=== PATIENT | female | born 1935 | race Caucasian/White ===

== ENCOUNTER 2020-06-11 15:41 | Outpatient (CLI) | payer MEDICARE, OTHER, SELFPAY ==
[2020-06-11 16:26] LABS: Albumin Level 4.2 g/dL (3.5-5.1); Anion Gap 11.8 mmol/L (7-16); Blood Urea Nitrogen 29 mg/dL (7-17); Calcium 8.8 mg/dL (8.4-10.2); Carbon Dioxide 28 mmol/L (22-30); Chloride 102 mmol/L (98-107); Estimated Glomerular Filt Rate 43; Glucose 106 mg/dL (65-105); Phosphorus 3.7 mg/dL (2.5-4.5); Potassium 4.8 mmol/L (3.4-5.0); Sodium 137 mmol/L (137-145)
[2020-06-11 16:32] LABS: Creatinine Urine 30.6 mg/dL; Total Protein Urine Random 13 mg/dL
== END 2020-06-11 15:42 | disposition home or self-care (01) ==
LOC: ANHLAB 15:46
PROVIDERS: PCP Family Medicine; Visit Provider Internal Medicine Nephrology
DX: I12.9 Hypertensive chronic kidney disease with stage 1 through stage 4 chronic kidney disease, or unspecified chronic kidney disease (principal); N18.3 Chronic kidney disease, stage 3 (moderate); E78.2 Mixed hyperlipidemia; R80.8 Other proteinuria
CPT/HCPCS: 36415; 80069; 82570; 84156

== ENCOUNTER → 2020-09-18 12:05 | Outpatient (CLI) | payer MEDICARE, OTHER, SELFPAY ==
--- NOTE | ~2020-09-18 | XR_ITS ---
XR hip LT 2V w AP pelvis DATE: 09/18/2020 12:50 INDICATION: Left hip pain TECHNIQUE: AP pelvis. AP and lateral left hip. COMPARISON: None FINDINGS: Diffuse osteopenia. Dextroscoliosis and multilevel degenerative disc disease of the lumbar spine, particularly prominent at L4-5 and L5-S1. The pubic symphysis and sacroiliac joints are intact. No pelvic fracture or bone destruction is detec julien. There is chondrocalcinosis at the hip joints. There is osteoarthritis at the hip joints, greater/moderately prominent on the left. No fracture or dislocation, avascular necrosis or bone destruction of the left hip. IMPRESSION: Osteopenia Dextroscoliosis and multilevel degenerative disc disease of the lumbar spine Bilateral hip osteoarthritis, greater on the left Reviewed, dictated and finalized at location A. 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
== END ==
PROVIDERS: PCP Family Medicine; Visit Provider Nurse Practitioner Family
DX: M85.852 Other specified disorders of bone density and structure, left thigh (principal); M16.0 Bilateral primary osteoarthritis of hip
CPT/HCPCS: 73502

== ENCOUNTER 2020-10-17 10:19 | Outpatient (CLI) | payer MEDICARE, OTHER, SELFPAY ==
[2020-10-17 10:39] LABS: Hematocrit 37.2 % (37.0-47.0); Hemoglobin 11.8 g/dL (12.0-15.0); Mean Corpuscular HGB Conc 31.7 g/dl (32-36); Mean Corpuscular Hemoglobin 32.2 pg (26-34); Mean Corpuscular Volume 101.6 fl (80-100); Mean Platelet Volume 9.3 fl (7.4-10.4); Platelet Count Result 227 k/mm3 (150-375); Red Blood Count 3.66 M/mm3 (4.2-5.4); Red Cell Distribution Width 12.6 % (11.5-14.5)
[2020-10-17 10:56] LABS: Alanine Aminotransferase 24 U/L (4-35); Albumin Level 4.3 g/dL (3.5-5.1); Alkaline Phosphatase 50 U/L (38-126); Anion Gap 9 mmol/L (8-16); Aspartate Amino Transferase 46 U/L (14-36); Bilirubin,Total 0.5 mg/dL (0.2-1.3); Blood Urea Nitrogen 34 mg/dL (7-17); Calcium 9.6 mg/dL (8.4-10.2); Carbon Dioxide 27 mmol/L (22-30); Chloride 105 mmol/L (98-107); Cholesterol 164 mg/dL (0-200); Estimated Glomerular Filt Rate 43; Glucose 97 mg/dL (65-105); HDL Direct 61 mg/dL; Potassium 4.9 mmol/L (3.4-5.0); Sodium 141 mmol/L (137-145); Triglycerides 124 mg/dL (<150)
[2020-10-17 10:59] LABS: Iron 72 ug/dL (37-170)
[2020-10-17 11:06] LABS: LDL Cholesterol Direct 65 mg/dL
[2020-10-17 11:09] LABS: Percent Iron Saturation 22 % (20-50)
== END 2020-10-17 10:20 | disposition home or self-care (01) ==
PROVIDERS: PCP Family Medicine; Visit Provider Internal Medicine Cardiovascular Disease
DX: R06.00 Dyspnea, unspecified (principal); Z86.2 Personal history of diseases of the blood and blood-forming organs and certain disorders involving the immune mechanism; I42.0 Dilated cardiomyopathy; E78.2 Mixed hyperlipidemia; I65.29 Occlusion and stenosis of unspecified carotid artery
CPT/HCPCS: 36415; 80053; 80061; 83540; 83550; 85027

== ENCOUNTER → 2020-12-31 12:49 | Outpatient (CLI) | payer MEDICARE, OTHER, SELFPAY ==
--- NOTE | ~2020-12-31 | MM_ITS ---
EXAMINATION: MM screening [facility] BI w [facility] HISTORY: Screening mammogram TECHNIQUE: Craniocaudal and mediolateral oblique 3-D tomosynthesis images were obtained and synthetic 2-D images were generated. CAD analysis was submitted and interpreted. COMPARISON: 01/26/2019, 11/19/2017, 11/05/2016 BREAST PARENCHYMAL COMPOSITION: The breasts are heterogeneously dense, which may obscure small masses . FINDINGS: RIGHT BREAST: There is no evidence of suspicious mass, calcification, or architectural distortion to suggest malignancy. There has been no significant interval change. LEFT BREAST: An asymmetry is present in the middle third of the slightly inner breast best appreciate d 5 cm from the nipple on the craniocaudal view. IMPRESSION: 1. Left breast asymmetry on the craniocaudal view. 2. Additional mammographic views and possible breast ultrasound are recommended. BI-RADS Category 0: Incomplete: Needs additional imaging evaluation. Reviewed, dictated and finalized at location A. 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 Left breast asymmetry on the craniocaudal view. 2. Additional mammographic views and possible breast ultrasound are recommended . BI-RADS Category 0: Incomplete: Needs additional imaging evaluation.
== END ==
PROVIDERS: PCP Family Medicine; Visit Provider Obstetrics & Gynecology
DX: Z12.31 Encounter for screening mammogram for malignant neoplasm of breast (principal); R92.8 Other abnormal and inconclusive findings on diagnostic imaging of breast
CPT/HCPCS: 77063; 77067

== ENCOUNTER 2021-01-10 16:19 | Outpatient (CLI) | payer MEDICARE, OTHER, SELFPAY | END 2021-01-10 16:20 | disposition home or self-care (01) | LOC: ANHCOVIDVC 16:19 | PROVIDERS: PCP Family Medicine | DX: Z23 Encounter for immunization (principal) | CPT/HCPCS: 0001A; 91300 ==

== ENCOUNTER → 2021-01-28 09:02 | Outpatient (CLI) | payer MEDICARE, OTHER, SELFPAY ==
--- NOTE | ~2021-01-28 | MM_ITS ---
EXAMINATION: MM diagnostic mammo unilat LT HISTORY: Left breast asymmetry on screening mammogram TECHNIQUE: Additional 3-D tomosynthesis images of the left breast were performed and synthetic 2-D im ages were generated. CAD analysis was submitted and interpreted. COMPARISON: 12/31/2020,01/26/2019, 11/19/2017 FINDINGS: No persistent asymmetry is identified with spot compression of the left breast. There is no evidence of suspicious mass, calcification, or architectural distortion to suggest malignancy. IMPRESSION: 1. No mammographic evidence of malignancy. 2. Recommend annual screening mammography while the patient remains in good health. BI-RADS Category 1: Negative Reviewed, dictated and finalized at location A. IMPRESSION: 1. No mammographic evidence of malignancy. 2. Recommend annual screening mammography while the patient remains in good hea lth. BI-RADS Category 1: Negative
== END ==
PROVIDERS: PCP Family Medicine; Visit Provider Obstetrics & Gynecology
DX: R92.8 Other abnormal and inconclusive findings on diagnostic imaging of breast (principal)
CPT/HCPCS: 77065

== ENCOUNTER 2021-01-31 16:17 | Outpatient (CLI) | payer MEDICARE, OTHER, SELFPAY | END 2021-01-31 16:18 | disposition home or self-care (01) | LOC: ANHCOVIDVC 16:17 | PROVIDERS: PCP Family Medicine | DX: Z23 Encounter for immunization (principal) | CPT/HCPCS: 0002A; 91300 ==

== ENCOUNTER 2021-06-08 13:37 | Emergency (ER) | payer MEDICARE, OTHER, SELFPAY ==
[2021-06-08 13:42] VITALS: BP 144/73; PULSE 80; RESP 12; TEMP 36.9; O2SAT 97
--- NOTE | 2021-06-08 14:06 | ED.WOUNDLAC ---
HPI - Wound/Laceration General Chief Complaint: Wound/Laceration Stated Complaint: SORE ON L ANKLE Source: patient and RN notes reviewed Limitations: no limitations History of Present Illness HPI narrative: The elderly patient, on several routine meds, presents with wound check. Patient states she is currently taking clindamycin for the last day/3 doses for a left Achilles/ankle injury. She sustained a quarter?half dollar size skin avulsion earlier in the week and was seen by her doctor and started the medications, including topical Bactroban and first doxycycline [has been discontinued]. She complains of mild increasing pain; no fever, streaking, significant discharge-but the bandages are soiled. She reports she had an adult son that was wheelchair-bound that had a necessary amputation, and she is concerned she has poor circulation though she is a non-smoker, not nor had any leg procedures except vein stripping. Related Data Home Medications Medication Instructions Recorded Confirmed aspirin 81 mg tablet,delayed 81 mg PO DAILY 09/09/19 06/05/21 release lisinopril 10 mg tablet 10 mg PO DAILY 09/09/19 06/05/21 rosuvastatin 40 mg tablet 40 mg PO DAILY 09/09/19 06/05/21 Allergies Allergy/AdvReac Type Severity Reaction Status Date / Time pneumococcal vaccine Allergy Mild Unknown Verified 06/05/21 08:50 latex Allergy Unknown Rash Verified 06/05/21 08:50 neomycin Allergy Unknown Swelling Verified 06/05/21 08:50 of the Eye sulfamethoxazole Allergy Unknown RASH Verified 06/05/21 08:50 trimethoprim Allergy Unknown RASH Verified 06/05/21 08:50 quartiam 15 Allergy Mild Redness of Uncoded 01/04/21 07:58 Skin Review of Systems Review of Systems: General/Constitutional: No weight loss,fever Eyes: N0: Redness,discharge Ears/Nose/Throat: No: Epistaxis,ear discharge Respiratory: Denies: Hemoptysis Gastrointestinal: No Vomiting, Bleeding-rectal Skin: No Lumps, REPORT eruption Neurologic: No Focal Weakness,Sz Hematologic: Denies: Petechiae/Purpura Psychiatric: No: Suicida ideationl All Other Systems: Reviewed and Negative [facility] Past Medical History Medical History BMI between 19-24,adult Family History Family History Sibling Family history of malignant neoplasm of uterus Cerebrovascular accident Father Family history of coronary artery disease Mother Family history of coronary artery disease Other Family history of congenital heart disease Social History Social History Smoking status: Former smoker Tobacco type: cigarettes Smoking end date: 11/09/85 Alcohol intake: current Alcohol use details: social Substance use: never Additional occupation/education comments: [employer] Gender identity (if verbalized by the patient): Female Comments At time of signature, agree with nursing past medical, surgical, social and family history. There is no relevant family history pertinent to the presenting complaint Exam Narrative: General Appearance: Well appearing, Conjunctiva clear Mouth/Throat: Normal appearing, Normal lips, Supple Respiratory: Airway patent, No respiratory distress Skin: Posterior LLE Quarter sized skin avulsion with surrounding redness warm; otherwise dry, Normal color; no fluctuance, abscess, induration, streaking MS-LLE ankle: Nl strength (mostly intact, limited flexion/extension by pain), Tenderness (proximal Achilles, with mild decreased ROM), only scant swelling (ly), Other (no anterior drawer, no collateral laxity, no Achilles tenderness, no fifth MT tenderness) Neurological: A&O x3, Speech clear, CN II-XII intact Psychiatric: Normal mood, Normal affect Course Vital Signs Vital signs: Vital Signs Temperature 98.5 F 06/08/21 13:42 Pulse Rate 80 06/08/21 13:42 Respiratory Rate 12
== END 2021-06-08 14:17 | disposition home or self-care (01) ==
PROVIDERS: Emergency Provider Emergency Medicine; PCP Family Medicine
DX: M79.662 Pain in left lower leg (principal); Z87.2 Personal history of diseases of the skin and subcutaneous tissue; Z87.891 Personal history of nicotine dependence; Z79.82 Long term (current) use of aspirin
CPT/HCPCS: 87070; 87075; 87205; 99213; G0463

== ENCOUNTER 2021-06-19 11:19 | Outpatient (CLI) | payer MEDICARE, OTHER, SELFPAY ==
--- NOTE | ~2021-06-19 | US_ITS ---
EXAMINATION: US venous doppler [facility] DATE: 06/19/2021 12:11 INDICATION: Lower limb pain. Varicose veins. TECHNIQUE: Grayscale ultrasound images without and with compression and Doppler ultrasound images of the bilateral lower extremity veins were obtained. COMPARISON: Ultrasound 10/16/2017 FINDINGS: The visualized portions of right common femoral vein, profunda (deep) femoral vein, femoral vein, pop liteal vein, peroneal veins, posterior tibial veins, and greater saphenous vein outflow are patent. The visualized portions of left common femoral vein, profunda femoral vein, femoral vein, popliteal v ein, peroneal veins, and posterior tibial veins. There is thrombus in left greater saphenous vein. IMPRESSION: 1. No deep venous thrombosis. 2. Thrombosed left greater saphenous vein from prior ablation. Reviewed, dictated and finalized at location A.
--- NOTE | ~2021-06-19 | US_ITS ---
EXAMINATION: US arterial ankle brachial ind DATE: 06/19/2021 12:11 INDICATION: Peripheral arterial disease. Other specified soft tissue disorders. Left lower limb pain. TECHNIQUE: Segmental pressures and plethysmographic and Doppler waveforms of the brachial and lower e xtremity arteries were obtained. COMPARISON: Arterial Doppler with segmental pressures 01/11/2018 FINDINGS: Right and left brachial artery pressures of 154 mm Hg and 157 mm Hg, respectively, are concordant (no rmal difference <= 30 mmHg). The right ankle-brachial index (BEN) is 0.98 (normal >= 0.9-1.0). The right great toe-brachial index (TBI) is 0.33 (normal >= 0.65). Arterial Doppler waveforms are biphasic at the ankle. The left BEN is 0.99. The left TBI is 0.61. Arterial Doppler waveforms are biphasic at the ankle. IMPRESSION: 1. Decreased TBIs and borderline decreased ABIs with interval improvement, consistent with arterial o cclusive disease. Reviewed, dictated and finalized at location A. IMPRESSION: 1. Decreased TBIs and borderline decreased ABIs with interval improvement, cons istent with arterial occlusive disease.
== END 2021-06-19 11:20 | disposition home or self-care (01) ==
LOC: ANHIMG 11:20
PROVIDERS: PCP Family Medicine; Visit Provider Nurse Practitioner Family
DX: M79.89 Other specified soft tissue disorders (principal); Z98.890 Other specified postprocedural states
CPT/HCPCS: 93922; 93970

== ENCOUNTER 2021-07-08 10:16 | Inpatient (IN) | payer MEDICARE, OTHER, SELFPAY ==
[2021-07-08] VITALS (42 sets, daily range): BP systolic 99–125; BP diastolic 50–86; PULSE 72–103; RESP 14–24; TEMP 36.2–36.5; O2SAT 92–100; BMI 19.1
--- NOTE | ~2021-07-08 | CT_ITS ---
EXAMINATION: CT abdomen pelvis wo con DATE: 07/08/2021 12:09 INDICATION: Lower abdominal pain TECHNIQUE: Computed tomography (CT) of the abdomen and pelvis was performed without intravenous contr ast. The dose-length product (DLP) was 178.93 mGy-cm. Automated exposure control and iterative recons truction technique were employed. COMPARISON: None FINDINGS: There is emphysema of the visualized lung bases. Mild atelectasis is noted. The heart size is enlarged. The liver, spleen, pancreas, gallbladder, and adrenal glands are normal. The kidneys are unremarkable. There is calcified atherosclerosis of the aorta and many of the other arteries. No pat hologically enlarged abdominal or pelvic lymph nodes are identified. There is no free intraperitoneal gas or evidence of bowel obstruction. There is wall thickening of the descending and proximal sigmoi d colon with surrounding fat stranding. There is severe lumbar spondylosis. There is moderate osteoar thritis of the left hip. IMPRESSION: 1. Wall thickening of the descending and proximal sigmoid colon, consistent with colitis. Reviewed, dictated and finalized at location A. IMPRESSION: 1. Wall thickening of the descending and proximal sigmoid colon, consistent wit h colitis.
[2021-07-08 11:12] LABS: Basophils Percent Auto 0.3 % (0.2-1.2); Eosinophils Absolute Auto 0.1 K/mm3 (0-0.3); Eosinophils Percent Auto 0.5 % (0-4.4); Hematocrit 35.1 % (37.0-47.0); Hemoglobin 11.2 g/dL (12.0-15.0); Immature Granulocyte Absolute 0.03 K/mm3 (0.00-0.031); Immature Granulocyte Percent A 0.3 % (0-0.5); Lymphocytes Absolute Auto 1.03 K/mm3 (0.9-3.2); Lymphocytes Percent Auto 9.4 % (18.3-44.2); Mean Corpuscular HGB Conc 31.9 g/dl (32-36); Mean Corpuscular Hemoglobin 31.7 pg (26-34); Mean Corpuscular Volume 99.4 fl (80-100); Mean Platelet Volume 9.1 fl (7.4-10.4); Monocytes Absolute Auto 0.6 K/mm3 (0.1-0.6); Monocytes Percent Auto 5.7 % (2.6-8.5); Neutrophils Absolute Auto 9.1 K/mm3 (1.3-6.7); Neutrophils Percent Auto 83.8 % (45.5-73.1); Platelet Count Result 199 k/mm3 (150-375); Red Blood Count 3.53 M/mm3 (4.2-5.4); Red Cell Distribution Width 12.9 % (11.5-14.5); White Blood Count 10.9 K/mm3 (4.5-10.0)
[2021-07-08 11:28] LABS: Alanine Aminotransferase 23 U/L (4-35); Albumin Level 4.2 g/dL (3.5-5.1); Alkaline Phosphatase 49 U/L (38-126); Anion Gap 14 mmol/L (8-16); Aspartate Amino Transferase 42 U/L (14-36); Bilirubin,Total 0.6 mg/dL (0.2-1.3); Blood Urea Nitrogen 47 mg/dL (7-17); Calcium 9.1 mg/dL (8.4-10.2); Carbon Dioxide 19 mmol/L (22-30); Chloride 97 mmol/L (98-107); Estimated CRCL calculation 16 ml/min; Estimated Glomerular Filt Rate 25; Glucose 185 mg/dL (65-110); Potassium 4.5 mmol/L (3.4-5.0); Sodium 130 mmol/L (137-145)
[2021-07-08 11:30] LABS: Prothrombin Time 13.1 Seconds (11.1-14.7)
[2021-07-08 11:31] LABS: Partial Thromboplastin Time 29.5 SECONDS (22.3-36.8)
--- NOTE | 2021-07-08 11:53 | ED.GIBLEED ---
HPI - GI Bleed General Chief complaint: GI Bleed Stated complaint: GI BLEED Time Seen by Provider: 07/08/21 11:53 Source: patient Limitations: no limitations History of Present Illness HPI Narrative: Patient is 85 years old white female presented to the ED with abdominal pain and rectal bleeding started yesterday. Patient spent few hours yesterday in very hot environment, outdoors, subsequently started having nausea and frequent vomiting. Today patient had rectal bleed. Patient on baby aspirin once a day, patient denied any history of GI bleed in the past. Patient does not smoke or drink or uses drugs. Patient is fully vaccinated for COVID-19 Related Data Home Medications Medication Instructions Recorded Confirmed aspirin 81 mg tablet,delayed 81 mg PO DAILY 09/09/19 06/20/21 release lisinopril 10 mg tablet 10 mg PO DAILY 09/09/19 06/20/21 rosuvastatin 40 mg tablet 40 mg PO DAILY 09/09/19 06/20/21 Allergies Allergy/AdvReac Type Severity Reaction Status Date / Time pneumococcal vaccine Allergy Mild Unknown Verified 07/08/21 11:30 latex Allergy Unknown Rash Verified 07/08/21 11:30 neomycin Allergy Unknown Swelling Verified 07/08/21 11:30 of the Eye sulfamethoxazole Allergy Unknown RASH Verified 07/08/21 11:30 trimethoprim Allergy Unknown RASH Verified 07/08/21 11:30 quartiam 15 Allergy Mild Redness of Uncoded 07/08/21 11:30 Skin Review of Systems Review of Systems: CONSTITUTIONAL: Denies fever, chills, or sweats. EYES: Denies visual changes, redness, or discharge. ENT: Denies rhinorrhea, congestion, sore throat, or otalgia. CARDIOVASCULAR: Denies chest pain, palpitations, or edema. RESPIRATORY: Denies cough or dyspnea. GASTROINTESTINAL: Denies abdominal pain, nausea, vomiting, or diarrhea. GENITOURINARY: Denies dysuria or hematuria. SKIN: Denies rash or itching. MUSCULOSKELETAL: Denies back pain, joint pain, or myalgia. NEUROLOGIC: Denies headache, numbness, or weakness. PSYCHIATRIC: Denies anxiety or depression. [facility] Past Medical History Medical History BMI between 19-24,adult Leg ulcer, left Peripheral arterial disease Family History Family History Sibling Family history of malignant neoplasm of uterus Cerebrovascular accident Father Family history of coronary artery disease Mother Family history of coronary artery disease Other Family history of congenital heart disease Social History Social History Tobacco type: cigarettes Smoking end date: 11/09/85 Alcohol intake: current Alcohol use details: social Substance use: never Additional occupation/education comments: [employer] Gender identity (if verbalized by the patient): Female Exam Narrative: General appearance: Well-developed, well-nourished Skin: Normal color Head: Normocephalic, nontraumatic Eyes: Clear conjunctiva ENT: Oropharynx normal, ears normal, nose normal Neck: Supple, nontender Chest and respiratory: Airway patent, no respiratory distress, no accessory muscle use Heart: Regular rate/rhythm Abdomen: Soft, mild diffuse tenderness, no organomegaly, quiet bowel sounds, rectal exam showed trace of fresh red bright blood in the rectal pouch, no stool in the rectal pouch, guaiac positive Vascular: Normal peripheral pulses, normal capillary refill. 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
[2021-07-08] MEDS: SODIUM CHLORIDE 0.9% IV 1,000 ML 999 ML IV CONT (12:16)
[2021-07-08 12:48] LABS: Lactic Acid Reflex 2.6 mmol/L (0.7-2.1)
[2021-07-08] MEDS: levoFLOXacin 500 MG/D5W 100 ML 500 MG/100 ML BAG 100 MG IVPB (13:37)
[2021-07-08] MEDS: metroNIDAZOLE 500 MG/ISO 100ML 500 MG/100 ML BAG 100 MG IVPB ×2 (14:44→20:08)
[2021-07-08 15:21] LABS: Reflex Lactic Acid Yes or No Add Lactic
--- NOTE | 2021-07-08 15:53 | PM.IMHP ---
H&P: HPI History of Present Illness Date/Time: 07/08/21 15:53 this is a 85-year-old female patient who resides home alone. The patient had been out in the heat a couple hours yesterday and felt like she got overheated. She started vomiting and having diarrhea yesterday. The patient sat in the car and air conditioning and felt somewhat better. However during the night she experienced bloody stools all throughout the night. The patient stated that her stools look like read current jelly. She said she stopped having stool last night around 11:00 a.m. however when the patient would urinate she would have a bloody discharge from her rectum. Patient stated that it has been many years since she has had a colonoscopy and has not had anything abnormal in the past. The patient stated that she has never had a GI bleed in the past either. Patient has been fully vaccinated for COVID-19. Patient's H&H 11.2 and 35.1. GI has been consulted. Patient has no further complaints. No shortness of breath or dizziness. Her sodium was noted to be 130. Her creatinine was listed as 1.9 with a baseline of 1.2. Lactic was noted to be 2.6. She had CT of abdomen which is read as wall thickening of the descending and proximal sigmoid colon, consistent with colitis. Patient was started on Flagyl and Levaquin. The patient is being admitted to inpatient services on the date of service of 07/08/2021. Chief Complaint: GI bleed Review of Systems Review of Systems: All systems reviewed & are unremarkable except as noted in HPI and below Constitutional: Constitutional: Reports as per HPI and Reports no additional constitutional complaints Eyes: Eyes: Reports as per HPI and Reports no additional eye complaints ENT: Reports system reviewed and no additional complaints, except as documented and Reports Normal hearing present Cardiovascular: Cardiovascular: Reports no additional cardiovascular complaints Respiratory: Respiratory: Reports no additional respiratory complaints and Reports no additional respiratory complaints Gastrointestinal: Gastrointestinal: Reports as per HPI and Reports no additional gastrointestinal complaints Musculoskeletal: Musculoskeletal: Reports no additional musculoskeletal complaints Integumentary/Breasts: Skin/Breast: Reports system reviewed and no additional complaints, except as docu and Reports as per HPI Neurologic: Reports system reviewed and no additional complaints, except as documented, Reports as per HPI and Reports Normal hearing present Psychiatric: Psychiatric: Reports no additional psychiatric complaints and Reports as per HPI Endocrine: Endocrine: Reports no additional endocrine complaints Hematologic/Lymphatic: Hematologic/Lymphatic: Reports no additional hematologic/lymphatic complaints Allergic/Immunologic: Allergic/Immunologic: Reports no additional allergic/immunologic complaints [facility] Past Medical History Medical History (Updated 07/08/21 @ 16:08 by Leslee Schafer NP) BMI between 19-24,adult CHF (congestive heart failure), NYHA class I EF of 45% with grade 1 diastolic dysfunction. Echo noted to be on 12/28/2020 Hyperlipidemia Hypertension Leg ulcer, left Peripheral arterial disease Surgical History Surgical History (Updated 07/08/21 @ 16:01 by Leslee Schafer NP) H/O oophorectomy H/O vein stripping History of appendectomy S/P coil embolization of cerebral aneurysm X2 Family History Family History Sibling Family history of malignant neoplasm of uterus Cerebrovascular accident Father Family history of coronary artery disease Mother Family history of coronary artery disease Other Family history of congenital heart disease Social History Social History (Updated 07/08/21 @ 16:03 by Leslee Schafer NP) Social History: The patient is and lives home alone. The patient initially had 3 biological children. Two of her children pas
--- NOTE | 2021-07-08 16:23 | WPDGICN ---
Assessment and Plan Assessment and plan (1) GI bleed: Code(s): K92.2 - Gastrointestinal hemorrhage, unspecified Status: Acute Assessment and Plan: Patient with blood in her stools appear to be lower GI in source. CT scan suggest colitis as the possible etiology. Plan is for supportive care. Current hemoglobin 11.2 is essentially stable and will be monitored. Transfuse only if this continues to decline significantly. At some point a colonoscopy will be performed but initially will pursue stool cultures broad-spectrum antibiotics and IV fluid rehydration. (2) Colitis: Code(s): K52.9 - Noninfective gastroenteritis and colitis, unspecified Status: Acute Assessment and Plan: CT scan in the 8 ER suggest descending and sigmoid colitis. This most consistent with ischemic colitis given her age in the circumstances with the he yesterday. Alternatively this could be infectious etiology. Plan is to obtain stool cultures. Start patient on broad-spectrum antibiotic coverage supportive care for now. IV fluids to maintain her blood pressure. A colonoscopy will be performed before discharge. (3) Heat exhaustion: Qualifiers: Encounter type: initial encounter Qualified Code(s): T67.5XXA - Heat exhaustion, unspecified, initial encounter Code(s): T67.5XXA - Heat exhaustion, unspecified, initial encounter Status: Acute (4) JANINE (acute kidney injury): Code(s): N17.9 - Acute kidney failure, unspecified Status: Acute GI Consult Note Consult date/time: 07/08/21 16:23 HPI: Mae Murrieta is a 85 year old female I am asked to see because of bloody stools and abdominal pain. Patient previously treated for hypertension reports that yesterday went to an outdoor musical event. During the heat of the day she began to have nausea vomiting. She experience rather significant lower abdominal tenderness. Later in the day began to have bloody stools. The blood persisted in stool . Patient presented to the ER today because of continuing blood per rectum. She continues to have rather low abdominal discomfort. In the ER she was noted to have a creatinine 1.9 elevated lactic acid level. Hemoglobin at 11.2 is essentially stable at CT scan suggested colitis in the left descending colon. Patient has never had bleeding like this before. Her family history is noncontributory. Review of Systems Review of Systems: All systems reviewed & are unremarkable except as noted in HPI and below PMFSH Past Medical History Medical History (Updated 07/08/21 @ 16:08 by Leslee Schafer NP) BMI between 19-24,adult CHF (congestive heart failure), NYHA class I EF of 45% with grade 1 diastolic dysfunction. Echo noted to be on 12/28/2020 Hyperlipidemia Hypertension Leg ulcer, left Peripheral arterial disease Surgical History Surgical History (Updated 07/08/21 @ 16:01 by Leslee Schafer NP) H/O oophorectomy H/O vein stripping History of appendectomy S/P coil embolization of cerebral aneurysm X2 Family History Family History Sibling Family history of malignant neoplasm of uterus Cerebrovascular accident Father Family history of coronary artery disease Mother Family history of coronary artery disease Other Family history of congenital heart disease Social History Social History (Updated 07/08/21 @ 16:03 by Leslee Schafer NP) Social History: The patient is and lives home alone. The patient initially had 3 biological children. Two of her children in a motor vehicle accident. The patient previously smoked many years ago. The patient desires to be a full code. Her surviving daughter is the durable power city attorney for healthcare. the patient is retired from [employer]. Patient does not use any marijuana or alcohol. Tobacco type: cigarettes Smoking end date: 11/09/85 Alcohol intake: current
--- NOTE | 2021-07-08 16:47 | PC.NURSE ---
This patient, Mae Murrieta, was admitted to Medical Room 252-01. Patient/family oriented to hospital policies and general routines including ID bracelet, bed and alarms, visiting hours, pain management, procedures, bathroom and other care routines, personal items, smoking policy, room service/diet, and visiting hours. Information on how to activate the Rapid Response Team has been discussed. Patient/Family are encouraged to report perceived risks to care and to ask questions if they do not understand what they are told or what they should do.
[2021-07-08 17:04] LABS: Hematocrit 33.7 % (37.0-47.0); Hemoglobin 10.6 g/dL (12.0-15.0)
[2021-07-08 17:16] LABS: Lactic Acid 0.8 mmol/L (0.7-2.1)
[2021-07-08] MEDS: SODIUM CHLORIDE 0.9% IV 1,000 ML 125 ML IV CONT (17:37)
[2021-07-08] MEDS: ROSUVASTATIN 10 MG TABLET 40 MG PO (22:12)
[2021-07-08] MEDS: amLODIPine BESYLATE 2.5 MG TABLET PO (22:12)
[2021-07-08 22:13] LABS: Hematocrit 29.5 % (37.0-47.0); Hemoglobin 9.3 g/dL (12.0-15.0)
[2021-07-09] MEDS: metroNIDAZOLE 500 MG/ISO 100ML 500 MG/100 ML BAG 100 MG IVPB ×4 (01:36→20:34)
[2021-07-09] MEDS: SODIUM CHLORIDE 0.9% IV 1,000 ML 125 ML IV CONT (03:24)
[2021-07-09 04:36] VITALS: BP 126/56; PULSE 69; RESP 17; TEMP 36.5; O2SAT 96
[2021-07-09 05:49] LABS: Hematocrit 31.3 % (37.0-47.0)
[2021-07-09 06:21] LABS: Alanine Aminotransferase 15 U/L (4-35); Albumin Level 3.4 g/dL (3.5-5.1); Alkaline Phosphatase 42 U/L (38-126); Anion Gap 6 mmol/L (8-16); Aspartate Amino Transferase 31 U/L (14-36); Bilirubin,Total 0.6 mg/dL (0.2-1.3); Blood Urea Nitrogen 26 mg/dL (7-17); Calcium 8.1 mg/dL (8.4-10.2); Carbon Dioxide 21 mmol/L (22-30); Chloride 112 mmol/L (98-107); Estimated CRCL calculation 24 ml/min; Estimated Glomerular Filt Rate 43; Glucose 95 mg/dL (65-110); Lipase 88 U/L (23-300); Magnesium 1.8 mg/dL (1.6-2.3); Potassium 4.2 mmol/L (3.4-5.0); Sodium 139 mmol/L (137-145)
[2021-07-09] MEDS: METOPROLOL SUCCINATE EXT REL 50 MG TABCR PO (08:01)
[2021-07-09] MEDS: IPRATROPIUM NASAL SPRAY 0.06% 15 ML BOTTLE 2 SPRAY NASAL (08:01)
[2021-07-09 10:29] LABS: Hematocrit 32.6 % (37.0-47.0); Hemoglobin 10.3 g/dL (12.0-15.0)
--- NOTE | 2021-07-09 10:30 | PM.IMPN ---
Progress Note: A&P Assessment and Plan (1) GI bleed: Code(s): K92.2 - Gastrointestinal hemorrhage, unspecified Status: Acute Assessment and Plan: Patient is an 85-year-old woman with a history of hypertension, dyslipidemia, who presented to emergency room with abdominal pain, diarrhea, and rectal bleeding for last 24 hours. Patient states this weekend she was at the [facility] where she was dancing and eating some food she has not use to. She became sick and vomited in the restroom. Some body walked her to work are and on the way home she bought some Gatorade and ended up having abdominal cramping multiple bouts of diarrhea. Then she started noticing bright red blood in the stool for 24 hours inside to come to the emergency room for further evaluation. H&H on arrival was 11.2,35%, repeat this morning was 10, 31%. She denies any more bleeding currently at this time. GI specialist Dr. Lopez evaluated the patient and recommends continue with conservative management, monitoring blood counts and treating colitis. he is ordering stool cultures to be performed. he does recommend Colonoscopy at some point. Appreciate GIs input. Continue monitoring blood counts, transfuse as needed for hemoglobin less than 7. (2) Colitis: Code(s): K52.9 - Noninfective gastroenteritis and colitis, unspecified Status: Acute Assessment and Plan: CT emergency room suggested descending and sigmoid colitis which could be the cause of her GI bleeding, abdominal symptoms. She was started on IV antibiotics with Levaquin and metronidazole with improvement of her symptoms today. GI to collect stool cultures continue monitoring improvement of symptoms with IV antibiotics continue monitoring. (3) JANINE (acute kidney injury): Code(s): N17.9 - Acute kidney failure, unspecified Status: Acute Assessment and Plan: Patient had heat exhaustion yesterday. Creatinine on arrival was 1.9, with IV fluid overnight her creatinine improved to 1.2 which appears to be her baseline. Will stop IV fluids if she tolerates her lunch today. She appears well hydrated at this time. Continue monitoring renal function. Will restart SHANITA-inhibitor if blood pressure will tolerate. (4) Hypertension: Code(s): I10 - Essential (primary) hypertension Status: Chronic Assessment and Plan: Blood pressure this morning was 126/56. Lisinopril was on hold due to JANINE from dehydration. Creatinine now back to baseline. Will restart if blood pressure can tolerate now that she is back to her baseline renal function. (5) Hyperlipidemia: Code(s): E78.5 - Hyperlipidemia, unspecified Status: Chronic Assessment and Plan: Continue with home medications. (6) Heat exhaustion: Qualifiers: Encounter type: initial encounter Qualified Code(s): T67.5XXA - Heat exhaustion, unspecified, initial encounter Code(s): T67.5XXA - Heat exhaustion, unspecified, initial encounter Status: Acute Assessment and Plan: Patient will be given IV fluids With improvement. Time Spent With Patient Time with patient: 25 - 35 minutes Subjective Date/time seen: 07/09/21 10:30 Interval history: date of service 07/09/2021: the patient reports feeling better today. He denies any more episodes of diarrhea or bloody stools today. She is having some intermittent lower abdominal cramping and discomfort, but is much improved from arrival. She denies any Chest pain, shortness of breath, cough,fevers, chills, nausea, vomiting, leg swelling, calf pain, lightheadedness, dizziness or any other symptoms at this time. Review of Systems Review of System
[2021-07-09] MEDS: MENTHOL 10% / METHYL SALICYLATE 15% 57 GM TUBE 1 APPLIC TOPICAL (12:13)
[2021-07-09 14:00] VITALS: BP 126/52; PULSE 63; RESP 18; TEMP 36.3; O2SAT 100
--- NOTE | 2021-07-09 14:07 | WPDGIPROGNO ---
Progress Note: A&P Assessment and Plan (1) GI bleed: Code(s): K92.2 - Gastrointestinal hemorrhage, unspecified Status: Acute Assessment and Plan: Patient admitted with GI bleeding. Suspect she has ischemic colitis given CT scan findings. Plan is to continue empiric antibiotics. Should she have diarrhea then stool cultures may be beneficial. Colonoscopy will be planned tomorrow after preparation today. (2) Colitis: Code(s): K52.9 - Noninfective gastroenteritis and colitis, unspecified Status: Acute Assessment and Plan: Colitis evident in the sigmoid colon suggestive of ischemic colitis. Infectious colitis cannot definitively be excluded. Agree with empiric antibiotics for now. (3) Heat exhaustion: Qualifiers: Encounter type: initial encounter Qualified Code(s): T67.5XXA - Heat exhaustion, unspecified, initial encounter Code(s): T67.5XXA - Heat exhaustion, unspecified, initial encounter Status: Acute Subjective Date/time seen: 07/09/21 14:07 Patient still has mild left lower quadrant pain. Bleeding has subsided to some degree. Exam Narrative: Physical exam patient is alert comfortable at rest. HEENT exam reveals no icterus. Blood pressure under better control. Lungs are clear. Heart without murmur. Abdomen soft minimal tenderness. Objective Data Vital Signs Vital Signs: Vital Signs - 24 hr 07/08/21 14:15 07/08/21 14:16 07/08/21 14:30 Temperature Pulse Rate 83 85 83 Respiratory Rate 16 21 H 18 Blood Pressure 120/55 L Pulse Oximetry 97 93 93 07/08/21 14:31 07/08/21 14:45 07/08/21 14:46 Temperature Pulse Rate 84 87 87 Respiratory Rate 18 15 20 Blood Pressure 118/53 L 115/57 L 115/57 L Pulse Oximetry 93 96 96 07/08/21 15:00 07/08/21 15:01 07/08/21 15:15 Temperature Pulse Rate 91 92 91 Respiratory Rate 22 H 20 20 Blood Pressure 109/63 Pulse Oximetry 95 95 94 07/08/21 15:16 07/08/21 15:30 07/08/21 15:31 Temperature Pulse Rate 87 78 79 Respiratory Rate 18 18 16 Blood Pressure 105/68 114/56 L Pulse Oximetry 94 95 95 07/08/21 16:35 07/08/21 17:01 07/08/21 20:00 Temperature 97.6 F 97.6 F Pulse Rate 72 72 72 Respiratory Rate 16 16 Blood Pressure 118/50 L 118/50 L Pulse Oximetry 100 100 100 07/08/21 22:00 07/09/21 04:36 Temperature 97.7 F 97.7 F Pulse Rate 76 69 Respiratory Rate 14 17 Blood Pressure 111/52 L 126/56 L Pulse Oximetry 96 96 Intake/Output Intake/Output: Intake & Output 07/06/21 07/07/21 07/08/21 07/09/21 23:59 23:59 23:59 23:59 Intake Total 1300 2560 Output Total 250 Balance 1050 2560 Meds/Results Medications: Active Medications Generic Name Dose Route Start Last Admin Trade Name Freq PRN Reason Stop Dose Admin Amlodipine Besylate 2.5 mg 07/08/21 20:40 07/09/21 03:24 Amlodipine Besylate 2.5 Mg Tablet PO Not Given HS JORGE L Sodium Chloride 1,000 mls @ 60 mls/hr 07/08/21 13:35 07/09/21 07:49 Normal Saline Iv IV CONT 60 mls/hr .[id number] JORGE L Infusion Levofloxacin/Dextrose 500 mg in 100 mls @ 100 mls/hr 07/10/21 13:00 Levaquin 500 Mg/D5w 100 Ml IVPB Q48H JORGE L Metronidazole 500 mg in 100 mls @ 100 mls/hr 07/08/21 20:00 07/09/21 09:00 Flagyl 500 Mg/Iso Soln 100 Ml IVPB Infused Q6H JORGE L Infusion Ipratropium Earth 2 spray 07/09/21 09:00 07/09/21 12:17 Ipratropium Nasal [place] 0.06% 15 Ml Bottle NASAL Not Given TID JORGE L Menthol/Methyl Salicylate 1 applic 07/09/21 10:07 07/09/21 12:13 Menthol 10% / Methyl Salicylate 15% 57 Gm Tube TOPICAL 1 applic BID PRN Administration Muscle/Joint Pain Metoprolol Succinate 50 mg 07/09/21 09:00 07/09/21 08:01 Metoprolol Succinate Ext Rel 50 Mg Tabcr PO 50 mg DAILY JORGE L Administration Ondansetron HCl 4 mg 07/08/21 13:28 Ondansetron Inj 4 Mg/2 Ml Vial IV PUSH Q4H PRN Nausea Polyethylene Glycol/Electrolytes 4,000 ml 07/09/21 14:05 Peg
[2021-07-09] MEDS: PEG (High)/E-LYTE SOLN 4,000 ML BTL 4000 ML PO (16:18)
[2021-07-09] MEDS: SODIUM CHLORIDE 0.9% IV 1,000 ML 60 ML IV CONT (16:22)
[2021-07-09] MEDS: ONDANSETRON INJ 4 MG/2 ML VIAL IV PUSH (16:22)
[2021-07-09 17:22] LABS: Hematocrit 32.3 % (37.0-47.0); Hemoglobin 10.1 g/dL (12.0-15.0)
[2021-07-09 19:39] VITALS: BP 150/81; PULSE 78; RESP 16; TEMP 36.2; O2SAT 100
[2021-07-09 20:19] LABS: Immunochemical Fecal Occult Bl Positive (N)
[2021-07-09 20:20] LABS: IFOB Positive Control Positive
[2021-07-09] MEDS: amLODIPine BESYLATE 2.5 MG TABLET PO (20:35)
[2021-07-09] MEDS: ROSUVASTATIN 10 MG TABLET 40 MG PO (20:35)
[2021-07-10] VITALS (8 sets, daily range): BP systolic 118–175; BP diastolic 48–62; PULSE 56–78; RESP 17–20; TEMP 36.2–36.3; O2SAT 93–99
[2021-07-10 00:46] LABS: Hematocrit 30.8 % (37.0-47.0); Hemoglobin 9.6 g/dL (12.0-15.0)
[2021-07-10] MEDS: metroNIDAZOLE 500 MG/ISO 100ML 500 MG/100 ML BAG 100 MG IVPB ×3 (02:10→15:07)
[2021-07-10] MEDS: MORPHINE SULFATE (*CRX) 2 MG/ML INJ IV PUSH (05:41)
[2021-07-10 07:36] LABS: Anion Gap 9 mmol/L (8-16); Blood Urea Nitrogen 15 mg/dL (7-17); Calcium 8.4 mg/dL (8.4-10.2); Carbon Dioxide 21 mmol/L (22-30); Chloride 110 mmol/L (98-107); Estimated CRCL calculation 28 ml/min; Estimated Glomerular Filt Rate 53; Glucose 91 mg/dL (65-110); Magnesium 1.7 mg/dL (1.6-2.3); Sodium 140 mmol/L (137-145)
[2021-07-10] MEDS: MENTHOL 10% / METHYL SALICYLATE 15% 57 GM TUBE 1 APPLIC TOPICAL (08:54)
[2021-07-10] MEDS: METOPROLOL SUCCINATE EXT REL 50 MG TABCR PO (08:54)
[2021-07-10 09:06] LABS: Hematocrit 31.2 % (37.0-47.0); Hemoglobin 9.7 g/dL (12.0-15.0)
[2021-07-10] MEDS: LACTATED RINGERS 1,000 ML 150 ML IV CONT (11:17)
--- NOTE | 2021-07-10 11:37 | WPDANESEPPF ---
Anes - Initial Pre Proc Eval Procedure: Operation Date: 07/10/21 12:15 Proposed Procedures p Colonoscopy - Amilcar Lopez MD Date/Time: 07/10/21 11:37 Surgeon: Elyse Marino PA-C Pre Op Diagnosis: Colitis/ GI bleed/heat exhaustion/dehydration Patient Data Age: 85 Gender: F Height: 1.6 m Weight: 49 kg Last Vital Signs Temp 97.2 F L 07/10/21 11:19 Pulse 72 07/10/21 11:19 Resp 20 07/10/21 11:19 BP 175/62 H 07/10/21 11:19 Pulse Ox 98 07/10/21 11:19 Allergies Allergy/AdvReac Type Severity Reaction Status Date / Time pneumococcal vaccine Allergy Mild Unknown Verified 07/10/21 11:17 latex Allergy Unknown Rash Verified 07/10/21 11:17 neomycin Allergy Unknown Swelling Verified 07/10/21 11:17 of the Eye sulfamethoxazole Allergy Unknown RASH Verified 07/10/21 11:17 trimethoprim Allergy Unknown RASH Verified 07/10/21 11:17 quartiam 15 Allergy Mild Redness of Uncoded 07/10/21 11:17 Skin Home Medications Medication Instructions Recorded Confirmed Type aspirin 81 mg tablet,delayed 81 mg PO DAILY 09/09/19 07/08/21 History release lisinopril 10 mg tablet 10 mg PO DAILY 09/09/19 07/08/21 History rosuvastatin 40 mg tablet 40 mg PO HS 09/09/19 07/08/21 History metoprolol succinate 50 mg 50 mg PO DAILY #90 tablet 09/20/20 07/08/21 Rx tablet,extended release 24 hr ipratropium bromide 42 mcg (0.06 See Rx Instructions .ROUTE 01/25/21 07/08/21 Rx %) nasal spray .COMPLEX #15 spray amlodipine 2.5 mg PO HS 07/08/21 07/08/21 History Laboratory Tests 07/09/21 07/09/21 07/10/21 17:14 18:31 00:36 Hgb 10.1 g/dL L g/dL 9.6 g/dL L g/dL (12.0-15.0) (12.0-15.0) Hct 32.3 % L % 30.8 % L % (37.0-47.0) (37.0-47.0) Sodium Potassium Chloride Carbon Dioxide Anion Gap BUN Creatinine Estim Creat Clear Calc Estimated GFR Glucose Calcium Magnesium Stl Occult Blood (IFOB) Positive H (N) 07/10/21 07/10/21 07:02 07:02 Hgb 9.7 g/dL L g/dL (12.0-15.0) Hct 31.2 % L % (37.0-47.0) Sodium 140 mmol/L mmol/L (137-145) Potassium 4.0 mmol/L mmol/L (3.4-5.0) Chloride 110 mmol/L H mmol/L (98-107) Carbon Dioxide 21 mmol/L L mmol/L (22-30) Anion Gap 9 mmol/L mmol/L (8-16) BUN 15 mg/dL D mg/dL (7-17) Creatinine 1.00 mg/dL mg/dL (0.7-1.0) Estim Creat Clear Calc 28 ml/min ml/min Estimated GFR 53 L (59 - ) Glucose 91 mg/dL mg/dL (65-110) Calcium 8.4 mg/dL mg/dL (8.4-10.2) Magnesium 1.7 mg/dL mg/dL (1.6-2.3) Stl Occult Blood (IFOB) Patient hx anesthesia problems: none Family hx anesthesia problems: none [facility] Past Medical History Medical History (Updated 07/08/21 @ 16:08 by Leslee Schafer NP) BMI between 19-24,adult CHF (congestive heart failure), NYHA class I EF of 45% with grade 1 diastolic dysfunction. Echo noted to be on 12/28/2020 Hyperlipidemia Hypertension Leg ulcer, left Peripheral arterial disease Surgical History Surgical History (Updated 07/08/21 @ 16:01 by Leslee Schafer NP) H/O oophorectomy H/O vein stripping History of appendectomy S/P coil embolization of cerebral aneurysm X2 Family History Family History (Updated 07/08/21 @ 16:50 by Faby Bhakta RN) Sibling Family history of malignant neoplasm of uterus Cerebrovascular accident Father Family history of coronary artery disease Acute myocardial infarction Congestive heart failure Mother Family history of coronary artery disease Acute myocardial infarction Congestive heart failure Sibling Acute myocardial infarction Asthma Grandparent Colon cancer Other Family history of congenital heart disease Social History Social History (Updated 07/08/21 @ 16:03 by Leslee Schafer
[2021-07-10] MEDS: levoFLOXacin 500 MG/D5W 100 ML 500 MG/100 ML BAG 100 MG IVPB (13:30)
--- NOTE | 2021-07-10 16:25 | PM.DS ---
DS: Admitting Diagnosis Admitting Diagnosis Bright red blood per rectum DS: Discharge Diagnosis Discharge Diagnosis (1) GI bleed: Code(s): K92.2 - Gastrointestinal hemorrhage, unspecified Status: Acute Assessment and Plan: Patient is an 85-year-old woman with a history of hypertension, dyslipidemia, who presented to emergency room with abdominal pain, diarrhea, and rectal bleeding for last 24 hours. Patient states this weekend she was at the [facility] where she was dancing and eating some food she has not use to. She became sick and vomited in the restroom. Some body walked her to work are and on the way home she bought some Gatorade and ended up having abdominal cramping multiple bouts of diarrhea. Then she started noticing bright red blood in the stool for 24 hours inside to come to the emergency room for further evaluation. Initial vitals showed slightly low blood pressure 101/52, increased heart rate 103, afebrile, normal oxygenation on room air. Initial white blood cell count showed slight leukocytosis at 10,000, neutrophil elevation at 83,000,normocytic anemia 11/35%, normal coag panel, slight hyponatremia 130, Cr 1.90/47, elevated lactic at 2.6 could be from dehydration. CT abd/pelvis showed Wall thickening of the descending and proximal sigmoid colon, consistent with colitis. H&H on arrival was 11.2,35%, repeat this morning was 10, 31%. She denies any more bleeding currently at this time. she is feeling well without any complaints. GI specialist Dr. Lopez evaluated the patient and preformed a colonoscopy on 07/10/21 showing diverticulosis without perforation or abscess without bleeding. Internal hemorrhoids. Sigmoiditis. Sigmoid colitis most likely from ischemia. Infectious etiology cannot be excluded. Plan to review histology and advance diet. Complete 7 day course of antibiotics. Will continue on PO Levoquin and Flagyl for 7 more days. Probiotic as well. Will have her continue with Aspirin 81 mg for possible ischemic colitis. Told her to stay well hydrated and to prevent dehydration. Follow-up with primary care provider in 1 week. Follow-up with GI as needed. Return to ER warnings given. She understands and agrees with the plan all questions answered. (2) Colitis: Code(s): K52.9 - Noninfective gastroenteritis and colitis, unspecified Status: Acute Assessment and Plan: (3) JANINE (acute kidney injury): Code(s): N17.9 - Acute kidney failure, unspecified Status: Acute Assessment and Plan: Patient had heat exhaustion yesterday. Creatinine on arrival was 1.9, with IV fluid overnight her creatinine improved to 1.2 which appears to be her baseline. (4) Hypertension: Code(s): I10 - Essential (primary) hypertension Status: Chronic Assessment and Plan: Blood pressure this morning was 166/58. Continue home medications. (5) Hyperlipidemia: Code(s): E78.5 - Hyperlipidemia, unspecified Status: Chronic Assessment and Plan: Continue with home medications. (6) Heat exhaustion: Qualifiers: Encounter type: initial encounter Qualified Code(s): T67.5XXA - Heat exhaustion, unspecified, initial encounter Code(s): T67.5XXA - Heat exhaustion, unspecified, initial encounter Status: Acute Assessment and Plan: Patient will be given IV fluids With improvement. DS: Summary Hospital Course Hospital Course: See above Status at Discharge Cognitive/behavioral status at discharge: Stable, improved. Time Spent with Patient Time attestation: Total time spent providing and/or coordinating discharge se
[2021-07-10 17:28] LABS: Hematocrit 31.9 % (37.0-47.0); Hemoglobin 10.1 g/dL (12.0-15.0)
== END 2021-07-10 17:55 | disposition home or self-care (01) | DRG 394 ==
LOC: ANHED 13:45 → ANH2MED 07-09 07:27
PROVIDERS: Internal Medicine Gastroenterology; Nurse Practitioner; Admitting Provider Internal Medicine Nephrology; Emergency Provider Emergency Medicine; PCP Family Medicine; Visit Provider Physician Assistant
PROC: 0DJD8ZZ Inspection of Lower Intestinal Tract, Via Natural or Artificial Opening Endoscopic (ICD-10-PCS; CPT 45378; principal; 2021-07-10 12:15)
DX: K55.9 Vascular disorder of intestine, unspecified (principal); N17.9 Acute kidney failure, unspecified; L97.922 Non-pressure chronic ulcer of unspecified part of left lower leg with fat layer exposed; K57.30 Diverticulosis of large intestine without perforation or abscess without bleeding; K64.8 Other hemorrhoids; T67.5XXA Heat exhaustion, unspecified, initial encounter; I10 Essential (primary) hypertension; E78.5 Hyperlipidemia, unspecified; I73.9 Peripheral vascular disease, unspecified; Z87.891 Personal history of nicotine dependence; Z79.82 Long term (current) use of aspirin; Z79.899 Other long term (current) drug therapy
CPT/HCPCS: 36415; 74176; 80048; 80053; 82274; 83605; 83690; 83735; 84443; 85014; 85018; 85025; 85610; 85730; 86850; 86900; 86901; 88305; 96360; 99285; A9270; J1956; J2270; J2405; J2704; J7030; J7120

== ENCOUNTER 2021-07-16 16:39 | Outpatient (CLI) | payer MEDICARE, OTHER, SELFPAY ==
[2021-07-16 16:54] LABS: Hematocrit 32.5 % (37.0-47.0); Hemoglobin 10.3 g/dL (12.0-15.0); Mean Corpuscular HGB Conc 31.7 g/dl (32-36); Mean Corpuscular Hemoglobin 31.8 pg (26-34); Mean Corpuscular Volume 100.3 fl (80-100); Mean Platelet Volume 8.5 fl (7.4-10.4); Platelet Count Result 242 k/mm3 (150-375); Red Blood Count 3.24 M/mm3 (4.2-5.4); Red Cell Distribution Width 13.2 % (11.5-14.5); White Blood Count 5.9 K/mm3 (4.5-10.0)
== END 2021-07-16 16:40 | disposition home or self-care (01) ==
LOC: ANHLAB 16:41
PROVIDERS: PCP Family Medicine; Visit Provider Physician Assistant
DX: K92.2 Gastrointestinal hemorrhage, unspecified (principal)
CPT/HCPCS: 36415; 85027

== ENCOUNTER 2021-07-29 17:25 | Outpatient (CLI) | payer MEDICARE, OTHER, SELFPAY ==
[2021-07-29 18:01] LABS: Basophils Percent Auto 0.8 % (0.2-1.2); Eosinophils Absolute Auto 0.4 K/mm3 (0-0.3); Hematocrit 34.3 % (37.0-47.0); Hemoglobin 10.7 g/dL (12.0-15.0); Immature Granulocyte Absolute 0.01 K/mm3 (0.00-0.031); Immature Granulocyte Percent A 0.2 % (0-0.5); Lymphocytes Absolute Auto 1.82 K/mm3 (0.9-3.2); Lymphocytes Percent Auto 36.5 % (18.3-44.2); Mean Corpuscular HGB Conc 31.2 g/dl (32-36); Mean Corpuscular Hemoglobin 32.5 pg (26-34); Mean Corpuscular Volume 104.3 fl (80-100); Mean Platelet Volume 9.3 fl (7.4-10.4); Monocytes Absolute Auto 0.5 K/mm3 (0.1-0.6); Monocytes Percent Auto 10.8 % (2.6-8.5); Neutrophils Absolute Auto 2.2 K/mm3 (1.3-6.7); Neutrophils Percent Auto 44.7 % (45.5-73.1); Platelet Count Result 272 k/mm3 (150-375); Red Blood Count 3.29 M/mm3 (4.2-5.4); Red Cell Distribution Width 13.3 % (11.5-14.5)
[2021-07-29 18:11] LABS: Anion Gap 9 mmol/L (8-16); Blood Urea Nitrogen 39 mg/dL (7-17); Calcium 9.3 mg/dL (8.4-10.2); Carbon Dioxide 27 mmol/L (22-30); Chloride 105 mmol/L (98-107); Estimated Glomerular Filt Rate 27; Glucose 117 mg/dL (65-110); Potassium 5.4 mmol/L (3.4-5.0); Sodium 141 mmol/L (137-145)
== END 2021-07-29 17:26 | disposition home or self-care (01) ==
LOC: ANHLAB 17:27
PROVIDERS: PCP Family Medicine; Visit Provider Nurse Practitioner Family
DX: K92.2 Gastrointestinal hemorrhage, unspecified (principal); D64.9 Anemia, unspecified; R19.7 Diarrhea, unspecified; N17.9 Acute kidney failure, unspecified
CPT/HCPCS: 36415; 80048; 85025; 87045; 87177; 87209; 87324; 87427

== ENCOUNTER → 2022-04-22 13:16 | Outpatient (CLI) | payer MEDICARE, OTHER, SELFPAY ==
--- NOTE | ~2022-04-22 | MM_ITS ---
EXAMINATION: MM screening brielle BI w mckenzie HISTORY: Screening TECHNIQUE: Craniocaudal and mediolateral oblique 3-D tomosynthesis images were obtained and synthetic 2-D images were generated. CAD analysis was submitted and interpreted. COMPARISON: Comparison to multiple prior studies sequentially, with oldest reviewed study dated 10/09. BREAST PARENCHYMAL COMPOSITION: Breast composed of scattered areas of fibroglandular density FINDINGS: There is no evidence of suspicious mass, calcification, or architectural distortion to sugg est malignancy in either breast. There has been no suspicious interval change. IMPRESSION: 1. No mammographic evidence of malignancy. 2. Recommend routine screening mammography in one year. BI-RADS Category 1: Negative Reviewed, dictated and finalized at location [facility].
== END ==
PROVIDERS: PCP Family Medicine; Visit Provider Obstetrics & Gynecology
DX: Z12.31 Encounter for screening mammogram for malignant neoplasm of breast (principal)
CPT/HCPCS: 77063; 77067

== ENCOUNTER 2022-04-26 11:44 | Emergency (ER) | payer MEDICARE, OTHER, SELFPAY ==
--- NOTE | ~2022-04-26 | US_ITS ---
US venous doppler LE RT DATE: 04/26/2022 13:05 INDICATION: Right leg pain and bruising following a fall 2 weeks ago. TECHNIQUE: Real-time and color flow imaging and Doppler analysis of the veins of the right lower extr emity COMPARISON: None FINDINGS: Right greater saphenous vein is patent. There is spontaneous and phasic flow and normal aug mentation and color flow signal and normal compression of the deep veins of the right extremity. IMPRESSION: No evidence of deep venous thrombosis of right leg Reviewed, dictated and finalized at [facility]. Reviewed, dictated and finalized at location [facility].
[2022-04-26 11:47] VITALS: BP 149/68; PULSE 96; RESP 16; TEMP 36.3; O2SAT 99
--- NOTE | 2022-04-26 12:51 | PC.NURSE ---
Patient to ultrasound at this time.
[2022-04-26 12:53] LABS: Basophils Absolute Auto 0.1 K/mm3 (0.0-0.1); Basophils Percent Auto 0.9 % (0.2-1.2); Eosinophils Absolute Auto 0.3 K/mm3 (0-0.3); Eosinophils Percent Auto 3.8 % (0-4.4); Hematocrit 31.2 % (37.0-47.0); Immature Granulocyte Absolute 0.02 K/mm3 (0.00-0.031); Immature Granulocyte Percent A 0.3 % (0-0.5); Lymphocytes Absolute Auto 1.29 K/mm3 (0.9-3.2); Lymphocytes Percent Auto 19.5 % (18.3-44.2); Mean Corpuscular HGB Conc 32.1 g/dl (32-36); Mean Corpuscular Hemoglobin 32.2 pg (26-34); Mean Corpuscular Volume 100.3 fl (80-100); Mean Platelet Volume 9.1 fl (7.4-10.4); Monocytes Absolute Auto 0.8 K/mm3 (0.1-0.6); Monocytes Percent Auto 12.1 % (2.6-8.5); Neutrophils Absolute Auto 4.2 K/mm3 (1.3-6.7); Neutrophils Percent Auto 63.4 % (45.5-73.1); Platelet Count Result 227 k/mm3 (150-375); Red Blood Count 3.11 M/mm3 (4.2-5.4); Red Cell Distribution Width 13.5 % (11.5-14.5); White Blood Count 6.6 K/mm3 (4.5-10.0)
[2022-04-26 13:02] LABS: Anion Gap 8 mmol/L (8-16); Blood Urea Nitrogen 50 mg/dL (7-17); Calcium 8.7 mg/dL (8.4-10.2); Carbon Dioxide 23 mmol/L (22-30); Chloride 102 mmol/L (98-107); Estimated CRCL calculation 16 ml/min; Estimated Glomerular Filt Rate 27; Glucose 113 mg/dL (65-110); Potassium 5.2 mmol/L (3.4-5.0); Sodium 133 mmol/L (137-145)
[2022-04-26] MEDS: SODIUM CHLORIDE 0.9% IV 500 ML 999 ML IV CONT ×2 (13:49→14:31)
[2022-04-26] MEDS: KETOROLAC 15 MG/ML VIAL (*BKC) IV PUSH (13:49)
--- NOTE | 2022-04-26 15:22 | ED.GENADULT ---
HPI - General Adult General Chief complaint: Unspecified Stated complaint: DVT/INFECTION Time Seen by Provider: 04/26/22 12:07 History of Present Illness HPI narrative: Patient is an 86-year-old female who presents ER with multiple concerns. First concern is bruising posterior aspect of her right lower extremity. Present over the last week. Concerned she may be developing a blood clot. No swelling or edema. Patient is recently traveled to [place] return. No chest pain or chest pressure or difficulty breathing. Patient is also reporting bilateral shoulder pain that began today's in the trapezius region. Worse with palpation. Causes some tingling in the hands. Does not take any pain medication. Related Data Home Medications Medication Instructions Recorded Confirmed aspirin 81 mg tablet,delayed 81 mg PO DAILY 09/09/19 08/12/21 release (Adult Low Dose Aspirin) lisinopril 10 mg tablet 10 mg PO DAILY 09/09/19 08/12/21 rosuvastatin 40 mg tablet (Crestor) 40 mg PO HS 09/09/19 08/12/21 amlodipine 2.5 mg tablet 2.5 mg PO HS 07/08/21 08/12/21 Allergies Allergy/AdvReac Type Severity Reaction Status Date / Time pneumococcal vaccine Allergy Mild Unknown Verified 08/12/21 10:18 latex Allergy Unknown Rash Verified 08/12/21 10:18 neomycin Allergy Unknown Swelling Verified 08/12/21 10:18 of the Eye sulfamethoxazole Allergy Unknown RASH Verified 08/12/21 10:18 trimethoprim Allergy Unknown RASH Verified 08/12/21 10:18 quartiam 15 Allergy Mild Redness of Uncoded 08/12/21 10:18 Skin Review of Systems Review of Systems: All systems reviewed & are unremarkable except as noted in HPI and below Constitutional: Constitutional: Denies chills, Denies fatigue and Denies fever(s) ENT: Denies nasal congestion and Denies sore throat Cardiovascular: Cardiovascular: Denies chest pain, Denies rapid heart rate and Denies radiating jaw, neck or arm pain Respiratory: Respiratory: Denies cough, Denies hemoptysis, Denies pain on inspiration and Denies dyspnea Gastrointestinal: Gastrointestinal: Denies abdominal pain, Denies diarrhea, Denies nausea and Denies vomiting Genitourinary: Genitourinary: Denies nocturia and Denies dysuria Musculoskeletal: Musculoskeletal: Reports back pain, Denies arthralgias, Denies joint swelling, Denies muscle cramps and Reports tingling PMFSH Past Medical History Medical History BMI between 19-24,adult CHF (congestive heart failure), NYHA class I EF of 45% with grade 1 diastolic dysfunction. Echo noted to be on 12/28/2020 Hyperlipidemia Hypertension Leg ulcer, left Peripheral arterial disease Surgical History Surgical History H/O oophorectomy H/O vein stripping History of appendectomy S/P coil embolization of cerebral aneurysm X2 Family History Family History Sibling Family history of malignant neoplasm of uterus Cerebrovascular accident Father Family history of coronary artery disease Acute myocardial infarction Congestive heart failure Mother Family history of coronary artery disease Acute myocardial infarction Congestive heart failure Sibling Acute myocardial infarction Asthma Grandparent Colon cancer Other Family history of congenital heart disease Social History Social History Social History: The patient is and lives home alone. The patient initially had 3 biological children. Two of her children in a motor vehicle accident. The patient previously smoked many years ago. The patient desires to be a full code. Her surviving daughter is the durable power defense attorney for healthcare. the patient is retired from [employer]. Patient does not use any marijuana or alcohol. Smoking packs per day: 0.5 Smoking cigarettes per day: 10.
[2022-04-26 15:54] VITALS: BP 162/73; RESP 14; O2SAT 100
== END 2022-04-26 15:56 | disposition home or self-care (01) ==
PROVIDERS: Emergency Provider Emergency Medicine; PCP Family Medicine
DX: E86.0 Dehydration (principal); R25.2 Cramp and spasm; S80.11XA Contusion of right lower leg, initial encounter; M25.512 Pain in left shoulder; M25.511 Pain in right shoulder; R20.2 Paresthesia of skin; M79.604 Pain in right leg; I11.0 Hypertensive heart disease with heart failure; I50.9 Heart failure, unspecified; E78.5 Hyperlipidemia, unspecified; I73.9 Peripheral vascular disease, unspecified; Z87.891 Personal history of nicotine dependence; Z79.82 Long term (current) use of aspirin; W22.8XXA Striking against or struck by other objects, initial encounter
CPT/HCPCS: 36415; 80048; 85025; 93971; 96361; 96374; 99284; J1885; J7040

== ENCOUNTER 2022-05-05 09:40 | Emergency (ER) | payer MEDICARE, OTHER, SELFPAY ==
[2022-05-05] VITALS (25 sets, daily range): BP systolic 146–177; BP diastolic 57–86; PULSE 74; RESP 16; TEMP 37; O2SAT 96–100
--- NOTE | 2022-05-05 10:01 | PC.NURSE ---
Dr. Stephens at bedside to assess pt.
--- NOTE | 2022-05-05 12:34 | ED.GENADULT ---
HPI - General Adult General Chief complaint: Neck Pain/Injury Stated complaint: rt neck swollen Time Seen by Provider: 05/05/22 09:48 History of Present Illness HPI narrative: Patient is an 86-year-old female who presents ER with pain in her right neck. It is located over her sternocleidomastoid moving up to her mastoid. Reports she woke up this morning and felt like she slept on it wrong. Has pain with turning her head. No fevers or chills or sweats. No discharge in the ears. No jaw pain. She thought maybe there was some swelling and came to the ER for evaluation. Patient also reports she was diagnosed with cellulitis in [place] 1 month ago. She was treated with cephalexin and she also received some diclofenac for gout. Patient is unsure if this was related in 1 to be evaluated. Patient has no difficulty breathing or swallowing. Related Data Home Medications Medication Instructions Recorded Confirmed aspirin 81 mg tablet,delayed 81 mg PO DAILY 09/09/19 08/12/21 release (Adult Low Dose Aspirin) lisinopril 10 mg tablet 10 mg PO DAILY 09/09/19 08/12/21 rosuvastatin 40 mg tablet (Crestor) 40 mg PO HS 09/09/19 08/12/21 amlodipine 2.5 mg tablet 2.5 mg PO HS 07/08/21 08/12/21 Allergies Allergy/AdvReac Type Severity Reaction Status Date / Time pneumococcal vaccine Allergy Mild Unknown Verified 05/05/22 09:56 latex Allergy Unknown Rash Verified 05/05/22 09:56 neomycin Allergy Unknown Swelling Verified 05/05/22 09:56 of the Eye sulfamethoxazole Allergy Unknown RASH Verified 05/05/22 09:56 trimethoprim Allergy Unknown RASH Verified 05/05/22 09:56 quartiam 15 Allergy Mild Redness of Uncoded 05/05/22 09:56 Skin PMFSH Past Medical History Medical History BMI between 19-24,adult CHF (congestive heart failure), NYHA class I EF of 45% with grade 1 diastolic dysfunction. Echo noted to be on 12/28/2020 Hyperlipidemia Hypertension Leg ulcer, left Peripheral arterial disease Surgical History Surgical History H/O oophorectomy H/O vein stripping History of appendectomy S/P coil embolization of cerebral aneurysm X2 Family History Family History Sibling Family history of malignant neoplasm of uterus Cerebrovascular accident Father Family history of coronary artery disease Acute myocardial infarction Congestive heart failure Mother Family history of coronary artery disease Acute myocardial infarction Congestive heart failure Sibling Acute myocardial infarction Asthma Grandparent Colon cancer Other Family history of congenital heart disease Social History Social History Social History: The patient is and lives home alone. The patient initially had 3 biological children. Two of her children in a motor vehicle accident. The patient previously smoked many years ago. The patient desires to be a full code. Her surviving daughter is the durable power attorney at law for healthcare. the patient is retired from [employer]. Patient does not use any marijuana or alcohol. Smoking packs per day: 0.5 Smoking cigarettes per day: 10.0 Years smoked: 25 Smoking pack-years: 12.50 Tobacco type: cigarettes Smoking end date: 11/09/85 Alcohol intake: current Drinks per week: 1 Alcohol use details: social Substance use: never Substance use type: does not use Additional occupation/education comments: [employer] Gender identity (if verbalized by the patient): Female Spiritual care concerns: No Exam Narrative: GENERAL: Well-appearing, well-nourished, and in no acute distress. HEAD: Normocephalic, atraumatic. ENT: Mucous membranes moist. Neck: Supple, no reproducible tenderness over the sternocleidomastoid musculature. No swelling. No bruit on the
== END 2022-05-05 13:08 | disposition home or self-care (01) ==
PROVIDERS: Emergency Provider Emergency Medicine; PCP Family Medicine
DX: S16.1XXA Strain of muscle, fascia and tendon at neck level, initial encounter (principal); I50.9 Heart failure, unspecified; I11.0 Hypertensive heart disease with heart failure; E78.5 Hyperlipidemia, unspecified; I73.9 Peripheral vascular disease, unspecified; Z79.82 Long term (current) use of aspirin; Z87.891 Personal history of nicotine dependence; X58.XXXA Exposure to other specified factors, initial encounter
CPT/HCPCS: 99281

== ENCOUNTER 2023-02-23 17:26 | Emergency (ER) | payer MEDICARE, OTHER, SELFPAY ==
[2023-02-23 17:41] VITALS: BP 168/69; PULSE 84; RESP 16; TEMP 36.8; O2SAT 100
--- NOTE | 2023-02-23 17:47 | ED.WOUNDLAC ---
HPI - Wound/Laceration General Chief Complaint: Wound/Laceration Stated Complaint: chills, skin tear on lt leg Time Seen by Provider: 02/23/23 17:40 Source: patient and RN notes reviewed Mode of arrival: ambulatory Limitations: no limitations History of Present Illness HPI narrative: 87-year-old female presents with concern for wound on the back of her leg that she got 3 weeks ago, reports she has had chills today. She reports a history of thin skin and she often gets skin tears, she got a skin tear on the back of her left leg 3 weeks ago. She has been washing it with soap and water applying a nonstick bandage. She reports it is starting to heal but today she felt chilled. She denies cold symptoms, fever. She reports the back of the leg is aching. Denies drainage from the wound Related Data Home Medications Medication Instructions Recorded Confirmed aspirin 81 mg tablet,delayed 81 mg PO DAILY 09/09/19 02/23/23 release (Adult Low Dose Aspirin) lisinopril 10 mg tablet 10 mg PO DAILY 09/09/19 02/23/23 rosuvastatin 40 mg tablet (Crestor) 40 mg PO HS 09/09/19 02/23/23 amlodipine 2.5 mg tablet 5 mg PO HS 12/29/22 02/23/23 Allergies Allergy/AdvReac Type Severity Reaction Status Date / Time pneumococcal vaccine Allergy Mild Unknown Verified 02/23/23 17:34 latex Allergy Unknown Rash Verified 02/23/23 17:34 neomycin Allergy Unknown Swelling Verified 02/23/23 17:34 of the Eye sulfamethoxazole Allergy Unknown RASH Verified 02/23/23 17:34 trimethoprim Allergy Unknown RASH Verified 02/23/23 17:34 quartiam 15 Allergy Mild Redness of Uncoded 02/23/23 17:34 Skin Review of Systems Review of Systems: CONSTITUTIONAL: Denies malaise, sweats, or fever. Reports chills EYES: Denies redness, or discharge. ENT: Denies rhinorrhea, congestion, swollen lips, swollen tongue CARDIOVASCULAR: Denies chest pain, palpitations, or edema. RESPIRATORY: Denies cough or dyspnea. GASTROINTESTINAL: Denies abdominal pain, nausea, vomiting SKIN: Reports skin tear on the back of her left leg that is aching MUSCULOSKELETAL: Denies joint pain or myalgia. NEUROLOGIC: Denies headache. All systems reviewed & are unremarkable except as noted in HPI and below PMFSH Past Medical History Medical History (Updated 02/23/23 @ 17:50 by Liza Paez NP) Acute bronchitis JANINE (acute kidney injury) Antibiotic causing adverse effect BMI between 19-24,adult Cellulitis Cellulitis of left leg CHF (congestive heart failure), NYHA class I EF of 45% with grade 1 diastolic dysfunction. Echo noted to be on 12/28/2020 Colitis Diarrhea Fall GI bleed Heat exhaustion Hyperlipidemia Hypertension Left hip pain Leg ulcer, left Muscle spasm Peripheral arterial disease Swelling of lower extremity Surgical History Surgical History H/O oophorectomy H/O vein stripping History of appendectomy S/P coil embolization of cerebral aneurysm X2 Family History Family History Sibling Family history of malignant neoplasm of uterus Cerebrovascular accident Father Family history of coronary artery disease Acute myocardial infarction Congestive heart failure Mother Family history of coronary artery disease Acute myocardial infarction Congestive heart failure Sibling Acute myocardial infarction Asthma Grandparent Colon cancer Other Family history of congenital heart disease Social History Social History Social History: The patient is and lives home alone. The patient initially had 3 biological children. Two of her children in a motor vehicle accident. The patient previously smoked many years ago. The patient desires to be a full code. Her surviving daughter is the durable power personal injury attorney for healthcare. the patient is retired from [employer]. Patient does not use any alexander
== END 2023-02-23 17:56 | disposition home or self-care (01) ==
PROVIDERS: Emergency Provider Nurse Practitioner; PCP Internal Medicine
DX: L03.116 Cellulitis of left lower limb (principal); Z87.891 Personal history of nicotine dependence; E78.5 Hyperlipidemia, unspecified; I11.0 Hypertensive heart disease with heart failure; I50.9 Heart failure, unspecified; I73.9 Peripheral vascular disease, unspecified; Z79.82 Long term (current) use of aspirin
CPT/HCPCS: 99213; G0463

== ENCOUNTER 2023-03-30 08:53 | Outpatient (RCR) | payer MEDICARE, OTHER, SELFPAY ==
[2023-03-30 10:55] VITALS: BMI 21.0
== END 2023-05-27 08:35 | disposition home or self-care (01) ==
LOC: ANHWOC 08:53
PROVIDERS: PCP Internal Medicine; Visit Provider Internal Medicine
DX: S81.802D Unspecified open wound, left lower leg, subsequent encounter (principal)
CPT/HCPCS: 99213; G0463

== ENCOUNTER → 2023-06-24 12:01 | Outpatient (CLI) | payer MEDICARE, OTHER, SELFPAY ==
--- NOTE | ~2023-06-24 | XR_ITS ---
EXAMINATION: XR shoulder RT min 2V DATE: 06/24/2023 12:19 INDICATION: Right shoulder pain. TECHNIQUE: 3 views of right shoulder were obtained. COMPARISON: None. FINDINGS: Bone alignment is normal. No fracture. There is severe osteoarthritis of glenohumeral joint and acromioclavicular joint. There is mild calcific tendinitis of the rotator cuff. IMPRESSION: 1. Polyarticular osteoarthritis. 2. Mild calcific tendinitis of the rotator cuff. Reviewed, dictated and finalized at location A.
== END ==
PROVIDERS: PCP Nurse Practitioner; Visit Provider Nurse Practitioner
DX: M25.511 Pain in right shoulder (principal); M15.9 Polyosteoarthritis, unspecified; M75.101 Unspecified rotator cuff tear or rupture of right shoulder, not specified as traumatic
CPT/HCPCS: 73030

== ENCOUNTER → 2023-07-14 08:04 | Outpatient (CLI) | payer MEDICARE, OTHER, SELFPAY ==
--- NOTE | ~2023-07-14 | US_ITS ---
EXAMINATION: US soft tissue UE RT DATE: 07/14/2023 09:02 INDICATION: Radial sided right posterior forearm lump. TECHNIQUE: Multiple grayscale and Doppler ultrasound images of the region of concern at the right for earm were obtained. COMPARISON: None FINDINGS/IMPRESSION: Nonspecific 12 x 8 mm region of increased echogenicity within one of the muscles at the region of con cern. Differential would include neoplasm either benign or malignant or sequela of prior trauma eithe r with bone contusion or muscle strain. Correlate with clinical history and could consider further ev aluation with pre and postcontrast MRI as clinically indicated. Findings were discussed with Trinity Zapata in the office of Dr. Pan at 10:25 AM. Reviewed, dictated and finalized at location A.
== END ==
PROVIDERS: PCP Nurse Practitioner; Visit Provider Nurse Practitioner
DX: R22.31 Localized swelling, mass and lump, right upper limb (principal)
CPT/HCPCS: 76882

== ENCOUNTER 2023-08-07 18:12 | Inpatient (IN) | payer MEDICARE, OTHER, SELFPAY ==
[2023-08-07] VITALS (19 sets, daily range): BP systolic 129–181; BP diastolic 55–75; PULSE 70–88; RESP 14–34; O2SAT 93–100
--- NOTE | ~2023-08-07 | CT_ITS ---
EXAMINATION: CT abdomen pelvis wo con DATE: 08/07/2023 18:56 INDICATION: Right upper quadrant TECHNIQUE: Computed tomography (CT) of the abdomen and pelvis was performed without intravenous contr ast. The dose-length product (DLP) was 227.27 mGy-cm. Automated exposure control and iterative recons truction technique were employed. COMPARISON: 07/08/2021 FINDINGS: Minimal dependent atelectasis and emphysema are present in the lung bases. The heart size i s normal. There is questionable wall thickening of the gastric antrum and proximal duodenum. A duoden al diverticulum is noted. There is calcified coronary artery atherosclerosis. The liver, spleen, panc reas, gallbladder, and adrenal glands are normal. The kidneys are unremarkable. No pathologically enl arged abdominal or pelvic lymph nodes are identified. No free intraperitoneal gas or evidence of srinivasa l obstruction. A moderate volume of colonic stool is present. There is severe lumbar spondylosis. T here is a moderate volume of liquid stool in the colon. IMPRESSION: 1. Possible mild thickening of the gastric antrum and proximal duodenum which could reflect inflammat ion. 2. Moderate volume of liquid stool in the colon which could reflect diarrhea. Reviewed, dictated and finalized at location F. IMPRESSION: 1. Possible mild thickening of the gastric antrum and proximal duodenum which c ould reflect inflammation. 2. Moderate volume of liquid stool in the colon which could reflect diarrhea.
--- NOTE | ~2023-08-07 | XR_ITS ---
EXAMINATION: XR chest 1V INDICATION: Chest pain TECHNIQUE: AP view of the chest is obtained. COMPARISON: None available FINDINGS: The lungs are free of acute opacities. No pleural effusion or pneumothorax. The cardiomedia stinal silhouette is normal. There is osteoarthritis of the shoulders. IMPRESSION: 1. No acute osseous abnormality. Reviewed, dictated and finalized at location F.
--- NOTE | ~2023-08-07 | XR_ITS ---
Supine and upright views of the abdomen Clinical history: Abdominal distention COMPARISON: 12/01/2017 Findings: Bowel gas pattern is nonspecific. No evidence for obstruction or free air. With probable va scular calcifications of the left upper quadrant. There is degenerative change of the lumbar spine an d left hip. Impression: Nonspecific bowel gas pattern. Reviewed, dictated and finalized at [facility]. Impression: Nonspecific bowel gas pattern.
--- NOTE | 2023-08-07 18:26 | ECG_ITS ---
Measurements Intervals [place] Rate: 88 P: 44 IL: 144 QRS: -30 QRSD: 150 T: 113 QT: 407 QTc: 495 Interpretive Statements SINUS RHYTHM LEFT BUNDLE BRANCH BLOCK ABNORMAL ECG NO PREVIOUS ECG AVAILABLE FOR COMPARISON Electronically Signed On 08-07-2023 20:12:06 CDT by Shaun Payton D.O.
--- NOTE | 2023-08-07 18:27 | ED.CHESTPAIN ---
HPI - Chest Pain General Chief Complaint: Chest Pain Stated Complaint: STEMI History of Present Illness HPI narrative: Patient is an 87-year-old female presenting with abdominal pain and nausea and vomiting. Patient was initially a STEMI alert due to elevations in V1 and V2. Patient was working in her yard this afternoon when she became very nauseated and started having epigastric pain. EMS was called and were concerned for STEMI with the EKG findings and epigastric/chest pain. On arrival, patient is actively vomiting. States that she hurts all over. Further history limited secondary to acuity of condition. Related Data Home Medications Medication Instructions Recorded Confirmed aspirin 81 mg tablet,delayed 81 mg PO DAILY 09/09/19 08/08/23 release (Adult Low Dose Aspirin) rosuvastatin 40 mg tablet (Crestor) 40 mg PO HS 09/09/19 08/08/23 amlodipine 2.5 mg tablet 5 mg PO HS 03/11/23 08/08/23 bone restore elite 2 tablet PO BID 03/11/23 08/08/23 coenzyme Q10 100 mg capsule (Co 100 mg PO DAILY 03/11/23 08/08/23 Q-10) estradiol 0.01% (0.1 mg/gram) 4 g vaginal DAILY PRN IRRITATION 03/11/23 08/08/23 vaginal cream (Estrace) krill oil-hyaluronic 1 cap PO DAILY 03/11/23 08/08/23 acid-astaxanthin 353 mg capsule lisinopril 40 mg tablet 40 mg PO DAILY 03/11/23 08/08/23 metoprolol succinate 25 mg 25 mg PO DAILY 03/11/23 08/08/23 tablet,extended release 24 hr omega-3 fatty acids 1,000 mg 1,000 mg PO BID 03/11/23 08/08/23 capsule (Super Mikana-3) Allergies Allergy/AdvReac Type Severity Reaction Status Date / Time pneumococcal vaccine Allergy Mild Unknown Verified 08/10/23 12:00 latex Allergy Unknown Rash Verified 08/10/23 12:00 neomycin Allergy Unknown Swelling Verified 08/10/23 12:00 of the Eye sulfamethoxazole Allergy Unknown RASH Verified 08/10/23 12:00 trimethoprim Allergy Unknown RASH Verified 08/10/23 12:00 quartiam 15 Allergy Mild Redness of Uncoded 08/10/23 12:00 Skin Review of Systems Review of Systems: ROS unobtainable: Yes unobtainable due to medical condition [facility] Past Medical History Medical History (Updated 08/15/23 @ 12:35 by Chante De La O MD) Acute bronchitis JANINE (acute kidney injury) Antibiotic causing adverse effect BMI between 19-24,adult Cardiomyopathy Cellulitis Cellulitis of left leg CHF (congestive heart failure), NYHA class I EF of 45% with grade 1 diastolic dysfunction. Echo noted to be on 12/28/2020 Colitis Diarrhea Fall GI bleed Heat exhaustion Hyperlipidemia Hypertension LBBB (left bundle branch block) Left hip pain Leg ulcer, left Muscle spasm Orthopnea Peripheral arterial disease Swelling of lower extremity Surgical History Surgical History H/O oophorectomy H/O vein stripping History of appendectomy S/P coil embolization of cerebral aneurysm X2 Family History Family History Sibling Family history of malignant neoplasm of uterus Cerebrovascular accident Father Family history of coronary artery disease Acute myocardial infarction Congestive heart failure Mother Family history of coronary artery disease Acute myocardial infarction Congestive heart failure Sibling Acute myocardial infarction Asthma Grandparent Colon cancer Other Family history of congenital heart disease Social History Social History Social History: The patient is and lives home alone. The patient initially had 3 biological children. Two of her children in a motor vehicle accident. The patient previously smoked many years ago. The patient desires to be a full code. Her surviving daughter is the durable power contract attorney for healthcare. the patient is retired from [employer]. Patient does not use any marijuana or alcohol. Smoking packs per day: 0.5 Smoking cigarettes per day: 10.
[2023-08-07] MEDS: FAMOTIDINE 20 MG/2 ML VIAL IV PUSH (18:35)
[2023-08-07] MEDS: HYDROmorphone HCL INJ (*CRX) 1 MG/ML SYR 0.5 MG IV PUSH (18:35)
[2023-08-07] MEDS: ONDANSETRON INJ 4 MG/2 ML VIAL IV PUSH (18:36)
[2023-08-07] MEDS: SODIUM CHLORIDE 0.9% IV 1,000 ML 999 ML IV CONT ×2 (18:37→22:06)
[2023-08-07 18:39] LABS: Basophils Absolute Auto 0.1 K/mm3 (0.0-0.1); Basophils Percent Auto 0.6 % (0.2-1.2); Eosinophils Absolute Auto 0.3 K/mm3 (0-0.3); Eosinophils Percent Auto 2.3 % (0-4.4); Hematocrit 38.4 % (37.0-47.0); Hemoglobin 12.1 g/dL (12.0-15.0); Immature Granulocyte Absolute 0.06 K/mm3 (0.00-0.031); Immature Granulocyte Percent A 0.5 % (0-0.5); Lymphocytes Absolute Auto 3.08 K/mm3 (0.9-3.2); Lymphocytes Percent Auto 25.4 % (18.3-44.2); Mean Corpuscular HGB Conc 31.5 g/dl (32-36); Mean Corpuscular Hemoglobin 31.5 pg (26-34); Monocytes Absolute Auto 0.5 K/mm3 (0.1-0.6); Neutrophils Absolute Auto 8.1 K/mm3 (1.3-6.7); Neutrophils Percent Auto 67.2 % (45.5-73.1); Platelet Count Result 204 k/mm3 (150-375); Red Blood Count 3.84 M/mm3 (4.2-5.4); Red Cell Distribution Width 12.8 % (11.5-14.5); White Blood Count 12.1 K/mm3 (4.5-10.0)
[2023-08-07 18:50] LABS: Alanine Aminotransferase 27 U/L (6-35); Albumin Level 4.6 g/dL (3.5-5.1); Alkaline Phosphatase 157 U/L (38-126); Anion Gap 13 mmol/L (8-16); Aspartate Amino Transferase 52 U/L (14-36); Bilirubin,Total 0.7 mg/dL (0.2-1.3); Blood Urea Nitrogen 55 mg/dL (7-17); Calcium 9.4 mg/dL (8.4-10.2); Carbon Dioxide 16 mmol/L (22-30); Chloride 104 mmol/L (98-107); Estimated Glomerular Filt Rate 27; Glucose 195 mg/dL (65-110); Lipase 228 U/L (23-300); Potassium 4.2 mmol/L (3.4-5.0); Sodium 133 mmol/L (137-145)
[2023-08-07 18:51] LABS: INR 1.1; Partial Thromboplastin Time 24.9 SECONDS (22.3-36.8); Prothrombin Time 14.2 Seconds (11.1-14.7)
[2023-08-07 19:02] LABS: Troponin I 0.016 ng/mL (0.000-0.034)
[2023-08-07] MEDS: METOCLOPRAMIDE HCL INJ 10 MG/2 ML VIAL IV PUSH (20:51)
[2023-08-07] MEDS: LOPERAMIDE HCL 2 MG CAPSULE 4 MG PO (20:51)
[2023-08-07] MEDS: PANTOPRAZOLE SODIUM IV 40 MG VIAL IV PUSH (22:05)
[2023-08-07] MEDS: PIPERACILLN/TAZ 3.375GM/NS50ML 3.375 GM/50 ML BAG IVPB (22:50)
--- NOTE | 2023-08-07 22:57 | PM.IMHP ---
H&P: HPI History of Present Illness Date/Time: 08/07/23 22:57 Chief Complaint: Patient brought to the ER for evaluation with complaints of abdominal pain, nausea and vomiting and bloody stools Narrative: She is a very pleasant 87 years old white female who appears much younger than her stated age. She was working in her yard this afternoon when she became very nauseated and started having epigastric pain. EMS was called, and they got concerned for STEMI because of the EKG finding and epigastric pain. On review, patient has left bundle-branch block with the nonspecific ST T wave changes. ER/intervention roustabout crew leader ruled out the STEMI. Her symptoms are mostly GI in nature and initial troponin was negative. Her EKG was comparable to her baseline as well. Workup was done in the ED which showed findings on CT scan consistent with gastritis / colitis. In the ER patient, she had a bowel movement which was bloody as well. She also appeared to be dry and dehydrated hence the IV fluids were given. She is feeling a little better. She is being admitted for medical management, close monitoring, GI evaluation and workup. Review of Systems Review of Systems: she denies any palpitations, fever rigor chills, blurred vision, lightheadedness or fall All systems reviewed & are unremarkable except as noted in HPI and below PMFSH Past Medical History Medical History (Updated 08/07/23 @ 23:13 by Juan Francisco Urena MD) Acute bronchitis JANINE (acute kidney injury) Antibiotic causing adverse effect BMI between 19-24,adult Cellulitis Cellulitis of left leg CHF (congestive heart failure), NYHA class I EF of 45% with grade 1 diastolic dysfunction. Echo noted to be on 12/28/2020 Colitis Diarrhea Fall GI bleed Heat exhaustion Hyperlipidemia Hypertension Left hip pain Leg ulcer, left Muscle spasm Peripheral arterial disease Swelling of lower extremity Surgical History Surgical History H/O oophorectomy H/O vein stripping History of appendectomy S/P coil embolization of cerebral aneurysm X2 Family History Family History Sibling Family history of malignant neoplasm of uterus Cerebrovascular accident Father Family history of coronary artery disease Acute myocardial infarction Congestive heart failure Mother Family history of coronary artery disease Acute myocardial infarction Congestive heart failure Sibling Acute myocardial infarction Asthma Grandparent Colon cancer Other Family history of congenital heart disease Social History Social History Social History: The patient is and lives home alone. The patient initially had 3 biological children. Two of her children in a motor vehicle accident. The patient previously smoked many years ago. The patient desires to be a full code. Her surviving daughter is the durable power securities attorney for healthcare. the patient is retired from [employer]. Patient does not use any marijuana or alcohol. Smoking packs per day: 0.5 Smoking cigarettes per day: 10.0 Years smoked: 25 Smoking pack-years: 12.50 Smoking status: Former smoker Tobacco type: cigarettes Smoking end date: 11/09/85 Alcohol intake: current Drinks per week: 1 Alcohol use details: social Substance use: never Substance use type: does not use Lack of Transportation: No Lack of Food: Never True Current Housing: I Have Housing Concerned About Future Housing: No Difficulty Paying Gas/Electric Bills: No Difficulty Paying for Meds: No Currently Unemployed: No Education: High School Diploma/GED Difficulty w/ Childcare or Family Care: No Living arrangements: alone Occupation/Education: retired Additional occupation/education comments: [employer] Gender identity (if verbalized by the patient): Female Spiritual ca
[2023-08-08] VITALS (10 sets, daily range): BP systolic 140–168; BP diastolic 50–66; PULSE 75–99; RESP 16–20; TEMP 36.6–37.2; O2SAT 94–99; BMI 21.9
--- NOTE | 2023-08-08 00:23 | ADMGEN ---
This patient, Mae Murrieta, was admitted to Medical Room 349-01. Patient/family oriented to hospital policies and general routines including ID bracelet, bed and alarms, visiting hours, pain management, procedures, bathroom and other care routines, personal items, smoking policy, room service/diet, and visiting hours. Information on how to activate the Rapid Response Team has been discussed. Patient/Family are encouraged to report perceived risks to care and to ask questions if they do not understand what they are told or what they should do.
[2023-08-08] MEDS: SODIUM CHLORIDE 0.9% IV 1,000 ML 75 ML IV CONT (00:45)
[2023-08-08 01:05] LABS: Hematocrit 39.1 % (37.0-47.0); Hemoglobin 12.2 g/dL (12.0-15.0)
[2023-08-08 01:13] LABS: Troponin I 0.021 ng/mL (0.000-0.034)
[2023-08-08 06:01] LABS: Basophils Percent Auto 0.2 % (0.2-1.2); Hematocrit 39.3 % (37.0-47.0); Hemoglobin 12.3 g/dL (12.0-15.0); Immature Granulocyte Absolute 0.02 K/mm3 (0.00-0.031); Immature Granulocyte Percent A 0.2 % (0-0.5); Lymphocytes Absolute Auto 0.42 K/mm3 (0.9-3.2); Lymphocytes Percent Auto 4.2 % (18.3-44.2); Mean Corpuscular HGB Conc 31.3 g/dl (32-36); Mean Corpuscular Hemoglobin 31.4 pg (26-34); Mean Corpuscular Volume 100.3 fl (80-100); Mean Platelet Volume 9.7 fl (7.4-10.4); Monocytes Absolute Auto 0.4 K/mm3 (0.1-0.6); Monocytes Percent Auto 3.7 % (2.6-8.5); Neutrophils Absolute Auto 9.2 K/mm3 (1.3-6.7); Neutrophils Percent Auto 91.7 % (45.5-73.1); Platelet Count Result 170 k/mm3 (150-375); Red Blood Count 3.92 M/mm3 (4.2-5.4); Red Cell Distribution Width 12.6 % (11.5-14.5)
[2023-08-08 06:10] LABS: Anion Gap 10 mmol/L (8-16); Blood Urea Nitrogen 54 mg/dL (7-17); Calcium 8.4 mg/dL (8.4-10.2); Carbon Dioxide 18 mmol/L (22-30); Chloride 108 mmol/L (98-107); Estimated CRCL calculation 15 ml/min; Estimated Glomerular Filt Rate 25; Glucose 174 mg/dL (65-110); Magnesium 1.7 mg/dL (1.6-2.3); Phosphorus 4.3 mg/dL (2.5-4.5); Potassium 5.6 mmol/L (3.4-5.0); Sodium 136 mmol/L (137-145)
[2023-08-08 06:21] LABS: Troponin I 0.025 ng/mL (0.000-0.034)
[2023-08-08] MEDS: PIPERACILLIN/TAZ 2.25G/NS 50ML 2.25 GM/50 ML BAG IVPB ×3 (06:30→22:21)
[2023-08-08] MEDS: OMEGA 3 POLYUNSAT FATTY ACIDS 1 GM CAP PO ×2 (08:56→16:52)
[2023-08-08] MEDS: METOPROLOL SUCCINATE EXT REL 25 MG TABCR PO (08:56)
[2023-08-08] MEDS: lisinopriL 20 MG TABLET 40 MG PO (08:56)
[2023-08-08] MEDS: IPRATROPIUM NASAL SPRAY 0.06% 15 ML BOTTLE 2 SPRAY NASAL ×3 (08:57→16:52)
--- NOTE | 2023-08-08 09:01 | WPDGICN ---
Assessment and Plan Assessment and plan (1) GI bleed: Code(s): K92.2 - Gastrointestinal hemorrhage, unspecified Status: Acute Assessment and Plan: she says that she was passing bright red blood per rectum. Although initially she had epigastric pain, today she states that it is more in lower abdomen. She has had a previous admission at which time she had lower GI bleeding and was found have a segment of colitis in the sigmoid colon biopsies which were suggestive of ischemic colitis. She did not have abdominal pain or cramping before she saw blood this time. (2) Nausea & vomiting: Code(s): R11.2 - Nausea with vomiting, unspecified Status: Acute Assessment and Plan: Today she is thirsty and a bit hungry. Her emesis yesterday she is fairly sure did not contain blood or coffee-ground material. (3) Abnormal CT scan, gastrointestinal tract: Code(s): R93.3 - Abnormal findings on diagnostic imaging of other parts of digestive tract Status: Acute Assessment and Plan: CT scan suggests possible inflammation in the antrum or duodenum. She does take aspirin tablet once daily. She has a history of having had TIAs. (4) Stage 3a chronic kidney disease: Code(s): N18.31 - Chronic kidney disease, stage 3a Status: Acute Assessment and Plan: Creatinine is 1.9 which is about what it has been for the last 2 years. (5) Abnormal liver enzymes: Code(s): R74.8 - Abnormal levels of other serum enzymes Status: Acute Assessment and Plan: alkaline phosphatase is 157, up from 56 earlier in the year. Other LFTs are normal or unchanged. This could be of skeletal origin. No abnormalities of the liver on CT scan. Plan I will give her liquid diet today. I told her that we will probably perform EGD on Thursday. We know that she has diverticular disease. I do not think that she will need another colonoscopy. We will follow her blood counts serially. GI Consult Note Consult date/time: 08/08/23 09:01 HPI: Mae Murrieta is a 87 year old female Who was admitted last evening when she had presented to the emergency room because of becoming ill in week when she was out in the [employer] [place] [employer]. She got nauseated. She vomited once or twice and she had pain in the epigastric area. She was brought to the emergency room where she was ruled out for STEMI. She states that she also suffers from constipation and yesterday began passing some blood in her stool. She states that this morning she has pain mostly in the mid and lower abdomen little more on the left. I noted that she has had in the past evaluation for lower GI bleeding was found have a small segment of ischemic colitis. Her hemoglobin is stable, 12.1. Review of Systems Review of Systems: All systems reviewed & are unremarkable except as noted in HPI and below PMFSH Past Medical History Medical History Acute bronchitis JANINE (acute kidney injury) Antibiotic causing adverse effect BMI between 19-24,adult Cellulitis Cellulitis of left leg CHF (congestive heart failure), NYHA class I EF of 45% with grade 1 diastolic dysfunction. Echo noted to be on 12/28/2020 Colitis Diarrhea Fall GI bleed Heat exhaustion Hyperlipidemia Hypertension Left hip pain Leg ulcer, left Muscle spasm Peripheral arterial disease Swelling of lower extremity Surgical History Surgical History H/O oophorectomy H/O vein stripping History of appendectomy S/P coil embolization of cerebral aneurysm X2 Family History Family History Sibling Family history of malignant neoplasm of uterus Cerebrovascular accident Father Family history of coronary artery disease Acute myocardial infarction Congestive heart failure Mother Family history of
--- NOTE | 2023-08-08 09:39 | PM.IMPN ---
Progress Note: A&P Assessment and Plan (1) Stage 3a chronic kidney disease: Code(s): N18.31 - Chronic kidney disease, stage 3a Status: Acute (2) Benign hypertension with chronic kidney disease: Code(s): I12.9 - Hypertensive chronic kidney disease with stage 1 through stage 4 chronic kidney disease, or unspecified chronic kidney disease Status: Acute (3) Vitamin D deficiency: Code(s): E55.9 - Vitamin D deficiency, unspecified Status: Acute (4) Secondary renal hyperparathyroidism: Code(s): N25.81 - Secondary hyperparathyroidism of renal origin Status: Acute (5) Anemia: Qualifiers: Anemia type: unspecified type Qualified Code(s): D64.9 - Anemia, unspecified Code(s): D64.9 - Anemia, unspecified Status: Acute (6) Hyperlipidemia: Qualifiers: Hyperlipidemia type: unspecified Qualified Code(s): E78.5 - Hyperlipidemia, unspecified Code(s): E78.5 - Hyperlipidemia, unspecified Status: Chronic (7) Hypertension: Qualifiers: Hypertension type: primary hypertension Qualified Code(s): I10 - Essential (primary) hypertension Code(s): I10 - Essential (primary) hypertension Status: Chronic (8) Peripheral arterial disease: Code(s): I73.9 - Peripheral vascular disease, unspecified Status: Acute (9) Acute kidney injury superimposed on CKD: Code(s): N17.9 - Acute kidney failure, unspecified; N18.9 - Chronic kidney disease, unspecified Status: Acute (10) Nausea & vomiting: Code(s): R11.2 - Nausea with vomiting, unspecified Status: Acute (11) Dehydration: Code(s): E86.0 - Dehydration Status: Acute Plan Acute infective gastroenteritis Admit patient to medical unit under full inpatient status Keep patient nothing by mouth except meds IV Protonix ordered Monitor H&H in a.m. and more frequently as needed Patient likely has colitis / gastroenteritis based On CT Scan findings and leukocytosis Started patient on IV Zosyn in the ER which we will continue on the floor Hold off on Aspirin/NSAIDs/anticoagulation Night provider consulted GI for evaluation and further treatment recommendations and possible endoscopy/colonoscopy in am Patient has chronic left bundle branch block with nonspecific ST T-wave changes which are comparable to her baseline Her 1st set of cardiac enzymes was negative as well hence likely source of for epigastric pain is GI in nature Serial troponin negative. Patient denies chest pain JANINE on CKD Elevated BUN creatinine above baseline Patient has JANINE secondary to dehydration hence given 2 L of IV fluids in the ER Started patient on gentle IV hydration with normal saline at 75 cc/hour on the floor no improvement of dehydration and increase normal saline to 100 mL/hour Strict I&Os Continue with home meds. Monitor patient closely while admitted. Patient needs close follow up with PCP/specialists as an outpatient to address chronic medical issues. Subjective Date/time seen: 08/08/23 09:39 Interval history: I saw and examined patient today. Patient still has abdominal pain, nausea, diarrhea. The patient has no vomiting today. Patient is afebrile, white blood cell normal. Exam Narrative: PHYSICAL EXAMINATION: General physical exam: Pleasant lady, no obvious distress, Head/eyes: Atraumatic, EOMI, PERRLA, ENT: +dry mucous membranes, nasal passages clear Neck: Supple, full range of motion, trachea midline CVS: S1 + S2, regular rate and rhythm, no murmurs Respiratory: Bilaterally fair air entry in both lung castro, mild B/L crackles, symmetric chest expansion, no distress Abdomen: Soft, patient has a diffused abdominal tenderness on palpation, bowel sounds +ve, no organomegaly Extremities: No clubbing, no cyanosis, no edema, no calf tenderness Musculoskeletal: Moves all, adequate range of motion, no muscle spasms Skin: Warm,
[2023-08-08] MEDS: SODIUM CHLORIDE 0.9% IV 1,000 ML 100 ML IV CONT (16:52)
[2023-08-08] MEDS: SODIUM POLYSTYRENE SULFONONATE 15 GM/60 ML BTL PO (20:42)
[2023-08-08] MEDS: amLODIPine BESYLATE 5 MG TABLET PO (20:47)
[2023-08-08] MEDS: ROSUVASTATIN 10 MG TABLET 40 MG PO (20:47)
[2023-08-09] VITALS (7 sets, daily range): BP systolic 145–157; BP diastolic 61–74; PULSE 93–106; RESP 16–20; TEMP 36.3–36.7; O2SAT 92–95
[2023-08-09 05:54] LABS: Hematocrit 32.3 % (37.0-47.0); Hemoglobin 10.5 g/dL (12.0-15.0); Mean Corpuscular HGB Conc 32.5 g/dl (32-36); Mean Corpuscular Hemoglobin 31.7 pg (26-34); Mean Corpuscular Volume 97.6 fl (80-100); Mean Platelet Volume 9.4 fl (7.4-10.4); Platelet Count Result 140 k/mm3 (150-375); Red Blood Count 3.31 M/mm3 (4.2-5.4); White Blood Count 8.9 K/mm3 (4.5-10.0)
[2023-08-09] MEDS: PIPERACILLIN/TAZ 2.25G/NS 50ML 2.25 GM/50 ML BAG IVPB ×3 (06:00→20:55)
[2023-08-09] MEDS: SODIUM CHLORIDE 0.9% IV 1,000 ML 100 ML IV CONT ×2 (06:02→13:26)
[2023-08-09 06:15] LABS: Anion Gap 7 mmol/L (8-16); Blood Urea Nitrogen 36 mg/dL (7-17); Calcium 7.8 mg/dL (8.4-10.2); Carbon Dioxide 18 mmol/L (22-30); Chloride 110 mmol/L (98-107); Estimated CRCL calculation 18 ml/min; Estimated Glomerular Filt Rate 30; Glucose 118 mg/dL (65-110); Potassium 4.4 mmol/L (3.4-5.0); Sodium 135 mmol/L (137-145); Troponin I 0.033 ng/mL (0.000-0.034)
[2023-08-09 06:22] LABS: Band Neutrophils Percent 16 % (0-6); Lymphocytes Absolute Manual 1.15 K/mm3 (1.1-4.5); Lymphocytes Percent Manual 13 % (18-44); Monocytes Absolute Manual 0.35 K/mm3 (0.1-0.90); Monocytes Percent Manual 4 % (3-9); Neutrophils Absolute Manual 7.38 K/mm3 (1.7-7.2); Neutrophils Percent Manual 67 % (46-73); Total Cells Counted 100
[2023-08-09 06:23] LABS: Platelet Estimate Adequate (Adequate); Schistocytes None Seen (NORMAL)
[2023-08-09] MEDS: IPRATROPIUM NASAL SPRAY 0.06% 15 ML BOTTLE 2 SPRAY NASAL ×3 (07:55→16:50)
[2023-08-09] MEDS: METOPROLOL SUCCINATE EXT REL 25 MG TABCR PO (07:55)
[2023-08-09] MEDS: OMEGA 3 POLYUNSAT FATTY ACIDS 1 GM CAP PO ×2 (07:55→16:50)
[2023-08-09] MEDS: lisinopriL 20 MG TABLET 40 MG PO (07:56)
--- NOTE | 2023-08-09 09:41 | PM.IMPN ---
Progress Note: A&P Assessment and Plan (1) Stage 3a chronic kidney disease: Code(s): N18.31 - Chronic kidney disease, stage 3a Status: Acute (2) Benign hypertension with chronic kidney disease: Code(s): I12.9 - Hypertensive chronic kidney disease with stage 1 through stage 4 chronic kidney disease, or unspecified chronic kidney disease Status: Acute (3) Vitamin D deficiency: Code(s): E55.9 - Vitamin D deficiency, unspecified Status: Acute (4) Secondary renal hyperparathyroidism: Code(s): N25.81 - Secondary hyperparathyroidism of renal origin Status: Acute (5) Anemia: Qualifiers: Anemia type: unspecified type Qualified Code(s): D64.9 - Anemia, unspecified Code(s): D64.9 - Anemia, unspecified Status: Acute (6) Hyperlipidemia: Qualifiers: Hyperlipidemia type: unspecified Qualified Code(s): E78.5 - Hyperlipidemia, unspecified Code(s): E78.5 - Hyperlipidemia, unspecified Status: Chronic (7) Hypertension: Qualifiers: Hypertension type: primary hypertension Qualified Code(s): I10 - Essential (primary) hypertension Code(s): I10 - Essential (primary) hypertension Status: Chronic (8) Peripheral arterial disease: Code(s): I73.9 - Peripheral vascular disease, unspecified Status: Acute (9) Acute kidney injury superimposed on CKD: Code(s): N17.9 - Acute kidney failure, unspecified; N18.9 - Chronic kidney disease, unspecified Status: Acute (10) Nausea & vomiting: Code(s): R11.2 - Nausea with vomiting, unspecified Status: Acute (11) Dehydration: Code(s): E86.0 - Dehydration Status: Acute Plan Acute infective gastroenteritis Admit patient to medical unit under full inpatient status Keep patient nothing by mouth except meds IV Protonix ordered Monitor H&H in a.m. and more frequently as needed Patient likely has colitis / gastroenteritis based On CT Scan findings and leukocytosis Started patient on IV Zosyn in the ER which we will continue on the floor Hold off on Aspirin/NSAIDs/anticoagulation Night provider consulted GI for evaluation, plans endoscopy am tomorrow Patient has chronic left bundle branch block with nonspecific ST T-wave changes which are comparable to her baseline Her 1st set of cardiac enzymes was negative as well hence likely source of for epigastric pain is GI in nature Serial troponin negative. Patient denies chest pain JANINE on CKD Elevated BUN creatinine above baseline Patient has JANINE secondary to dehydration hence given 2 L of IV fluids in the ER Started patient on gentle IV hydration with normal saline at 75 cc/hour on the floor no improvement of dehydration and increase normal saline to 100 mL/hour 08/07 Strict I&Os now BUN creatinine are trending down Continue with home meds. Monitor patient closely while admitted. Patient needs close follow up with PCP/specialists as an outpatient to address chronic medical issues. Subjective Date/time seen: 08/09/23 09:41 Interval history: I saw and examined patient today. Patient still has abdominal pain, but tolerable, has diarrhea, but has less bowel movements Patient is afebrile, white blood cell normal. Exam Narrative: PHYSICAL EXAMINATION: General physical exam: Pleasant lady, no obvious distress, Head/eyes: Atraumatic, EOMI, PERRLA, ENT: +dry mucous membranes, nasal passages clear Neck: Supple, full range of motion, trachea midline CVS: S1 + S2, regular rate and rhythm, no murmurs Respiratory: Bilaterally fair air entry in both lung castro, mild B/L crackles, symmetric chest expansion, no distress Abdomen: Soft, patient has a diffused abdominal tenderness on palpation, bowel sounds +ve, no organomegaly Extremities: No clubbing, no cyanosis, no edema, no calf tenderness Musculoskeletal: Moves all, adequate range of motion, no muscle spasms Skin: Warm, dry
--- NOTE | 2023-08-09 10:44 | WPDGIPROGNO ---
Progress Note: A&P Assessment and Plan (1) GI bleed: Code(s): K92.2 - Gastrointestinal hemorrhage, unspecified Status: Acute Assessment and Plan: she says that she was passing bright red blood per rectum. Although initially she had epigastric pain, today she states that it is more in lower abdomen. She has had a previous admission at which time she had lower GI bleeding and was found have a segment of colitis in the sigmoid colon biopsies which were suggestive of ischemic colitis. She did not have abdominal pain or cramping before she saw blood this time. Hemoglobin has dropped to 10.5. (2) Nausea & vomiting: Code(s): R11.2 - Nausea with vomiting, unspecified Status: Acute Assessment and Plan: Today she is thirsty and a bit hungry. Her emesis yesterday she is fairly sure did not contain blood or coffee-ground material. 08/09/2023 no further emesis. Will let her have regular food for lunch. EGD tomorrow. (3) Abnormal CT scan, gastrointestinal tract: Code(s): R93.3 - Abnormal findings on diagnostic imaging of other parts of digestive tract Status: Acute Assessment and Plan: CT scan suggests possible inflammation in the antrum or duodenum. She does take aspirin tablet once daily. She has a history of having had TIAs. (4) Stage 3a chronic kidney disease: Code(s): N18.31 - Chronic kidney disease, stage 3a Status: Acute Assessment and Plan: Creatinine is 1.9 which is about what it has been for the last 2 years. Somewhat lower today, 1.6, Which is good for her (5) Abnormal liver enzymes: Code(s): R74.8 - Abnormal levels of other serum enzymes Status: Acute Assessment and Plan: alkaline phosphatase is 157, up from 56 earlier in the year. Other LFTs are normal or unchanged. This could be of skeletal origin. No abnormalities of the liver on CT scan. Plan I will give her liquid diet today. I told her that we will probably perform EGD on Thursday. We know that she has diverticular disease. I do not think that she will need another colonoscopy. We will follow her blood counts serially. EGD Thursday morning Subjective Date/time seen: 08/09/23 10:44 she has had a bowel movement which was loose, liquid and brown. No blood. No further emesis. She is still uncomfortable. She feels tight throughout her abdomen. She tolerated her liquid diet. She is willing to try some things more solid for lunch. Exam Const: General: cooperative and healthy appearing Orientation/consciousness: patient oriented x3 HENMT: Head: normal to inspection Ears: hearing grossly normal bilaterally Mouth: Yes Normal oral and palatal mucosa present Eyes: General: appearance normal, both eyes and all related structures Neck: Neck: normal visual inspection Chest: Chest palpation & inspection: normal inspection of the chest Resp: Effort & Inspection: normal respiratory effort Auscultation: clear to auscultation bilaterally Cardio: Rate: regular rate Rhythm: regular rhythm GI: Inspection: normal to inspection Auscultation: normal bowel sounds Skin: General skin exam: normal color and no jaundice Neuro: General: patient oriented x3 Speech: normal speech Objective Data Vital Signs Vital Signs: Vital Signs - 24 hr 08/08/23 12:00 08/08/23 14:00 08/08/23 16:00 Temperature 36.6 C Pulse Rate 87 82 83 Respiratory Rate 20 Blood Pressure 140/50 L Pulse Oximetry 99 Oxygen Delivery 08/08/23 20:40 08/08/23 20:00 08/08/23 20:00 Temperature 37.2 C Pulse Rate 90 99 Respiratory Rate 18 Blood Pressure 147/53 H Pulse Oximetry 94 Oxygen Delivery Room Air 08/09/23 04:02 08/09/23 00:00 08/09/23 04:00 Temperature 36.4 C Pulse Rate 106 H 93 93 Respiratory Rate 16 Blood Pressure 157/64 H Pulse Oximetry 95 Oxygen Delivery 08/09/23 07:55 08/09/23 08:00 08/09/23 08:00 [facility]
--- NOTE | 2023-08-09 20:40 | ECG_ITS ---
Measurements Intervals [place] Rate: 101 P: 62 MA: 178 QRS: -6 QRSD: 150 T: 33 QT: 379 QTc: 493 Interpretive Statements SINUS TACHYCARDIA WITH FREQUENT SUPRAVENTRICULAR PREMATURE COMPLEXES LEFT BUNDLE BRANCH BLOCK [120+ ms QRS DURATION, 80+ ms Q/S IN V1/V2, 85+ ms R IN I/aVL/V5/V6] COMPARED TO ECG 08/07/2023 18:13:30 SINUS TACHYCARDIA NOW PRESENT Electronically Signed On 08-10-2023 13:32:07 CDT by Russell De La Vega M.D.
[2023-08-09] MEDS: amLODIPine BESYLATE 5 MG TABLET PO (20:55)
[2023-08-09] MEDS: ROSUVASTATIN 10 MG TABLET 40 MG PO (20:55)
[2023-08-09] MEDS: BELLADONNA ALK/PHENOB ELIX 10 ML, MAG HYDROX/ALUMINUM HYD/SIMETH 30 ML, LIDOCAINE HCL 2... PO (22:23)
[2023-08-09 22:31] LABS: Hematocrit 28.8 % (37.0-47.0); Hemoglobin 9.3 g/dL (12.0-15.0); Mean Corpuscular HGB Conc 32.3 g/dl (32-36); Mean Corpuscular Hemoglobin 31.7 pg (26-34); Mean Corpuscular Volume 98.3 fl (80-100); Mean Platelet Volume 9.8 fl (7.4-10.4); Platelet Count Result 132 k/mm3 (150-375); Red Blood Count 2.93 M/mm3 (4.2-5.4); Red Cell Distribution Width 13.1 % (11.5-14.5); White Blood Count 9.3 K/mm3 (4.5-10.0)
[2023-08-09] MEDS: ACETAMINOPHEN 325 MG TABLET 650 MG PO (22:44)
[2023-08-09 23:12] LABS: Magnesium 1.5 mg/dL (1.6-2.3); Phosphorus 2.3 mg/dL (2.5-4.5)
[2023-08-09 23:36] LABS: Troponin I 0.041 ng/mL (0.000-0.034)
--- NOTE | 2023-08-09 23:39 | PM.EVENT ---
Event Note Event Note Event Note: Cross Coverage Patient began complaining of severe midsternal to left-sided chest pain at 2034. Chest pain is associated with shortness of breath, palpitations, nausea and epigastric pain. No abdominal tenderness with palpation. Patient endorses multiple bowel movements: Non-bloody, non-tarry. EKG done during initial evaluation showed left bundle-branch block, sinus rhythm. Repeat EKG done now with sinus tachycardia with frequent supraventricular premature complexes. Left bundle branch block still present. Physical Exam: A/Ox4, no distress. S1 and S2 present without murmur or rub. Frequent ectopy. Lung sounds clear, mild tachypnea. Chart reviewed: Hemoglobin decreasing over stay, EGD planned for tomorrow. Calcium and magnesium on lower end of normal. Repeat CBC to reassess hemoglobin. Chemistry and Mag/Phos ordered for reassessment. Magnesium now 1.5, replete with 1 g. Calcium 7.5, replete with 1 g. Troponin 0.041. However, chest pain resolving and shortness of breath resolving. Given GI cocktail as well, prior to midnight.
[2023-08-10] VITALS (12 sets, daily range): BP systolic 96–143; BP diastolic 45–71; PULSE 67–99; RESP 14–29; TEMP 36–36.6; O2SAT 90–96; BMI 21.9
[2023-08-10] MEDS: MAGNESIUM SULF 1 GM/D5W 100 ML 1 GM/100 ML BAG IVPB (00:18)
[2023-08-10 01:17] LABS: Anion Gap 8 mmol/L (8-16); Blood Urea Nitrogen 23 mg/dL (7-17); Calcium 7.5 mg/dL (8.4-10.2); Carbon Dioxide 17 mmol/L (22-30); Chloride 108 mmol/L (98-107); Estimated CRCL calculation 22 ml/min; Estimated Glomerular Filt Rate 39; Glucose 122 mg/dL (65-110); Potassium 3.6 mmol/L (3.4-5.0); Sodium 133 mmol/L (137-145)
[2023-08-10] MEDS: CALCIUM GLUC 1,000 MG/NS 50 ML 1,000 MG/50 ML BAG 100 MG IVPB (03:21)
[2023-08-10] MEDS: SODIUM CHLORIDE 0.9% IV 1,000 ML 100 ML IV CONT ×3 (03:21→21:23)
[2023-08-10] MEDS: PIPERACILLIN/TAZ 2.25G/NS 50ML 2.25 GM/50 ML BAG IVPB ×3 (05:32→21:23)
[2023-08-10 06:04] LABS: Hematocrit 29.9 % (37.0-47.0); Hemoglobin 9.5 g/dL (12.0-15.0); Mean Corpuscular HGB Conc 31.8 g/dl (32-36); Mean Corpuscular Hemoglobin 31.5 pg (26-34); Platelet Count Result 121 k/mm3 (150-375); Red Blood Count 3.02 M/mm3 (4.2-5.4)
[2023-08-10 06:12] LABS: Anion Gap 8 mmol/L (8-16); Blood Urea Nitrogen 20 mg/dL (7-17); Calcium 8.1 mg/dL (8.4-10.2); Carbon Dioxide 20 mmol/L (22-30); Chloride 108 mmol/L (98-107); Estimated CRCL calculation 22 ml/min; Estimated Glomerular Filt Rate 39; Glucose 103 mg/dL (65-110); Potassium 3.4 mmol/L (3.4-5.0); Sodium 136 mmol/L (137-145)
[2023-08-10 06:34] LABS: Band Neutrophils Percent 11 % (0-6); Eosinophils Absolute Manual 0.08 K/mm3 (0.02-0.5); Eosinophils Percent Manual 1 % (0-4); Lymphocytes Absolute Manual 1.04 K/mm3 (1.1-4.5); Monocytes Absolute Manual 0.32 K/mm3 (0.1-0.90); Monocytes Percent Manual 4 % (3-9); Neutrophils Absolute Manual 6.56 K/mm3 (1.7-7.2); Neutrophils Percent Manual 71 % (46-73); Platelet Estimate Decreased (Adequate); Total Cells Counted 100
[2023-08-10 06:35] LABS: Schistocytes None Seen (NORMAL)
[2023-08-10] MEDS: IPRATROPIUM NASAL SPRAY 0.06% 15 ML BOTTLE 2 SPRAY NASAL ×3 (08:58→16:40)
[2023-08-10] MEDS: METOPROLOL SUCCINATE EXT REL 25 MG TABCR PO (08:58)
[2023-08-10] MEDS: lisinopriL 20 MG TABLET 40 MG PO (08:58)
[2023-08-10] MEDS: OMEGA 3 POLYUNSAT FATTY ACIDS 1 GM CAP PO ×2 (08:58→16:40)
--- NOTE | 2023-08-10 09:12 | PM.IMPN ---
Progress Note: A&P Assessment and Plan (1) Chest pain: Code(s): R07.9 - Chest pain, unspecified Status: Acute (2) Stage 3a chronic kidney disease: Code(s): N18.31 - Chronic kidney disease, stage 3a Status: Acute (3) Benign hypertension with chronic kidney disease: Code(s): I12.9 - Hypertensive chronic kidney disease with stage 1 through stage 4 chronic kidney disease, or unspecified chronic kidney disease Status: Acute (4) Vitamin D deficiency: Code(s): E55.9 - Vitamin D deficiency, unspecified Status: Acute (5) Secondary renal hyperparathyroidism: Code(s): N25.81 - Secondary hyperparathyroidism of renal origin Status: Acute (6) Anemia: Qualifiers: Anemia type: unspecified type Qualified Code(s): D64.9 - Anemia, unspecified Code(s): D64.9 - Anemia, unspecified Status: Acute (7) Hyperlipidemia: Qualifiers: Hyperlipidemia type: unspecified Qualified Code(s): E78.5 - Hyperlipidemia, unspecified Code(s): E78.5 - Hyperlipidemia, unspecified Status: Chronic (8) Hypertension: Qualifiers: Hypertension type: primary hypertension Qualified Code(s): I10 - Essential (primary) hypertension Code(s): I10 - Essential (primary) hypertension Status: Chronic (9) Peripheral arterial disease: Code(s): I73.9 - Peripheral vascular disease, unspecified Status: Acute (10) Acute kidney injury superimposed on CKD: Code(s): N17.9 - Acute kidney failure, unspecified; N18.9 - Chronic kidney disease, unspecified Status: Acute (11) Nausea & vomiting: Code(s): R11.2 - Nausea with vomiting, unspecified Status: Acute (12) Dehydration: Code(s): E86.0 - Dehydration Status: Acute Plan Acute infective gastroenteritis Admit patient to medical unit under full inpatient status Keep patient nothing by mouth except meds IV Protonix ordered Monitor H&H in a.m. and more frequently as needed Patient likely has colitis / gastroenteritis based On CT Scan findings and leukocytosis Started patient on IV Zosyn in the ER which we will continue on the floor Hold off on Aspirin/NSAIDs/anticoagulation Night provider consulted GI for evaluation, plans endoscopy am tomorrow Patient has chronic left bundle branch block with nonspecific ST T-wave changes which are comparable to her baseline Her 1st set of cardiac enzymes was negative as well hence likely source of for epigastric pain is GI in nature Serial troponin negative. Patient denies chest pain JANINE on CKD Elevated BUN creatinine above baseline Patient has JANINE secondary to dehydration hence given 2 L of IV fluids in the ER Started patient on gentle IV hydration with normal saline at 75 cc/hour on the floor no improvement of dehydration and increase normal saline to 100 mL/hour 08/07 Strict I&Os now BUN creatinine are trending down Chest pain Patient had chest pain yesterday, EKG showed left bundle block, no prior ECG for comparison Troponin x2 negative and the 3rd is positive Echocardiogram echocardiogram November 2022 showed mild enlargement of left ventricle, EF 80%, severe enlargement of left atrium Start aspirin p.o. order echocardiogram Consult television audio engineer for evaluation treat Continue with home meds. Monitor patient closely while admitted. Patient needs close follow up with PCP/specialists as an outpatient to address chronic medical issues. Subjective Date/time seen: 08/10/23 09:12 Interval history: I saw the patient. pt is feeling better. no new issueso/n. labs reviewed Exam Narrative: General physical exam: Pleasant lady, no obvious distress, Head/eyes: Atraumatic, EOMI, PERRLA, ENT: +dry mucous membranes, nasal passages clear Neck: Supple, full range of motion, trachea midline CVS: S1 + S2, regular rate and rhythm, no murmurs Respiratory: Bilaterally fair air entry in both lung fi
--- NOTE | 2023-08-10 09:16 | ECHO_ITS ---
Patient Info Name: Mae Murrieta Age: 87 years : 1935 Gender: Female Ht: 62 in Wt: 119 lbs BSA: 1.54 m2 HR: 78 bpm BP: 136 / 71 mmHg Heart Rhythm: Sinus Rhythm Technical Quality: Fair Exam Date: 08/10/2023 11:19 AM Exam Location: [facility] Pulmonary Exam Room: 349 Patient Status: Inpatient Admit Date: 08/07/2023 Staff Ordering Physician: Michelle Lr MD Biological Technical Officer: Dulce Tyler RDCS Attending Provider: Juan Francisco Urena MD Exam Type: CA echo doppler color flow Study Info Indications - dizziness Complete two-dimensional, color flow and Doppler transthoracic echocardiogram is performed. Summary 1. Complete two-dimensional, color flow and Doppler transthoracic echocardiogram is performed. 2. Left ventricular chamber dimension is mildly enlarged. 3. Left ventricular systolic function is mildly reduced, estimated at 45-50%. 4. Left ventricular septal wall motion is abnormal with septal motion related to bundle branch block. 5. Left atrial chamber dimension is moderately enlarged. 6. There is mild aortic valve sclerosis. 7. There is trace mitral valve regurgitation. Left Ventricle Left ventricular chamber dimension is mildly enlarged. Left ventricular systolic function is mildly reduced, estimated at 45-50%. There is mild concentric increased left ventricular wall thickness. Left ventricular septal wall motion is abnormal with septal motion related to bundle branch block. The left ventricular diastolic function is grade I diastolic dysfunction. Right Ventricle Right ventricular chamber dimension is normal. Left Atria Left atrial chamber dimension is moderately enlarged. Right Atria Right atrial chamber dimension is normal. Aortic Valve The aortic valve is trileaflet. There is mild aortic valve sclerosis. Pulmonic Valve The pulmonic valve is not well visualized. There is mild pulmonic regurgitation. Mitral Valve The mitral valve has normal leaflets. There is trace mitral valve regurgitation. Tricuspid Valve The tricuspid valve leaflets are normal. There is mild tricuspid valve regurgitation. Pericardium/Pleural The pericardium appears normal. Aorta The aortic root size at the sinus of Valsalva is normal. Left Ventricular Outflow Tract Name Value Normal LVOT 2D LVOT Diameter 2.0 cm LVOT Doppler LVOT Peak Gradient 5 mmHg LVOT Mean Gradient 3 mmHg LVOT VTI 23 cm LVOT VTI/AV VTI Ratio 0.8 LVOT Stroke Volume 70 ml LVOT CO 14.8 l/min LVOT CI 9.6 l/min/m2 Pulmonic Valve Name Value Normal RVOT Doppler RVOT Peak Gradient 2 mmHg PV Doppler PV Peak Gradient 4 mmHg PV Regur
[2023-08-10] MEDS: ASPIRIN 81 MG CHEWABLE TABLET 324 MG PO (10:34)
[2023-08-10] MEDS: LACTATED RINGERS 1,000 ML 150 ML IV CONT (12:03)
--- NOTE | 2023-08-10 12:07 | WPDANESEPPF ---
Anes - Initial Pre Proc Eval Procedure: Operation Date: 08/10/23 13:30 Proposed Procedures p Esophagogastroduodenoscopy - Amilcar Lopez MD Date/Time: 08/10/23 12:07 Surgeon: Juan Francisco Urena MD Pre Op Diagnosis: colitis Patient Data Age: 87 Gender: F Height: 1.57 m Weight: 54.3 kg Last Vital Signs Temp 97.3 F L 08/10/23 12:00 Pulse 89 08/10/23 12:00 Resp 18 08/10/23 12:00 BP 143/63 H 08/10/23 12:00 Pulse Ox 93 08/10/23 12:00 O2 Del Method Room Air 08/10/23 12:00 O2 Flow Rate 2 08/07/23 18:53 Allergies Allergy/AdvReac Type Severity Reaction Status Date / Time pneumococcal vaccine Allergy Mild Unknown Verified 08/10/23 12:00 latex Allergy Unknown Rash Verified 08/10/23 12:00 neomycin Allergy Unknown Swelling Verified 08/10/23 12:00 of the Eye sulfamethoxazole Allergy Unknown RASH Verified 08/10/23 12:00 trimethoprim Allergy Unknown RASH Verified 08/10/23 12:00 quartiam 15 Allergy Mild Redness of Uncoded 08/10/23 12:00 Skin Home Medications Medication Instructions Recorded Confirmed Type aspirin 81 mg tablet,delayed 81 mg PO DAILY 09/09/19 08/08/23 History release (Adult Low Dose Aspirin) rosuvastatin 40 mg tablet (Crestor) 40 mg PO HS 09/09/19 08/08/23 History amlodipine 2.5 mg tablet 5 mg PO HS 03/11/23 08/08/23 History bone restore elite 2 tablet PO BID 03/11/23 08/08/23 History coenzyme Q10 100 mg capsule (Co 100 mg PO DAILY 03/11/23 08/08/23 History Q-10) estradiol 0.01% (0.1 mg/gram) 4 g vaginal DAILY PRN IRRITATION 03/11/23 08/08/23 History vaginal cream (Estrace) krill oil-hyaluronic 1 cap PO DAILY 03/11/23 08/08/23 History acid-astaxanthin 353 mg capsule lisinopril 40 mg tablet 40 mg PO DAILY 03/11/23 08/08/23 History metoprolol succinate 25 mg 25 mg PO DAILY 03/11/23 08/08/23 History tablet,extended release 24 hr omega-3 fatty acids 1,000 mg 1,000 mg PO BID 03/11/23 08/08/23 History capsule (Super [place]-3) ipratropium bromide 42 mcg (0.06 See Rx Instructions .Route 06/01/23 08/08/23 Rx %) nasal spray .COMPLEX #15 sprays Laboratory Tests 08/09/23 08/09/23 08/09/23 22:08 22:12 22:12 WBC 9.3 K/mm3 (4.5-10.0) RBC 2.93 L M/mm3 (4.2-5.4) Hgb 9.3 L g/dL (12.0-15.0) Hct 28.8 L % (37.0-47.0) MCV 98.3 fl (80-100) MCH 31.7 pg (26-34) MCHC 32.3 g/dl (32-36) RDW 13.1 % (11.5-14.5) Plt Count 132 L k/mm3 (150-375) MPV 9.8 fl (7.4-10.4) Immature Gran % (Auto) Neut % (Auto) Lymph % (Auto) [place] % (Auto) Eos % (Auto) Baso % (Auto) Lymph # (Auto) [place] # (Auto) Eos # (Auto) Baso # (Auto) Abs Immat Gran (auto) Absolute Neuts (auto) Absolute Nucleated RBC Total Counted Neutrophils % (Manual) Band Neutrophils % Lymphocytes % (Manual) Monocytes % (Manual) Eosinophils % (Manual) Nucleated RBC % Abs Neuts (Manual) Abs Lymphs (Manual) Abs Monocytes (Manual) Absolute Eos (Manual) Platelet Estimate Schistocytes Sodium 133 L mmol/L (137-145) Potassium 3.6 mmol/L (3.4-5.0) Chloride 108 H mmol/L (98-107) Carbon Dioxide 17 L mmol/L (22-30) Anion Gap 8 mmol/L (8-16) BUN 23 H D mg/dL (7-17) Creatinine 1.30 H mg/dL (0.7-1.0) Estim Creat Clear Calc 22 ml/min Estimated GFR 39 L (59 - ) Glucose 122 H mg/dL (65-110) Calcium 7.5 L mg/dL (8.4-10.2) Phosphorus Cancelled 2.3 L mg/dL (2.5-4.5) Magnesium Cancelled Troponin I 08/09/23 08/10/23 22:12 05:56 WBC 8.0 K/
--- NOTE | 2023-08-10 15:00 | PM.CNCAR ---
Assessment and Plan Assessment and plan (1) Chest pain: Code(s): R07.9 - Chest pain, unspecified Status: Acute Plan This is an 87-year-old lady who has a history of mild LV dysfunction and chronic left bundle branch block. She was hospitalized last week Thursday for some abdominal discomfort and some bloody bowel movements that were noted. She does not have any obvious cardiac symptoms at this time had an episode of chest pain last night that I do not believe was related to ischemia. An echocardiogram today looks essentially like her baseline she has modest LV dilatation with mildly reduced ejection fraction significant valvular dysfunction. Her left bundle branch block is chronic as I mentioned above. I do not believe at this time I would recommend initiating an ischemia workup while she is here. We will follow her with you until she is discharged. Russell De La Vega MD [facility] History of Present Illness History of Present Illness Consult date/time: 08/10/23 15:00 Reason For Visit: colitis Narrative: This is an 87-year-old woman I am seeing at the request of the hospitalist because of an episode of chest pain which occurred last night. Following this apparently she had a troponin sample and it was somewhat elevated as well. Patient is unknown to me prior to this encounter however she follows with my partner Dr. Saldana. Patient feels well now offers no significant complaints she is resting comfortably in bed. She came to the hospital here last week Thursday because of some abdominal discomfort and concern regarding GI bleeding see says she had a couple of bloody bowel movements. She has been seen by GI consultants as well as by the hospitalist. She underwent an endoscopy this morning that demonstrated some gastric erosions but no active bleeding. Apparently she had a recent colonoscopy that was relatively unremarkable. She sees my partner because of mild left ventricular systolic dysfunction and a chronic left bundle branch block. She is not known to have coronary artery disease in generally has not been reporting any symptoms indicative compatible with ischemia. 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 The patient last night while in the hospital with reporting some retrosternal chest pain the signal repairer came to see the patient is according to the chart she was given a GI cocktail which provided relief of her symptom. Her electrocardiograms showed a left bundle branch block which of course is chronic. Following this her troponin level was seen to be 0.04 which is just barely out of normal range. She states she still enjoys a fairly active lifestyle despite her advanced age she enjoys caring for her home especially gardening outside she states she has some of her problem she thinks was that she over did it last week she was working in the garden planting some fall kuo and got overheated. I pointed out to her that overheating will not cause hematochezia Review of Systems Constitutional: Constitutional: Reports no additional constitutional complaints Eyes: Eyes: Reports no additional eye complaints ENT: Reports system reviewed and no additional complaints, except as documented Cardiovascular: Cardiovascular: Reports as per HPI and Reports chest pain Respiratory: Respiratory: Reports no additional respiratory complaints Gastrointestinal: Gastrointestinal: Reports as per HPI Musculoskeletal: Musculoskeletal: Reports back pain and Reports arthralgias Integumentary/Breasts: Skin/Breast: Reports system reviewed and no additional complaints, except as docu Neurologic: Reports system reviewed and no additional complaints, except as documented Endocrine: Endocrine: Reports no additional endocrine complaints Hematologic/Lymphatic: Hematologic/Lymphatic: Reports no additional hematologic/lymphatic complaints Allergic/Immunolo
[2023-08-10] MEDS: amLODIPine BESYLATE 5 MG TABLET PO (20:14)
[2023-08-10] MEDS: ROSUVASTATIN 10 MG TABLET 40 MG PO (20:14)
[2023-08-11] VITALS (10 sets, daily range): BP systolic 147–171; BP diastolic 61–69; PULSE 70–99; RESP 16–18; TEMP 35.7–36.6; O2SAT 92–98
[2023-08-11] MEDS: PIPERACILLIN/TAZ 2.25G/NS 50ML 2.25 GM/50 ML BAG IVPB ×2 (05:13→13:41)
--- NOTE | 2023-08-11 07:32 | WPDGIPROGNO ---
Progress Note: A&P Assessment and Plan (1) GI bleed: Code(s): K92.2 - Gastrointestinal hemorrhage, unspecified Status: Acute Assessment and Plan: she says that she was passing bright red blood per rectum. Although initially she had epigastric pain, today she states that it is more in lower abdomen. She has had a previous admission at which time she had lower GI bleeding and was found have a segment of colitis in the sigmoid colon biopsies which were suggestive of ischemic colitis. She did not have abdominal pain or cramping before she saw blood this time. Hemoglobin has dropped to 10.5. Hemoglobin was down to 9.3, now 9.5 today (2) Nausea & vomiting: Code(s): R11.2 - Nausea with vomiting, unspecified Status: Acute Assessment and Plan: Today she is thirsty and a bit hungry. Her emesis yesterday she is fairly sure did not contain blood or coffee-ground material. 08/09/2023 no further emesis. Will let her have regular food for lunch. EGD tomorrow. 08/11/2023 EGD was done by Dr. Lopez, who found multiple small ulcers/erosions in the antrum. H pylori is negative. I explained her that she will be on PPI for a couple of months. (3) Abnormal CT scan, gastrointestinal tract: Code(s): R93.3 - Abnormal findings on diagnostic imaging of other parts of digestive tract Status: Acute Assessment and Plan: CT scan suggests possible inflammation in the antrum or duodenum. She does take aspirin tablet once daily. She has a history of having had TIAs. (4) Stage 3a chronic kidney disease: Code(s): N18.31 - Chronic kidney disease, stage 3a Status: Acute Assessment and Plan: Creatinine is 1.9 which is about what it has been for the last 2 years. Somewhat lower today, 1.6, Which is good for her (5) Abnormal liver enzymes: Code(s): R74.8 - Abnormal levels of other serum enzymes Status: Acute Assessment and Plan: alkaline phosphatase is 157, up from 56 earlier in the year. Other LFTs are normal or unchanged. This could be of skeletal origin. No abnormalities of the liver on CT scan. (6) Abdominal distension: Code(s): R14.0 - Abdominal distension (gaseous) Status: Acute Assessment and Plan: Is unclear why she is distended. She states she is normally flatter. She has been having bowel movements, loose and brown. No blood seen Will obtain KUB today Plan I will give her liquid diet today. I told her that we will probably perform EGD on Thursday. We know that she has diverticular disease. I do not think that she will need another colonoscopy. We will follow her blood counts serially. EGD Thursday morning KUB today. Advanced diet. From my perspective she could be discharged today Subjective Date/time seen: 08/11/23 07:32 She is tolerating full liquids. She mentioned that she had developed fluid overload yesterday and at the time of her endoscopy was complained that she was having some difficulty breathing. Cardiology has seen her. She feels better today . I discussed results of her EGD with her. Dr. Lopez found multiple small ulcers in the antrum which probably explains her nausea and vomiting. Her stools are brown but loose. Despite that she feels tight in her belly as of constipated. Exam Const: General: cooperative and healthy appearing Orientation/consciousness: patient oriented x3 HENMT: Head: normal to inspection Ears: hearing grossly normal bilaterally Mouth: Yes Normal oral and palatal mucosa present Eyes: General: appearance normal, both eyes and all related structures Neck: Neck: normal visual inspection Chest: Chest palpation & inspection: normal inspection of the chest Resp: Effort & Inspection: normal respiratory effort Auscultation: clear to auscultation bilaterally Cardio: Rate: regular rate Rhythm: regular rhythm GI: Inspection: normal to inspection and distended GI Palp
--- NOTE | 2023-08-11 07:52 | WPDANESPN ---
Anes - Prog Note Post-Op Date/Time: 08/11/23 07:52 Cardiovascular status: normal Respiratory status: normal Airway patency: baseline Mental status: baseline Post-Op hydration status: normal Vital Signs: Last Vital Signs Temp 35.8 C L 08/11/23 04:00 Pulse 91 08/11/23 04:00 Resp 16 08/11/23 04:00 BP 147/61 H 08/11/23 04:00 Pulse Ox 92 08/11/23 04:00 O2 Del Method Room Air 08/10/23 13:05 O2 Flow Rate 2 08/07/23 18:53 Pain Score (VAS): 0 I/O: Intake & Output 08/10/23 08/10/23 08/11/23 15:59 23:59 07:59 Intake Total 1150 2410 600 Output Total 400 Balance 1150 2410 200 Laboratory Tests 08/10/23 05:56 08/10/23 05:56 Post-procedural complaints: none Patient Feedback: Patient satisfied with anesthetic care.
[2023-08-11] MEDS: METOPROLOL SUCCINATE EXT REL 25 MG TABCR PO (09:49)
[2023-08-11] MEDS: lisinopriL 20 MG TABLET 40 MG PO (09:50)
[2023-08-11] MEDS: OMEGA 3 POLYUNSAT FATTY ACIDS 1 GM CAP PO ×2 (09:50→16:51)
[2023-08-11] MEDS: PANTOPRAZOLE SODIUM IV 40 MG VIAL IV PUSH (09:50)
[2023-08-11] MEDS: IPRATROPIUM NASAL SPRAY 0.06% 15 ML BOTTLE 2 SPRAY NASAL ×3 (09:50→16:52)
--- NOTE | 2023-08-11 10:27 | ECG_ITS ---
Measurements Intervals [place] Rate: 89 P: 46 WI: 145 QRS: -19 QRSD: 149 T: 65 QT: 394 QTc: 479 Interpretive Statements SINUS RHYTHM LEFT BUNDLE BRANCH BLOCK [120+ ms QRS DURATION, 80+ ms Q/S IN V1/V2, 85+ ms R IN I/aVL/V5/V6] COMPARED TO ECG 08/09/2023 21:20:47 SINUS RHYTHM NOW PRESENT Electronically Signed On 08-11-2023 12:42:24 CDT by Mor Aguilera M.D.
--- NOTE | 2023-08-11 11:06 | PC.NURSE ---
Actuary Manager called Jessica Lassiter per Dr Arechiga as patient had run of V Tach on monitor. Jessica confirmed that Dr Saldana will round on patient today.
[2023-08-11] MEDS: POTASSIUM CHLORIDE 20 MEQ ER TABLET 40 MEQ PO (12:22)
[2023-08-11] MEDS: MAGNESIUM OXIDE 200 MG TABLET 100 MG PO (12:23)
--- NOTE | 2023-08-11 14:18 | PM.IMPN ---
Progress Note: A&P Assessment and Plan (1) Chest pain: Code(s): R07.9 - Chest pain, unspecified Status: Acute (2) Stage 3a chronic kidney disease: Code(s): N18.31 - Chronic kidney disease, stage 3a Status: Acute (3) Benign hypertension with chronic kidney disease: Code(s): I12.9 - Hypertensive chronic kidney disease with stage 1 through stage 4 chronic kidney disease, or unspecified chronic kidney disease Status: Acute (4) Vitamin D deficiency: Code(s): E55.9 - Vitamin D deficiency, unspecified Status: Acute (5) Secondary renal hyperparathyroidism: Code(s): N25.81 - Secondary hyperparathyroidism of renal origin Status: Acute (6) Anemia: Qualifiers: Anemia type: unspecified type Qualified Code(s): D64.9 - Anemia, unspecified Code(s): D64.9 - Anemia, unspecified Status: Acute (7) Hyperlipidemia: Qualifiers: Hyperlipidemia type: unspecified Qualified Code(s): E78.5 - Hyperlipidemia, unspecified Code(s): E78.5 - Hyperlipidemia, unspecified Status: Chronic (8) Hypertension: Qualifiers: Hypertension type: primary hypertension Qualified Code(s): I10 - Essential (primary) hypertension Code(s): I10 - Essential (primary) hypertension Status: Chronic (9) Peripheral arterial disease: Code(s): I73.9 - Peripheral vascular disease, unspecified Status: Acute (10) Acute kidney injury superimposed on CKD: Code(s): N17.9 - Acute kidney failure, unspecified; N18.9 - Chronic kidney disease, unspecified Status: Acute (11) Nausea & vomiting: Code(s): R11.2 - Nausea with vomiting, unspecified Status: Acute (12) Dehydration: Code(s): E86.0 - Dehydration Status: Acute Plan Acute infective gastroenteritis Admit patient to medical unit under full inpatient status Keep patient nothing by mouth except meds IV Protonix ordered Monitor H&H in a.m. and more frequently as needed Patient likely has colitis / gastroenteritis based On CT Scan findings and leukocytosis Started patient on IV Zosyn in the ER which we will continue on the floor Hold off on Aspirin/NSAIDs/anticoagulation npo from [place] pt to have EGD gavin AM hypomagnesia and hypokalemia continue to replace electrolytes Patient has chronic left bundle branch block with nonspecific ST T-wave changes which are comparable to her baseline Her 1st set of cardiac enzymes was negative as well hence likely source of for epigastric pain is GI in nature Serial troponin negative. pt having run of VT continue to watch on tele cardiology aware EKG showed left bundle block Troponin x2 negative and the 3rd is positive Echocardiogram echocardiogram November 2022 showed mild enlargement of left ventricle, EF 80%, severe enlargement of left atrium Start aspirin p.o. order echocardiogram Consult spanish literature professor for evaluation JANINE on CKD pt received plenty of fluids iv try oral at the moment Subjective Date/time seen: 08/11/23 14:18 Interval history: Pt having ongoing diarrhea slowing down a bit. Pt having run of VT this AM cardiology aware likely due to low mg+ potassium levels pt had felt sob yesterday due to too much fluids pt is currently on oral fluids today Review of Systems Review of Systems: diarrhea no chest pain or sob mentioned Exam Narrative: General physical exam: Pleasant lady, no obvious distress, Head/eyes: Atraumatic, EOMI, PERRLA, ENT: +dry mucous membranes, nasal passages clear Neck: Supple, full range of motion, trachea midline CVS: S1 + S2, regular rate and rhythm, no murmurs Respiratory: Bilaterally fair air entry in both lung castro, mild B/L crackles, symmetric chest expansion, no distress Abdomen: Soft, patient has a diffused abdominal tenderness on palpation, bowel sounds +ve, no organomegaly Extremities: No clubbing, no cyanosis, no edema
--- NOTE | 2023-08-11 16:31 | PM.PNCARD ---
Progress Note: A&P Assessment and Plan (1) Chest pain: Code(s): R07.9 - Chest pain, unspecified Status: Acute Assessment and Plan: Atypical chest pain, appears noncardiac. (2) Cardiomyopathy: Code(s): I42.9 - Cardiomyopathy, unspecified Status: Acute Assessment and Plan: History of cardiomyopathy, EF friends 45-50%, stable. (3) LBBB (left bundle branch block): Code(s): I44.7 - Left bundle-branch block, unspecified Status: Acute Assessment and Plan: Chronic LBBB (4) Orthopnea: Code(s): R06.01 - Orthopnea Status: Acute Assessment and Plan: Patient may have had some orthopnea last night. A few scattered rales but no edema. Her IV fluids have been discontinued. in view of her acute kidney injury and lack of edema I will not pursue with any furosemide. (5) Gastroenteritis: Code(s): K52.9 - Noninfective gastroenteritis and colitis, unspecified Status: Acute Assessment and Plan: Admitted with gastroenteritis, diarrhea, hematochezia. EGD tomorrow. Subjective Date/time seen: 08/11/23 16:31 Interval history: 87-year-old female admitted with abdominal pain and diarrhea. She is followed by Dr. Saldana for her LBBB and mild cardiomyopathy diagnosed in 2014, with an EF of 50% in November 2022. History of chronic LBBB, hypertensive heart disease, hyperlipidemia, PVD, CKD stage 4 and iron deficiency anemia. We were asked to see her for atypical chest pain which we felt was noncardiac and her LBBB which is chronic. 08/11/2023: Some orthopnea last night with some atypical CP. IV fluids were discontinued. Patient being treated for gastroenteritis, BRBPR, getting an EGD tomorrow. Electrolytes are being repleted 08/11/2023 Echo: EF 45-50%, mild LV enlargement Review of Systems Review of Systems: Some orthopnea last night with some atypical CP. Eating some soup. Less diarrhea and less abdominal pain. Exam Const: General: cooperative, healthy appearing and comfortable; No confusion Orientation/consciousness: oriented to person, patient oriented x3 and No confusion Other: Very pleasant older lady who is happy to see me, no distress HENMT: Mouth: Yes moist mucous membranes Eyes: General: appearance normal, both eyes and all related structures Neck: Neck: supple and no JVD Resp: Effort & Inspection: normal respiratory effort Auscultation: rales (Few scattered rales in both bases) Cardio: Rate: regular rate Rhythm: regular rhythm Heart sounds: Murmur heart sound present (1/6 VALERY) GI: Inspection: normal to inspection GI Palp: No abdominal tenderness Skin: General skin exam: normal color and no rashes or lesions noted Neuro: General: oriented to person, patient oriented x3 and No confusion Extrem: Right lower extremity: no edema Left lower extremity: no edema Psych: Appearance: grossly normal Mental Status: mental status grossly normal Objective Data Vital Signs Vital Signs: Vital Signs - 24 hr 08/10/23 20:00 08/10/23 20:00 08/11/23 00:00 Temperature 96.9 F L Pulse Rate 86 94 85 Respiratory Rate 16 Blood Pressure 131/54 L Pulse Oximetry 92 08/11/23 01:30 08/11/23 04:00 08/11/23 04:00 Temperature 96.3 F L 96.5 F L Pulse Rate 93 98 91 Respiratory Rate 18 16 Blood Pressure 171/69 H 147/61 H Pulse Oximetry 93 92 08/11/23 09:49 08/11/23 08:00 08/11/23 08:00 Temperature 98 F Pulse Rate 97 92 78 Respiratory Rate 16 Blood Pressure Pulse Oximetry 98 08/11/23 12:00 08/11/23 14:00 08/11/23 16:00 Temperature 97.6 F Pulse Rate 99 81 70 Respiratory Rate 18 Blood Pressure 148/66 H Pulse Oximetry 94 Intake/Output Intake/Output: Intake & Output 08/08/23 08/09/23 08/10/23 08/11/23 23:59 23:59 23:59 23:59 Intake Total 2230 2760 4760 1130 Output Total 200 400 Balance 2030 2760 4760 730 Meds/Results Medications: Active Medications
[2023-08-11] MEDS: POTASSIUM CHLORIDE 20 MEQ PACKET (FOR LIQUID) PO (16:51)
[2023-08-11] MEDS: ROSUVASTATIN 10 MG TABLET 40 MG PO (20:09)
[2023-08-11] MEDS: amLODIPine BESYLATE 5 MG TABLET PO (20:10)
[2023-08-11] MEDS: MAGNESIUM OXIDE 200 MG TABLET PO (20:10)
[2023-08-12] VITALS: PULSE 78
[2023-08-12 04:00] VITALS: PULSE 90
[2023-08-12 04:19] VITALS: BP 143/63; PULSE 98; RESP 18; TEMP 36.1; O2SAT 94
[2023-08-12 08:05] VITALS: PULSE 88
[2023-08-12 08:54] VITALS: PULSE 90
[2023-08-12] MEDS: PANTOPRAZOLE SODIUM IV 40 MG VIAL IV PUSH (08:54)
[2023-08-12] MEDS: METOPROLOL SUCCINATE EXT REL 25 MG TABCR PO (08:54)
[2023-08-12] MEDS: MAGNESIUM OXIDE 200 MG TABLET PO (08:55)
[2023-08-12] MEDS: AZITHROMYCIN 250 MG TABLET 500 MG PO (08:55)
[2023-08-12] MEDS: POTASSIUM CHLORIDE 20 MEQ PACKET (FOR LIQUID) PO (08:56)
[2023-08-12] MEDS: OMEGA 3 POLYUNSAT FATTY ACIDS 1 GM CAP PO (08:56)
[2023-08-12] MEDS: lisinopriL 20 MG TABLET 40 MG PO (08:56)
[2023-08-12] MEDS: IPRATROPIUM NASAL SPRAY 0.06% 15 ML BOTTLE 2 SPRAY NASAL (08:56)
--- NOTE | 2023-08-12 10:55 | PM.PNCARD ---
Progress Note: A&P Assessment and Plan (1) Orthopnea: Code(s): R06.01 - Orthopnea Status: Acute Assessment and Plan: Sounds like she may be having some orthopnea and pulmonary exam suggests mild acute systolic CHF. Does not appear to be severely volume overloaded. --Will give furosemide 40 mg p.o. x1 with KCl 10 mEq, and check a proBNP. --IV fluids were discontinued yesterday. (2) Chest pain: Code(s): R07.9 - Chest pain, unspecified Status: Acute Assessment and Plan: Atypical chest pain, appears noncardiac. Resolved. (3) Cardiomyopathy: Code(s): I42.9 - Cardiomyopathy, unspecified Status: Acute Assessment and Plan: History of cardiomyopathy, EF friends 45-50%, stable. (4) LBBB (left bundle branch block): Code(s): I44.7 - Left bundle-branch block, unspecified Status: Acute Assessment and Plan: Chronic LBBB (5) Gastroenteritis: Code(s): K52.9 - Noninfective gastroenteritis and colitis, unspecified Status: Acute Assessment and Plan: Admitted with gastroenteritis, diarrhea, hematochezia. EGD showed multiple superficial gastric erosions. Taking pantoprazole. Subjective Date/time seen: 08/12/23 10:55 Interval history: 87-year-old female admitted with abdominal pain and diarrhea. She is followed by Dr. Saldana for her LBBB and mild cardiomyopathy diagnosed in 2014, with an EF of 50% in November 2022. History of chronic LBBB, hypertensive heart disease, hyperlipidemia, PVD, CKD stage 4 and iron deficiency anemia. We were asked to see her for atypical chest pain which we felt was noncardiac and her LBBB which is chronic. 08/11/2023: Some orthopnea last night with some atypical CP. IV fluids were discontinued. Patient being treated for gastroenteritis, BRBPR, getting an EGD tomorrow. Electrolytes are being repleted 08/11/2023 Echo: EF 45-50%, mild LV enlargement Date of service 08/12/2023: Eating some real food. No more diarrhea or hematochezia. Patient still reports that she gets wheezy when she is supine with some shortness of breath. Review of Systems Review of Systems: Some orthopnea last night.. Still has some abdominal pain but no diarrhea or hematochezia, no chest pain. Exam Const: General: cooperative, healthy appearing and comfortable; No confusion Orientation/consciousness: oriented to person, patient oriented x3 and No confusion Other: Very pleasant older lady who is happy to see me, no distress HENMT: Mouth: Yes moist mucous membranes Eyes: General: appearance normal, both eyes and all related structures Neck: Neck: supple and no JVD Resp: Effort & Inspection: normal respiratory effort Auscultation: rales (Rales in right lower lobe 1/4 up) Cardio: Rate: regular rate Rhythm: regular rhythm Heart sounds: Murmur heart sound present (1/6 VALERY) GI: Inspection: normal to inspection Skin: General skin exam: normal color and no rashes or lesions noted Neuro: General: oriented to person, patient oriented x3 and No confusion Extrem: Right lower extremity: edema Left lower extremity: no edema Other: Mild right ankle edema Psych: Appearance: grossly normal Mental Status: mental status grossly normal Objective Data Vital Signs Vital Signs: Vital Signs - 24 hr 08/11/23 12:00 08/11/23 14:00 08/11/23 16:00 Temperature 97.6 F Pulse Rate 99 81 70 Respiratory Rate 18 Blood Pressure 148/66 H Pulse Oximetry 94 08/11/23 20:09 08/11/23 20:00 08/12/23 00:00 Temperature 97.9 F Pulse Rate 81 87 78 Respiratory Rate 18 Blood Pressure 152/64 H Pulse Oximetry 95 08/12/23 04:19 08/12/23 04:00 08/12/23 08:54 Temperature 97.0 F L Pulse Rate 98 90 90 Respiratory Rate 18 Blood Pressure 143/63 H Pulse Oximetry 94 Intake/Output Intake/Output: Intake & Output 08/09/23 08/10/23 08/11/23 08/12/23 23:59 23:59 23:59 23:59 Intake Total
--- NOTE | 2023-08-12 11:09 | PM.DS ---
DS: Admitting Diagnosis Discharge Date 08/12/2023 Admitting Diagnosis Abdominal pain, nausea and vomiting and bloody stools DS: Discharge Diagnosis Discharge Diagnosis (1) Chest pain: Code(s): R07.9 - Chest pain, unspecified Status: Acute (2) Stage 3a chronic kidney disease: Code(s): N18.31 - Chronic kidney disease, stage 3a Status: Acute (3) Benign hypertension with chronic kidney disease: Code(s): I12.9 - Hypertensive chronic kidney disease with stage 1 through stage 4 chronic kidney disease, or unspecified chronic kidney disease Status: Acute (4) Vitamin D deficiency: Code(s): E55.9 - Vitamin D deficiency, unspecified Status: Acute (5) Secondary renal hyperparathyroidism: Code(s): N25.81 - Secondary hyperparathyroidism of renal origin Status: Acute (6) Anemia: Qualifiers: Anemia type: unspecified type Qualified Code(s): D64.9 - Anemia, unspecified Code(s): D64.9 - Anemia, unspecified Status: Acute (7) Hyperlipidemia: Qualifiers: Hyperlipidemia type: unspecified Qualified Code(s): E78.5 - Hyperlipidemia, unspecified Code(s): E78.5 - Hyperlipidemia, unspecified Status: Chronic (8) Hypertension: Qualifiers: Hypertension type: primary hypertension Qualified Code(s): I10 - Essential (primary) hypertension Code(s): I10 - Essential (primary) hypertension Status: Chronic (9) Peripheral arterial disease: Code(s): I73.9 - Peripheral vascular disease, unspecified Status: Acute (10) Acute kidney injury superimposed on CKD: Code(s): N17.9 - Acute kidney failure, unspecified; N18.9 - Chronic kidney disease, unspecified Status: Acute (11) Nausea & vomiting: Code(s): R11.2 - Nausea with vomiting, unspecified Status: Acute (12) Dehydration: Code(s): E86.0 - Dehydration Status: Acute Plan Acute infective gastroenteritis Started on protonix and zithromax Diarrhea improved pt seen by GI pt had recent EGD does not need to be repeated previous egd showed gastritis pt is on protonix orally hypomagnesia and hypokalemia continue to replace electrolytes dc on 5 days of mg and potassium pt had some beats of vt yesterday likely secondary to electrolyte depletion from diarrhea Patient has chronic left bundle branch block with nonspecific ST T-wave changes which are comparable to her baseline Her 1st set of cardiac enzymes was negative as well hence likely source of for epigastric pain is GI in nature Serial troponin negative. pt having run of VT continue to watch on tele cardiology aware EKG showed left bundle block Troponin x2 negative and the 3rd is positive Echocardiogram echocardiogram November 2022 showed mild enlargement of left ventricle, EF 80%, severe enlargement of left atrium Start aspirin p.o. pt seen by cardiology History of cardiomyopathy, EF friends 45-50%, stable. chronic lbbb, pt had mild sob secondary to fluid overload post fluids pt had lasix in the hospital JANINE on CKD Resolved Pt received plenty of fluids DS: Summary Hospital Course Hospital Course: Pt is a pleasant 87 years old white female who appears much younger than her stated age.? She was working in her yard this afternoon when she became very nauseated and started having epigastric pain.? EMS was called, and they got concerned for STEMI because of the EKG finding and epigastric pain.? On review, patient has left bundle-branch block with the nonspecific ST T wave changes. ? ER/intervention cook cold meat ruled out the STEMI.? Her symptoms are mostly GI in nature and initial troponin was negative.? Her EKG was comparable to her baseline as well.? Workup was done in the ED? which showed findings on CT scan consistent with gastritis / colitis.? In the ER patient, she had a bowel movement which was bloody as well.? She also appeared to be dry and dehydra
[2023-08-12] MEDS: POTASSIUM CHLORIDE 10 MEQ ER TABLET PO (11:17)
[2023-08-12] MEDS: FUROSEMIDE 40 MG TABLET PO (11:17)
[2023-08-12 11:24] LABS: Anion Gap 7 mmol/L (8-16); Blood Urea Nitrogen 16 mg/dL (7-17); Calcium 8.8 mg/dL (8.4-10.2); Carbon Dioxide 23 mmol/L (22-30); Chloride 105 mmol/L (98-107); Estimated CRCL calculation 22 ml/min; Estimated Glomerular Filt Rate 39; Glucose 149 mg/dL (65-110); Potassium 4.9 mmol/L (3.4-5.0); Sodium 135 mmol/L (137-145)
[2023-08-12 11:31] LABS: NT Pro B Type Natriuretic Pept 12900 pg/mL (19.9-100)
== END 2023-08-12 15:10 | disposition home or self-care (01) | DRG 391 ==
LOC: ANHED 18:18 → ANH3MED 22:57
PROVIDERS: Internal Medicine Cardiovascular Disease; Internal Medicine Gastroenterology; Student in an Organized Health Care Education/Training Program; Admitting Provider Family Medicine; Emergency Provider Emergency Medicine; PCP Nurse Practitioner; Visit Provider Family Medicine
PROC: 0DJ08ZZ Inspection of Upper Intestinal Tract, Via Natural or Artificial Opening Endoscopic (ICD-10-PCS; CPT 43235; principal; 2023-08-10 13:30)
DX: A09 Infectious gastroenteritis and colitis, unspecified (principal); K29.01 Acute gastritis with bleeding; N25.81 Secondary hyperparathyroidism of renal origin; N17.9 Acute kidney failure, unspecified; I47.20 Ventricular tachycardia, unspecified; E83.42 Hypomagnesemia; I12.9 Hypertensive chronic kidney disease with stage 1 through stage 4 chronic kidney disease, or unspecified chronic kidney disease; N18.31 Chronic kidney disease, stage 3a; D64.9 Anemia, unspecified; E78.5 Hyperlipidemia, unspecified; I73.9 Peripheral vascular disease, unspecified; R06.01 Orthopnea; E86.0 Dehydration; I44.7 Left bundle-branch block, unspecified; Z87.891 Personal history of nicotine dependence; Z90.49 Acquired absence of other specified parts of digestive tract; Z90.721 Acquired absence of ovaries, unilateral; Z86.73 Personal history of transient ischemic attack (TIA), and cerebral infarction without residual deficits; Z79.82 Long term (current) use of aspirin
CPT/HCPCS: 36415; 71045; 74018; 74176; 80048; 80053; 83690; 83735; 83880; 84100; 84484; 85014; 85018; 85025; 85027; 85610; 85730; 87081; 88305; 93005; 93306; 96361; 96374; 96375; 97110; 97140; 97530; 99285; A9270; C9113; J0612; J1170; J2405; J2543; J2704; J2765; J3475; J7030; J7120

== ENCOUNTER 2023-08-27 11:34 | Outpatient (CLI) | payer MEDICARE, OTHER, SELFPAY ==
[2023-08-27 18:49] LABS: Alanine Aminotransferase 23 U/L (6-35); Albumin Level 4.3 g/dL (3.5-5.1); Alkaline Phosphatase 59 U/L (38-126); Anion Gap 12 mmol/L (8-16); Aspartate Amino Transferase 44 U/L (14-36); Bilirubin,Total 0.5 mg/dL (0.2-1.3); Blood Urea Nitrogen 76 mg/dL (7-17); Carbon Dioxide 24 mmol/L (22-30); Chloride 99 mmol/L (98-107); Estimated Glomerular Filt Rate 18; Glucose 97 mg/dL (65-110); Potassium 4.6 mmol/L (3.4-5.0); Sodium 135 mmol/L (137-145)
[2023-08-27 19:08] LABS: Basophils Absolute Auto 0.1 K/mm3 (0.0-0.1); Basophils Percent Auto 1.3 % (0.2-1.2); Eosinophils Absolute Auto 0.4 K/mm3 (0-0.3); Eosinophils Percent Auto 6.4 % (0-4.4); Hematocrit 32.2 % (37.0-47.0); Immature Granulocyte Absolute 0.03 K/mm3 (0.00-0.031); Immature Granulocyte Percent A 0.5 % (0-0.5); Lymphocytes Absolute Auto 1.22 K/mm3 (0.9-3.2); Lymphocytes Percent Auto 19.6 % (18.3-44.2); Mean Corpuscular HGB Conc 31.1 g/dl (32-36); Mean Corpuscular Hemoglobin 30.7 pg (26-34); Mean Corpuscular Volume 98.8 fl (80-100); Mean Platelet Volume 10.4 fl (7.4-10.4); Monocytes Absolute Auto 0.7 K/mm3 (0.1-0.6); Monocytes Percent Auto 10.4 % (2.6-8.5); Neutrophils Absolute Auto 3.9 K/mm3 (1.3-6.7); Neutrophils Percent Auto 61.8 % (45.5-73.1); Platelet Count Result 330 k/mm3 (150-375); Red Blood Count 3.26 M/mm3 (4.2-5.4); Red Cell Distribution Width 12.7 % (11.5-14.5); White Blood Count 6.2 K/mm3 (4.5-10.0)
== END 2023-08-27 11:35 | disposition home or self-care (01) ==
LOC: ANHGOSHLAB 11:36
PROVIDERS: PCP Internal Medicine; Visit Provider Nurse Practitioner
DX: N17.9 Acute kidney failure, unspecified (principal); N18.9 Chronic kidney disease, unspecified; R11.2 Nausea with vomiting, unspecified; E87.5 Hyperkalemia
CPT/HCPCS: 36415; 80053; 85025

== ENCOUNTER 2023-09-08 15:47 | Outpatient (CLI) | payer MEDICARE, OTHER, SELFPAY ==
[2023-09-08 19:08] LABS: Blood Urea Nitrogen 41 mg/dL (7-17); Calcium 9.3 mg/dL (8.4-10.2); Carbon Dioxide 26 mmol/L (22-30); Estimated Glomerular Filt Rate 28; Glucose 108 mg/dL (65-110); Phosphorus 4.3 mg/dL (2.5-4.5)
[2023-09-08 19:11] LABS: Anion Gap 7 mmol/L (8-16); Chloride 104 mmol/L (98-107); Potassium 5.1 mmol/L (3.4-5.0); Sodium 137 mmol/L (137-145)
== END 2023-09-08 15:48 | disposition home or self-care (01) ==
PROVIDERS: PCP Internal Medicine; Visit Provider Internal Medicine Nephrology
DX: N17.9 Acute kidney failure, unspecified (principal)
CPT/HCPCS: 36415; 80069

== ENCOUNTER 2023-09-22 15:04 | Outpatient (CLI) | payer MEDICARE, OTHER, SELFPAY ==
[2023-09-22 18:30] LABS: Anion Gap 8 mmol/L (8-16); Blood Urea Nitrogen 39 mg/dL (7-17); Calcium 9.2 mg/dL (8.4-10.2); Carbon Dioxide 26 mmol/L (22-30); Chloride 107 mmol/L (98-107); Estimated Glomerular Filt Rate 36; Glucose 113 mg/dL (65-110); Phosphorus 3.7 mg/dL (2.5-4.5); Sodium 141 mmol/L (137-145)
== END 2023-09-22 15:05 | disposition home or self-care (01) ==
LOC: ANHGOSHLAB 15:06
PROVIDERS: PCP Internal Medicine; Visit Provider Internal Medicine Nephrology
DX: N17.9 Acute kidney failure, unspecified (principal)
CPT/HCPCS: 36415; 80069

== ENCOUNTER 2023-09-30 12:30 | Outpatient (RCR) | payer MEDICARE, OTHER, SELFPAY ==
[2023-07-08 09:02] VITALS: BP_SYST 90
--- NOTE | 2023-07-08 16:36 | OPREHPOC ---
Outpatient Therapy Plan of Care This is a Multidisciplinary Plan of Care that may contain components documented by all disciplines (PT, OT, and ST.) PT Problem 1 PT Problem #1 Knowledge Deficit PT Goal 1 Goal Pt to be IND with issued HEP Target Visit 8 PT Problem 2 PT Problem #2 Pain PT Goal 1 Goal Pt to report shoulder pain no greater than 3/10 in the last weeks. Target Visit 8 PT Goal 2 Goal Pt to reports 75% improvement in overall symptoms. Target Visit 8 PT Problem 3 PT Problem #3 Impaired Range of Motion PT Goal 1 Goal Pt to improve active shoulder flexion ROM to 130deg Target Visit 8 PT Goal 2 Goal Pt to improve active shoulder abduction ROM to 120deg PT Problem 4 PT Problem #4 Impaired Strength PT Goal 1 Goal Pt to be able to life 3lb overhead without substitutions Target Visit 8
--- NOTE | 2023-07-08 16:36 | PTOPEVAL1 ---
Assessment and note entered by Tim Ziegler, PT, DPT Evaluation Information Assessment Status Evaluation Diagnosis R shoulder pain Onset multiple pain Subjective Information Pt reports a feeling down her arm and into her hand. She confirms this feels like numbness and tingling that goes all the way down the arm to her fingers. She states it is also difficulty and painful for her to reach behind her back. She states ice and inactivity are helpful. Reported Pain Level Pain Score 4: Self Report Assessment PT Clinical Summary Mae presents to therapy today for her initial evaluation with a diagnosis of R shoulder pain. Today she demonstrates decreased active and passive R shoulder motion when compared to the L, good strength but reports increased pain with resistance, and tenderness to palpation throughout her R shoulder. She demonstrates shoulder elevation with active motions, has mild R scapular winging, and a slight laterally flexed position to the L. Skilled therapy services are indicated to address the deficits noted above, to manage pain, to improve mobility, and to return to PLOF. Plan of Care Interventions Electrical Stimulation,Hot Pack/Cold Pack,Manual Therapy,Neuro Re-education,Patient/Caregiver Educati,Therapeutic Activities,Therapeutic Exercise PT Services Indicated Yes Treatment Frequency and 2x/wk for 8 visits Duration These treatments will address the objective and functional deficits as defined above. The patient will be advanced safely and appropriately in order for the patient to progress towards his/her prior level of function. Additional exercises will be introduced and as well as a comprehensive home exercise program upon discharge, if needed, ?to ensure carryover of functional gains achieved in the clinic. This treatment plan has been reviewed and agreement upon by the patient.
--- NOTE | 2023-08-05 11:57 | PCPTNOTE ---
Patient called & cancelled scheduled appointment this date due to being ill. She has been rescheduled.
[2023-08-06 13:05] VITALS: BP_SYST 112
--- NOTE | 2023-08-06 13:58 | PTOPPROG ---
Assessment and note entered by Tim Ziegler, PT, DPT Evaluation Information Assessment Status Progress Diagnosis R shoulder pain Onset multiple pain Subjective Information Pt states overall she is doing much, much better since starting therapy. She states the motion and strength in her shoulder are better and her pain has decreased. Assessment PT Clinical Summary Mae presents to therapy today for her progress report following 8 visits of skilled therapy to treat her R shoulder pain. Today she demonstrates improved active shoulder flexion and abduction. Abduction and rotation in ea direction continue to be limited compared to her uninvolved side. Her R shoulder strength is progressing as well. Continuation of skilled therapy services are indicated to continue working on postural asymmetries, improve shoulder ROM and strength, manage pain, and to return to PLOF. Plan of Care Interventions Electrical Stimulation,Hot Pack/Cold Pack,Manual Therapy,Neuro Re-education,Patient/Caregiver Educati,Therapeutic Activities,Therapeutic Exercise PT Services Indicated Yes Treatment Frequency and 2x/wk for 8 visits Duration These treatments will address the objective and functional deficits as defined above. The patient will be advanced safely and appropriately in order for the patient to progress towards his/her prior level of function. Additional exercises will be introduced and as well as a comprehensive home exercise program upon discharge, if needed, ?to ensure carryover of functional gains achieved in the clinic. This treatment plan has been reviewed and agreement upon by the patient.
--- NOTE | 2023-08-19 12:31 | PCPTNOTE ---
Patient called to cancel but did not leave a reason on voicemail.
--- NOTE | 2023-08-28 12:36 | PCPTNOTE ---
Patient called to cancel due to feeling dizzy and unable to drive.
[2023-09-04 13:36] VITALS: BP_SYST 112
--- NOTE | 2023-09-04 14:21 | PTOPPROG ---
Assessment and note entered by Tim Ziegler, PT, DPT Evaluation Information Assessment Status Progress Diagnosis R shoulder pain Onset multiple pain Subjective Information Pt states when she is up and moving around her shoulder does a lot better. She states it is most sore first thing in the morning. She reports lots of improvements since starting therapy, pt reports 80% improvement in overall symptoms. Assessment PT Clinical Summary Mae presents to therapy today for her progress report following 14 visits of skilled therapy to treat her R shoulder pain. Today she reports improvements in her pain and function compared to her initial visit. She demonstrates mild regression in her active ROM this date as she has been sick and not as complaint with her HEP. Continuation of skilled therapy services are indicated to continue working on postural asymmetries, improve shoulder ROM and strength, manage pain, and to return to PLOF. Plan of Care Interventions Electrical Stimulation,Hot Pack/Cold Pack,Manual Therapy,Neuro Re-education,Patient/Caregiver Educati,Therapeutic Activities,Therapeutic Exercise PT Services Indicated Yes Treatment Frequency and 1x/wk for 4 visits Duration These treatments will address the objective and functional deficits as defined above. The patient will be advanced safely and appropriately in order for the patient to progress towards his/her prior level of function. Additional exercises will be introduced and as well as a comprehensive home exercise program upon discharge, if needed, ?to ensure carryover of functional gains achieved in the clinic. This treatment plan has been reviewed and agreement upon by the patient.
[2023-09-30 12:34] VITALS: BP_SYST 112
--- NOTE | 2023-09-30 13:14 | PTOPDC ---
Assessment and note entered by Tim Ziegler, PT, DPT Evaluation Information Assessment Status Discharge Diagnosis R shoulder pain Onset multiple pain Subjective Information Pt states her shoulder is a little achy in the morning but the rest of the day it feels really good. She declines any functional limitations at this time. Pt reports 90% improvement in overall symptoms. Reported Pain Level Pain Score 1: Self Report Assessment PT Clinical Summary Mae presents to therapy today for her progress report following 18 visits of skilled therapy to treat her R shoulder pain. Today she demonstrates improved ROM and shoulder strength compared to her initial visits. She reports improved pain reports as well. She has met or progressed well towards her therapy goals and no longer requires skilled services. She will be discharged at this time.
== END 2023-09-30 13:53 | disposition home or self-care (01) ==
LOC: ANHGOSHPT 12:30
PROVIDERS: PCP Internal Medicine; Visit Provider Nurse Practitioner
DX: M25.511 Pain in right shoulder (principal); G89.29 Other chronic pain
CPT/HCPCS: 97110; 97140; 97161; 97530; 99199

== ENCOUNTER 2023-10-20 15:31 | Emergency (ER) | payer MEDICARE, OTHER, SELFPAY ==
--- NOTE | 2023-10-20 15:34 | ED.URI ---
HPI - URI/Sore Throat General Chief Complaint: Upper Respiratory Infection Stated Complaint: SINUS CONGETION/EARS CLOGGED/DIZZY Time Seen by Provider: 10/20/23 15:35 Source: patient Mode of arrival: ambulatory Limitations: no limitations History of Present Illness HPI Narrative: Mae is an 87-year-old female patient presenting to the clinic today with complaints of sinus congestion, ears feeling clogged, and dizziness x1 0.5 weeks. She reports that her hearing is muffled and she is having dizziness with sinus pressure and cough. Denies any known fever or chills. Denies any chest pain or shortness of breath. MD elicited complaint: rhinorrhea, nasal congestion and sinus pain Related Data Home Medications Medication Instructions Recorded Confirmed aspirin 81 mg tablet,delayed 81 mg PO DAILY 09/09/19 10/20/23 release (Adult Low Dose Aspirin) rosuvastatin 40 mg tablet (Crestor) 40 mg PO HS 09/09/19 10/20/23 amlodipine 2.5 mg tablet 5 mg PO HS 03/11/23 10/20/23 bone restore elite 2 tablet PO BID 03/11/23 10/20/23 coenzyme Q10 100 mg capsule (Co 100 mg PO DAILY 03/11/23 10/20/23 Q-10) estradiol 0.01% (0.1 mg/gram) 4 g vaginal DAILY PRN IRRITATION 03/11/23 10/20/23 vaginal cream (Estrace) krill oil-hyaluronic 1 cap PO DAILY 03/11/23 10/20/23 acid-astaxanthin 353 mg capsule lisinopril 40 mg tablet 40 mg PO DAILY 03/11/23 10/20/23 metoprolol succinate 25 mg 25 mg PO DAILY 03/11/23 10/20/23 tablet,extended release 24 hr omega-3 fatty acids 1,000 mg 1,000 mg PO BID 03/11/23 10/20/23 capsule (Super [place]-3) Allergies Allergy/AdvReac Type Severity Reaction Status Date / Time pneumococcal vaccine Allergy Mild Unknown Verified 10/08/23 11:02 latex Allergy Unknown Rash Verified 10/08/23 11:02 neomycin Allergy Unknown Swelling Verified 10/08/23 11:02 of the Eye sulfamethoxazole Allergy Unknown RASH Verified 10/08/23 11:02 trimethoprim Allergy Unknown RASH Verified 10/08/23 11:02 quartiam 15 Allergy Mild Redness of Uncoded 10/08/23 11:02 Skin Review of Systems Review of Systems: Pertinent positives per HPI. Patient denies any fever, chills, rash, visual changes, cough, shortness of breath, chest pain, palpitations, nausea, vomiting, diarrhea, constipation, abdominal pain, or any urinary issues. [facility], [facility] Past Medical History Medical History (Updated 10/20/23 @ 15:44 by Bunny Worley APRN) Acute bronchitis JANINE (acute kidney injury) Antibiotic causing adverse effect BMI between 19-24,adult Cardiomyopathy Cellulitis Cellulitis of left leg CHF (congestive heart failure), NYHA class I EF of 45% with grade 1 diastolic dysfunction. Echo noted to be on 12/28/2020 Colitis Diarrhea Fall GI bleed Heat exhaustion Hyperlipidemia Hypertension LBBB (left bundle branch block) Left hip pain Leg ulcer, left Muscle spasm Orthopnea Peripheral arterial disease Swelling of lower extremity Surgical History Surgical History H/O oophorectomy H/O vein stripping History of appendectomy S/P coil embolization of cerebral aneurysm X2 Family History Family History Sibling Family history of malignant neoplasm of uterus Cerebrovascular accident Father Family history of coronary artery disease Acute myocardial infarction Congestive heart failure Mother Family history of coronary artery disease Acute myocardial infarction Congestive heart failure Sibling Acute myocardial infarction Asthma Grandparent Colon cancer Other Family history of congenital heart disease Social History Social History Social History: The patient is and lives home alone. The patient initially had 3 biological children. Two of her children in a motor vehicle accident. The patient previously smoked many years ago. The patient d
[2023-10-20 15:37] VITALS: BP 155/57; PULSE 73; RESP 16; TEMP 36.9; O2SAT 99
== END 2023-10-20 15:51 | disposition home or self-care (01) ==
PROVIDERS: Emergency Provider Nurse Practitioner Family; PCP Internal Medicine
DX: J01.90 Acute sinusitis, unspecified (principal); Z87.891 Personal history of nicotine dependence; I11.0 Hypertensive heart disease with heart failure; I50.9 Heart failure, unspecified; I73.9 Peripheral vascular disease, unspecified; E78.5 Hyperlipidemia, unspecified; Z79.82 Long term (current) use of aspirin
CPT/HCPCS: 99213; G0463

== ENCOUNTER 2023-11-18 13:43 | Emergency (ER) | payer MEDICARE, OTHER, SELFPAY ==
[2023-11-18 13:54] VITALS: BP 162/82; PULSE 72; RESP 16; TEMP 37; O2SAT 97
--- NOTE | 2023-11-18 14:03 | ED.EXTPRO ---
HPI - Extremity Problem General Chief complaint: Extremity Problem,Nontraumatic Stated complaint: RED SPOT ON L LEG Time Seen by Provider: 11/18/23 14:03 Source: patient Mode of arrival: ambulatory Limitations: no limitations History of Present Illness HPI Narrative: 88-year-old female presents with complaint pain and red area to medial aspect of left lower extremity. Notice yesterday. Afebrile. Reports history of cellulitis in the last few months. Patient reports history of venous insufficiency, varicose veins. Reports she gets yearly Dopplers of legs and carotids. No history of DVT. Has appointment with her primary care physician in 1 week. All systems reviewed and negative except as noted above. Related Data Home Medications Medication Instructions Recorded Confirmed aspirin 81 mg tablet,delayed 81 mg PO DAILY 09/09/19 11/18/23 release (Adult Low Dose Aspirin) amlodipine 2.5 mg tablet 5 mg PO HS 03/11/23 11/18/23 bone restore elite 2 tablet PO BID 03/11/23 11/18/23 coenzyme Q10 100 mg capsule (Co 100 mg PO DAILY 03/11/23 11/18/23 Q-10) estradiol 0.01% (0.1 mg/gram) 4 g vaginal DAILY PRN IRRITATION 03/11/23 11/18/23 vaginal cream (Estrace) krill oil-hyaluronic 1 cap PO DAILY 03/11/23 11/18/23 acid-astaxanthin 353 mg capsule lisinopril 40 mg tablet 40 mg PO DAILY 03/11/23 11/18/23 metoprolol succinate 25 mg 25 mg PO DAILY 03/11/23 11/18/23 tablet,extended release 24 hr omega-3 fatty acids 1,000 mg 1,000 mg PO BID 03/11/23 11/18/23 capsule (Super [place]-3) rosuvastatin 40 mg tablet 40 mg PO DAILY 11/18/23 11/18/23 Allergies Allergy/AdvReac Type Severity Reaction Status Date / Time pneumococcal vaccine Allergy Mild Unknown Verified 11/18/23 14:00 latex Allergy Unknown Rash Verified 11/18/23 14:00 neomycin Allergy Unknown Swelling Verified 11/18/23 14:00 of the Eye sulfamethoxazole Allergy Unknown RASH Verified 11/18/23 14:00 trimethoprim Allergy Unknown RASH Verified 11/18/23 14:00 quartiam 15 Allergy Mild Redness of Uncoded 11/18/23 14:00 Skin Review of Systems Review of Systems: CONSTITUTIONAL: Denies fever, chills, or sweats. EYES: Denies visual changes, redness, or discharge. ENT: Denies rhinorrhea, congestion, sore throat, or otalgia. CARDIOVASCULAR: Denies chest pain, palpitations, or edema. RESPIRATORY: Denies cough or dyspnea. GASTROINTESTINAL: Denies abdominal pain, nausea, vomiting, or diarrhea. GENITOURINARY: Denies dysuria or hematuria. SKIN: Denies rash or itching. Reports redness and pain to medial aspect left lower extremity. MUSCULOSKELETAL: Denies back pain, joint pain, or myalgia. NEUROLOGIC: Denies headache, numbness, or weakness. PSYCHIATRIC: Denies anxiety or depression. All other systems reviewed are negative, except as documented in HPI. [facility] Past Medical History Medical History (Updated 11/18/23 @ 14:14 by Phoebe Loyola NP) Acute bronchitis JANINE (acute kidney injury) Antibiotic causing adverse effect BMI between 19-24,adult Cardiomyopathy Cellulitis Cellulitis of left leg CHF (congestive heart failure), NYHA class I EF of 45% with grade 1 diastolic dysfunction. Echo noted to be on 12/28/2020 Colitis Diarrhea Fall GI bleed Heat exhaustion Hyperlipidemia Hypertension LBBB (left bundle branch block) Left hip pain Leg ulcer, left Muscle spasm Orthopnea Peripheral arterial disease Swelling of lower extremity Surgical History Surgical History H/O oophorectomy H/O vein stripping History of appendectomy S/P coil embolization of cerebral aneurysm X2 Family History Family History Sibling Family history of malignant neoplasm of uterus Cerebrovascular accident Father Family history of coronary artery disease Acute myocardial infarction Congestive heart failure Mother Family history of coronary artery disease Acute
== END 2023-11-18 14:20 | disposition home or self-care (01) ==
PROVIDERS: Emergency Provider Nurse Practitioner Family; PCP Nurse Practitioner
DX: L03.116 Cellulitis of left lower limb (principal); E78.5 Hyperlipidemia, unspecified; I11.0 Hypertensive heart disease with heart failure; I50.9 Heart failure, unspecified; Z79.82 Long term (current) use of aspirin; Z79.899 Other long term (current) drug therapy; Z87.891 Personal history of nicotine dependence
CPT/HCPCS: 99213; G0463

== ENCOUNTER 2023-12-25 11:50 | Outpatient (CLI) | payer MEDICARE, OTHER, SELFPAY ==
[2023-12-25 17:49] LABS: Alanine Aminotransferase 19 U/L (6-35); Albumin Level 4.2 g/dL (3.5-5.1); Alkaline Phosphatase 65 U/L (38-126); Anion Gap 4 mmol/L (8-16); Aspartate Amino Transferase 41 U/L (14-36); Bilirubin,Total 0.4 mg/dL (0.2-1.3); Blood Urea Nitrogen 36 mg/dL (7-17); Calcium 9.7 mg/dL (8.4-10.2); Carbon Dioxide 29 mmol/L (22-30); Chloride 108 mmol/L (98-107); Cholesterol 176 mg/dL (0-200); Estimated Glomerular Filt Rate 42; Glucose 95 mg/dL (65-110); HDL Direct 58 mg/dL; Potassium 5.4 mmol/L (3.4-5.0); Sodium 141 mmol/L (137-145); Triglycerides 76 mg/dL (<150)
[2023-12-25 17:51] LABS: Basophils Absolute Auto 0.1 K/mm3 (0.0-0.1); Eosinophils Absolute Auto 0.3 K/mm3 (0-0.3); Eosinophils Percent Auto 3.4 % (0-4.4); Hematocrit 37.8 % (37.0-47.0); Hemoglobin 11.4 g/dL (12.0-15.0); Immature Granulocyte Absolute 0.01 K/mm3 (0.00-0.031); Immature Granulocyte Percent A 0.1 % (0-0.5); Lymphocytes Absolute Auto 1.69 K/mm3 (0.9-3.2); Lymphocytes Percent Auto 21.3 % (18.3-44.2); Mean Corpuscular HGB Conc 30.2 g/dl (32-36); Mean Corpuscular Hemoglobin 30.5 pg (26-34); Mean Corpuscular Volume 101.1 fl (80-100); Mean Platelet Volume 10.9 fl (7.4-10.4); Monocytes Absolute Auto 0.7 K/mm3 (0.1-0.6); Neutrophils Absolute Auto 5.2 K/mm3 (1.3-6.7); Neutrophils Percent Auto 65.2 % (45.5-73.1); Platelet Count Result 246 k/mm3 (150-375); Red Blood Count 3.74 M/mm3 (4.2-5.4); Red Cell Distribution Width 12.6 % (11.5-14.5); White Blood Count 7.9 K/mm3 (4.5-10.0)
[2023-12-25 17:56] LABS: Creatinine Urine 56.4 mg/dL; Total Protein Urine Random 14 mg/dL; Ur Ttl Prot Creatinine Ratio 0.25 mg/mg (0-0.20)
[2023-12-25 18:00] LABS: LDL Cholesterol Direct 91 mg/dL
[2023-12-25 18:02] LABS: Vitamin D 25 Hydroxy 32.1 ng/mL
[2023-12-25 18:05] LABS: Parathyroid Intact 86.6 pg/mL (7.5-53.5)
[2023-12-25 18:12] LABS: Albumin Level 4.2 g/dL (3.5-5.1); Anion Gap 3 mmol/L (8-16); Blood Urea Nitrogen 36 mg/dL (7-17); Calcium 9.6 mg/dL (8.4-10.2); Carbon Dioxide 29 mmol/L (22-30); Chloride 108 mmol/L (98-107); Estimated Glomerular Filt Rate 42; Glucose 93 mg/dL (65-110); Phosphorus 4.1 mg/dL (2.5-4.5); Potassium 5.4 mmol/L (3.4-5.0); Sodium 140 mmol/L (137-145)
== END 2023-12-25 11:51 | disposition home or self-care (01) ==
LOC: ANHGOSHLAB 11:54
PROVIDERS: Internal Medicine Nephrology; PCP Internal Medicine; Visit Provider Nurse Practitioner
DX: K59.09 Other constipation (principal); E55.9 Vitamin D deficiency, unspecified; R41.3 Other amnesia; I12.9 Hypertensive chronic kidney disease with stage 1 through stage 4 chronic kidney disease, or unspecified chronic kidney disease; N18.31 Chronic kidney disease, stage 3a; N25.81 Secondary hyperparathyroidism of renal origin
CPT/HCPCS: 36415; 80053; 80061; 80069; 82306; 82570; 82607; 83970; 84156; 85025

== ENCOUNTER 2024-03-30 15:09 | Outpatient (CLI) | payer MEDICARE, OTHER, SELFPAY ==
--- NOTE | ~2024-03-30 | US_ITS ---
EXAMINATION: US venous doppler [facility] DATE: 03/30/2024 16:11 INDICATION: Left lower limb pain and swelling TECHNIQUE: Grayscale ultrasound images without and with compression and Doppler ultrasound images of the left lower extremity veins were obtained. COMPARISON: None. FINDINGS: The visualized portions of left common femoral vein, profunda (deep) femoral vein, femoral vein, popl iteal vein, peroneal veins, posterior tibial veins and greater saphenous vein outflow are patent. IMPRESSION: 1. No deep venous thrombosis in the left lower limb. Reviewed, dictated and finalized at location A.
== END 2024-03-30 15:10 | disposition home or self-care (01) ==
LOC: ANHIMG 15:09
PROVIDERS: PCP Internal Medicine; Visit Provider Nurse Practitioner
DX: M79.89 Other specified soft tissue disorders (principal)
CPT/HCPCS: 93971

== ENCOUNTER 2024-05-02 15:14 | Outpatient (CLI) | payer MEDICARE, OTHER, SELFPAY ==
[2024-05-02 19:36] LABS: Anion Gap 8 mmol/L (4-12); Blood Urea Nitrogen 55 mg/dL (7-17); Calcium 9.2 mg/dL (8.4-10.2); Carbon Dioxide 25 mmol/L (22-30); Chloride 103 mmol/L (98-107); Estimated Glomerular Filt Rate 25; Glucose 96 mg/dL (65-110); Phosphorus 3.6 mg/dL (2.5-4.5); Potassium 4.9 mmol/L (3.4-5.0); Sodium 136 mmol/L (137-145)
[2024-05-02 19:49] LABS: Creatinine Urine 68.7 mg/dL; Total Protein Urine Random 10 mg/dL; Ur Ttl Prot Creatinine Ratio 0.15 mg/mg (0-0.20)
== END 2024-05-02 15:15 | disposition home or self-care (01) ==
PROVIDERS: PCP Internal Medicine; Visit Provider Internal Medicine Nephrology
DX: I12.9 Hypertensive chronic kidney disease with stage 1 through stage 4 chronic kidney disease, or unspecified chronic kidney disease (principal); N18.32 Chronic kidney disease, stage 3b
CPT/HCPCS: 36415; 80069; 82570; 84156

== ENCOUNTER 2024-05-03 09:12 | Outpatient (CLI) | payer MEDICARE, OTHER, SELFPAY ==
[2024-05-03 13:21] LABS: Iron 55 ug/dL (37-170); Percent Iron Saturation 20 % (20-50)
== END 2024-05-03 09:13 | disposition home or self-care (01) ==
LOC: ANHGOSHLAB 09:15
PROVIDERS: PCP Internal Medicine; Visit Provider Nurse Practitioner Adult Health
DX: D50.9 Iron deficiency anemia, unspecified (principal)
CPT/HCPCS: 36415; 83540; 83550

== ENCOUNTER 2024-05-04 14:08 | Outpatient (CLI) | payer MEDICARE, OTHER, SELFPAY ==
[2024-05-04 19:33] LABS: Basophils Percent Auto 0.5 % (0.2-1.2); Eosinophils Absolute Auto 0.4 K/mm3 (0-0.3); Eosinophils Percent Auto 4.6 % (0-4.4); Hematocrit 32.8 % (37.0-47.0); Hemoglobin 10.6 g/dL (12.0-15.0); Immature Granulocyte Absolute 0.03 K/mm3 (0.00-0.031); Immature Granulocyte Percent A 0.4 % (0-0.5); Lymphocytes Absolute Auto 1.65 K/mm3 (0.9-3.2); Mean Corpuscular HGB Conc 32.3 g/dl (32-36); Mean Corpuscular Hemoglobin 32.5 pg (26-34); Mean Corpuscular Volume 100.6 fl (80-100); Mean Platelet Volume 10.4 fl (7.4-10.4); Monocytes Absolute Auto 0.9 K/mm3 (0.1-0.6); Monocytes Percent Auto 11.1 % (2.6-8.5); Neutrophils Absolute Auto 4.9 K/mm3 (1.3-6.7); Neutrophils Percent Auto 62.4 % (45.5-73.1); Platelet Count Result 222 k/mm3 (150-375); Red Blood Count 3.26 M/mm3 (4.2-5.4); Red Cell Distribution Width 13.2 % (11.5-14.5); Reticulocyte Hemoglobin Conten 34.2 pg (28.2-36.6); Reticulocyte Percent 1.96 % (0.7-4.3); Reticulocytes Absolute 0.06 10^6/uL (0.02-0.10); White Blood Count 7.9 K/mm3 (4.5-10.0)
== END 2024-05-04 14:09 | disposition home or self-care (01) ==
LOC: ANHGOSHLAB 14:10
PROVIDERS: PCP Internal Medicine; Visit Provider Nurse Practitioner Adult Health
DX: D50.9 Iron deficiency anemia, unspecified (principal)
CPT/HCPCS: 36415; 85025; 85046

== ENCOUNTER 2024-06-20 14:13 | Outpatient (CLI) | payer MEDICARE, OTHER, SELFPAY ==
[2024-06-20 16:56] LABS: Albumin Level 4.1 g/dL (3.5-5.1); Anion Gap 9 mmol/L (4-12); Blood Urea Nitrogen 34 mg/dL (7-17); Calcium 9.3 mg/dL (8.4-10.2); Carbon Dioxide 24 mmol/L (22-30); Chloride 104 mmol/L (98-107); Estimated Glomerular Filt Rate 39; Glucose 118 mg/dL (65-110); Phosphorus 3.8 mg/dL (2.5-4.5); Sodium 137 mmol/L (137-145)
== END 2024-06-20 14:14 | disposition home or self-care (01) ==
LOC: ANHGOSHLAB 14:14
PROVIDERS: PCP Internal Medicine; Visit Provider Internal Medicine Nephrology
DX: N18.4 Chronic kidney disease, stage 4 (severe) (principal)
CPT/HCPCS: 36415; 80069

== ENCOUNTER 2024-09-06 10:21 | Emergency (ER) | payer MEDICARE, OTHER, SELFPAY ==
--- NOTE | ~2024-09-06 | XR_ITS ---
EXAMINATION: XR hip LT 2V w AP pelvis DATE: 09/06/2024 12:59 INDICATION: Left hip pain. TECHNIQUE: An anteroposterior view of the pelvis and 2 views of left hip were obtained. COMPARISON: Pelvis and left hip radiographs 09/18/2020 FINDINGS: There is lumbar dextroscoliosis and severe spondylosis. No fracture. There is mild right hi p osteoarthritis and moderate left hip osteoarthritis. IMPRESSION: 1. Mild right hip osteoarthritis and moderate left hip osteoarthritis. Reviewed, dictated and finalized at location B.
--- NOTE | ~2024-09-06 | CT_ITS ---
EXAMINATION: CT lumbar spine wo con DATE: 09/06/2024 14:52 INDICATION: Low back pain. Left-sided radiculopathy. TECHNIQUE: Computed tomography (CT) of the lumbar spine was performed without intravenous contrast. A utomated exposure control and iterative reconstruction technique were employed. The dose-length produ ct was 170.29 mGy-cm. COMPARISON: None FINDINGS: There is 10 degrees levoscoliosis of lumbar spine. There is 3 mm retrolisthesis of L2 on L3 and 6 mm anterolisthesis of L4 on L5. Vertebral body heights are normal. There is severely decreased disc height from L1-L2 through L5-S1. The following disc levels are specifically discussed: L1-L2: The disc is bulging. There is severe right and moderate left facet joint osteoarthritis. There is mild bilateral neural foraminal stenosis. There is mild central canal stenosis. L2-L3: The disc is bulging. There is moderate bilateral facet joint osteoarthritis. There is mild rig ht and moderate left neural foraminal stenosis. There is mild central canal stenosis. L3-L4: The disc is bulging. There is severe bilateral facet joint osteoarthritis. There is moderate r ight and mild left neural foraminal stenosis. There is mild central canal stenosis. L4-L5: The disc is bulging. There is severe bilateral facet joint osteoarthritis. There is moderate r ight and mild left neural foraminal stenosis. There is mild central canal stenosis. L5-S1: The disc is bulging. There is severe bilateral facet joint osteoarthritis. There is mild right and moderate left neural foraminal stenosis. There is mild central canal stenosis. IMPRESSION: 1. Severe lumbar spondylosis. 2. Lumbar levoscoliosis. Reviewed, dictated and finalized at location B.
[2024-09-06 10:24] VITALS: BP 150/72; PULSE 87; RESP 16; TEMP 36.4; O2SAT 96
[2024-09-06 12:47] VITALS: BP 145/76; PULSE 86; RESP 15; O2SAT 97
--- NOTE | 2024-09-06 13:09 | ED_ITS ---
HPI - General Adult General Chief complaint: Unspecified <Zoila Charlene Hsieh APRN - Last Filed: 09/06/24 13:12> Stated complaint: pain all over <Zoilaalma Hsieh APRN - Last Filed: 09/06/24 13:12> Time Seen by Provider: 09/06/24 13:00 <Zoila LNatalei Hsieh APRN - Last Filed: 09/06/24 13:12> Focused HPI: Patient is a 80-year-old female who presents to the ER with hip pain that started on Thursday. patient reports started on her right hip and felt like it was on fire. She reports the pain has now radiated to her left hip and is causing ambulation to be difficult. Patient reports her medical history includes arthritis, varicose veins and hypertension. She denies any recent sick contacts. GENERAL: Well-appearing, well-nourished, and in no acute distress. HEAD: Normocephalic, atraumatic. CHEST: Clear to auscultation. ?No respiratory distress. HEART: Regular rate and rhythm.? NEURO: ?Alert and oriented x3. Patient screened in triage and initial orders placed.? ?Additional care and disposition to be based upon?diagnostic testing and treatment. <Zoilaalma Hsieh APRN - Last Filed: 09/06/24 13:12> History of Present Illness HPI narrative: 88-year-old female presenting with lower back pain. States that she has had lower back pain for some time it feels like it has gotten a bit worse. States that she now has burning pain down her left buttock and into the left hip. No recent trauma. No new numbness or weakness. No saddle anesthesia or bladder/bowel incontinence though she states that she has had some dysuria. No further complaints. <Chante De La O MD - Last Filed: 09/06/24 19:29> Related Data Home medications: Home Medications Medication Instructions Recorded Confirmed aspirin 81 mg tablet,delayed 81 mg PO DAILY 09/09/19 08/31/24 release (Adult Low Dose Aspirin) amlodipine 2.5 mg tablet 5 mg PO HS 03/11/23 08/31/24 estradiol 0.01% (0.1 mg/gram) 4 g vaginal DAILY PRN IRRITATION 03/11/23 08/31/24 vaginal cream (Estrace) lisinopril 40 mg tablet 40 mg PO DAILY 03/11/23 08/31/24 metoprolol succinate 25 mg 25 mg PO DAILY 03/11/23 08/31/24 tablet,extended release 24 hr rosuvastatin 40 mg tablet 40 mg PO DAILY 11/18/23 08/31/24 <Zoila Hsieh APRN - Last Filed: 09/06/24 13:12> Allergies/adverse reactions: Allergies Allergy/AdvReac Type Severity Reaction Status Date / Time pneumococcal vaccine Allergy Mild Unknown Verified 08/31/24 10:01 latex Allergy Unknown Rash Verified 08/31/24 10:01 neomycin Allergy Unknown Swelling Verified 08/31/24 10:01 of the Eye sulfamethoxazole Allergy Unknown RASH Verified 08/31/24 10:01 trimethoprim Allergy Unknown RASH Verified 08/31/24 10:01 quartiam 15 Allergy Mild Redness of Uncoded 08/31/24 10:01 Skin <Zoila Hsieh APRN - Last Filed: 09/06/24 13:12> Review of Systems Review of Systems: All systems reviewed & are unremarkable except as noted in HPI and below <Chante De La O MD - Last Filed: 09/06/24 19:29> [facility] Past Medical History Medical History: Medical History Acute bronchitis JANINE (acute kidney injury) Antibiotic causing adverse effect BMI between 19-24,adult Cardiomyopathy Cellulitis Cellulitis of left leg CHF (congestive heart failure), NYHA class I EF of 45% with grade 1 diastolic dysfunction. Echo noted to be on 12/28/2020 Colitis Diarrhea Fall GI bleed Heat exhaustion Hyperlipidemia Hypertension LBBB (left bundle branch block) Left hip pain Leg ulcer, left Muscle spasm Orthopnea Peripheral arterial disease Swelling of lower extremity <Zoila Hsieh APRN - Last Filed: 09/06/24 13:12> Surgical History Surgical History: Surgical History H/O oophorectomy H/O vein stripping History of appendectomy S/P coil embolization of cerebral aneurysm X2 <Zoila Hsieh APRN - Last Filed: 09/06/24 13:12> Family History Family History: Family History Sibling Family history of malignant neoplasm of uterus Cerebrovascular accident Father Family history of coronary artery disease Acute myocardial infarction Congestive heart failure Mother Family history of coronary artery disease Acute myocardial infarction Congestive heart failure Sibling Acute myocardial infarction Asthma Grandparent Colon cancer Other Family history of congenital heart disease <Zoila Hsieh, MARKETING COMPLIANCE MANAGER - Last Filed: 09/06/24 13:12> Social History Social History: Social History Social History: The patient is and lives home alone. The patient initially had 3 biological children. Two of her children in a motor vehicle accident. The patient previously smoked many years ago. The patient desires to be a full code. Her surviving daughter is the durable power litigation attorney for healthcare. the patient is retired from [employer]. Patient does not use any marijuana or alcohol. Smoking packs per day: 0.5 Smoking cigarettes per day: 10.0 Years smoked: 25 Smoking pack-years: 12.50 Smoking status: Former smoker Tobacco type: cigarettes Smoking end date: 11/09/85 Alcohol intake: current Drinks per week: 1 Alcohol use details: social Substance use: never Substance use type: does not use Do You Feel Safe in your Home?: Yes Lack of Transportation: No Lack of Food: Never True Current Housing: I Have Housing Concerned About Future Housing: No Difficulty Paying Gas/Electric Bills: No Difficulty Paying for Meds: No Currently Unemployed: No Education: High School Diploma/GED Difficulty w/ Childcare or Family Care: No Living arrangements: alone Occupation/Education: retired Additional occupation/education comments: [employer] Gender identity (if verbalized by the patient): Female Spiritual care concerns: No <Zoila Hsieh, MARKETING COMPLIANCE MANAGER - Last Filed: 09/06/24 13:12> Exam Narrative: GENERAL: Nontoxic, no acute distress, pleasant cooperative HEAD: Normocephalic, atraumatic. EYES: PERRLA and EOMI. ENT: grossly unremarkable NECK: Supple. CHEST: No respiratory distress. HEART: Regular rate and rhythm BACK: +bilateral paraspinal tenderness in lumbar region extending down L buttocks EXTREMITIES: Normal range of motion. SKIN: Warm, dry, no rash. NEURO: No focal deficits. Alert and oriented x3. PSYCH: Normal mood and affect. <Chante De La O MD - Last Filed: 09/06/24 19:29> Course Vital Signs Vital signs: Vital Signs Temperature 97.5 F L 09/06/24 10:24 Pulse Rate 87 09/06/24 10:24 Respiratory Rate 16 09/06/24 10:24 Blood Pressure 150/72 H 09/06/24 10:24 Pulse Oximetry 96 09/06/24 10:24 Oxygen Delivery Room Air 09/06/24 10:24 Temperature 98.4 F 09/06/24 17:13 Pulse Rate 65 09/06/24 17:13 Respiratory Rate 18 09/06/24 17:13 Blood Pressure 113/60 09/06/24 17:13 Pulse Oximetry 96 09/06/24 17:13 Oxygen Delivery Room Air 09/06/24 10:24 <Zoila Hsieh APRN - Last Filed: 09/06/24 13:12> Vital Signs Temperature 97.5 F L 09/06/24 10:24 Pulse Rate 87 09/06/24 10:24 Respiratory Rate 16 09/06/24 10:24 Blood Pressure 150/72 H 09/06/24 10:24 Pulse Oximetry 96 09/06/24 10:24 Oxygen Delivery Room Air 09/06/24 10:24 Temperature 98.4 F 09/06/24 17:13 Pulse Rate 65 09/06/24 17:13 Respiratory Rate 18 09/06/24 17:13 Blood Pressure 113/60 09/06/24 17:13 Pulse Oximetry 96 09/06/24 17:13 Oxygen Delivery Room Air 09/06/24 10:24 <Chante De La O MD - Last Filed: 09/06/24 19:29> Medical Decision Making MDM Narrative Medical decision making narrative: 88-year-old female presenting with lower back pain with radiation down her left buttock and hip. Vitals are stable. Exam remarkable for the above. Neurologically intact. CT of the lumbar spine shows multiple bulging discs, several areas of spinal stenosis. UA is not concerning for infection. X-ray of her hips shows osteoarthritis. Patient with improvement in her pain following Flexeril, Toradol, Solu-Medrol. Will send in for Medrol Dosepak and below does Flexeril. Patient has a history of CKD cannot put her on NSAIDs. Advised Tylenol as well. Recommend close PCP follow-up. Appropriate return precautions given. Patient is agreeable this plan. Discharged in stable condition. <Chante De La O MD - Last Filed: 09/06/24 19:29> Differential Diagnosis Differential Diagnosis: Lower back pain, lumbar radiculopathy, arthritis <Chante De La O MD - Last Filed: 09/06/24 19:29> Medical Records Medical records reviewed: Yes I reviewed the external patient's medical records. <Chante De La O MD - Last Filed: 09/06/24 19:29> Vital Signs Vital Signs: Vital Signs Temperature 97.5 F L 09/06/24 10:24 Pulse Rate 87 09/06/24 10:24 Respiratory Rate 16 09/06/24 10:24 Blood Pressure 150/72 H 09/06/24 10:24 Pulse Oximetry 96 09/06/24 10:24 Oxygen Delivery Room Air 09/06/24 10:24 Temperature 98.4 F 09/06/24 17:13 Pulse Rate 65 09/06/24 17:13 Respiratory Rate 18 09/06/24 17:13 Blood Pressure 113/60 09/06/24 17:13 Pulse Oximetry 96 09/06/24 17:13 Oxygen Delivery Room Air 09/06/24 10:24 <Zoila Hsieh, NIKI - Last Filed: 09/06/24 13:12> Vital Signs Temperature 97.5 F L 09/06/24 10:24 Pulse Rate 87 09/06/24 10:24 Respiratory Rate 16 09/06/24 10:24 Blood Pressure 150/72 H 09/06/24 10:24 Pulse Oximetry 96 09/06/24 10:24 Oxygen Delivery Room Air 09/06/24 10:24 Temperature 98.4 F 09/06/24 17:13 Pulse Rate 65 09/06/24 17:13 Respiratory Rate 18 09/06/24 17:13 Blood Pressure 113/60 09/06/24 17:13 Pulse Oximetry 96 09/06/24 17:13 Oxygen Delivery Room Air 09/06/24 10:24 <Chante De La O MD - Last Filed: 09/06/24 19:29> Lab Data Lab results reviewed: Yes I reviewed the patient's lab results. <Chante De La O MD - Last Filed: 09/06/24 19:29> Labs: Lab Results 09/06/24 Range/Units 15:30 Urine Color Yellow (Yellow) Urine Appearance Clear (Clear) Urine pH 6.0 (5.0-9.0) Ur Specific [place] 1.015 (1.001-1.035) Urine Protein Trace (Negative) mg/dL Urine Glucose (UA) Negative (Negative) mg/dL Urine Ketones Negative (Negative) mg/dL Ur Blood (Man) Negative (Negative) Urine Nitrate Negative (Negative) Urine Bilirubin Negative (Negative) Urine Urobilinogen 0.2 (<2.0) mg/dL Leukocyte Esterase Rfl Negative (Negative) CINDY/UL Urine RBC 0-2 (0-2) /hpf Urine WBC 0-5 (0-3) /hpf Ur Squamous Epith Cells Occasional (Few) /hpf Urine Bacteria None seen /hpf Urine Casts 0-2 <Zoila Hsieh APRN - Last Filed: 09/06/24 13:12> Lab Results 09/06/24 Range/Units 15:30 Urine Color Yellow (Yellow) Urine Appearance Clear (Clear) Urine pH 6.0 (5.0-9.0) Ur Specific [place] 1.015 (1.001-1.035) Urine Protein Trace (Negative) mg/dL Urine Glucose (UA) Negative (Negative) mg/dL Urine Ketones Negative (Negative) mg/dL Ur Blood (Man) Negative (Negative) Urine Nitrate Negative (Negative) Urine Bilirubin Negative (Negative) Urine Urobilinogen 0.2 (<2.0) mg/dL Leukocyte Esterase Rfl Negative (Negative) CINDY/UL Urine RBC 0-2 (0-2) /hpf Urine WBC 0-5 (0-3) /hpf Ur Squamous Epith Cells Occasional (Few) /hpf Urine Bacteria None seen /hpf Urine Casts 0-2 <Chante De La O MD - Last Filed: 09/06/24 19:29> Imaging Data Radiologist's impression: ITS Impressions Hip/Pelvis X-Ray 09/06/24 13:00 IMPRESSION: 1. Mild right hip osteoarthritis and moderate left hip osteoarthritis. Lumbar Spine CT 09/06/24 14:55 IMPRESSION: 1. Severe lumbar spondylosis. 2. Lumbar levoscoliosis. <Chante De La O MD - Last Filed: 09/06/24 19:29> Critical Care Time Critical Care Time Critical Care Time: No <Chante De La O MD - Last Filed: 09/06/24 19:29> Discharge Plan Discharge Clinical Impression: Low back pain radiating down leg <Zoila Hsieh APRN - Last Filed: 09/06/24 13:12> Patient Disposition: Home, Self-Care <Zoila Hsieh APRN - Last Filed: 09/06/24 13:12> Condition: Stable <Zoila Hsieh APRN - Last Filed: 09/06/24 13:12> Instructions: Antibiotic Form, Lumbar Radiculopathy (ED), Back Pain (ED) <Zoila Hsieh APRN - Last Filed: 09/06/24 13:12> Additional Instructions: the CT scan today shows some bulging discs and arthritis. We are treating you with steroids to help with inflammation as well as a muscle relaxer to help with more severe pain. Please take Tylenol as well. Follow-up closely with your PCP. If your symptoms worsen or other concerning symptoms arise, please return to the ER. <Zoila Hsieh APRN - Last Filed: 09/06/24 13:12> Prescriptions: New cyclobenzaprine 5 mg tablet 5 mg PO BID PRN (Reason: muscle spasm) Qty: 14 0RF methylprednisolone [Medrol (Luis)] 4 mg tablets,dose pack See Rx Instructions .ROUTE .COMPLEX Qty: 21 0RF Rx Instructions: orally per package directions No Action rosuvastatin 40 mg tablet 40 mg PO DAILY mupirocin 2 % ointment 1 applic topical BID Qty: 15 1RF Linzess 72 mcg capsule 72 mcg PO DAILY Qty: 90 0RF aspirin [Adult Low Dose Aspirin] 81 mg tablet,delayed release (DR/EC) 81 mg PO DAILY lisinopril 40 mg tablet 40 mg PO DAILY estradiol [Estrace] 0.01 % (0.1 mg/gram) cream 4 g vaginal DAILY PRN (Reason: IRRITATION) metoprolol succinate 25 mg tablet extended release 24 hr 25 mg PO DAILY amlodipine 2.5 mg tablet 5 mg PO HS ipratropium bromide 42 mcg (0.06 %) spray,non-aerosol See Rx Instructions .ROUTE .COMPLEX Qty: 15 2RF Dose Instruction: USE 2 SPRAYS IN EACH NOSTRIL 3 TIMES A DAY Rx Instructions: USE 2 SPRAYS IN EACH NOSTRIL 3 TIMES A DAY <Zoila Hsieh APRN - Last Filed: 09/06/24 13:12> Follow-up/Referrals: Mookie,Duane Francisco MD [Primary Care Provider] - <Zoila Hsieh APRN - Last Filed: 09/06/24 13:12>
[2024-09-06] MEDS: ACETAMINOPHEN 500 MG TABLET 1000 MG PO (13:31)
[2024-09-06] MEDS: traMADol HCL (*CRX) 50 MG TABLET PO (13:31)
[2024-09-06] MEDS: methylPREDNISolone SOD SUCC 125 MG VIAL IM (13:32)
[2024-09-06] MEDS: KETOROLAC 15 MG/ML VIAL (*BKC) IM (15:07)
[2024-09-06] MEDS: CYCLOBENZAPRINE HCL 5 MG TABLET PO (15:07)
[2024-09-06 16:01] LABS: Add Urine Microscopic? YES; Appearance Urine Clear (Clear); Bacteria Urine None Seen /hpf; Bilirubin Urine Negative (Negative); Blood Urine Negative (Negative); Color Urine Yellow (Yellow); Glucose Urine UA Negative (Negative); Ketones Urine Negative (Negative); Leukocyte Esterase Ur Negative LEU/UL (Negative); Nitrate Urine Negative (Negative); Non Pathogenic Casts 0-2; Protein Urine Trace mg/dL (Negative); RBC Urine 0-2 /hpf (0-2); Specific Grav Ur 1.015 (1.001-1.035); Squamous Epithelial Cell Urine Occasional /hpf (Few); Urobilinogen Urine 0.2 mg/dL (<2.0); WBC Urine 0-5 /hpf (0-3)
[2024-09-06 17:13] VITALS: BP 113/60; PULSE 65; RESP 18; TEMP 36.9; O2SAT 96
== END 2024-09-06 17:13 | disposition home or self-care (01) ==
PROVIDERS: Emergency Provider Emergency Medicine; PCP Family Medicine
DX: M54.50 Low back pain, unspecified (principal); M79.605 Pain in left leg; I42.9 Cardiomyopathy, unspecified; I50.9 Heart failure, unspecified; I11.0 Hypertensive heart disease with heart failure; I73.9 Peripheral vascular disease, unspecified; E78.5 Hyperlipidemia, unspecified; Z79.899 Other long term (current) drug therapy; Z79.82 Long term (current) use of aspirin; M16.0 Bilateral primary osteoarthritis of hip; M47.816 Spondylosis without myelopathy or radiculopathy, lumbar region
CPT/HCPCS: 72131; 73502; 81001; 96372; 99284; A9270; J1885; J2919

== ENCOUNTER 2024-12-21 14:29 | Outpatient (CLI) | payer MEDICARE, OTHER, SELFPAY ==
--- OUTSIDE RECORDS SUMMARY | 2024-12-21 14:35 | XMS_ITS | Encounter Summary ---
Author Organization [facility] Address [address] [place] [address] Care Team Providers Care Licensed Practical Nurse Clinic Nurse Name Role Phone Alley Brody MD Unavailable [phone] Christiano Edgar MD Primary Care Provider Encounter Details Date Type Department Care Team (Late st Contact Info) Description 07/14/2024 Lab Requisition [facility] - DermPath Lab [address] [facility] [facility] [place] [address] Sharla Perez DO [address] [facility] [address] [place] [address] Social History Tobacco Use Types Packs/Day Years Used Date Smoking Tobacco: Never Alcohol Use Standard Drinks/Week Comments Not Asked 0 (1 standard drink = 0.6 oz pur e alcohol) Sex and Gender Information Value Date Recorded Sex Assigned at Not on file Gender Identity Not on file Sexual Orientation Not on file documented as of this encounter Plan of Treatment Not on file documented as of this encounter Procedures Procedure Name Priority Date/Time Associated Diagnosis Comments DERMATOPATHOLOGY Routine 07/14/2024 10:2 0 AM CDT documented in this encounter Results * DERMATOPATHOLOGY (07/14/2024 10:20 AM CDT) Case Report Dermatopathology Report Case: [id number] Authorizing Provider: Sharla Perez DO Collected: 07/14/2024 10:20 AM Ordering Location: [facility] - Received: 07/15/2024 09:26 AM DermPath Lab Pathologist: Adilene Jackson MD Specimens: A) - Skin, left taoist B) - Skin, left upper back 10:[address] [facility] Final Diagnosis Specimen A. 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 Clinical History A-B: R/O NMSC 10:[address] [facility] Gross Description Specimen A: Received is one formalin filled container labeled with the patient's name and designated left taoist. The specimen consists of a shave biopsy measuring 7x5x1 mm. Jar 0. Specimen B: Received is one formalin filled container labeled with the patient's name and designated left upper back. The specimen consists of a shave biopsy measuring 7x7x1 mm. Jar 0. 10:[address] [facility] Microscopic Description Specimen A. SKIN, left taoist: The epidermis shows parakeratosis, full thickness disorderly maturation of keratinocytes, mitoses at different levels, and dyskeratotic cells. Specimen B. SKIN, left upper back: Within the dermis there are aggregates of basaloid cells with a high nuclear to cytoplasmic ratio and peripheral palisading. 10:[address] [facility] Disclaimer An external and internal positive and negative controls are appropriate for the histochemical, immunohistochemical and immunofluorescence stain(s) in this case (if any), except where stated explicitly. The performance characteristics of the stain(s) cited in this report were developed and its performance characteristic determined by the Dermatopathology Laboratory at [facility], directed by Dr. Jessica Trinidad. These tests need not be, and therefore are not, approved by the [place] Food and Drug Administration. The tests are used for clinical purposes. Billing Codes Specimen Charges Stain Charges 02885 35181 1 1 09/09/202 4 10:40 AM CDT DERMATOPATHOLOGY LABORATORY Embedded Images 4 10:40 AM CDT DERMATOPATHOLOGY LABORATORY Pathology/Cytology TISSUE SPECIMEN FROM SKIN / Unknown 07/14/2024 10:20 AM CDT 07/15/2024 9:26 AM CDT Miscellaneous samples (specimen) TISSUE SPECIMEN FROM SKIN / Unknown 07/14/2024 10:20 AM CDT 07/15/2024 9:26 AM CDT Sharla Perez DO LAB - PATHOLOGY/C YTOLOGY ORDERABLES DERMATOPATHOLOGY LABORATORY [facility] - Department of Dermatology [facility] Medicine [address] [place] [address] [phone] documented in this encounter Visit Diagnoses Not on filedocumented in this encounter Care Teams Licensed Practical Nurse Clinic Nurse Relationship Specialty Start Date End Date Christiano Edgar MD [address] [place] [address] PCP - General Family Medicine 07/02/15 [place] [id number] [place] [address] [place] [id number] Orthopedic Surgery 08/29/13 documented as of this encounter
--- OUTSIDE RECORDS SUMMARY | 2024-12-21 14:35 | XMS_ITS | Encounter Summary ---
Author Organization [facility] Address [address] [place] [address] Care Team Providers Care Rig Operator Name Role Phone Alley Brody MD Unavailable [phone] Christiano Edgar MD Primary Care Provider [phone] Encounter Details Date Type Department Care Team (Late st Contact Info) Description 12/06/2024 Lab Requisition [facility] - DermPath Lab [address] [facility] [place] [address] Lisa Milian MD [address] [facility] [address] DEPT [place]MAT[place] [address] Social History Tobacco Use Types Packs/Day Years [...] Priority Date/Time Associated Diagnosis Comments DERMATOPATHOLOGY Routine 12/06/2024 10:4 5 AM MANAGER CRISIS documented in this encounter Results * DERMATOPATHOLOGY (12/06/2024 10:45 AM MANAGER CRISIS) Case Report Dermatopathology Report Case: [id number] Authorizing Provider: Lisa Milian MD Collected: 12/06/2024 10:45 AM Ordering Location: [facility] - Received: 12/07/2024 01:04 PM DermPath Lab Pathologist: Kylah Atkinson MD Specimen: Skin, left ant thigh 2:15 PM MANAGER [facility]IS DERMATOPATHOLOGY LABORATORY Final Diagnosis Specimen A. 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 The specimen consists of a shave biopsy measuring 2 pieces 10x9x2,9x8x2 mm. Jar 0. 2:15 PM [facility] DERMATOPATHOLOGY LABORATORY Microscopic Description Specimen A. SKIN, left ant thigh: Sections show an endo exophytic crateriform lesion with a keratotic plug, formed by confluent follicle-like structures with relatively large keratinocytes. 2:15 PM [facility] DERMATOPATHOLOGY LABORATORY Disclaimer An external and internal positive and negative controls are appropriate for the histochemical, immunohistochemical and immunofluorescence stain(s) in this case (if any), except where stated explicitly. The performance characteristics of the stain(s) cited in this report were developed and its performance characteristic determined by the Dermatopathology Laboratory at [facility], directed by Dr. Jessica Trinidad. These tests need not be, and therefore are not, approved by the [place] Food and Drug Administration. The tests are used for clinical purposes. Billing Codes Specimen Charges Stain Charges 07854 1 2:15 PM MA[facility] DERMATOPATHOLOGY LABORATORY Embedded Images 2:15 PM MA[facility] DERMATOPATHOLOGY LABORATORY Pathology/Cytolo gy TISSUE SPECIMEN FROM SKIN / Unknown 12/06/2024 10:45 AM MANAGER CRISIS 12/07/2024 1:04 PM MANAGER CRISIS Lisa Milian MD LAB - PATHOLOGY/CYT OLOGY ORDERABLES DERMATOPATHOLOGY LABORATORY [facility] - Department of Dermatology [facility] [facility], 3rd Floor [address] [phone] documented in this encounter Visit Diagnoses Not on filedocumented in this encounter Care Teams Rig Operator Relationship Specialty Start Date End Date Christiano Edgar MD [address] [place] [id number] PCP - General Family Medicine 07/02/15 [place] [address] [address] Orthopedic Surgery 08/29/13 documented as of this encounter
--- OUTSIDE RECORDS SUMMARY | 2024-12-21 14:35 | XMS_ITS | Encounter Summary ---
Author Organization [facility] Address [address] [facility] [place] [address] Care Team Providers Care Business Change Manager Name Role Phone Alley Brody MD Unavailable [phone] Christiano Edgar MD Primary Care Provider [phone] Encounter Details Date Type Department Care Team (Late st Contact Info) Description 12/05/2020 Lab Requisition [facility] [address] [facility] [place] [address] Sharla Perez DO [address] [facility] [address] [place] [address] Social History Tobacco Use Types Packs/Day Years [...] Priority Date/Time Associated Diagnosis Comments DERMATOPATHOLOGY Routine 12/04/2020 12:0 0 AM EDITORIAL CLERK documented in this encounter Results * DERMATOPATHOLOGY (12/04/2020 12:00 AM EDITORIAL CLERK) Case Report Dermatopathology Report Case: [id number] Authorizing Provider: Sharla Perez DO Collected: 12/04/2020 12:00 AM Ordering Location: [facility] DermPath Lab Received: 12/05/2020 08:18 AM Pathologist: Ayaka Trinidad MD Specimens: A) - Skin, chest B) - Skin, left elbow 4:14 PM [facility] DERMATOPATHOLOGY LABORATORY Final Diagnosis Specimen A. SKIN, chest: LARGE CELL ACANTHOMA (D23.9) Specimen B. 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 4:14 PM [facility] DERMATOPATHOLOGY LABORATORY Gross Description Specimen A: Received is one formalin filled container labeled with the patient's name and designated chest. The specimen consists of a shave measuring [id number]. Jar 0. Specimen B: Received is one formalin filled container labeled with the patient's name and designated left elbow. The specimen consists of a shave measuring [id number]. Jar 0. 4:14 PM EDITORIAL CLERK DERMATOPATHOLOGY LABORATORY Microscopic Description Specimen A. SKIN, chest: Sections show compact orthokeratosis with acanthosis composed of slightly larger keratinocytes with basal layer hyperpigmentation. Specimen B. SKIN, left elbow: Arising in the epidermis and extending into the dermis there are irregularly shaped aggregates of keratinocytes showing evidence of premature cornification. 4:14 PM [facility] DERMATOPATHOLOGY LABORATORY Disclaimer An external and internal positive and negative controls are appropriate for the histochemical, immunohistochemical and immunofluorescence stain(s) in this case (if any), except where stated explicitly. The performance characteristics of the stain(s) cited in this report were developed and its performance characteristic determined by the Dermatopathology Laboratory at [facility], directed by Dr. Jessica Trinidad. These tests need not be, and therefore are not, approved by the [place] Food and Drug Administration. The tests are used for clinical purposes. Billing Codes Specimen Charges Stain Charges 57534 40661 1 1 4:14 PM [facility] DERMATOPATHOLOGY LABORATORY Embedded Images 4:14 PM [facility] DERMATOPATHOLOGY LABORATORY Pathology/Cytology TISSUE SPECIMEN FROM SKIN / Unknown 12/04/2020 12/05/2020 8:18 AM EDITORIAL CLERK Miscellaneous samples (specimen) TISSUE SPECIMEN FROM SKIN / Unknown 12/04/2020 12/05/2020 8:18 AM EDITORIAL CLERK Sharla Perez DO LAB - PATHOLOGY/C YTOLOGY ORDERABLES DERMATOPATHOLOGY LABORATORY [facility] - Department of Dermatology [facility] [address] [place] [address], [address] [phone] documented in this encounter Visit Diagnoses Not on filedocumented in this encounter Care Teams Business Change Manager Relationship Specialty Start Date End Date Christiano Edgar MD [address] [place] [id number] PCP - General Family Medicine 07/02/15 [place] [address] [address] Orthopedic Surgery 08/29/13 documented as of this encounter
--- OUTSIDE RECORDS SUMMARY | 2024-12-21 14:35 | XMS_ITS | Encounter Summary ---
Author Organization [facility] Address [address] [facility] [place] [address] Care Team Providers Care Cash Room Clerk Name Role Phone Alley Brody MD Unavailable [phone] Christiano Edgar MD Primary Care Provider [phone] Encounter Details Date Type Department Care Team (Late st Contact Info) Description 09/19/2015 Therapy Visit [facility] Orthopedics [address] [address] [place] [address] [address] [address] Social History Tobacco Use Types Packs/Day Years [...] on file documented as of this encounter Visit Diagnoses Not on filedocumented in this encounter Care Teams Cash Room Clerk Relationship Specialty Start Date End Date Chrsitiano Edgar MD [address] [place] [address] PCP - General Family Medicine 07/02/15 [place] [address] [address] [place] [address] Orthopedic Surgery 08/29/13 documented as of this encounter
--- OUTSIDE RECORDS SUMMARY | 2024-12-21 14:35 | XMS_ITS | Patient Health Record ---
Author Organization [facility] Address [address] [facility] [address] [place], [place] [address] Care Team Providers Care Rim Fire Priming Operator Name Role Phone Tyler Stevens, Moose Unavailable [phone] REASON FOR REFERRAL No Information PLAN OF TREATMENT No Information Insurance Providers Payer Name Payer Address Payer Phone Subscriber Number Group Number Insured Name Patient Relationship to Insured Coverage Start Date Coverage End Date [facility] [address] [address] [place] [address] [id number] Mae Stapleton i Self - patient is the insured 8
--- OUTSIDE RECORDS SUMMARY | 2024-12-21 14:35 | XMS_ITS | Clinical Summary ---
Author Organization [facility] Address [address] [place] [address] Care Team Providers Care Surgical Tech Name Role Phone Duane Damico MD Primary Care Provider Reyna Claudio MD Unavailable [phone] Mor Aguilera MD Unavailable Allergies Active Allergy Reactions Criticality Noted Date Comments Adhesive Rash Medium 01/25/2019 Iodinated Contrast Media Other (See comments) High 05/18/2024 Type of contrast uncertain (may have been for CT). Patient experienced blindness and was hospitalized on trauma unit as a consequence Latex Rash Medium 12/31/2015 Gets rash when wears latex gloves, Neomycin Other (See comments) Low Eye drops - eyes swelled shut Neomycin-Bacitracnzn- Polymyxnb Vomiting Low 12/31/2015 Niacin Flushing (skin) Low Quaternium 15 Rash Medium 12/31/2015 This substance mostly in cosmetics, Quaterium-15 Sulfa (Sulfonamide Antibiotics) Unknown 06/30/2017 Medications estradiol (ESTRACE) 0.01 % (0.1 mg/gram) vaginal cream insert (1G) by vaginal route every week 0 0 5 Active ipratropium (ATROVENT) 0.06 % nasal spray Administer 2 sprays into each nostril 4 (four) times a day Active jeco-gbm-lwl-bl kbor-om 3,6,9 5 400-400-200 mg capsule Take by mouth 2 (two) times a day. Active au-tjummdp-zon- iron fm-FA-vitK 18 mg iron-600 mcg-80 mcg tablet Take by mouth daily. Active krill oil 500 mg capsule Take by mouth. Acti ve b complex vitamins capsule Take 1 capsule by mouth daily Active CHOLECALCIFEROL , VITAMIN D3, (OPTIMAL D3 ORAL) Take by mouth Active coenzyme Q10 100 mg capsule Take 1 capsule (100 mg total) by mouth daily Active omega-3 fatty acids/fish oil (OMEGA 3 FISH OIL ORAL) Take by mouth Active aspirin 81 mg chewable tablet Take 1 tablet (81 mg total) by mouth daily Active lubiprostone (AMITIZA) 24 mcg capsule Take 1 capsule (24 mcg total) by mouth daily 3 Active rosuvastatin (CRESTOR) 40 mg tablet TAKE 1 TABLET(40 MG) BY MOUTH DAILY 90 tablet 3 4 Active metoprolol XL (TOPROL-XL) 25 mg extended release tablet TAKE 1 TABLET(25 MG) BY MOUTH DAILY 90 tablet 1 4 Active lisinopriL (PRINIVIL,ZESTR IL) 40 mg tablet Take 1 tablet (40 mg total) by mouth daily 90 tablet 2 4 Active mupirocin (BACTROBAN) 2 % ointmentIndicat ions:Minor Bacterial Skin Infections Apply topically 3 (three) times a day 22 g 4 Active loteprednol (LOTEMAX) 0.5 % ophthalmic suspension Administer 1 drop into the left eye 4 (four) times a day 4 Active amLODIPine (NORVASC) 5 mg tablet Take 1 tablet (5 mg total) by mouth daily 90 tablet 3 4 Active Active Problems Problem Noted Date Diagnosed Date Carotid stenosis, asymptomatic, bilateral 2023 Atherosclerosis of [place] ar teries of extremities with intermittent claudication, bilateral legs 09/02/2024 Stage 4 chronic kidney disease (CMS/HCC) 024 Protein-calorie malnutrition, unspecified severi ty 08/23/2024 Establishing care with new doctor, encounter for 08/23/2024 Assessment & Plan (08/23/2024 10:18 AM CDT): A(n) initial visit to establish care has been performed today. Mae Murrieta is not up to date on screening tests. She is in need of hep B screening . She is up to date on needed preventative vaccinations. We discussed healthy lifestyle habits, educational material has been given. Medications reviewed, changes documented as per the medical record and discussed with patient along with risks vs benefits. Specific topics reviewed: drugs, ETOH, and tobacco, importance of regular dental care, importance of regular exercise, importance of varied diet, limit TV, media violence, minimize junk food, and seat belts. Return in 6 months Change in bowel habits 02/04/2024 Assessment & Plan (02/04/2024 1:08 PM CDT): Chronic constipation for years, recently worsening constipation. -schedule colonoscopy -The risks (risks of bleeding, infection, perforation requiring surgery, missed polyps/cancer, dental injury, aspiration pneumonia, anesthesia complications such as drug reaction and cardiopulmonary complications including rare chance of ), benefits, and alternatives of the planned procedure were explained to the patient who understands and consents to having procedure done. Chronic idiopathic constipation 02/04/2024 Assessment & Plan (02/04/2024 1:09 PM CDT): Chronic constipation for years. Has failed multiple qusu-aio-aiyeroa medications including MiraLax and probiotics. Has tried Linzess however this is too expensive. Has also tried Amitiza however did not start due to financial reasons. -we will provide Linzess 290mcg samples, advised her to take once a day -we will prescribed Trulance 3 mg p.o. daily -high-fiber diet Non-rheumatic mitral regurgitation 10/26/2023 Precordial pain 04/06/2023 Hyperkalemia 10/01/2021 Bruit of left carotid artery 01/21/2021 H/O iron deficiency anemia 10/09/2020 Loose body in knee 09/28/2019 Osteoarthritis 09/28/2019 SDH (subdural hematoma) 04/18/2019 Acute pain due to trauma 04/18/2019 Iron deficiency anemia 06/24/2018 Overview (06/24/2018): Added automatically from request for surgery [id number] PVD (peripheral vascular disease) ([facility]) 04/09 Mixed hyperlipidemia 04/21/2018 Intermittent claudication 04/21/2018 Stage 3b chronic kidney disease 09/13/2017 Gastro-esophageal reflux disease without esophag itis 09/13/2017 Essential (primary) hypertension 09/13/2017 CELI (obstructive sleep apnea) 08/31/2017 Assessment & Plan (08/31/2017 5:38 PM CDT): Was observed to have some sleep apnea when hospitalized recently. Patient has a lot of excessive daytime fatigue and would like further evaluation; may have significant CELI. FRASER (dyspnea on exertion) 08/31/2017 Assessment & Plan (08/31/2017 5:35 PM CDT): Worsening FRASER with chest burning/chest discomfort highly suggestive of angina. However, patient is moderately anemic and that may be causing the same symptoms. Lexiscan stress test negative which suggests that there is no severe CAD. Perhaps the patient has some mild to moderate CAD aggravated by anemia. Anemia 08/31/2017 Assessment & Plan (08/31/2017 5:36 PM CDT): Looks like patient has had some mild anemia for years, hematocrit 30-32 while at [employer] [place] in May, worsening recently, now hematocrit 27. 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) 12/18/2015 Overview (02/13/2017): Cardiomyopathy Assessment & Plan (08/31/2017 5:51 PM CDT): Mild Cm, EF 45-50% in past. Up to 56% 07/2017. Doubt this is the cause of her FRASER. Hypertensive heart disease without congestive he art failure 12/18/2015 Overview (02/13/2017): Hypertensive heart disease without CHF Assessment & Plan (08/31/2017 5:37 PM CDT): Has LVH and diastolic dysfunction. Blood pressure at goal Carotid atherosclerosis 12/18/2015 Overview (02/13/2017): Atherosclerosis of both carotid arteries Assessment & Plan (08/31/2017 5:39 PM CDT): Studies at [facility] showed less than 50% carotid stenosis. Does have bilateral carotid bruits. Left bundle branch block (LBBB) 06/01/2015 Overview (02/13/2017): LBBB (left bundle branch block) Assessment & Plan (08/31/2017 5:38 PM CDT): Doubt this is contributing to the current picture. Hypertension 06/01/2015 Overview (02/13/2017): HTN (hypertension) Cerebral aneurysm 11/17/2014 Stenosis of carotid artery 04/20/2012 Resolved Problems Problem Noted Date Diagnosed Date Resolved Date Chest discomfort 08/31/2017 10/27/2018 Assessment & Plan (08/31/2017 5:37 PM CDT): Exertional chest burning suggestive of angina Does have vascular disease so may have some underlying CAD despite the negative Lexiscan Pain of left lower extremity 12/09/2016 10/13/2022 Hypercholesteremia 06/01/2015 8 Overview (02/13/2017): HLD (hyperlipidemia) Assessment & Plan (08/31/2017 5:40 PM CDT): 08/25/2017 cholesterol 207, LDL 115, HDL 86, TG 134. Takes simvastatin 40 mg daily. Would like to reduce lipids further to reduce cardiovascular risk Carotid artery disease 06/01/201510/27 Overview (02/13/2017): Carotid disease, bilateral Encounters Date Type Department Care Team Description 10/26/2024 Telephone [facility] Scheduling [address] [place] [address] Jeremy Pineda NP Scheduling Appointments from Last 3 Months Immunizations Name Administration Dates Next Due Influenza, Quad, Adjuvantate d, Intramuscular 10/21/2021 Influenza, Quadrivalent, Hig h Dose, Preservative Free, Intrr 09/09/2023,11/19/2020 Influenza, Quadrivalent, Spl it, Preservative Free, Intramuscular 10/15/2022 Influenza, Trivalent, High D ose, Split, Preservative Free, Intramuscular 08/23/2024,09/22/2019,12/03/2018,11/19 Influenza, Trivalent, IM (MDV) 08/23/2013 Pneumococcal Conjugate PCV 13 09/22/2019 Pneumococcal Polysaccharide PPV23 11/19/2020 Td, adsorbed 10/19/2016 Tdap 04/17/2019(Deferred: Other - pt up to date with Tdap) ZOSTER Recombinant 10/05/2019 Surgical History Surgery Date Site/Laterality Comments APPENDECTOMY Appendectomy OOPHERECTOMY Left ANGIO SELECTIVE CAROTID LEAD OXIDE MILL TENDER RIGHT 05/30/2019 Right ANGIO SELECTIVE CAROTID LEAD OXIDE MILL TENDER RIGHT 09/30/2021 Right BRAIN SURGERY ABDOMINAL SURGERY Medical History Medical History Date Comments Hx Other Medical 2013, 2016 Brain aneurysm -- coiled; two different sites, Comments: [facility]U 06/04/2015 - Hx Other Medical Fx right arm, [age] y.o.; Comments: ELU 06/04/2015 - Iron deficiency anemia Diastolic dysfunction Hypertension Subdural hematoma (HCC) 2019 AFter a fall, tx'd concervatively Arthritis Osteoporosis Heart disease Chronic kidney disease Family History Medical History Relation Name Comments Hypertension Brother 1 Sky Kidney disease Brother 2 Gersabrina No Known Problems Daughter 1 No Known Problems Daughter 2 Other Father Hardening of th e arteries; Cause of : Hardening of the arteries No Known Problems Maternal Grandfather No Known Problems Maternal Grandmother Coronary artery disease Mother Sadiq Pearl nary artery disease; Cause of : Coronary artery disease Rashes / Skin problems Mother Sadiq No Known Problems Paternal Grandfather No Known Problems Paternal Grandmother Allergy (severe) Sister 1 Yolande Arthritis Sister 2 Jaylyn Bleeding Disorder Sister 2 Jaylyn No Known Problems Son Relation Name Status Comments Brother 1 Sky Brother 2 Geroge Daughter 1 Alive Daughter 2 Father Maternal Grandfather Maternal Grandmother Mother Sadiq (Age 69) Paternal Grandfather Paternal Grandmother Sister 1 Yolande Sister 2 Jaylyn Son Social History Tobacco Use Types Packs/Day Years Used Date Smoking Tobacco: Former Cigarettes 0.5 30 0 [birth year]09/1954 - 1984 Smokeless Tobacco: Never Tobacco Cessation:Counseling Given: Not Answered Alcohol Use Standard Drinks/Week Comments Yes 0 (1 standard drink = 0.6 oz pur e alcohol) AUDIT-C Answer Date Recorded Q1: How often do you have a drink containing alc ohol? Monthly or less 09/02/2024 Q2: How many drinks containi ng alcohol do you have on a typical day when you are drinking? 1 or 2 09/02/2024 Q3: How often do you have si x or more drinks on one occasion? 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 Not on file Not on file Not on file Obstetrics History Last Filed Vital Signs Vital Sign Reading Time Taken Comments Blood Pressure 128/78 09/14/2024 10:25 AM YARD PILOT Pulse 70 09/14/2024 10:25 AM YARD PILOT Temperature 36.7 C (98 F) 09/14/2024 10:25 AM YARD PILOT Respiratory Rate 18 08/23/2024 9:53 AM CDT Oxygen Saturation 98% 09/14/2024 10:25 AM YARD PILOT Inhaled Oxygen Concentration - - Weight 49.9 kg (110 lb) 09/14/2024 10:25 AM YARD PILOT Height 157.5 cm (5' 2 ) 09/14/2024 10:25 AM YARD PILOT Body Mass Index 20.12 09/14/2024 10:25 AM YARD PILOT Plan of Treatment Health Maintenance Due Date Last Done Comments Hepatitis B Screening 1953 Covid-19 Vaccine ( season) 2024 09/09/2023, 10/15/2022, 08/20/2021, Additional history exists Well Visit 65+ 08/23/2025 08/23/2024 Zoster Vaccine (2 of 2) 08/23/2025 10/05/2019 Post poned from 11/30/2019 (Insurance / Financial) Depression Screening 09/14/2025 09/14/2024, 08/23/20 24 Fall Risk Assessment 09/14/2025 09/14/2024, 08/23/2024, 09/30/2021 DTaP/Tdap/Td Vaccine (1 - Tdap) 11/08/2025 10/19/2016 Postponed from 10/20/2016 (Insurance / Financial) Pneumococcal vaccine 65+ Completed 11/19/2020, 09/09 Influenza Vaccine Completed 08/23/2024, , 10/15/2022, Additional history exists Medical Devices Implanted Type Area Pet Training Instructor Device Identifier Shelf Expiration Date Model / Serial / Lot Intracranial Aneurysm Coil Cranial Description:3.5 mm x 23 mm L VIS Jr stent, MicroVention HydroSoft-Helical 2mm x 6cm, HydroSoft-Helical 2mm x 4cm, HydroSoft 3D 1mm x 3cm; 6 [facility] Insurance MEDICARE [facility] MEDICARE [facility] Address: [address] [address] [facility] Advance Directives For more information, please contact: [phone] * Full Code (Latest Code Status on File) Date Activated Date Inactivated Comments 05/30/2019 12:35 PM 05/31/2019 12:06 AM * Full Code Date Activated Date Inactivated Comments 04/18/2019 1:59 AM 04/19/2019 6:47 PM * Full Code Date Activated Date Inactivated Comments 07/29/2018 12:59 PM 07/29/2018 3:32 PM Care Teams Surgical Tech Relationship Specialty Start Date End Date Duane Damico MD [address] [place] [address] PCP - General Family Medicine 08/23/24 Reyna Claudio MD [address] [facility] [address] [place] [address] Referring Physician Nephrology 08/23/24 Mor Aguilera MD [address] [facility] [address], [place] [address] Consulting Physician Interventional Cardiology 08/23/24
--- OUTSIDE RECORDS SUMMARY | 2024-12-21 14:35 | XMS_ITS | Clinical Summary ---
Author Organization [facility] Address [address] [facility], [address] [address] Phone Care Team Providers Care Industrial Truck Driver Name Role Phone Christiano Edgar MD Primary Care Provider [phone] Allergies Active Allergy Reactions Criticality Noted Date Comments Latex Rash Medium 12/31/2015 Gets rash when wears latex gloves Neomycin Swelling Low 12/31/2015 Neomycin-Bacitracin Zn-Polymyx Vomiting 12/31/2015 Quaternium-15 Rash Medium 12/31/2015 This substance mostly in cosmetics, Quaterium-15 Medications lisinopril (PRINIVIL, ZESTRIL) 20 MG Tablet 3 12/18/2015 Active metoprolol Succinate (TOPROL-XL) 50 MG TABLET SR 24 HR 2 12/24/2015 Active simvastatin (ZOCOR) 40 MG Tablet 3 12/24/2015 Active valACYclovir (VALTREX) 500 MG Tablet 1 12/24/2015 Active ESTRACE VAGINAL 0.1 MG/GM Cream 2 01/24/2016 Act jane ipratropium (ATROVENT) 0.06 % SolutionIndicati ons:Vasomotor rhinitis 2 Sprays by Nasal route 3 times daily. 15 mL 11 03/16/2017 Active azelastine (ASTELIN) 0.1 % SolutionIndicati ons:Vasomotor rhinitis 2 Sprays by Nasal route 2 times daily. 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/2016 Social History Tobacco Use Types Packs/Day Years Used Date Smoking Tobacco: Former Cigarettes 1 25 Alcohol Use Standard Drinks/Week Comments No 0 (1 standard drink = 0.6 oz pur e alcohol) Comments No Sex and Gender Information Value Date Recorded Sex Assigned at Not on file Legal Sex Female 11:34 PM CDT Gender Identity Not on file Sexual Orientation Not on file Occupation Industry Job Start Date Job End Date retired--[employer] Not on file Not on file Not on fi le Last Filed Vital Signs Vital Sign Reading Time Taken Comments Blood Pressure 130/70 03/16/2017 1:18 PM CDT Pulse 65 03/16/2017 1:18 PM CDT Temperature - - Respiratory Rate 20 03/16/2017 1:18 PM CDT Oxygen Saturation 97% 03/16/2017 1:18 PM CDT Inhaled Oxygen Concentration - - Weight 54.9 kg (121 lb) 03/16/2017 1:18 PM CDT Height 162.6 cm (5' 4 ) 03/16/2017 1:18 PM CDT Body Mass Index 20.77 03/16/2017 1:18 PM CDT Plan of Treatment Health Maintenance Due Date Last Done Comments DEXA Bone Density 1935 Hepatitis C Virus (HCV) Screening 1935 TdaP Immunization 1935 Pneumococcal Immunization (5 0+ years) (1 of 1 - PCV) 1985 Zoster Immunization (1 of 2) 1985 Respiratory Syncytial Virus (RSV) Immunization (Adult) (1 - 1-dose 75+ series) 2010 Influenza Immunization (#1) 2024 SARS-COV-2 Immunization ( - season) 2024 Hepatitis B Immunization Aged Out No longer eligible based on patient's age to complete this topic Meningococcal Immunization (ACWY) Aged Out No longer eligible based on patient's age to complete this topic Rotavirus Immunization Aged Out No lo nger eligible based on patient's age to complete this topic Insurance MEDICARE Care Teams Industrial Truck Driver Relationship Specialty Start Date End Date Christiano Edgar MD [address] [address] PCP - General Family Medicine 12/31/15
--- OUTSIDE RECORDS SUMMARY | 2024-12-21 14:35 | XMS_ITS | Clinical Summary ---
Author Organization [facility] Address [address] [facility] [place] [address] Care Team Providers Care Derrick Boat Captain Name Role Phone Alley Brody MD Unavailable [phone] Christiano Edgar MD Primary Care Provider [phone] Source Comments [facility],non-owned Affiliates and Associated Physician Practices is amultiple site organization consisting of ambulatory clinics and hospital sitesin [place], [place], [place] and [place]. This disclosure is being madepursuant to the Care Everywhere program and may not contain all information available regarding this patient. Last updated 18.[facility] Allergies Active Allergy Reactions Criticality Noted Date Comments Htucrkqu-Dtcwiwtqzp-Nsvutmepx 2012 Medications * Be aware that medications may not be up to date on this document. Alwaysverify current medications with the patient. Medication Sig Dispensed Refills Start Date End Date Status Gkvjc-0-mdsb Ethyl Esters (LOVAZA PO) Take by mouth. Ac tive simvastatin (ZOCOR) 20 MG tablet Take 20 mg by mouth at bedtime. Active valACYclovir (VALTREX) 500 MG tablet Take 500 mg by mouth 2 times daily. Active celecoxib (CELEBREX) 200 MG capsule Take 1 Cap by mouth 2 times daily. 60 Cap 1 08/29/2013 Active METOPROLOL SUCCINATE ER PO Active aspirin (ASPIRIN) 81 MG tablet Take 81 mg by mouth once daily Active lisinopril (PRINIVIL; ZESTRIL) 10 MG tablet Take 10 mg by mouth once daily Active estradiol (ESTRACE) 0.1 MG/GM vaginal cream Insert into the vagina at bedtime Active methylPREDNISolone (MEDROL DOSEPAK) 4 MG tablet Take by mouth as directed 21 Packet 0 07/02/2015 Active metaxalone (SKELAXIN) 800 MG tablet Take 1 Tab by mouth nightly as needed for Muscle Spasms 40 Tab 0 07/02/2015 Active tiZANidine (ZANAFLEX) 4 MG tablet Take 1 Tab by mouth at bedtime 40 Tab 0 07/03/2015 Active Active Problems No known active problems Encounters Date Type Department Care Team Description 12/06/[address] [facility] - DermPath Lab [address] [facility], [place] [id number] Lisa Milian MD from Last 3 Months Social History Tobacco Use Types Packs/Day Years Used Date Smoking Tobacco: Never Alcohol Use Standard Drinks/Week Comments Not Asked 0 (1 standard drink = 0.6 oz pur e alcohol) Sex and Gender Information Value Date Recorded Sex Assigned at Not on file Gender Identity Not on file Sexual Orientation Not on file Last Filed Vital Signs Vital Sign Reading Time Taken Comments Blood Pressure 158/63 07/20/2015 9:04 AM CDT Pulse 53 07/20/2015 9:04 AM CDT Temperature 36.5 C (97.7 F) 07/20/2015 9:04 AM CDT Respiratory Rate 16 07/05/2015 11:30 AM CDT Oxygen Saturation 94% 07/05/2015 11:30 AM CDT Inhaled Oxygen Concentration - - Weight 54 kg (119 lb) 07/20/2015 9:04 AM CDT Height 157.5 cm (5' 2 ) 07/20/2015 9:04 AM CDT Body Mass Index 21.77 07/20/2015 9:04 AM CDT Plan of Treatment Health Maintenance Due Date Last Done Comments BONE DENSITY TESTING 1935 MEDICARE AWV 12 MONTHS 1935 DTAP/TDAP/TD VACCINES (1 - Tdap) 1954 PNEUMOCOCCAL VACCINE 50+ (1 of 1 - PCV) 1985 ZOSTER VACCINE (1 of 2) 1985 Respiratory Syncytial Virus (RSV) Vaccine Pt: or over 60 yrs (1 - 1-dose 75+ series) 2010 COVID-19 VACCINE (2023-2 5 season) 2024 INFLUENZA VACCINE (#1) 2024 DEPRESSION SCREENING 11/09/2024 HEPATITIS B VACCINE Aged Out No longe r eligible based on patient's age to complete this topic HIB VACCINE Aged Out No longer eligi ble based on patient's age to complete this topic HPV VACCINE Aged Out No longer eligi ble based on patient's age to complete this topic MENINGOCOCCAL (Group B) VACCINE Aged Out No longer eligible based on patient's age to complete this topic MENINGOCOCCAL VACCINE Aged Out No sintia glory eligible based on patient's age to complete this topic Procedures Procedure Name Priority Date/Time Associated Diagnosis Comments DERMATOPATHOLOGY Routine 12/06/2024 10:4 5 AM LLAMA FARMER from Last 3 Months Results * DERMATOPATHOLOGY (12/06/2024 10:45 AM LLAMA FARMER) Case Report Dermatopathology Report Case: [id number] Authorizing Provider: Lisa Milian MD Collected: 12/06/2024 10:45 AM Ordering Location: [facility] - Received: 12/07/2024 01:04 PM DermPath Lab Pathologist: Kylah Atkinson MD Specimen: Skin, left ant thigh 2:15 PM LLAMA FARMER DERMATOPATHOLOGY LABORATORY Final Diagnosis Specimen A. 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 The specimen consists of a shave biopsy measuring 2 pieces 10x9x2,9x8x2 mm. Jar 0. 2:15 PM LLAMA FARMER DERMATOPATHOLOGY LABORATORY Microscopic Description Specimen A. SKIN, left ant thigh: Sections show an endo exophytic crateriform lesion with a keratotic plug, formed by confluent follicle-like structures with relatively large keratinocytes. 2:15 PM LLAMA FARMER DERMATOPATHOLOGY LABORATORY Disclaimer An external and internal positive and negative controls are appropriate for the histochemical, immunohistochemical and immunofluorescence stain(s) in this case (if any), except where stated explicitly. The performance characteristics of the stain(s) cited in this report were developed and its performance characteristic determined by the Dermatopathology Laboratory at [facility], directed by Dr. Jessica Trinidad. These tests need not be, and therefore are not, approved by the [place] Food and Drug Administration. The tests are used for clinical purposes. Billing Codes Specimen Charges Stain Charges 26689 1 5 2:15 PM LLAMA FARMER DERMATOPATHOLOGY LABORATORY Embedded Images 2:15 PM LLAMA FARMER DERMATOPATHOLOGY LABORATORY Pathology/Cytolo gy TISSUE SPECIMEN FROM SKIN / Unknown 12/06/2024 10:45 AM LLAMA FARMER 12/07/2024 1:04 PM LLAMA FARMER Lisa Milian MD LAB - PATHOLOGY/CYT OLOGY ORDERABLES Performing Organization Address City/State/[facility] Co de Phone Number DERMATOPATHOLOGY LABORATORY [facility] - Department of Dermatology [facility] [address] [place] [address], [address] [phone] from Last 3 Months Care Teams Derrick Boat Captain Relationship Specialty Start Date End Date Christiano Edgar MD [address] [place] [address] PCP - General Family Medicine 07/02/15 [place] [address] [place] [address] Orthopedic Surgery 08/29/13
--- OUTSIDE RECORDS SUMMARY | 2024-12-21 14:35 | XMS_ITS | Encounter Summary ---
Author Organization [facility] Address [address] [place] [address] Care Team Providers Care Drag Out Man Name Role Phone Unavailable Primary Care Provider Unavailabl e Encounter Details Date Type Department Care Team (Latest Contact Info) Description 08/18/2008 Outpatient Historical [facility] Moose Mcclellan MD NO ADDRESS ON FILE Zaid Mckeon MD [address] [facility] [address] [place] [address] Mononeuritis of Unspecified Site Social History Tobacco Use Types Packs/Day Years Used Date Smoking Tobacco: Never Assessed Comments Unknown Sex and Gender Information Value Date Recorded Sex Assigned at Not on file Legal Sex Female 5:38 AM 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
--- OUTSIDE RECORDS SUMMARY | 2024-12-21 14:35 | XMS_ITS | Encounter Summary ---
Author Organization [facility] Address [address] [place] [address] Phone Care Team Providers Care Reed Worker Name Role Phone Christiano Edgar MD Primary Care Provider [phone] Kaveh Fay DO Primary Care Provider [phone] Duane Damico MD Primary Care Provider [phone] Reyna Claudio MD Unavailable [phone] Mor Aguilera MD Unavailable [phone] Encounter Details Date Type Department Care Team (Latest Contact Info) Description 01/25/2018 Orders Only [facility] CONVERSION Scanning, Provider Social History Tobacco Use Types Packs/Day Years Used Date Smoking Tobacco: Former Smokeless Tobacco: Never Alcohol Use Standard Drinks/Week Comments Yes 0 (1 standard drink = 0.6 oz pur e alcohol) Comments Unknown Sex and Gender Information Value Date Recorded Sex Assigned at Not on file Legal Sex Female 12:39 AM RIVETING MACHINE OPERATOR Gender Identity Not on file Sexual Orientation Not on file documented as of this encounter Plan of Treatment Not on file documented as of this encounter Procedures Procedure Name Priority Date/Time Associated Diagnosis Comments VASCULAR LABORATORY REPORT 01/25/2018 4:03 PM CDT documented in this encounter Results * VASCULAR LABORATORY REPORT (01/25/2018 4:03 PM CDT) Anatomical Region Laterality Modality Ultrasound us Provider Scanning CV VASCULAR PROCEDURES Final R esult documented in this encounter Visit Diagnoses Not on filedocumented in this encounter Care Teams Reed Worker Relationship Specialty Start Date End Date Christiano Edgar MD PCP - General 01/03/17 12/09/22 Kaveh Fay DO PCP - General Internal Medicine 12/10/22 08/22/24 Duane Damico MD [address] [place] [address] PCP - General Family Medicine 08/23/24 Reyna Claudio MD [address] [place] [address] Referring Physician Nephrology 08/23/24 Mor Aguilera MD [address] [place] [address] Consulting Physician Interventional Cardiology 08/23/24 documented as of this encounter
--- OUTSIDE RECORDS SUMMARY | 2024-12-21 14:35 | XMS_ITS | Encounter Summary ---
Author Organization [facility] Address [address] [facility] [address] Care Team Providers Care Gaming Commissioner Name Role Phone Alley Brody MD Unavailable [phone] Christiano Edgar MD Primary Care Provider [phone] Encounter Details Date Type Department Care Team (Late st Contact Info) Description 01/19/2019 Lab Requisition [facility] DermPath Lab [address] [facility] [place] [address] Sharla Perez DO [address] [facility] [address] [place] [address] Social History Tobacco Use Types Packs/Day Years [...] Priority Date/Time Associated Diagnosis Comments DERMATOPATHOLOGY Routine 01/17/2019 12:0 0 AM CDT documented in this encounter Results * DERMATOPATHOLOGY (01/17/2019 12:00 AM CDT) Case Report Dermatopathology Report Case: [id number] Authorizing Provider: Sharla Perez DO Collected: 01/17/2019 12:00 AM Pathologist: Ayaka Trinidad MD Received: 01/19/2019 06:51 AM Specimens: A) - Skin, right infraorbital B) - Skin, post crown of scalp C) - Skin, right upper back 4:59 PM [facility] DERMATOPATHOLOGY LABORATORY Final Diagnosis Specimen A. SKIN, right infraorbital: SQUAMOUS CELL CARCINOMA IN SITU, PRESENT AT THE BASE OF THE SPECIMEN (D04.39) (see microscopic description and comment) (see microscopic description) Specimen B. SKIN, post crown of scalp: SEBORRHEIC KERATOSIS, IRRITATED AND INFLAMED, SUPERFICIAL PORTIONS ONLY (L82.0) Specimen C. SKIN, right upper back: SEBORRHEIC KERATOSIS, IRRITATED AND INFLAMED (L82.0) 4:59 PM [facility] DERMATOPATHOLOGY LABORATORY Clinical History A: Rohan-H R/O seba vs BCC. B-C: ISK R/O NMSC. 4:59 PM T DERMATOPATHOLOGY LABORATORY Gross Description Specimen A: Received is one formalin filled container labeled with the patient's name and designated right infraorbital. The specimen consists of a shave measuring 6q2w1mx. Jar 0. Specimen B: Received is one formalin filled container labeled with the patient's name and designated post crown of scalp. The specimen consists of a shave measuring 4y8e3oy. Jar 0. Specimen C: Received is one formalin filled container labeled with the patient's name and designated right upper back. The specimen consists of a shave measuring 5g7n2jy. Jar 0. 4:59 PM [facility] DERMATOPATHOLOGY LABORATORY Microscopic Description Specimen A. SKIN, right infraorbital: The epidermis shows parakeratosis, full thickness disorderly maturation of keratinocytes, mitoses at different levels, and dyskeratotic cells. The lesion extends to the base of the biopsy. COMMENT: An invasive squamous cell carcinoma cannot be ruled out. Additional deeper sections were obtained and reviewed. Specimen B. SKIN, post crown of scalp: Sections show acanthosis, papillomatosis, hyperkeratosis, and squamous eddies. There is a lymphohistiocytic infiltrate within the papillary dermis. Specimen C. SKIN, right upper back: Sections show acanthosis, papillomatosis, hyperkeratosis, and squamous eddies. There is a lymphohistiocytic infiltrate within the papillary dermis. 9 4:59 PM CDT DERMATOPATHOLOGY LABORATORY Disclaimer An external and internal positive and negative controls are appropriate for the histochemical, immunohistochemical and immunofluorescence stain(s) in this case (if any), except where stated explicitly. The performance characteristics of the stain(s) cited in this report were developed and its performance characteristic determined by the Dermatopathology Laboratory at [facility], directed by Dr. Jessica Trinidad. These tests need not be, and therefore are not, approved by the [place] Food and Drug Administration. The tests are used for clinical purposes. Billing Codes Specimen Charges Stain Charges 39520 27167 96136 1 1 1 9 4:59 PM CDT DERMATOPATHOLOGY LABORATORY Embedded Images 9 4:59 PM CDT DERMATOPATHOLOGY LABORATORY Pathology/Cytology TISSUE SPECIMEN FROM SKIN / Unknown 01/17/2019 01/19/2019 6:51 AM CDT Miscellaneous samples (specimen) TISSUE SPECIMEN FROM SKIN / Unknown 01/17/2019 01/19/2019 6:51 AM CDT Miscellaneous samples (specimen) TISSUE SPECIMEN FROM SKIN / Unknown 01/17/2019 01/19/2019 6:51 AM CDT Sharla Ysabelgilbert Perez DO LAB - PATHOLOGY/C YTOLOGY ORDERABLES DERMATOPATHOLOGY LABORATORY [facility] - Department of Dermatology [address] [place] [address], 5th Floor Lab [address] [phone] documented in this encounter Visit Diagnoses Not on filedocumented in this encounter Care Teams Gaming Commissioner Relationship Specialty Start Date End Date Christiano Edgar MD [address] [place] [address] PCP - General Family Medicine 07/02/15 [place] [address] [place] [id number] Orthopedic Surgery 08/29/13 documented as of this encounter
--- OUTSIDE RECORDS SUMMARY | 2024-12-21 14:35 | XMS_ITS | Clinical Summary ---
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
--- OUTSIDE RECORDS SUMMARY | 2024-12-21 14:35 | XMS_ITS | Referral Summary ---
Author Organization [facility] Address [address] [facility] [place] [address] Care Team Providers Care Document Processing Specialist Name Role Phone Alley Brody MD Unavailable [phone] Christiano Edgar MD Primary Care Provider [phone] Source Comments [facility],non-owned Affiliates and Associated Physician Practices is amultiple site organization consisting of ambulatory clinics and hospital sitesin [place], [place], [place] and [place]. This disclosure is being madepursuant to the Care Everywhere program and may not contain all information available regarding this patient. Last updated 18.[facility] Encounters Date Type Department Care Team Description 12/06/2024 Lab Requisition [facility] - DermPath Lab [address] [facility] [place] [address] Lisa Milian MD from Last 3 Months Allergies Active Allergy Reactions Criticality Noted Date Comments Uothvwqx-Agyoppehap-Afnaemaor 2012 Medications * Be aware that medications may not be up to date on this document. Alwaysverify current medications with the patient. Medication Sig Dispensed Refills Start Date End Date Status Jhavt-0-yqng Ethyl Esters (LOVAZA PO) Take by mouth. [...] Active Active Problems No known active problems Social History Tobacco Use Types Packs/Day Years [...] 07/20/2015 9:04 AM CDT Plan of Treatment Not on file Procedures Procedure Name Priority Date/Time Associated Diagnosis Comments DERMATOPATHOLOGY Routine 12/06/2024 10:4 5 AM SLITTER SCORER CUT OFF OPERATOR from Last 3 Months Results * DERMATOPATHOLOGY (12/06/2024 10:45 AM SLITTER SCORER CUT OFF OPERATOR) Case Report Dermatopathology Report Case: [id number] Authorizing Provider: Lisa Milian MD Collected: 12/06/2024 10:45 AM Ordering Location: [facility] - Received: 12/07/2024 01:04 PM DermPath Lab Pathologist: Kylah Atkinson MD Specimen: Skin, left ant thigh 2:15 PM SLITTER SCORER CUT OFF OPERATOR DERMATOPATHOLOGY LABORATORY Final Diagnosis Specimen A. SKIN, left ant thigh: SQUAMOUS CELL CARCINOMA, KERATOACANTHOMA TYPE (C44.729) 2:15 PM SLITTER SCORER CUT OFF OPERATOR DERMATOPATHOLOGY LABORATORY Clinical History KA vs Cyst; Growing 2:15 PM SLITTER SCORER CUT OFF OPERATOR DERMATOPATHOLOGY LABORATORY Gross Description Specimen A: Received is one formalin filled container labeled with the patient's name and designated left ant thigh. The specimen consists of a shave biopsy measuring 2 pieces 10x9x2,9x8x2 mm. Jar 0. 2:15 PM SLITTER SCORER CUT OFF OPERATOR DERMATOPATHOLOGY LABORATORY Microscopic Description Specimen A. SKIN, left ant thigh: Sections show an endo exophytic crateriform lesion with a keratotic plug, formed by confluent follicle-like structures with relatively large keratinocytes. 2:15 PM SLITTER SCORER CUT OFF OPERATOR DERMATOPATHOLOGY LABORATORY Disclaimer An external and internal positive and negative controls are appropriate for the histochemical, immunohistochemical and immunofluorescence stain(s) in this case (if any), except where stated explicitly. The performance characteristics of the stain(s) cited in this report were developed and its performance characteristic determined by the Dermatopathology Laboratory at [facility], directed by Dr. Jessica Trinidad. These tests need not be, and therefore are not, approved by the [place] Food and Drug Administration. The tests are used for clinical purposes. Billing Codes Specimen Charges Stain Charges 53790 1 2:15 PM SLITTER SCORER CUT OFF OPERATOR DERMATOPATHOLOGY LABORATORY Embedded Images 2:15 PM SLITTER SCORER CUT OFF OPERATOR DERMATOPATHOLOGY LABORATORY Pathology/Cytolo gy TISSUE SPECIMEN FROM SKIN / Unknown 12/06/2024 10:45 AM SLITTER SCORER CUT OFF OPERATOR 12/07/2024 1:04 PM SLITTER SCORER CUT OFF OPERATOR Lisa Milian MD LAB - PATHOLOGY/CYT OLOGY ORDERABLES DERMATOPATHOLOGY LABORATORY [facility] - Department of Dermatology [facility] [address] [facility], [address]rd [place] [address], [facility] [phone] from Last 3 Months Administered Medications Care Teams Document Processing Specialist Relationship Specialty Start Date End Date Christiano Edgar MD [address] [place] [address] PCP - General Family Medicine 8/24/15 [place] [address] [place] [id number] Orthopedic Surgery 08/29/13
--- OUTSIDE RECORDS SUMMARY | 2024-12-21 14:35 | XMS_ITS | Encounter Summary ---
Author Organization [facility] Address [address] [place] [address] Care Team Providers Care It Audit Manager Name Role Phone Alley Brody MD Unavailable Christiano Edgar MD Primary Care Provider [phone] Encounter Details Date Type Department Care Team (Late st Contact Info) Description 08/22/2015 Therapy Visit [facility] Orthopedics [address] [address] [place] [address] [address] [address] Social History Tobacco Use Types [...] on filedocumented in this encounter Care Teams It Audit Manager Relationship Specialty Start Date End Date Christiano Edgar MD [address] [place] [address] PCP - General Family Medicine 07/02/15 [place] [address] [address] [place] [address] Orthopedic Surgery 08/29/13 documented as of this encounter
--- OUTSIDE RECORDS SUMMARY | 2024-12-21 14:35 | XMS_ITS | Referral Summary ---
Author Organization [facility] al Address [address] [place] [address] Care Team Providers Care Airconditioning Engineer Name Role Phone Duane Damico MD Primary Care Provider Reyna Claudio MD Unavailable [phone] Mor Aguilera MD Unavailable [phone] Encounters Date Type Department Care Team Description 10/26/2024 Telephone [facility] Scheduling [address] [place] [address] Jeremy Pineda NP Scheduling Appointments from Last 3 Months Allergies Active Allergy [...] nostril 4 (four) times a day Active vsrw-zrx-xvp-bl kbor-om 3,6,9 5 400-400-200 mg capsule Take by mouth 2 (two) times a day. Active xp-kstwxha-vki- iron fm-FA-vitK 18 mg iron-600 mcg-80 mcg [...] Carotid stenosis, asymptomatic, bilateral 2023 Atherosclerosis of qagan [place] ar teries of extremities with intermittent claudication, [...] Chronic constipation for years. Has failed multiple pwqg-dat-bjdrwqm medications including MiraLax and probiotics. Has tried [...] (06/24/2018): Added automatically from request for surgery [id number] PVD (peripheral vascular disease) ([facility]) 04/09 Mixed hyperlipidemia 04/21/2018 Intermittent claudication 04/21/2018 [...] anemia for years, hematocrit 30-32 while at [facility] in May, worsening recently, now hematocrit 27. 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 showed less than 50% carotid stenosis. 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 Not on file Not on file Last Filed Vital Signs Vital Sign Reading Time Taken Comments Blood Pressure 128/78 09/14/2024 10:25 AM [employer] Pulse 70 09/14/2024 10:25 AM [employer] Temperature 36.7 C (98 F) 09/14/2024 10:25 AM [employer] Respiratory Rate 18 08/23/2024 9:53 AM CDT Oxygen Saturation 98% 09/14/2024 10:25 AM [employer] Inhaled Oxygen Concentration - - Weight 49.9 kg (110 lb) 09/14/2024 10:25 AM [employer] Height 157.5 cm (5' 2 ) 09/14/2024 10:25 AM [employer] Body Mass Index 20.12 09/14/2024 10:25 AM [employer] Plan of Treatment Not on file Medical Devices Implanted Type Area Transfer Controller Device Identifier Shelf Expiration Date Model / Serial / Lot Intracranial Aneurysm Coil Cranial Description:3.5 mm x 23 mm L VIS Jr stent, MicroVention HydroSoft-Helical 2mm x 6cm, HydroSoft-Helical 2mm x 4cm, HydroSoft 3D 1mm x 3cm; 6 [facility] Insurance MEDICARE [facility] MEDICARE [facility] Advance Directives For more information, please contact: [phone] * Full Code (Latest Code Status on File) Date Activated Date Inactivated Comments 05/30/2019 12:35 PM 05/31/2019 12:06 AM * Full Code Date Activated Date Inactivated Comments 04/18/2019 1:59 AM 04/19/2019 6:47 PM * Full Code Date Activated Date Inactivated Comments 07/29/2018 12:59 PM 07/29/2018 3:32 PM Care Teams Airconditioning Engineer Relationship Specialty Start Date End Date Duane Damico MD [address] [place] [address] PCP - General Family Medicine 08/23/24 Reyna Claudio MD [address] [facility] [address] [place] [address] Referring Physician Nephrology 08/23/24 Mor Aguilera MD [address] [facility] [address], [place] [address] Consulting Physician Interventional Cardiology 08/23/24
--- OUTSIDE RECORDS SUMMARY | 2024-12-21 14:35 | XMS_ITS | Clinical Summary ---
Author Organization [facility] Address [address] [address] Phone Care Team Providers Care Cytotechnologist/Cytology Supervisor Name Role Phone Christiano Edgar MD Primary Care Provider Allergies Active Allergy Reactions Criticality Noted Date Comments Latex Rash Medium 12/31/2015 Gets rash when wears latex gloves Gets rash when wears latex gloves, Neomycin Swelling Low 12/31/2015 Other reaction(s): Other (See comments) Eye drops - eyes swelled shut Neomycin-Bacitracin Zn-Polymyx Low 08/29/2013 Other reaction(s): Vomiting Niacin Low 06/23/2019 Other reaction(s): Flushing (skin) Quaternium-15 Rash Medium 12/31/2015 This substance mostly in cosmetics, Quaterium-15 This substance mostly in cosmetics, Quaterium-15 Medications Medication Sig Dispensed Refills Start Date End Date Status aspirin (ST FRANCES) 81 MG EC tablet 1 tab/cap qday 0 09/13/2017 Activ e lisinopril (PRINIVIL,ZESTRIL) 20 MG tablet 1 tab/cap qday 0 09/13/2017 Active famotidine (PEPCID) 20 MG tablet 1 tab/cap qday 0 09/13/2017 Active metoprolol succinate XL (TOPROL-XL) 50 MG 24 hr tablet 1 tab/cap qday 0 09/13/2017 Active rosuvastatin (CRESTOR) 40 MG tablet 1 tab/cap qday 0 09/13/2017 Active b complex vitamins capsule Take 1 capsule by mouth daily Active coenzyme Q-10 100 MG capsule Take 100 mg by mouth daily Active estradiol (ESTRACE VAGINAL) 0.1 MG/GM vaginal cream 0.01 % 06/01/2015 Active ipratropium (ATROVENT) 0.06 % nasal spray USE 2 SPRAYS IN EACH NOSTRIL THREE TIMES DAILY 1 05/25/2019 Active RA KRILL OIL 500 MG capsule Take by mouth Active levETIRAcetam (KEPPRA) 500 MG tablet Take 500 mg by mouth 2 (two) times a day 0 04/19/2019 Active Multiple Vitamins-Minerals (MULTI FOR HER) tablet Take by mouth daily Activ e SM OMEGA-3-6-9 FATTY ACIDS capsule Take by mouth 2 times daily Active diclofenac (VOLTAREN) 75 MG EC tablet diclofenac sodium 75 mg tablet,delayed release Active clopidogrel (PLAVIX) 75 MG tablet clopidogrel 75 mg tablet Active Active Problems Problem Noted Date Diagnosed Date Knee pain 09/28/2019 Loose body in knee 09/28/2019 Osteoarthritis 09/28/2019 Hematoma of subdural space of neuraxis 9 Iron deficiency anemia 06/24/2018 Overview (06/23/2019): Added automatically from request for surgery [id number] Intermittent claudication 04/21/2018 Chronic kidney disease, stage 3 (moderate) 09/13 Abnormal result of kidney function study 017 Hypertensive chronic kidney disease with stage 1 through stage 4 chronic kidney disease, or unspecified chronic kidney disease 09/13/2017 Mixed hyperlipidemia 09/13/2017 Overview (06/23/2019): Converted unresolved ICD9, potential mismatch. Gastro-esophageal reflux disease without esophag itis 09/13/2017 Anemia 08/31/2017 Overview (06/23/2019): Last Assessment & Plan: Looks like patient has had some mild anemia for years, hematocrit 30-32 while at [facility] in May, worsening recently, now hematocrit 27. Normocytic normochromic (mildly macrocytic in May with an MCV 102, now MCV is 93 so perhaps there is some new iron deficiency anemia superimposed on chronic anemia?) Obstructive sleep apnea syndrome 08/31/2017 Overview (06/23/2019): Last Assessment & Plan: Was observed to have some sleep apnea when hospitalized recently. Patient has a lot of excessive daytime fatigue and would like further evaluation; may have significant CELI. Cardiomyopathy 12/18/2015 Overview (06/23/2019): Cardiomyopathy Last Assessment & Plan: Mild Cm, EF 45-50% in past. Up to 56% 07/2017. Doubt this is the cause of her FRASER. Carotid atherosclerosis 12/18/2015 Overview (06/23/2019): Atherosclerosis of both carotid arteries Last Assessment & Plan: Studies at [facility] showed less than 50% carotid stenosis. Does have bilateral carotid bruits. Hypertensive heart disease without congestive he art failure 12/18/2015 Overview (06/23/2019): Hypertensive heart disease without CHF Last Assessment & Plan: Has LVH and diastolic dysfunction. Blood pressure at goal Hypertension 06/01/2015 Overview (06/23/2019): HTN (hypertension) Left bundle-branch block 06/01/2015 Overview (06/23/2019): LBBB (left bundle branch block) Last Assessment & Plan: Doubt this is contributing to the current picture. Cerebral aneurysm 11/17/2014 Immunizations Name Administration Dates Next Due Pneumococcal Conjugate 13-Valent 09/22/2019 Family History Medical History Relation Comments Heart disease Father Heart disease Mother Malignant neoplastic disease Sibling Kidney disease Neg Hx Kidney stone Neg Hx Relation Status Comments Father Mother Sibling Social History Tobacco Use Types Packs/Day Years Used Date Smoking Tobacco: Never Smokeless Tobacco: Never Alcohol Use Standard Drinks/Week Comments No 0 (1 standard drink = 0.6 oz pur e alcohol) Sex and Gender Information Value Date Recorded Sex Assigned at Not on file Gender Identity Not on file Sexual Orientation Not on file Last Filed Vital Signs Vital Sign Reading Time Taken Comments Blood Pressure 130/76 06/18/2020 3:09 PM CDT Pulse - - Temperature 36.2 C (97.1 F) 06/18/2020 3:09 PM CDT Respiratory Rate 18 06/18/2020 3:09 PM CDT Oxygen Saturation - - Inhaled Oxygen Concentration - - Weight 51.7 kg (114 lb) 06/18/2020 3:09 PM CDT Height 162.6 cm (5' 4 ) 06/18/2020 3:09 PM CDT Body Mass Index 19.57 06/18/2020 3:09 PM CDT Plan of Treatment Health Maintenance Due Date Last Done Comments Pneumococcal PPSV23/PCV13 65 + Years / Low and Medium Risk (2 of 3 - PPSV23 or PCV20) 09/22/2020 09/22/2019 Influenza Vaccine (#1) 2024 Care Teams Cytotechnologist/Cytology Supervisor Relationship Specialty Start Date End Date Christiano Edgar MD [address] [place] [address] PCP - General Family Medicine 06/22/19
--- OUTSIDE RECORDS SUMMARY | 2024-12-21 14:35 | XMS_ITS | Patient Health Summary ---
Author Organization [facility] Address [address] [place] [address] Care Team Providers Care Rehabilitation Inspector Name Role Phone Alley Brody MD Unavailable [phone] Christiano Edgar MD Primary Care Provider [phone] Note from [facility],non-owned Affiliates and Associated Physician Practices is amultiple site organization consisting of ambulatory clinics and hospital sitesin [place], [place], [place] and [place]. This disclosure is being madepursuant to the Care Everywhere program and may not contain all information available regarding this patient. Last updated 18.[facility] Allergies * Wcqgdusl-Ylmmsocrhq-Hkmxmbilg Medications * Be aware that medications may not be up to date on this document. Alwaysverify current medications with the patient. * Dfzay-9-horj Ethyl Esters (LOVAZA PO) Take by mouth. * simvastatin (ZOCOR) 20 MG tablet Take 20 mg by mouth at bedtime. * valACYclovir (VALTREX) 500 MG tablet Take 500 mg by mouth 2 times daily. * celecoxib (CELEBREX) 200 MG capsule(Started 08/29/2013) Take 1 Cap by mouth 2 times daily. 1 refill left * METOPROLOL SUCCINATE ER PO * aspirin (ASPIRIN) 81 MG tablet Take 81 mg by mouth once daily * lisinopril (PRINIVIL; ZESTRIL) 10 MG tablet Take 10 mg by mouth once daily * estradiol (ESTRACE) 0.1 MG/GM vaginal cream Insert into the vagina at bedtime * methylPREDNISolone (MEDROL DOSEPAK) 4 MG tablet(Started 07/02/2015) Take by mouth as directed * metaxalone (SKELAXIN) 800 MG tablet(Started 07/02/2015) Take 1 Tab by mouth nightly as needed for Muscle Spasms * tiZANidine (ZANAFLEX) 4 MG tablet(Started 07/03/2015) Take 1 Tab by mouth at bedtime Active Problems No known active problems Social [...] Mass Index 21.77 07/20/2015 9:04 AM CDT Procedures * DERMATOPATHOLOGY(Performed 12/06/2024) * DERMATOPATHOLOGY(Performed 07/14/2024) * DERMATOPATHOLOGY(Performed 07/01/2022) * DERMATOPATHOLOGY(Performed 04/01/2022) * DERMATOPATHOLOGY(Performed 08/07/2021) * DERMATOPATHOLOGY(Performed 12/04/2020) * DERMATOPATHOLOGY(Performed 01/17/2019) * DERMATOPATHOLOGY(Performed 11/11/2017) * PATHOLOGY TISSUE(Performed 07/05/2015) * XR SHOULDER RIGHT 2VW OR MORE(Performed 07/02/2015) Performed for Pain in joint, shoulder region, right * XR CERVICAL SPINE 2 OR 3VW(Performed 07/02/2015) Performed for Cervicalgia * XR HAND LEFT 3VW OR MORE(Performed 06/18/2015) * XR HAND RIGHT 3VW OR MORE(Performed 06/18/2015) * XR WRIST LEFT 3VW OR MORE(Performed 06/18/2015) * XR WRIST RIGHT 3VW OR MORE(Performed 06/18/2015) * XR SHOULDER RIGHT 2VW OR MORE(Performed 08/29/2013) Performed for Pain in joint, shoulder region * DERMATOPATHOLOGY(Performed 12/08/2011) Results * DERMATOPATHOLOGY (12/06/2024 10:45 AM MASTER PLANNER) Only the most recent of9 resultswithin the time period is included. Case Report Dermatopathology Report Case: [id number] Authorizing Provider: Lisa Milian MD Collected: 12/06/2024 10:45 AM Ordering Location: [facility] - Received: 12/07/2024 01:04 PM DermPath Lab Pathologist: Kylah Atkinson MD Specimen: Skin, left ant thigh 2:15 PM [facility] Final Diagnosis Specimen A. 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 The specimen consists of a shave biopsy measuring 2 pieces 10x9x2,9x8x2 mm. Jar 0. 2:15 PM [facility] Microscopic Description Specimen A. SKIN, left ant thigh: Sections show an endo exophytic crateriform lesion with a keratotic plug, formed by confluent follicle-like structures with relatively large keratinocytes. 2:15 PM [facility] Disclaimer An external and internal positive and negative controls are appropriate for the histochemical, immunohistochemical and immunofluorescence stain(s) in this case (if any), except where stated explicitly. The performance characteristics of the stain(s) cited in this report were developed and its performance characteristic determined by the Dermatopathology Laboratory at [facility], directed by Dr. Jessica Trinidad. These tests need not be, and therefore are not, approved by the [place] Food and Drug Administration. The tests are used for clinical purposes. Billing Codes Specimen Charges Stain Charges 73451 1 5 2:15 PM [facility] Embedded Images 5 2:15 PM [facility] Pathology/Cytolo gy TISSUE SPECIMEN FROM SKIN / Unknown 12/06/2024 10:45 AM MASTER PLANNER 12/07/2024 1:04 PM [facility] Lisa Milian MD LAB - PATHOLOGY/CYT OLOGY ORDERABLES DERMATOPATHOLOGY LABORATORY [facility] - Department of Dermatology [address], [address] [phone] * PATHOLOGY TISSUE (07/05/2015 8:45 AM CDT) Surgical Pathology Tissue CLINICAL HISTORY: Pre-Op Diagnosis: Bilateral ganglion cyst of wrist. OPERATIVE PROCEDURE: Left volar radial ganglion cyst excision [id number]. FINAL DIAGNOSIS: SOFT TISSUE, LEFT VOLAR WRIST, RADIAL ASPECT, MASS, EXCISION: - GANGLION CYST GROSS DESCRIPTION: The specimen is received fixed in formalin for gross and microscopic examination in one container labeled with the patient's name, Mae Murrieta, and left volar wrist radial mass. The specimen consists of three fragments of soft, glistening, white tissue measuring 1.0 x 0.8 x 0.5 cm in aggregate. Cut sections reveal the same soft, glistening, white tissue. The specimen is submitted entirely in cassette A1. for MNR/met MICROSCOPIC DESCRIPTION: The cyst wall consists of fibrous tissue without epithelial or synovial lining, compatible with ganglion cyst. OPERATING ROOM SPECIALIST/ARELY/ls The performance characteristics of all immunohistochemical and indirect immunofluorescence stains (if any) cited in this report were determined by the Histopathology Laboratory of [facility]. Some of these tests were developed by our own laboratory and have not been cleared or approved by the US Food and Drug Administration. The FDA does not require this test to go through premarket FDA review. These tests are used for clinical purposes. They should not be regarded as investigational or for research. This laboratory is certified under the Clinical Laboratory Improvement Amendments (CLIA) as qualified to perform high complexity clinical laboratory testing. This case has been personally reviewed and interpreted by the attending (teaching) pathologist. Final Diagnosis performed by Natalya Chen MD. Electronically signed 07/07/2015 [facility] Other (qualifier value) 07/05/2015 8:45 AM CDT 07/05/2015 11:08 AM CDT Narrative [facility] ([facility]) - 07/07/2015 3:51 PM CDT PRE-OP DIAGNOSIS: BILATERAL GANGLION CYSTS OF WRISTS OPERATIVE PROCEDURE / FINDINGS: Procedure(s) with comments: LEFT VOLAR RADIAL GANGLION CYST EXCISION - [id number] POST-OP DIAGNOSIS: * No post-op diagnosis entered * Collection Date->07/05/15 Collection Time-> 8:45 AM Specimen A->Other Left Volar Wrist Radial Mass Vish Storm MD LAB - PATHOLOGY/CYTO LOGY ORDERABLES [facility] ([facility] * XR SHOULDER 2+ VW RIGHT (07/02/2015 4:00 PM CDT) Only the most recent of2 resultswithin the time period is included. Anatomical Region Laterality Modality Upper Extremity Radiographic Stella ging Narrative 07/02/2015 5:02 PM CDT Amena Rizzo, RT(R) 07/02/2015 5:02 PM See progress notes for results Alley Brody MD DIAGNOSTIC IMAGING ORDERABLES * XR CERVICAL SPINE 2 OR 3 VW (07/02/2015 4:00 PM CDT) Anatomical Region Laterality Modality Spine Radiographic Stella ging Narrative 07/02/2015 5:02 PM CDT Amena Rizzo, RT(R) 07/02/2015 5:02 PM See progress notes for results Alley Brody MD DIAGNOSTIC IMAGING ORDERABLES * XR HAND RIGHT 3VW OR MORE (06/18/2015 11:48 AM CDT) Anatomical Region Laterality Modality Wrist / Hand Other Impressions 06/18/2015 12:34 PM CDT Impression: 1. Bilateral hand x-rays demonstrate mild arthritis, right greater than left. 2. Right wrist x-rays demonstrate arthritis, greater at the xhylpytp-lkkqhylwd-ymwpldvvl joint where it is moderate to severe, and dorsal intercalated segment instability (DISI) malalignment. 3. Left wrist x-rays demonstrate arthritis, greatest in the iampzaac-nffqfvktx-xrvymgvfd joint where it is severe. There is chronic appearing deformity of the scaphoid, and abnormal lucency in the lunate which may represent cystic or erosive change. 4. 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 This report was electronically signed by DYLAN SIEGEL MD on 06/18/2015 12:34 PM . Narrative 06/18/2015 12:34 PM CDT Exam: 1. XR HAND LEFT 3+ VW, 2. XR HAND RIGHT 3+ VW, 3. XR WRIST LEFT 3+ VW, 4. XR WRIST RIGHT 3+ VW History: Bilateral cysts on wrists Comparison: None available. Findings: Right hand: There is no acute fracture or dislocation. There is mild degenerative change at several interphalangeal and metacarpophalangeal joints. Periarticular calcification is present adjacent to the fifth metacarpophalangeal joint and fourth proximal interphalangeal joint. No erosions are seen. The bones are mildly osteopenic. The soft tissues are unremarkable. Left hand: There is no acute fracture or dislocation. There is mild degenerative change at several interphalangeal joints, moderate degenerative change at the third metacarpal phalangeal joint. No erosions are seen. The bones are mildly osteopenic. The soft tissues are unremarkable. Right wrist: There is no acute fracture or dislocation. The scapholunate interval is top normal measuring 3 mm. There is abnormal alignment on the lateral projection with dorsal tilt of the lunate, increased lunate capitate angle, and increased scapholunate angle, consistent with dorsal intercalated segment instability (DISI) malalignment. There is mild diffuse soft tissue swelling. Chondrocalcinosis is present. There is moderate to severe arthritis at the scaphoid trapezium-trapezoid joint with osteophytes and joint space narrowing. No erosions are seen. The bones are osteopenic. Lucency in the distal ulna could represent a cyst or erosion. Left wrist: There is no acute fracture or dislocation. Ulnar variance is positive by 2 mm. There is a cyst in the proximal, medial aspect of the lunate which could reflect low- grade impaction. Delayed is slightly irregular which probably represents cysts and/or erosions. There is severe arthritis at the bjliigdc-zxxrmgkqp-wcmddblzr joint with sclerosis and osteophytes, and deformity of the scaphoid which may reflect chronic remodeling or chronic posttraumatic deformity. Chondrocalcinosis is present. There is diffuse soft tissue swelling, including focal soft tissue swelling at the volar aspect of the wrist. The bones are osteopenic. Cystic change is present in the ulnar styloid. Procedure Note Dylan Siegel MD - 02/06/2018 Exam: 1. XR HAND LEFT 3+ VW, 2. XR HAND RIGHT 3+ VW, 3. XR WRIST LEFT 3+ VW, 4. XR WRIST RIGHT 3+ VW History: Bilateral cysts on wrists Comparison: None available. Findings: Right hand: There is no acute fracture or dislocation. There is mild degenerativechange at several interphalangeal and metacarpophalangeal joints.Periarticular calcification is present adjacent to the fifthmetacarpophalangeal joint and fourth proximal interphalangeal joint. No erosions are seen. The bones are mildlyosteopenic. The soft tissues are unremarkable. Left hand: There is no acute fracture or dislocation. There is mild degenerativechange at several interphalangeal joints, moderate degenerative change atthe third metacarpal phalangeal joint. No erosions are seen. The bones aremildly osteopenic. The soft tissues are unremarkable. Right wrist: There is no acute fracture or dislocation. The scapholunate interval istop normal measuring 3 mm. There is abnormal alignment on the lateralprojection with dorsal tilt of the lunate, increased lunate capitateangle, and increased scapholunate angle, consistent with dorsal intercalated segment instability (DISI)malalignment. There is mild diffuse soft tissue swelling.Chondrocalcinosis is present. There is moderate to severe arthritis at thescaphoid trapezium-trapezoid joint with osteophytes and joint space narrowing. No erosions are seen. The bones are osteopenic.Lucency in the distal ulna could represent a cyst or erosion. Left wrist: There is no acute fracture or dislocation. Ulnar variance is positive by 2mm. There is a cyst in the proximal, medial aspect of the lunate whichcould reflect low- grade impaction. Delayed is slightly irregular whichprobably represents cysts and/or erosions. There is severe arthritis at the uakgpndp-jqtnzupmf-kblifpgqzqbvel with sclerosis and osteophytes, and deformity of the scaphoid whichmay reflect chronic remodeling or chronic posttraumatic deformity.Chondrocalcinosis is present. There is diffuse soft tissue swelling, including focal soft tissue swelling at thevolar aspect of the wrist. The bones are osteopenic. Cystic change ispresent in the ulnar styloid. IMPRESSION Impression: 1. Bilateral hand x-rays demonstrate mild arthritis, right greater thanleft. 2. Right wrist x-rays demonstrate arthritis, greater at dvpghhpbrvn-leyxnkqqs-uoqcvcjyv joint where it is moderate to severe, anddorsal intercalated segment instability (DISI) malalignment. 3. Left wrist x-rays demonstrate arthritis, greatest in yqzbogpehug-umzvpnjff-afnewvuxo joint where it is severe. There is chronicappearing deformity of the scaphoid, and abnormal lucency in the lunatewhich may represent cystic or erosive change. 4. 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 This report was electronically signed by DYLAN SIEGEL MD on 06/18/201512:34 PM . Vish Storm MD DIAGNOSTIC IMAGING O RDERABLES * XR HAND LEFT 3VW OR MORE (06/18/2015 11:48 AM CDT) Anatomical Region Laterality Modality Wrist / Hand Other Impressions 06/18/2015 12:34 PM CDT Impression: 1. Bilateral hand x-rays demonstrate mild arthritis, right greater than left. 2. Right wrist x-rays demonstrate arthritis, greater at the ekenwcbx-mqkzshwtj-nlicoccae joint where it is moderate to severe, and dorsal intercalated segment instability (DISI) malalignment. 3. Left wrist x-rays demonstrate arthritis, greatest in the gwgqbcto-gcqupccdy-nstoegufy joint where it is severe. There is chronic appearing deformity of the scaphoid, and abnormal lucency in the lunate which may represent cystic or erosive change. 4. 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 This report was electronically signed by DYLAN SIEGEL MD on 06/18/2015 12:34 PM . Narrative 06/18/2015 12:34 PM CDT Exam: 1. XR HAND LEFT 3+ VW, 2. XR HAND RIGHT 3+ VW, 3. XR WRIST LEFT 3+ VW, 4. XR WRIST RIGHT 3+ VW History: Bilateral cysts on wrists Comparison: None available. Findings: Right hand: There is no acute fracture or dislocation. There is mild degenerative change at several interphalangeal and metacarpophalangeal joints. Periarticular calcification is present adjacent to the fifth metacarpophalangeal joint and fourth proximal interphalangeal joint. No erosions are seen. The bones are mildly osteopenic. The soft tissues are unremarkable. Left hand: There is no acute fracture or dislocation. There is mild degenerative change at several interphalangeal joints, moderate degenerative change at the third metacarpal phalangeal joint. No erosions are seen. The bones are mildly osteopenic. The soft tissues are unremarkable. Right wrist: There is no acute fracture or dislocation. The scapholunate interval is top normal measuring 3 mm. There is abnormal alignment on the lateral projection with dorsal tilt of the lunate, increased lunate capitate angle, and increased scapholunate angle, consistent with dorsal intercalated segment instability (DISI) malalignment. There is mild diffuse soft tissue swelling. Chondrocalcinosis is present. There is moderate to severe arthritis at the scaphoid trapezium-trapezoid joint with osteophytes and joint space narrowing. No erosions are seen. The bones are osteopenic. Lucency in the distal ulna could represent a cyst or erosion. Left wrist: There is no acute fracture or dislocation. Ulnar variance is positive by 2 mm. There is a cyst in the proximal, medial aspect of the lunate which could reflect low- grade impaction. Delayed is slightly irregular which probably represents cysts and/or erosions. There is severe arthritis at the fqltaddx-zlwwlhmdp-icpvnpzor joint with sclerosis and osteophytes, and deformity of the scaphoid which may reflect chronic remodeling or chronic posttraumatic deformity. Chondrocalcinosis is present. There is diffuse soft tissue swelling, including focal soft tissue swelling at the volar aspect of the wrist. The bones are osteopenic. Cystic change is present in the ulnar styloid. Procedure Note Dylan Siegel MD - 02/06/2018 Exam: 1. XR HAND LEFT 3+ VW, 2. XR HAND RIGHT 3+ VW, 3. XR WRIST LEFT 3+ VW, 4. XR WRIST RIGHT 3+ VW History: Bilateral cysts on wrists Comparison: None available. Findings: Right hand: There is no acute fracture or dislocation. There is mild degenerativechange at several interphalangeal and metacarpophalangeal joints.Periarticular calcification is present adjacent to the fifthmetacarpophalangeal joint and fourth proximal interphalangeal joint. No erosions are seen. The bones are mildlyosteopenic. The soft tissues are unremarkable. Left hand: There is no acute fracture or dislocation. There is mild degenerativechange at several interphalangeal joints, moderate degenerative change atthe third metacarpal phalangeal joint. No erosions are seen. The bones aremildly osteopenic. The soft tissues are unremarkable. Right wrist: There is no acute fracture or dislocation. The scapholunate interval istop normal measuring 3 mm. There is abnormal alignment on the lateralprojection with dorsal tilt of the lunate, increased lunate capitateangle, and increased scapholunate angle, consistent with dorsal intercalated segment instability (DISI)malalignment. There is mild diffuse soft tissue swelling.Chondrocalcinosis is present. There is moderate to severe arthritis at thescaphoid trapezium-trapezoid joint with osteophytes and joint space narrowing. No erosions are seen. The bones are osteopenic.Lucency in the distal ulna could represent a cyst or erosion. Left wrist: There is no acute fracture or dislocation. Ulnar variance is positive by 2mm. There is a cyst in the proximal, medial aspect of the lunate whichcould reflect low- grade impaction. Delayed is slightly irregular whichprobably represents cysts and/or erosions. There is severe arthritis at the iszsgdkr-ixvemqonw-mkidxgzaicmvdm with sclerosis and osteophytes, and deformity of the scaphoid whichmay reflect chronic remodeling or chronic posttraumatic deformity.Chondrocalcinosis is present. There is diffuse soft tissue swelling, including focal soft tissue swelling at thevolar aspect of the wrist. The bones are osteopenic. Cystic change ispresent in the ulnar styloid. IMPRESSION Impression: 1. Bilateral hand x-rays demonstrate mild arthritis, right greater thanleft. 2. Right wrist x-rays demonstrate arthritis, greater at lrlfspevsjw-wvbihotkt-npuvmkxlr joint where it is moderate to severe, anddorsal intercalated segment instability (DISI) malalignment. 3. Left wrist x-rays demonstrate arthritis, greatest in jppdkamhmvq-uqnnolyxm-pzoqeoslt joint where it is severe. There is chronicappearing deformity of the scaphoid, and abnormal lucency in the lunatewhich may represent cystic or erosive change. 4. 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 This report was electronically signed by DYLAN SIEGEL MD on 06/18/201512:34 PM . Vish Storm MD DIAGNOSTIC IMAGING O RDERABLES * XR WRIST RIGHT 3VW OR MORE (06/18/2015 11:48 AM CDT) Anatomical Region Laterality Modality Wrist / Hand Other Impressions 06/18/2015 12:34 PM CDT Impression: 1. Bilateral hand x-rays demonstrate mild arthritis, right greater than left. 2. Right wrist x-rays demonstrate arthritis, greater at the adpljbvo-xhspmyhnc-xyyuzvqem joint where it is moderate to severe, and dorsal intercalated segment instability (DISI) malalignment. 3. Left wrist x-rays demonstrate arthritis, greatest in the vfrgubox-viibojens-mxntfwjkm joint where it is severe. There is chronic appearing deformity of the scaphoid, and abnormal lucency in the lunate which may represent cystic or erosive change. 4. 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 This report was electronically signed by DYLAN SIEGEL MD on 06/18/2015 12:34 PM . Narrative 06/18/2015 12:34 PM CDT Exam: 1. XR HAND LEFT 3+ VW, 2. XR HAND RIGHT 3+ VW, 3. XR WRIST LEFT 3+ VW, 4. XR WRIST RIGHT 3+ VW History: Bilateral cysts on wrists Comparison: None available. Findings: Right hand: There is no acute fracture or dislocation. There is mild degenerative change at several interphalangeal and metacarpophalangeal joints. Periarticular calcification is present adjacent to the fifth metacarpophalangeal joint and fourth proximal interphalangeal joint. No erosions are seen. The bones are mildly osteopenic. The soft tissues are unremarkable. Left hand: There is no acute fracture or dislocation. There is mild degenerative change at several interphalangeal joints, moderate degenerative change at the third metacarpal phalangeal joint. No erosions are seen. The bones are mildly osteopenic. The soft tissues are unremarkable. Right wrist: There is no acute fracture or dislocation. The scapholunate interval is top normal measuring 3 mm. There is abnormal alignment on the lateral projection with dorsal tilt of the lunate, increased lunate capitate angle, and increased scapholunate angle, consistent with dorsal intercalated segment instability (DISI) malalignment. There is mild diffuse soft tissue swelling. Chondrocalcinosis is present. There is moderate to severe arthritis at the scaphoid trapezium-trapezoid joint with osteophytes and joint space narrowing. No erosions are seen. The bones are osteopenic. Lucency in the distal ulna could represent a cyst or erosion. Left wrist: There is no acute fracture or dislocation. Ulnar variance is positive by 2 mm. There is a cyst in the proximal, medial aspect of the lunate which could reflect low- grade impaction. Delayed is slightly irregular which probably represents cysts and/or erosions. There is severe arthritis at the mmwzxnwa-dzrvcizmj-yngtgqfla joint with sclerosis and osteophytes, and deformity of the scaphoid which may reflect chronic remodeling or chronic posttraumatic deformity. Chondrocalcinosis is present. There is diffuse soft tissue swelling, including focal soft tissue swelling at the volar aspect of the wrist. The bones are osteopenic. Cystic change is present in the ulnar styloid. Procedure Note Dylan Siegel MD - 02/06/2018 Exam: 1. XR HAND LEFT 3+ VW, 2. XR HAND RIGHT 3+ VW, 3. XR WRIST LEFT 3+ VW, 4. XR WRIST RIGHT 3+ VW History: Bilateral cysts on wrists Comparison: None available. Findings: Right hand: There is no acute fracture or dislocation. There is mild degenerativechange at several interphalangeal and metacarpophalangeal joints.Periarticular calcification is present adjacent to the fifthmetacarpophalangeal joint and fourth proximal interphalangeal joint. No erosions are seen. The bones are mildlyosteopenic. The soft tissues are unremarkable. Left hand: There is no acute fracture or dislocation. There is mild degenerativechange at several interphalangeal joints, moderate degenerative change atthe third metacarpal phalangeal joint. No erosions are seen. The bones aremildly osteopenic. The soft tissues are unremarkable. Right wrist: There is no acute fracture or dislocation. The scapholunate interval istop normal measuring 3 mm. There is abnormal alignment on the lateralprojection with dorsal tilt of the lunate, increased lunate capitateangle, and increased scapholunate angle, consistent with dorsal intercalated segment instability (DISI)malalignment. There is mild diffuse soft tissue swelling.Chondrocalcinosis is present. There is moderate to severe arthritis at thescaphoid trapezium-trapezoid joint with osteophytes and joint space narrowing. No erosions are seen. The bones are osteopenic.Lucency in the distal ulna could represent a cyst or erosion. Left wrist: There is no acute fracture or dislocation. Ulnar variance is positive by 2mm. There is a cyst in the proximal, medial aspect of the lunate whichcould reflect low- grade impaction. Delayed is slightly irregular whichprobably represents cysts and/or erosions. There is severe arthritis at the dzsfenah-uewnxmzua-bcigqbxdqxadqi with sclerosis and osteophytes, and deformity of the scaphoid whichmay reflect chronic remodeling or chronic posttraumatic deformity.Chondrocalcinosis is present. There is diffuse soft tissue swelling, including focal soft tissue swelling at thevolar aspect of the wrist. The bones are osteopenic. Cystic change ispresent in the ulnar styloid. IMPRESSION Impression: 1. Bilateral hand x-rays demonstrate mild arthritis, right greater thanleft. 2. Right wrist x-rays demonstrate arthritis, greater at tqxzwbcconj-ljlhvjgkf-gxqopzlgh joint where it is moderate to severe, anddorsal intercalated segment instability (DISI) malalignment. 3. Left wrist x-rays demonstrate arthritis, greatest in whmtlkmnvck-ioivwwfct-zrvimfcou joint where it is severe. There is chronicappearing deformity of the scaphoid, and abnormal lucency in the lunatewhich may represent cystic or erosive change. 4. 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 This report was electronically signed by DYLAN SIEGEL MD on 06/18/201512:34 PM . Vish Storm MD DIAGNOSTIC IMAGING O RDERABLES * XR WRIST LEFT 3VW OR MORE (06/18/2015 11:48 AM CDT) Anatomical Region Laterality Modality Wrist / Hand Other Impressions 06/18/2015 12:34 PM CDT Impression: 1. Bilateral hand x-rays demonstrate mild arthritis, right greater than left. 2. Right wrist x-rays demonstrate arthritis, greater at the wsgdimrm-bntochjfr-mmiosiudm joint where it is moderate to severe, and dorsal intercalated segment instability (DISI) malalignment. 3. Left wrist x-rays demonstrate arthritis, greatest in the iohhuzlq-rwfprlzwv-kbbjmgvtk joint where it is severe. There is chronic appearing deformity of the scaphoid, and abnormal lucency in the lunate which may represent cystic or erosive change. 4. 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 This report was electronically signed by DYLAN SIEGEL MD on 06/18/2015 12:34 PM . Narrative 06/18/2015 12:34 PM CDT Exam: 1. XR HAND LEFT 3+ VW, 2. XR HAND RIGHT 3+ VW, 3. XR WRIST LEFT 3+ VW, 4. XR WRIST RIGHT 3+ VW History: Bilateral cysts on wrists Comparison: None available. Findings: Right hand: There is no acute fracture or dislocation. There is mild degenerative change at several interphalangeal and metacarpophalangeal joints. Periarticular calcification is present adjacent to the fifth metacarpophalangeal joint and fourth proximal interphalangeal joint. No erosions are seen. The bones are mildly osteopenic. The soft tissues are unremarkable. Left hand: There is no acute fracture or dislocation. There is mild degenerative change at several interphalangeal joints, moderate degenerative change at the third metacarpal phalangeal joint. No erosions are seen. The bones are mildly osteopenic. The soft tissues are unremarkable. Right wrist: There is no acute fracture or dislocation. The scapholunate interval is top normal measuring 3 mm. There is abnormal alignment on the lateral projection with dorsal tilt of the lunate, increased lunate capitate angle, and increased scapholunate angle, consistent with dorsal intercalated segment instability (DISI) malalignment. There is mild diffuse soft tissue swelling. Chondrocalcinosis is present. There is moderate to severe arthritis at the scaphoid trapezium-trapezoid joint with osteophytes and joint space narrowing. No erosions are seen. The bones are osteopenic. Lucency in the distal ulna could represent a cyst or erosion. Left wrist: There is no acute fracture or dislocation. Ulnar variance is positive by 2 mm. There is a cyst in the proximal, medial aspect of the lunate which could reflect low- grade impaction. Delayed is slightly irregular which probably represents cysts and/or erosions. There is severe arthritis at the ucegvbmh-yrtugxods-hboqftzyw joint with sclerosis and osteophytes, and deformity of the scaphoid which may reflect chronic remodeling or chronic posttraumatic deformity. Chondrocalcinosis is present. There is diffuse soft tissue swelling, including focal soft tissue swelling at the volar aspect of the wrist. The bones are osteopenic. Cystic change is present in the ulnar styloid. Procedure Note Dylan Siegel MD - 02/06/2018 Exam: 1. XR HAND LEFT 3+ VW, 2. XR HAND RIGHT 3+ VW, 3. XR WRIST LEFT 3+ VW, 4. XR WRIST RIGHT 3+ VW History: Bilateral cysts on wrists Comparison: None available. Findings: Right hand: There is no acute fracture or dislocation. There is mild degenerativechange at several interphalangeal and metacarpophalangeal joints.Periarticular calcification is present adjacent to the fifthmetacarpophalangeal joint and fourth proximal interphalangeal joint. No erosions are seen. The bones are mildlyosteopenic. The soft tissues are unremarkable. Left hand: There is no acute fracture or dislocation. There is mild degenerativechange at several interphalangeal joints, moderate degenerative change atthe third metacarpal phalangeal joint. No erosions are seen. The bones aremildly osteopenic. The soft tissues are unremarkable. Right wrist: There is no acute fracture or dislocation. The scapholunate interval istop normal measuring 3 mm. There is abnormal alignment on the lateralprojection with dorsal tilt of the lunate, increased lunate capitateangle, and increased scapholunate angle, consistent with dorsal intercalated segment instability (DISI)malalignment. There is mild diffuse soft tissue swelling.Chondrocalcinosis is present. There is moderate to severe arthritis at thescaphoid trapezium-trapezoid joint with osteophytes and joint space narrowing. No erosions are seen. The bones are osteopenic.Lucency in the distal ulna could represent a cyst or erosion. Left wrist: There is no acute fracture or dislocation. Ulnar variance is positive by 2mm. There is a cyst in the proximal, medial aspect of the lunate whichcould reflect low- grade impaction. Delayed is slightly irregular whichprobably represents cysts and/or erosions. There is severe arthritis at the hsafbxny-pkcurkyec-txfokwmlhwybwy with sclerosis and osteophytes, and deformity of the scaphoid whichmay reflect chronic remodeling or chronic posttraumatic deformity.Chondrocalcinosis is present. There is diffuse soft tissue swelling, including focal soft tissue swelling at thevolar aspect of the wrist. The bones are osteopenic. Cystic change ispresent in the ulnar styloid. IMPRESSION Impression: 1. Bilateral hand x-rays demonstrate mild arthritis, right greater thanleft. 2. Right wrist x-rays demonstrate arthritis, greater at sukslhrbbyt-prznenyki-ndkkdzjlx joint where it is moderate to severe, anddorsal intercalated segment instability (DISI) malalignment. 3. Left wrist x-rays demonstrate arthritis, greatest in hotxpmcddme-meutsafwr-nicxihsbx joint where it is severe. There is chronicappearing deformity of the scaphoid, and abnormal lucency in the lunatewhich may represent cystic or erosive change. 4. 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 This report was electronically signed by DYLAN SIEGEL MD on 06/18/201512:34 PM . Vish Storm MD DIAGNOSTIC IMAGING O [facility] Care Teams Rehabilitation Inspector Relationship Specialty Start Date End Date Christiano Edgar MD [address] [place] [address] PCP - General Family Medicine 07/02/15 [place] [address] [address] Orthopedic Surgery 08/29/13
[2024-12-21 18:24] LABS: Albumin Level 4.4 g/dL (3.5-5.1); Anion Gap 12 mmol/L (4-12); Blood Urea Nitrogen 35 mg/dL (7-17); Calcium 9.7 mg/dL (8.4-10.2); Carbon Dioxide 26 mmol/L (22-30); Chloride 104 mmol/L (98-107); Estimated Glomerular Filt Rate 37; Glucose 115 mg/dL (65-110); Phosphorus 4.6 mg/dL (2.5-4.5); Potassium 5.2 mmol/L (3.4-5.0); Sodium 142 mmol/L (137-145)
[2024-12-21 18:30] LABS: Parathyroid Intact 126.8 pg/mL (14.5-75.2)
[2024-12-21 18:53] LABS: Vitamin D 25 Hydroxy 41.4 ng/mL
[2024-12-21 18:56] LABS: Creatinine Urine 82.7 mg/dL; Total Protein Urine Random 15 mg/dL; Ur Ttl Prot Creatinine Ratio 0.18 mg/mg (0-0.20)
== END 2024-12-21 14:30 | disposition home or self-care (01) ==
LOC: ANHGOSHLAB 14:30
PROVIDERS: PCP Family Medicine; Visit Provider Internal Medicine Nephrology
DX: I12.9 Hypertensive chronic kidney disease with stage 1 through stage 4 chronic kidney disease, or unspecified chronic kidney disease (principal); N18.4 Chronic kidney disease, stage 4 (severe); N25.81 Secondary hyperparathyroidism of renal origin; E55.9 Vitamin D deficiency, unspecified
CPT/HCPCS: 36415; 80069; 82306; 82570; 83970; 84156

== ENCOUNTER 2025-01-27 11:46 | Emergency (ER) | payer MEDICARE, OTHER, SELFPAY ==
[2025-01-27] VITALS (40 sets, daily range): BP systolic 106–159; BP diastolic 43–95; PULSE 61–100; RESP 14–27; TEMP 36.4; O2SAT 83–100
--- NOTE | ~2025-01-27 | US_ITS ---
EXAMINATION: US venous doppler [facility] DATE: 01/27/2025 16:14 INDICATION: Elevated d-dimer with bilateral leg pain TECHNIQUE: Grayscale ultrasound images without and with compression and Doppler ultrasound images of the bilateral lower extremity veins were obtained. COMPARISON: 03/30/2024 FINDINGS: The visualized portions of right common femoral vein, profunda (deep) femoral vein, femoral vein, pop liteal vein, peroneal veins, posterior tibial veins, and greater saphenous vein outflow are patent. The visualized portions of left common femoral vein, profunda femoral vein, femoral vein, popliteal v ein, peroneal veins, posterior tibial veins, and greater saphenous vein outflow are patent. IMPRESSION: 1. No deep venous thrombosis. Reviewed, dictated and finalized at location A.
--- NOTE | ~2025-01-27 | XR_ITS ---
XR chest 1V portable 01/27/2025 17:23 Indication: Elevated blood pressure. Heart failure. Procedure: AP portable chest Comparison: 08/07/2023 Findings: There are subtle infiltrates of the right mid and upper lung, suspicious for pneumonia. Hea rt size normal. No significant effusion or pneumothorax. No acute osseous abnormality. No edema. Impression: 1: Subtle infiltrates of the right upper lung, suspicious for pneumonia. Reviewed, dictated and finalized at location B. Impression: 1: Subtle infiltrates of the right upper lung, suspicious for pneumonia.
--- OUTSIDE RECORDS SUMMARY | 2025-01-27 12:50 | XMS_ITS | Clinical Summary ---
Author Organization [facility] Address [address] [place] [address] Care Team Providers Care Modeling Analyst Name Role Phone Alley Brody MD Unavailable [phone] Christiano Edgar MD Primary Care Provider [phone] Source Comments [facility],non-owned Affiliates and Associated Physician Practices is amultiple site organization consisting of ambulatory clinics and hospital sitesin [place], [place], [place] and [place]. This disclosure is being madepursuant to the Care Everywhere program and may not contain all information available regarding this patient. Last updated 18.[facility] Allergies Active Allergy Reactions Criticality Noted Date Comments Liiixvsl-Lucmiezhyw-Igmuomyus 2012 Medications * Be aware that medications may not be up to date on this document. Alwaysverify current medications with the patient. Medication Sig Dispensed Refills Start Date End Date Status Vyzhz-6-xbbi Ethyl Esters (LOVAZA PO) Take by mouth. [...] Encounters Date Type Department Care Team Description 01/02/2025 Lab Requisition [facility] - DermPath Lab [address] [place] [phone] Lisa Milian MD 12/06/2024 Lab Requisition [facility] - [facility]erm[facility] Lab [address] [place] [phone] Lisa Milian MD from Last 3 Months [...] - 1-dose 75+ series) 2010 COVID-19 VACCINE ( - 2023-2 5 season) 2024 INFLUENZA VACCINE (#1) 2024 DEPRESSION SCREENING 11/09/2024 HEPATITIS B VACCINE Aged Out No longe r eligible based on patient's age to complete this topic HIB VACCINE Aged Out No longer eligi ble based on patient's age to complete this topic HPV VACCINE Aged Out No longer eligi ble based on patient's age to complete this topic MENINGOCOCCAL (Group B) VACC INE SHARED DECISION-MAKING Aged Out No longer eligibl e based on patient's age to complete this topic MENINGOCOCCAL GROUPS A/C/Y/W VACCINE Aged Out No longer eligible b ased on patient's age to complete this topic Procedures Procedure Name Priority Date/Time Associated Diagnosis Comments DERMATOPATHOLOGY Routine 01/02/2025 3:29 PM SALES ADMINISTRATOR DERMATOPATHOLOGY Routine 12/06/2024 10:4 5 AM SALES ADMINISTRATOR from Last 3 Months Results * DERMATOPATHOLOGY (01/02/2025 3:29 PM SALES ADMINISTRATOR) Only the most recent of2 resultswithin the time period is included. Case Report Dermatopathology Report Case: [id number] Authorizing Provider: Lisa Milian MD Collected: 01/02/2025 03:29 PM Ordering Location: [facility] - Received: 01/03/2025 04:42 PM DermPath Lab Pathologist: Ayaka Trinidad MD Specimen: Skin, left anterior thigh 4:25 PM SALES ADMINISTRATOR DERMATOPATHOLOGY LABORATORY Final Diagnosis Specimen A. 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 The specimen consists of a non-oriented ellipse of skin measuring 3 pieces 53i41d4,17x9x1,5x3x 2 mm. The epidermal surface is unremarkable. The margin is inked green. The 12 o'clock and 6 o'clock tips are submitted in cassette 1. The remainder of the ellipse is serially sectioned and submitted in cassette 2-3. Jar 0. 4:25 PM [facility] DERMATOPATHOLOGY LABORATORY Microscopic Description Specimen A. SKIN, left anterior thigh: Arising in the epidermis and extending into the dermis there are irregularly shaped aggregates of keratinocytes showing evidence of premature cornification. This lesion is not present at the margin of the specimen. There are fibroblasts and collagen bundles oriented parallel to the skin surface with elongated blood vessels, some of which are oriented perpendicular to the skin surface. 4:25 PM [facility] DERMATOPATHOLOGY LABORATORY Disclaimer An external and internal positive and negative controls are appropriate for the histochemical, immunohistochemical and immunofluorescence stain(s) in this case (if any), except where stated explicitly. The performance characteristics of the stain(s) cited in this report were developed and its performance characteristic determined by the Dermatopathology Laboratory at [facility], directed by Dr. Jessica Trinidad. These tests need not be, and therefore are not, approved by the [place] Food and Drug Administration. The tests are used for clinical purposes. Billing Codes Specimen Charges Stain Charges 94147 1 4:25 PM [facility] DERMATOPATHOLOGY LABORATORY Embedded Images 4:25 PM [facility] DERMATOPATHOLOGY LABORATORY Pathology/Cytolo gy TISSUE SPECIMEN FROM SKIN / Unknown 01/02/2025 3:29 PM SALES ADMINISTRATOR 01/03/2025 4:42 PM SALES ADMINISTRATOR Lisa Milian MD LAB - PATHOLOGY/CYT OLOGY ORDERABLES DERMATOPATHOLOGY LABORATORY [facility] - Department of Dermatology [address], [address] [phone] from Last 3 Months Care Teams Modeling Analyst Relationship Specialty Start Date End Date Christiano Edgar MD [address] [place] [address] PCP - General Family Medicine 07/02/15 [place] [address] [place] [address] Orthopedic Surgery 08/29/13
--- OUTSIDE RECORDS SUMMARY | 2025-01-27 12:50 | XMS_ITS | Encounter Summary ---
Author Organization [facility] Address [address] [place] [address] Care Team Providers Care Melt House Centrifugal Operator Name Role Phone Alley Brody MD Unavailable [phone] Christiano Edgar MD Primary Care Provider [phone] Encounter Details Date Type Department Care Team (Late st Contact Info) Description 12/06/2024 Lab Requisition [facility] - DermPath Lab [address] [facility] [place] [address] Lisa Milian MD [address] [facility] [address] [place] [address] Social History Tobacco Use Types Packs/Day Years [...] Comments DERMATOPATHOLOGY Routine 12/06/2024 10:4 5 AM CHIEF PORT DIRECTOR documented in this encounter Results * DERMATOPATHOLOGY (12/06/2024 10:45 AM CHIEF PORT DIRECTOR) Case Report Dermatopathology Report Case: [id number] Authorizing Provider: Lisa Milian MD Collected: 12/06/2024 10:45 AM Ordering Location: [facility] - Received: 12/07/2024 01:04 PM DermPath Lab Pathologist: Kylah Atkinson MD Specimen: Skin, left ant thigh 2:15 PM CHIEF PORT DIRECTOR DERMATOPATHOLOGY LABORATORY Final Diagnosis Specimen A. 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 The specimen consists of a shave biopsy measuring 2 pieces 10x9x2,9x8x2 mm. Jar 0. 2:15 PM CHIEF PORT DIRECTOR DERMATOPATHOLOGY LABORATORY Microscopic Description Specimen A. SKIN, left ant thigh: Sections show an endo exophytic crateriform lesion with a keratotic plug, formed by confluent follicle-like structures with relatively large keratinocytes. 2:15 PM CHIEF PORT DIRECTOR DERMATOPATHOLOGY LABORATORY Disclaimer An external and internal positive and negative controls are appropriate for the histochemical, immunohistochemical and immunofluorescence stain(s) in this case (if any), except where stated explicitly. The performance characteristics of the stain(s) cited in this report were developed and its performance characteristic determined by the Dermatopathology Laboratory at [facility], directed by Dr. Jessica Trinidad. These tests need not be, and therefore are not, approved by the [place] Food and Drug Administration. The tests are used for clinical purposes. Billing Codes Specimen Charges Stain Charges 79726 1 2:15 PM CHIEF PORT DIRECTOR DERMATOPATHOLOGY LABORATORY Embedded Images 2:15 PM CHIEF PORT DIRECTOR DERMATOPATHOLOGY LABORATORY Pathology/Cytolo gy TISSUE SPECIMEN FROM SKIN / Unknown 12/06/2024 10:45 AM CHIEF PORT DIRECTOR 12/07/2024 1:04 PM CHIEF PORT DIRECTOR Lisa Milian MD LAB - PATHOLOGY/CYT OLOGY ORDERABLES DERMATOPATHOLOGY LABORATORY [facility] - Department of Dermatology [facility] [facility], 3rd Floor [address] [phone] documented in this encounter Visit Diagnoses Not on filedocumented in this encounter Care Teams Melt House Centrifugal Operator Relationship Specialty Start Date End Date Christiano Edgar MD [address] [place] [id number] PCP - General Family Medicine 07/02/15 [place] [address] [address] Orthopedic Surgery 08/29/13 documented as of this encounter
--- OUTSIDE RECORDS SUMMARY | 2025-01-27 12:50 | XMS_ITS | Encounter Summary ---
Author Organization [facility] Address [address] [place] [address] Phone Care Team Providers Care Photo Optics Technician Name Role Phone Christiano Edgar MD Primary Care Provider [phone] Kaveh Fay DO Primary Care Provider [phone] Duane Damico MD Primary Care Provider [phone] Reyna Claudio MD Unavailable [phone] Mor Aguilera MD Unavailable [phone] Encounter Details Date Type Department Care Team [...] on file Legal Sex Female 12:39 AM RESEARCH NURSE Gender Identity Not on file Sexual Orientation [...] Diagnoses Not on filedocumented in this encounter Additional Health Concerns Infection Onset Date Last Indicated Resolved Time COVID: Suspected 01/10/2025 01/10/2025 01/10/2025 2:41 PM RESEARCH NURSE Influenza, adult 01/10/2025 01/10/2025 01/17/2025 3:05 AM CDT documented as of this encounter Care Teams Photo Optics Technician Relationship Specialty Start Date End Date Christiano Edgar MD PCP - General 01/03/17 12/09/22 Kaveh Fay DO PCP - General Internal Medicine 12/10/22 08/22/24 Duane Damico MD [address] [place] [address] PCP - General Family Medicine 08/23/24 Reyna Claudio MD [address] [facility] [address] [place] [address] Referring Physician Nephrology 08/23/24 Mor Aguilera MD [address], [place] [address] Consulting Physician Interventional Cardiology 08/23/24 documented as of this encounter
--- OUTSIDE RECORDS SUMMARY | 2025-01-27 12:50 | XMS_ITS | Encounter Summary ---
Author Organization [facility] Address [address] [facility] [place] [address] Care Team Providers Care Traffic Supervisor Name Role Phone Alley Brody MD Unavailable [phone] Christiano Edgar MD Primary Care Provider [phone] Encounter Details Date Type Department Care Team (Late st Contact Info) Description 07/14/2024 Lab Requisition [facility] - DermPath Lab [address] [facility] [place] [address] Sharla Perez DO [address] [facility] 3 DEPT [place] [address] Social History Tobacco Use Types Packs/Day Years [...] AM CDT) Case Report Dermatopathology Report Case: [id number] Authorizing Provider: Sharla Perez DO Collected: 07/14/2024 10:20 AM Ordering Location: [facility] - Received: 07/15/2024 09:26 AM DermPath Lab Pathologist: Adilene Jackson MD Specimens: A) - Skin, left orthodoxy B) - Skin, left upper back 10:40 AM [facility] DERMATOPATHOLOGY LABORATORY Final Diagnosis Specimen A. 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 SKIN, left upper back: BASAL CELL CARCINOMA, NODULAR TYPE (C44.519) 10:40 AM [facility] DERMATOPATHOLOGY LABORATORY Clinical History A-B: R/O NMSC 10:40 AM [facility] DERMATOPATHOLOGY LABORATORY Gross Description Specimen A: Received is one formalin filled container labeled with the patient's name and designated left orthodoxy. The specimen consists of a shave biopsy measuring 7x5x1 mm. Jar 0. Specimen B: Received is one formalin filled container labeled with the patient's name and designated left upper back. The specimen consists of a shave biopsy measuring 7x7x1 mm. Jar 0. 10:40 AM [facility] DERMATOPATHOLOGY LABORATORY Microscopic Description Specimen A. SKIN, left orthodoxy: The epidermis shows parakeratosis, full thickness disorderly maturation of keratinocytes, mitoses at different levels, and dyskeratotic cells. Specimen B. SKIN, left upper back: Within the dermis there are aggregates of basaloid cells with a high nuclear to cytoplasmic ratio and peripheral palisading. 10:40 AM [facility] DERMATOPATHOLOGY LABORATORY Disclaimer An external and internal positive and negative controls are appropriate for the histochemical, immunohistochemical and immunofluorescence stain(s) in this case (if any), except where stated explicitly. The performance characteristics of the stain(s) cited in this report were developed and its performance characteristic determined by the Dermatopathology Laboratory at [facility], directed by Dr. Jessica Trinidad. These tests need not be, and therefore are not, approved by the [place] Food and Drug Administration. The tests are used for clinical purposes. Billing Codes Specimen Charges Stain Charges 03947 48967 1 1 09/09/202 4 10:40 AM CDT [...] DERMATOPATHOLOGY LABORATORY [facility] - Department of Dermatology [facility] Medicine [address] [place] [address] [phone] documented in this encounter Visit Diagnoses Not on filedocumented in this encounter Care Teams Traffic Supervisor Relationship Specialty Start Date End Date Christiano Edgar MD [address] [place] [phone] PCP - General Family Medicine 07/02/15 [place] [address] [place] [place] [address] Orthopedic Surgery 08/29/13 documented as of this encounter
--- OUTSIDE RECORDS SUMMARY | 2025-01-27 12:50 | XMS_ITS | Encounter Summary ---
Author Organization [facility] Address [address] [facility] [place] [address] Care Team Providers Care Road Boss Name Role Phone Alley Brody MD Unavailable Christiano Edgar MD Primary Care Provider [phone] Encounter Details Date Type Department Care Team (Late st Contact Info) Description 09/19/2015 Therapy Visit [facility] Orthopedics [address] [address] [place] [address] [address] [address] Social History Tobacco Use Types [...] on filedocumented in this encounter Care Teams Road Boss Relationship Specialty Start Date End Date Christiano Edgar MD [address] [place] [address] PCP - General Family Medicine 07/02/15 [place] [address] [address] [place] [address] Orthopedic Surgery 08/29/13 documented as of this encounter
--- OUTSIDE RECORDS SUMMARY | 2025-01-27 12:50 | XMS_ITS | Encounter Summary ---
Author Organization [facility] Address [address] [place] [address] Care Team Providers Care Wood Products Manufacturer Name Role Phone Alley Brody MD Unavailable [phone] Christiano Edgar MD Primary Care Provider Encounter Details Date Type Department Care Team (Late st Contact Info) Description 12/05/2020 Lab Requisition [facility] Care DermPath Lab [address] [facility], [place] [address] Sharla Perez DO [address] [facility] 3 [place] [address] Social History Tobacco Use Types Packs/Day Years [...] Comments DERMATOPATHOLOGY Routine 12/04/2020 12:0 0 AM PARACHUTE CROWN SEWER documented in this encounter Results * DERMATOPATHOLOGY (12/04/2020 12:00 AM PARACHUTE CROWN SEWER) Case Report Dermatopathology Report Case: [id number] Authorizing Provider: Sharla Perez DO Collected: 12/04/2020 12:00 AM Ordering Location: [facility] DermPath Lab Received: 12/05/2020 08:18 AM Pathologist: Ayaka Trinidad MD Specimens: A) - Skin, chest B) - Skin, left elbow 4:14 PM [facility] DERMATOPATHOLOGY LABORATORY Final Diagnosis Specimen A. SKIN, chest: LARGE CELL ACANTHOMA (D23.9) Specimen B. SKIN, left elbow: SQUAMOUS CELL CARCINOMA, WELL DIFFERENTIATED (C44.629) 4:14 PM [facility] DERMATOPATHOLOGY LABORATORY Clinical History A-B: R/O NMSC. 4:14 PM [facility] DERMATOPATHOLOGY LABORATORY Gross Description Specimen A: Received is one formalin filled container labeled with the patient's name and designated chest. The specimen consists of a shave measuring [id number]. Jar 0. Specimen B: Received is one formalin filled container labeled with the patient's name and designated left elbow. The specimen consists of a shave measuring [id number]. Jar 0. 4:14 PM PARACHUTE CROWN SEWER DERMATOPATHOLOGY LABORATORY Microscopic Description Specimen A. SKIN, chest: Sections show compact orthokeratosis with acanthosis composed of slightly larger keratinocytes with basal layer hyperpigmentation. Specimen B. SKIN, left elbow: Arising in the epidermis and extending into the dermis there are irregularly shaped aggregates of keratinocytes showing evidence of premature cornification. 4:14 PM [facility] DERMATOPATHOLOGY LABORATORY Disclaimer An external and internal positive and negative controls are appropriate for the histochemical, immunohistochemical and immunofluorescence stain(s) in this case (if any), except where stated explicitly. The performance characteristics of the stain(s) cited in this report were developed and its performance characteristic determined by the Dermatopathology Laboratory at [facility], directed by Dr. Jessica Trinidad. These tests need not be, and therefore are not, approved by the [place] Food and Drug Administration. The tests are used for clinical purposes. Billing Codes Specimen Charges Stain Charges 26362 32023 1 1 4:14 PM [facility] DERMATOPATHOLOGY LABORATORY Embedded Images 4:14 PM [facility] DERMATOPATHOLOGY LABORATORY Pathology/Cytology TISSUE SPECIMEN FROM SKIN / Unknown 12/04/2020 12/05/2020 8:18 AM PARACHUTE CROWN SEWER Miscellaneous samples (specimen) TISSUE SPECIMEN FROM SKIN / Unknown 12/04/2020 12/05/2020 8:18 AM PARACHUTE CROWN SEWER Sharla Perez DO LAB - PATHOLOGY/C YTOLOGY ORDERABLES DERMATOPATHOLOGY LABORATORY [facility] - Department of Dermatology [facility] Special[facility] Medicine [address] [place] [address], [address]rd Floor [address] [phone] documented in this encounter Visit Diagnoses Not on filedocumented in this encounter Care Teams Wood Products Manufacturer Relationship Specialty Start Date End Date Christiano Edgar MD [address] [place] [phone] PCP - General Family Medicine 07/02/15 [place] [address] [address] Orthopedic Surgery 08/29/13 documented as of this encounter
--- OUTSIDE RECORDS SUMMARY | 2025-01-27 12:50 | XMS_ITS | Encounter Summary ---
Author Organization [facility] Address [address] [facility] [place] [address] Care Team Providers Care Pig Sticker Name Role Phone Alley Brody MD Unavailable [phone] Christiano Edgar MD Primary Care Provider [phone] Encounter Details Date Type Department Care Team (Late st Contact Info) Description 08/22/2015 Therapy Visit [facility] Orthopedics [address] [address] [place] [address] [address] [address] Social History Tobacco Use Types [...] on filedocumented in this encounter Care Teams Pig Sticker Relationship Specialty Start Date End Date Christiano Edgar MD [address] [place] [address] PCP - General Family Medicine 07/02/15 [place] [address] [address] [place] [address] Orthopedic Surgery 08/29/13 documented as of this encounter
--- OUTSIDE RECORDS SUMMARY | 2025-01-27 12:50 | XMS_ITS | Encounter Summary ---
Author Organization [facility] Address [address] [facility] [place] [address] Care Team Providers Care Interlocker Maintainer Name Role Phone Alley Brody MD Unavailable [phone] Christiano Edgar MD Primary Care Provider [phone] Encounter Details Date Type Department Care Team (Late st Contact Info) Description 01/19/2019 Lab Requisition [facility] Care DermPath Lab [address] [facility], [place] [address] Sharla Perez DO [address] [facility] 3 [place] [address] Social History Tobacco Use Types Packs/Day Years [...] AM CDT) Case Report Dermatopathology Report Case: [id number] Authorizing Provider: Sharla Perez DO Collected: 01/17/2019 12:00 AM Pathologist: Ayaka Trinidad MD Received: 01/19/2019 06:51 AM Specimens: A) - Skin, right infraorbital B) - Skin, post crown of scalp C) - Skin, right upper back 4:59 PM [facility] DERMATOPATHOLOGY LABORATORY Final Diagnosis Specimen A. SKIN, right infraorbital: SQUAMOUS CELL CARCINOMA IN SITU, PRESENT AT THE BASE OF THE SPECIMEN (D04.39) (see microscopic description and comment) (see microscopic description) Specimen B. SKIN, post crown of scalp: SEBORRHEIC KERATOSIS, IRRITATED AND INFLAMED, SUPERFICIAL PORTIONS ONLY (L82.0) Specimen C. SKIN, right upper back: SEBORRHEIC KERATOSIS, IRRITATED AND INFLAMED (L82.0) 4:59 PM [facility] DERMATOPATHOLOGY LABORATORY Clinical History A: Rohan-H R/O seba vs BCC. B-C: ISK R/O NMSC. 4:59 PM T DERMATOPATHOLOGY LABORATORY Gross Description Specimen A: Received is one formalin filled container labeled with the patient's name and designated right infraorbital. The specimen consists of a shave measuring 4l8x9nz. Jar 0. Specimen B: Received is one formalin filled container labeled with the patient's name and designated post crown of scalp. The specimen consists of a shave measuring 2a9p0ct. Jar 0. Specimen C: Received is one formalin filled container labeled with the patient's name and designated right upper back. The specimen consists of a shave measuring 1x8b4kg. Jar 0. 4:59 PM [facility] DERMATOPATHOLOGY LABORATORY Microscopic Description Specimen A. SKIN, [...] characteristic determined by the Dermatopathology Laboratory at [facility], directed by Dr. Jessica Trinidad. These tests need not be, and therefore are not, approved by the [place] Food and Drug Administration. The tests are used for clinical purposes. Billing Codes Specimen Charges Stain Charges 49265 60274 22896 1 1 1 9 4:59 PM CDT [...] DERMATOPATHOLOGY LABORATORY [facility] - Department of Dermatology [address] [place] [address], 5th Floor Lab [address] [phone] documented in this encounter Visit Diagnoses Not on filedocumented in this encounter Care Teams Interlocker Maintainer Relationship Specialty Start Date End Date Christiano Edgar MD [address] [place] [address] PCP - General Family Medicine 07/02/15 [place] [address] [place] [address] Orthopedic Surgery 08/29/13 documented as of this encounter
--- OUTSIDE RECORDS SUMMARY | 2025-01-27 12:52 | XMS_ITS | Clinical Summary ---
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
--- OUTSIDE RECORDS SUMMARY | 2025-01-27 12:52 | XMS_ITS | Encounter Summary ---
Author Organization [facility] Address [address] [place] [address] Care Team Providers Care Adjunct History Instructor Name Role Phone Unavailable Primary Care Provider Unavailabl e Encounter Details Date Type Department Care Team (Latest Contact Info) Description 08/18/2008 Outpatient Historical [facility] Moose Mcclellan MD NO ADDRESS ON FILE Zaid Mckeon MD [address] [facility] [address] [id number] Mononeuritis of Unspecified Site Social History Tobacco Use Types Packs/Day Years Used Date Smoking Tobacco: Never Assessed Comments Unknown Sex and Gender Information Value Date Recorded Sex Assigned at Not on file Legal Sex Female 5:38 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
--- OUTSIDE RECORDS SUMMARY | 2025-01-27 12:52 | XMS_ITS | Clinical Summary ---
Author Organization [facility] Address [address], [place] [address] Phone Care Team Providers Care Exercise Physiology Professor Name Role Phone Christiano Edgar MD Primary [...] (06/23/2019): Added automatically from request for surgery [id number] Intermittent claudication 04/21/2018 Chronic kidney disease, stage [...] arteries Last Assessment & Plan: Studies at [facility] showed less than 50% carotid stenosis. [...] 09/22/2019 Influenza Vaccine (#1) 2024 Care Teams Exercise Physiology Professor Relationship Specialty Start Date End Date Christiano Edgar MD [address] [place] [address] PCP - General Family Medicine 06/22/19
--- OUTSIDE RECORDS SUMMARY | 2025-01-27 12:52 | XMS_ITS | Clinical Summary ---
Author Organization [facility] Address [address] [facility], [address] [address] Phone Care Team Providers Care Dispensing Optician Name Role Phone Christiano Edgar MD Primary Care Provider [phone] Allergies Active Allergy Reactions Criticality Noted Date [...] Maintenance Due Date Last Done Comments Hepatitis C Virus (HCV) Screening 1935 TdaP Immunization 1935 Pneumococcal Immunization (5 0+ years) (1 of 1 - PCV) 1985 Zoster Immunization (1 of 2) 1985 Respiratory Syncytial Virus (RSV) Immunization (Adult) (1 - 1-dose 75+ series) 2010 Influenza Immunization (#1) 2024 SARS-COV-2 Immunization (1 - 2023-25 season) 2024 Hepatitis B Immunization Aged Out No longer eligible based on patient's age to complete this topic Meningococcal Immunization (ACWY) Aged Out No longer eligible based on patient's age to complete this topic Rotavirus Immunization Aged Out No lo nger eligible based on patient's age to complete this topic Insurance MEDICARE Care Teams Dispensing Optician Relationship Specialty Start Date End Date Christiano Edgar MD [address] [place], [place] [phone] PCP - General Family Medicine 12/31/15
--- OUTSIDE RECORDS SUMMARY | 2025-01-27 12:52 | XMS_ITS | Patient Health Record ---
Author Organization [facility] Address [address] [facility] [address] [place], [place] [address] Care Team Providers Care Sample Puller Name Role Phone Tyler Stevens, Moose Unavailable REASON FOR REFERRAL No Information PLAN OF TREATMENT No Information Insurance Providers Payer Name Payer Address Payer Phone Subscriber Number Group Number Insured Name Patient Relationship to Insured Coverage Start Date Coverage End Date [employer] [address] [address] [place] [address] [phone] [id number] Mae Stapleton i Self - patient is the insured 8
--- OUTSIDE RECORDS SUMMARY | 2025-01-27 12:52 | XMS_ITS | Encounter Summary ---
Author Organization [facility] Address [address] [place] [address] Care Team Providers Care Knockout Man Name Role Phone Alley Brody MD Unavailable [phone] Christiano Edgar MD Primary Care Provider [phone] Encounter Details Date Type Department Care Team (Late st Contact Info) Description 01/02/2025 Lab Requisition [facility] - DermPath Lab [address] [facility], [place] [address] Lisa Milian MD [address] [facility] 3 [place] [address] Social History Tobacco Use Types Packs/Day Years [...] Diagnosis Comments DERMATOPATHOLOGY Routine 01/02/2025 3:29 PM TRUST AND ESTATES ATTORNEY documented in this encounter Results * DERMATOPATHOLOGY (01/02/2025 3:29 PM TRUST AND ESTATES ATTORNEY) Case Report Dermatopathology Report Case: [id number] Authorizing Provider: Lisa Milian MD Collected: 01/02/2025 03:29 PM Ordering Location: [facility] - Received: 01/03/2025 04:42 PM DermPath Lab Pathologist: Ayaka Trinidad MD Specimen: Skin, left anterior thigh 4:25 PM [facility] DERMATOPATHOLOGY LABORATORY Final Diagnosis Specimen A. SKIN, left anterior thigh: SQUAMOUS CELL CARCINOMA, WELL DIFFERENTIATED (C44.729) NOT PRESENT AT MARGIN DERMAL SCAR (L90.5) 4:25 PM [facility] DERMATOPATHOLOGY LABORATORY Clinical History Bx Proven SCC, KA Please check margins/prior biopsy 4:25 PM [facility] DERMATOPATHOLOGY LABORATORY Gross Description Specimen A: Received is one formalin filled container labeled with the patient's name and designated left anterior thigh. The specimen consists of a non-oriented ellipse of skin measuring 3 pieces 18t56s9,17x9x1,5x3x 2 mm. The epidermal surface is unremarkable. [...] purposes. Billing Codes Specimen Charges Stain Charges 14129 1 4:25 PM TRUST AND ESTATES ATTORNEY DERMATOPATHOLOGY LABORATORY Embedded Images 4:25 PM TRUST AND ESTATES ATTORNEY DERMATOPATHOLOGY LABORATORY Pathology/Cytolo gy TISSUE SPECIMEN FROM SKIN / Unknown 01/02/2025 3:29 PM TRUST AND ESTATES ATTORNEY 01/03/2025 4:42 PM TRUST AND ESTATES ATTORNEY Lisa Milian MD LAB - PATHOLOGY/CYT OLOGY ORDERABLES DERMATOPATHOLOGY LABORATORY [facility] - Department of Dermatology [facility] Medicine [address] [place] [address], [address]rd Floor [address] [phone] documented in this encounter Visit Diagnoses Not on filedocumented in this encounter Care Teams Knockout Man Relationship Specialty Start Date End Date Christiano Edgar MD [address] [place] [address] PCP - General Family Medicine 07/02/15 [place] [address] [address] Orthopedic Surgery 08/29/13 documented as of this encounter
--- OUTSIDE RECORDS SUMMARY | 2025-01-27 12:52 | XMS_ITS | Referral Summary ---
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); Stenosis of carotid artery, unspecified laterality; Left bundle branch block (LBBB); PVD (peripheral vascular disease) (CMS/HCC) (HCC); Mixed hyperlipidemia; Essential (primary) hypertension 01/10/2025 2:30 PM STEAM TUNNEL FEEDER Office Visit [facility] Care at [address] [address] Deepali Gee NP Influenza A (Primary Dx) 12/27/2024 Telephone [facility] Surgery [address] [facility] Floor 1 [place] [address] Lurdes Orlando NP from Last 3 Months Allergies Active Allergy [...] route every week 0 0 5 Active fsns-wpx-qoe-bl kbor-om 3,6,9 5 400-400-200 mg capsule Take by mouth 2 (two) times a day. Active xv-fhiftgz-ijd- iron fm-FA-vitK 18 mg iron-600 mcg-80 mcg [...] mcg total) by mouth daily 3 Active lisinopriL (PRINIVIL,ZESTR IL) 40 mg tablet [...] mouth daily 90 tablet 3 4 Active metoprolol XL (TOPROL-XL) 25 mg extended release tablet TAKE 1 TABLET(25 MG) BY MOUTH DAILY 90 tablet 1 5 Active rosuvastatin (CRESTOR) 40 mg tablet Take 1 tablet (40 mg total) by mouth daily 90 tablet 1 5 Active ipratropium (ATROVENT) 42 mcg (0.06 %) nasal spray Administer 2 sprays into each nostril 4 (four) times a day 15 mL 1 5 Active benzonatate (TESSALON) 200 mg capsuleIndicati ons:Influenza A Take 1 capsule (200 mg total) by mouth 3 (three) times a day as needed for cough 30 capsule 5 Active Active Problems Problem Noted Date Diagnosed Date Heart failure with mildly re duced ejection fraction (HFmrEF) 01/19/2025 Carotid stenosis, asymptomatic, bilateral 2023 Atherosclerosis of [place] ar teries of extremities with intermittent claudication, bilateral legs 09/02/2024 Stage 4 chronic kidney disease 08/23/2024 Protein-calorie malnutrition, unspecified severi ty 08/23/2024 Establishing [...] Chronic constipation for years. Has failed multiple ffbu-cbo-qexnnwg medications including MiraLax and probiotics. Has tried [...] (06/24/2018): Added automatically from request for surgery [id number] PVD (peripheral vascular disease) ([facility]) 04/09 Mixed hyperlipidemia 04/21/2018 Intermittent claudication 04/21/2018 [...] anemia for years, hematocrit 30-32 while at [facility] in May, worsening recently, now hematocrit 27. 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 Not on file Not on file Not on file Last Filed Vital Signs Vital Sign Reading Time Taken Comments Blood Pressure 162/66 01/19/2025 2:09 PM CDT Pulse 78 01/19/2025 2:09 PM CDT Temperature 36.7 C (98 F) 01/10/2025 2:32 PM STEAM TUNNEL FEEDER Respiratory Rate 24 01/10/2025 2:32 PM STEAM TUNNEL FEEDER Oxygen Saturation 97% 01/19/2025 2:09 PM CDT Inhaled Oxygen Concentration - - Weight 49.5 kg (109 lb 1.6 oz) 01/19/2025 2:09 P M CDT Height 157.5 cm (5' 2 ) 01/19/2025 2:09 PM CDT Body Mass Index 19.95 01/19/2025 2:09 PM CDT Plan of Treatment Not on file Medical Devices Implanted Type Area Mechanic Industrial Truck Device Identifier Shelf Expiration Date Model / Serial / Lot Intracranial Aneurysm Coil Cranial Description:3.5 mm x 23 mm L VIS Jr stent, MicroVention HydroSoft-Helical 2mm x 6cm, HydroSoft-Helical 2mm x 4cm, HydroSoft 3D 1mm x 3cm; 6 [place]ian [employer] Procedures Procedure Name Priority Date/Time Associated Diagnosis Comments POCT RAPID STREP Routine 01/10/2025 2:43 PM STEAM TUNNEL FEEDER Influenza A POC INFLUENZA A/B, COVID-19 ANTIGEN Routine 01/10/2025 2:40 PM STEAM TUNNEL FEEDER Influenza A from Last 3 Months Results * POCT rapid strep A (01/10/2025 2:43 PM STEAM TUNNEL FEEDER) Rapid Strep A, POC Negative Negative Swab 01/10/2025 2:43 PM STEAM TUNNEL FEEDER us Deepali Gee COMMUNICATIONS PLANNER POINT OF CARE TEST ORDERABLES Final Result * (ABNORMAL) POC Influenza A/B, COVID-19 antigen (01/10/2025 2:40 PM STEAM TUNNEL FEEDER) Influenza A Ag, POC Positive(A) Negative [facility] Influenza B Ag, POC Negative Negative [facility] COVID-19 Ag POC Presumptive Negative Presumptive Negative, Invalid [facility] Nasal 01/10/2025 2:40 PM STEAM TUNNEL FEEDER Deepali Gee COMMUNICATIONS PLANNER POINT OF CARE TEST ORDERABLES Final Result Performing Organization Address [facility]/State/[facility] Co de Phone Number [facility] [address] [place] [address], [facility] from Last 3 Months Insurance MEDICARE [facility] Address: [facility] [address] [place] [address] [facility] MEDICARE [facility] Advance Directives For more information, please contact: [phone] * Full Code (Latest Code Status on File) Date Activated Date Inactivated Comments 05/30/2019 12:35 PM 05/31/2019 12:06 AM * Full Code Date Activated Date Inactivated Comments 04/18/2019 1:59 AM 04/19/2019 6:47 PM * Full Code Date Activated Date Inactivated Comments 07/29/2018 12:59 PM 07/29/2018 3:32 PM Care Teams Fish Cleaner Relationship Specialty Start Date End Date Duane Damico MD [address] [place] [address] PCP - General Family Medicine 08/23/24 Reyna Claudio MD [address] [facility] [address] [place] [address] Referring Physician Nephrology 08/23/24 Mor Aguilera MD [address] [facility] [address], [place] [address] Consulting Physician Interventional Cardiology 08/23/24
--- OUTSIDE RECORDS SUMMARY | 2025-01-27 12:52 | XMS_ITS | Continuity of Care Document ---
Author Organization [facility] Address [address] [place] [address] [address] [place] [address] [place] [address] Phone Care Team Providers Care Aligner Barrel And Receiver Name Role Phone Bunch OD, Amilcar Unavailable Unavailable Procedures Procedure Date CL Replacement - Tima Other 9 Tax - Medical Eye Exam & Treatment Refraction Advance Directives Directive Yes / No Effective Date File Name No Information Encounters Encounter Description Practice Location Reason(s) For Visit Diagnoses Date Provider Providers Copied on Encounter [facility], [address] [place] [address] [address], [place], [place], [id number], tel:[phone] SEC [facility] No Information 3-200 9 Bunch OD Amilcar. [address] , [address], [place], [address], [place]. tel:[phone] [facility], [address] [place] [address] [address], [place], [place], [id number], tel:[phone] [facility] No Information 3200 9 Bunch OD Amilcar. [address] , [address], [place], [address], [place]. tel:[phone] Family History Family Member Type Diagnosis Age At Onset No Information Payers Payer name Insurance type Covered green party ID Authoriza tion(s) No Information Social History Type Description Quantity Date Captured Comments Sex Female Smoking Status No Information Chief Complaint And Reason For Visit No Information Reason For Referral Reason For Referral No Information History Of Present Illness Encounter Date Complaint History Of Prese nt Illness No Information Functional Status Date Functional Assessmen t No Information Instructions Date Instruction Additional Infor mation No Information Assessments Type Assessment Date No Information Patient Care Teams Name Effective Dates (start - stop) Status Members No Information
--- OUTSIDE RECORDS SUMMARY | 2025-01-27 12:52 | XMS_ITS | Clinical Summary ---
Author Organization [facility] al Address [address] [place] [address] Care Team Providers Care Pump Assembler Name Role Phone Duane Damico MD Primary Care Provider [phone] Reyna Claudio MD Unavailable [phone] Mor Aguilera MD Unavailable [phone] Allergies Active Allergy Reactions Criticality Noted Date [...] route every week 0 0 5 Active rtrc-ojw-mjv-bl kbor-om 3,6,9 5 400-400-200 mg capsule Take by mouth 2 (two) times a day. Active in-desnysj-ymb- iron fm-FA-vitK 18 mg iron-600 mcg-80 mcg [...] Carotid stenosis, asymptomatic, bilateral 2023 Atherosclerosis of [place] ar teries of extremities with intermittent claudication, [...] Chronic constipation for years. Has failed multiple nsgm-xep-mechbdh medications including MiraLax and probiotics. Has tried [...] (06/24/2018): Added automatically from request for surgery [id number] PVD (peripheral vascular disease) ([facility] 04/09 Mixed hyperlipidemia 04/21/2018 Intermittent claudication 04/21/2018 [...] extremity with matheus n 01/13/2017 Dilated cardiomyopathy ([facility]) 12/18/2015 Overview (02/13/2017): Cardiomyopathy Assessment & Plan [...] Plan (08/31/2017 5:39 PM CDT): Studies at [facility] showed less than 50% carotid stenosis. 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) (Primary Dx); Stenosis of carotid artery, unspecified laterality; Left bundle branch block (LBBB); PVD (peripheral vascular disease) (CMS/HCC) (HCC); Mixed hyperlipidemia; Essential (primary) hypertension 01/10/2025 2:30 PM ENVIRONMENTAL EMERGENCIES ASSISTANT Office Visit [facility] Medical Group [facility] at [address] [phone] Deepali Gee NP Influenza A (Primary Dx) 12/27/2024 Telephone [facility] [address] [facility] Floor [address] [place] [address] Lurdes Orlando NP from Last 3 Months Immunizations Immunization Administration Dates Next Due Influenza, [...] APPENDECTOMY Appendectomy OOPHERECTOMY Left ANGIO SELECTIVE CAROTID MEDICAL ASSISTANT OB GYN RIGHT 05/30/2019 Right ANGIO SELECTIVE CAROTID MEDICAL ASSISTANT OB GYN RIGHT 09/30/2021 Right BRAIN SURGERY ABDOMINAL SURGERY Medical History Medical History Date Comments Hx Other Medical 2016 Brain aneurysm -- coiled; two different sites, Comments: [facility] 06/04/2015 - Hx Other Medical Fx right arm, [age] y.o.; Comments: [facility] 06/04/2015 - Iron deficiency anemia Diastolic dysfunction Hypertension Subdural hematoma (HCC) 2019 AFter a fall, tx'd concervatively Arthritis Osteoporosis Heart disease Chronic kidney disease Family History Medical History Relation Name Comments Hypertension Brother 1 Sky Kidney disease Brother 2 Geroge No Known Problems Daughter 1 No Known [...] on file Legal Sex Female 12:39 AM ENVIRONMENTAL EMERGENCIES ASSISTANT Gender Identity Not on file Sexual Orientation Not on file 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 Not on file Not on file Not on file Obstetrics History Last Filed Vital Signs Vital Sign Reading Time Taken Comments Blood Pressure 162/66 01/19/2025 2:09 PM CDT Pulse 78 01/19/2025 2:09 PM CDT Temperature 36.7 C (98 F) 01/10/2025 2:32 PM ENVIRONMENTAL EMERGENCIES ASSISTANT Respiratory Rate 24 01/10/2025 2:32 PM ENVIRONMENTAL EMERGENCIES ASSISTANT Oxygen Saturation 97% 01/19/2025 2:09 PM CDT Inhaled Oxygen Concentration - - Weight 49.5 kg (109 lb 1.6 oz) 01/19/2025 2:09 P M CDT Height 157.5 cm (5' 2 ) 01/19/2025 2:09 PM CDT Body Mass Index 19.95 01/19/2025 2:09 PM CDT Plan of Treatment Health Maintenance [...] history exists Medical Devices Implanted Type Area Django Developer Device Identifier Shelf Expiration Date Model / Serial / Lot Intracranial Aneurysm Coil Cranial Description:3.5 mm x 23 mm L VIS Jr stent, MicroVention HydroSoft-Helical 2mm x 6cm, HydroSoft-Helical 2mm x 4cm, HydroSoft 3D 1mm x 3cm; 6 Indonesian Star[employer] Procedures Procedure Name Priority Date/Time Associated Diagnosis Comments POCT RAPID STREP Routine 01/10/2025 2:43 PM ENVIRONMENTAL EMERGENCIES ASSISTANT Influenza A POC INFLUENZA A/B, COVID-19 ANTIGEN Routine 01/10/2025 2:40 PM ENVIRONMENTAL EMERGENCIES ASSISTANT Influenza A from Last 3 Months Results * POCT rapid strep A (01/10/2025 2:43 PM ENVIRONMENTAL EMERGENCIES ASSISTANT) Rapid Strep A, POC Negative Negative Swab 01/10/2025 2:43 PM ENVIRONMENTAL EMERGENCIES ASSISTANT us Deepali Gee VIDEO GAME ANIMATOR POINT OF CARE TEST ORDERABLES Final Result * (ABNORMAL) POC Influenza A/B, COVID-19 antigen (01/10/2025 2:40 PM ENVIRONMENTAL EMERGENCIES ASSISTANT) Influenza A Ag, POC Positive(A) Negative [facility] Influenza B Ag, POC Negative Negative [facility] COVID-19 Ag POC Presumptive Negative Presumptive Negative, Invalid [facility] Nasal 01/10/2025 2:40 PM ENVIRONMENTAL EMERGENCIES ASSISTANT us Deepali Gee NP POINT OF CARE TEST ORDERABLES Final Result Performing Organization Address City/State/[facility] Co de Phone Number [facility] [address] [place] [address], [facility] from Last 3 Months Insurance MEDICARE [facility] MEDICARE [place] [facility] [place] Advance Directives For more information, please contact: [phone] * Full Code (Latest Code Status on File) Date Activated Date Inactivated Comments 05/30/2019 12:35 PM 05/31/2019 12:06 AM * Full Code Date Activated Date Inactivated Comments 04/18/2019 1:59 AM 04/19/2019 6:47 PM * Full Code Date Activated Date Inactivated Comments 07/29/2018 12:59 PM 07/29/2018 3:32 PM Care Teams Pump Assembler Relationship Specialty Start Date End Date Duane Damico MD [address] [facility] [address] [place] [address] PCP - General Family Medicine 08/23/24 Reyna Claudio MD [address] [facility] [address] [place] [address] Referring Physician Nephrology 08/23/24 Mor Aguilera MD [address] [facility] [place] [address], [place] [address] Consulting Physician Interventional Cardiology 08/23/24
--- NOTE | 2025-01-27 14:28 | ED_ITS ---
HPI - Extremity Problem General Chief complaint: Extremity Problem,Nontraumatic Stated complaint: Pain in bilateral lower legs Time Seen by Provider: 01/27/25 14:07 Source: patient History of Present Illness HPI Narrative: Patient presents with complaint of pain in her bilateral lower extremities. She notes that she was experiencing a cold feeling in her right foot, like ice. She states that this has been going on a while but it seemed worse last night. She also experiences numbness in her bilateral lower extremities particularly in her feet although right greater than left. In addition she has been having abdominal pain. Her last bowel movement was today. She reports that she has still been producing urine without any changes. No history of diabetes mellitus. Drinks alcohol occasionally (states 1/day when she drinks but doesn't drink daily, sometimes 0 drinks/day). She also reports that she has had weight loss in the past year. No history of DVT or PE.. She denies any falls although she states that she has fallen previously and so is very cautious as result. She states that the pain was causing her to be even more cautious, carefully holding the railings in her two story house where she lives alone. Related Data Home Medications ?Medication ?Instructions ?Recorded ?Confirmed ?Last Taken ?Type aspirin 81 mg tablet,delayed 81 mg PO DAILY 09/09/19 08/31/24 07/08/21 08:00 History release (Adult Low Dose Aspirin) amlodipine 2.5 mg tablet 5 mg PO HS 03/11/23 08/31/24 Unknown History estradiol 0.01% (0.1 mg/gram) 4 g vaginal DAILY PRN IRRITATION 03/11/23 08/31/24 Unknown History vaginal cream (Estrace) lisinopril 40 mg tablet 40 mg PO DAILY 03/11/23 08/31/24 Unknown History metoprolol succinate 25 mg 25 mg PO DAILY 03/11/23 08/31/24 Unknown History tablet,extended release 24 hr rosuvastatin 40 mg tablet 40 mg PO DAILY 11/18/23 08/31/24 Unknown History Allergies Allergy/AdvReac Type Severity Reaction Status Date / Time pneumococcal vaccine Allergy Mild Unknown Verified 01/27/25 11:48 latex Allergy Unknown Rash Verified 01/27/25 11:48 neomycin Allergy Unknown Swelling Verified 01/27/25 11:48 of the Eye sulfamethoxazole Allergy Unknown RASH Verified 01/27/25 11:48 trimethoprim Allergy Unknown RASH Verified 01/27/25 11:48 quartiam 15 Allergy Mild Redness of Uncoded 01/27/25 11:48 Skin PMFSH Past Medical History Medical History Orthopnea LBBB (left bundle branch block) Cardiomyopathy Antibiotic causing adverse effect Diarrhea GI bleed CHF (congestive heart failure), NYHA class I EF of 45% with grade 1 diastolic dysfunction. Echo noted to be on 12/28/2020 Hyperlipidemia Hypertension Colitis JANINE (acute kidney injury) Heat exhaustion Peripheral arterial disease Leg ulcer, left Swelling of lower extremity Cellulitis Muscle spasm BMI between 19-24,adult Fall Left hip pain Acute bronchitis Cellulitis of left leg Surgical History Surgical History H/O oophorectomy History of appendectomy H/O vein stripping S/P coil embolization of cerebral aneurysm X2 Family History Family History Sibling Family history of malignant neoplasm of uterus Cerebrovascular accident Father Family history of coronary artery disease Acute myocardial infarction Congestive heart failure Mother Family history of coronary artery disease Acute myocardial infarction Congestive heart failure Sibling Acute myocardial infarction Asthma Grandparent Colon cancer Other Family history of congenital heart disease Social History Social History Social History: The patient is and lives home alone in a 2 story house. The patient initially had 3 biological children. Two of her children in a motor vehicle accident. The patient previously smoked many years ago. The patient desires to be a full code. Her surviving daughter is the durable power mirror polisher for healthcare and lives near to her. The patient is retired from [employer]. Patient does not use any marijuana or alcohol. Smoking packs per day: 0.5 Smoking cigarettes per day: 10.0 Years smoked: 25 Smoking pack-years: 12.50 Smoking status: Former smoker Tobacco type: cigarettes Smoking end date: 11/09/85 Alcohol intake: current Drinks per week: 1 Alcohol use details: social Substance use: never Substance use type: does not use Do You Feel Safe in your Home?: Yes Lack of Transportation: No Lack of Food: Never True Current Housing: I Have Housing Concerned About Future Housing: No Difficulty Paying Gas/Electric Bills: No Difficulty Paying for Meds: No Currently Unemployed: No Education: High School Diploma/GED Difficulty w/ Childcare or Family Care: No Living arrangements: alone Occupation/Education: retired Additional occupation/education comments: [employer] Gender identity (if verbalized by the patient): Female Spiritual care concerns: No Exam 2 Narrative: GENERAL: Well-appearing, well-nourished, and in no acute distress. HEAD: Normocephalic, atraumatic. EYES: Non injected, non icteric ENT: Nares clear, no rhinorrhea or epistaxis. NECK: Supple. CHEST: Speaking in full sentences. No respiratory distress. HEART: Regular rate and rhythm. Brisk capillary refill in toes. ABDOMEN: Soft, nondistended. EXTREMITIES: Normal range of motion. No lower extremity edema. Palpable DP pulses, R stronger than L but both easily palpable. Extremities are cool overlying bilateral calcani but otherwise warm and well perfused. SKIN: Warm, dry, no rash. No evidence of cellulitis. Not cyanotic or with erythema. NEURO: No focal deficits. Alert and oriented x3. PSYCH: Normal mood and affect. Course Vital Signs Vital signs: Vital Signs Temperature 97.6 F 01/27/25 11:58 Pulse Rate 71 01/27/25 11:58 Respiratory Rate 16 01/27/25 11:58 Blood Pressure 106/86 01/27/25 11:58 Pulse Oximetry 96 01/27/25 11:58 Temperature 97.6 F 01/27/25 11:58 Pulse Rate 89 01/27/25 20:16 Respiratory Rate 21 H 01/27/25 20:16 Blood Pressure 125/55 L 01/27/25 20:16 Pulse Oximetry 96 01/27/25 20:16 MDM - Extremity (Nontraumatic) MDM Narrative Medical decision making narrative: Patient presents with bilateral lower extremity pain. She reports that her right foot has been cold for a while but was worse last night associated with pain. She also reports numbness in her bilateral lower extremities particularly in her feet although right greater than left. She is also complaining of some abdominal pain. In the emergency department they are afebrile with vital signs within normal limits. Normocytic anemia, stable from previous. Patient has hyperkalemia with potassium 6.0. There is also evidence of an acute kidney injury superimposed on CKD. For these, calcium gluconate, IV fluids (only 500cc to start given patient reports history of CHF which had been exacerbated during a hospitalization during which she received too much IV fluids and became, flooded ), high-dose albuterol are ordered in addition to dextrose with insulin (5U rather than 10U given renal function) are ordered. Received phone call from CT scan that patient's GFR is less than 20 and the contrast load is high for the particular study ordered (initially a CTA runoff study). Given that other diagnoses appear more likely especially based on physical exam and now labs, study cancelled for now. BNP elevated though previously has been markedly elevated. Possible pneumonia on chest x-ray. Out of an abundance of precaution, will treat. CURB-65 score Confusion (No 0, Yes +1): 0 BUN >19mg/dl (No 0, Yes +1): 1 RR >/= 30 (No 0, Yes +1): 0 SBP <90mmHg or DBP </=60mmHg (No 0, Yes +1): Not initially but repeat DBP <60 so +1 Age >/=65 (No 0, Yes +1) :1 Result = 3 points, high risk Recommend inpatient treatment Will give ceftriaxone azithromycin. Potassium normalized on repeat assessment. Creatinine remains elevated although improving. Given I think patient would benefit from gentle IV hydration for this, continued management of possible pneumonia, and physical therapy assessment and treatment especially given her risk of falls given that she lives alone, it is recommended that patient be admitted. I discussed all of these with the patient and have her she seemed to verifies understanding and be in agreement. Discussed with on-call hospitalist ELIAS Causey. However, housekeeper and laundry assistant went to speak with patient and patient seemed to indicate that she didn't know why sh was being admitted and doesn't feel it is necessary. I did go to bedside and discussed extensively with the patient. She is alert and oriented to herself, the location, the date, and her circumstances. She is able to clearly articulate why it had been recommended that she be admitted: for my legs, my kidneys, and the pneumonia. Nevertheless, she states she feels fine and does not believe that admission is necessary for any of these issues. She notes that she has had a bad experience being admitted before. We discussed that she has a high risk of potentially falling and that this could cause serious morbidity and mortality. She notes that she is very cautious because she has fallen previously and she does not want to lose her independence. She states that her daughter lives nearby and is of a great help to her and can assist as needed. She is enquiring about the ability to take oral antibiotics for the potential pneumonia although she otherwise feels that she is asymptomatic. We discussed why the recommendation for in patient is given, based on her risk factors. Nevertheless, patient appears to have capacity to make decisions for herself. She is able to articulate the potential risks and willing to accept this responsibility. She is encouraged to return to the emergency department at any time with any new or worsening or unmanaged symptoms and she verifies understanding and is in agreement. Patient's daughter is called. Attempted to provide patient with extensive written discharge instructions however unable to click on pre-typed discharge diagnoses instructions given patient still listed as an admitted patient. Also unable to type in additional instructions though we extensively discussed them at bedside. Also unable to electronically prescribe medications but I did call patient's preferred pharmacy listed in the EMR and provide a verbal authorization for a 4 day course of azithromycin. Encouraged patient follow-up with her primary care physician. Differential Diagnosis Differential diagnosis: Likely superficial thrombophlebitis, lower extremity edema, deep vein thrombosis of lower extremity and other (Peripheral vascular disease/considered ischemic limb/vascular dissection; thyroid abnormalities, symptomatic anemia, electrolyte abnormalities; heart failure exacerbation; peripheral neruopathy; rhabdomyolysis) Lab Data Attestation: I reviewed the patient's lab results. 01/27/25 14:43 01/27/25 17:33 Labs: Lab Results 01/27/25 01/27/25 01/27/25 Range/Units 14:43 14:43 16:22 WBC 6.9 (4.5-10.0) K/mm3 RBC 3.78 L (4.2-5.4) M/mm3 Hgb 11.6 L (12.0-15.0) g/dL Hct 36.3 L (37.0-47.0) % MCV 96.0 (80-100) fl MCH 30.7 (26-34) pg MCHC 32.0 (32-36) g/dl RDW 13.2 (11.5-14.5) % Plt Count 247 (150-375) k/mm3 MPV 9.1 (7.4-10.4) fl Immature Gran % (Auto) 0.3 (0-0.5) % Neut % (Auto) 62.3 (45.5-73.1) % Lymph % (Auto) 28.0 (18.3-44.2) % [place] % (Auto) 7.0 (2.6-8.5) % Eos % (Auto) 1.7 (0-4.4) % Baso % (Auto) 0.7 (0.2-1.2) % Lymph # (Auto) 1.93 (0.9-3.2) K/mm3 [place] # (Auto) 0.5 (0.1-0.6) K/mm3 Eos # (Auto) 0.1 (0-0.3) K/mm3 Baso # (Auto) 0.1 (0.0-0.1) K/mm3 Abs Immat Gran (auto) 0.02 (0.00-0.031) K/mm3 Absolute Neuts (auto) 4.3 (1.3-6.7) K/mm3 Absolute Nucleated RBC 0.000 (0.0-0.012) K/mm3 Nucleated RBC % 0.0 (0.0-0.2) % PT 13.5 (11.1-14.7) Seconds INR 1.0 APTT 29.4 (22.3-36.8) Seconds D-Dimer 0.92 H Cancelled (<0.48) ug/mL Sodium 137 (137-145) mmol/L Potassium 6.0 H* (3.4-5.0) mmol/L Chloride 104 (98-107) mmol/L Carbon Dioxide 22 (22-30) mmol/L Anion Gap 11 (4-12) mmol/L BUN 43 H (7-17) mg/dL Creatinine 2.38 H (0.7-1.0) mg/dL Estim Creat Clear Calc 11 ml/min Estimated GFR 19 L (59 - ) Glucose 99 (65-110) mg/dL POC Capillary Glucose 108 H (65-105) mg/dl Calcium 9.8 (8.4-10.2) mg/dL Magnesium 2.0 (1.6-2.3) mg/dL Total Creatine Kinase 132 (30-135) U/L NT-Pro-B Natriuret Pep 1660 H (19.9-100) pg/mL TSH 2.560 (0.465-4.680) uIU/mL Urine Color (Yellow) Urine Appearance (Clear) Urine pH (5.0-9.0) Ur Specific [place] (1.001-1.035) Urine Protein (Negative) mg/dL Urine Glucose (UA) (Negative) mg/dL Urine Ketones (Negative) mg/dL Ur Blood (Man) (Negative) Urine Nitrate (Negative) Urine Bilirubin (Negative) Urine Urobilinogen (<2.0) mg/dL Leukocyte Esterase Rfl (Negative) CINDY/UL 01/27/25 01/27/25 Range/Units 17:33 17:59 WBC (4.5-10.0) K/mm3 RBC (4.2-5.4) M/mm3 Hgb (12.0-15.0) g/dL Hct (37.0-47.0) % MCV (80-100) fl MCH (26-34) pg MCHC (32-36) g/dl RDW (11.5-14.5) % Plt Count (150-375) k/mm3 MPV (7.4-10.4) fl Immature Gran % (Auto) (0-0.5) % Neut % (Auto) (45.5-73.1) % Lymph % (Auto) (18.3-44.2) % [place] % (Auto) (2.6-8.5) % Eos % (Auto) (0-4.4) % Baso % (Auto) (0.2-1.2) % Lymph # (Auto) (0.9-3.2) K/mm3 [place] # (Auto) (0.1-0.6) K/mm3 Eos # (Auto) (0-0.3) K/mm3 Baso # (Auto) (0.0-0.1) K/mm3 Abs Immat Gran (auto) (0.00-0.031) K/mm3 Absolute Neuts (auto) (1.3-6.7) K/mm3 Absolute Nucleated RBC (0.0-0.012) K/mm3 Nucleated RBC % (0.0-0.2) % PT (11.1-14.7) Seconds INR APTT (22.3-36.8) Seconds D-Dimer (<0.48) ug/mL Sodium 137 (137-145) mmol/L Potassium 4.6 (3.4-5.0) mmol/L Chloride 107 (98-107) mmol/L Carbon Dioxide 19 L (22-30) mmol/L Anion Gap 11 (4-12) mmol/L BUN 40 H (7-17) mg/dL Creatinine 2.15 H (0.7-1.0) mg/dL Estim Creat Clear Calc 12 ml/min Estimated GFR 22 L (59 - ) Glucose 85 (65-110) mg/dL POC Capillary Glucose (65-105) mg/dl Calcium 9.9 (8.4-10.2) mg/dL Magnesium (1.6-2.3) mg/dL Total Creatine Kinase (30-135) U/L NT-Pro-B Natriuret Pep (19.9-100) pg/mL TSH (0.465-4.680) uIU/mL Urine Color Yellow (Yellow) Urine Appearance Clear (Clear) Urine pH 5.5 (5.0-9.0) Ur Specific [place] 1.010 (1.001-1.035) Urine Protein Negative (Negative) mg/dL Urine Glucose (UA) 1+ H (Negative) mg/dL Urine Ketones Negative (Negative) mg/dL Ur Blood (Man) Negative (Negative) Urine Nitrate Negative (Negative) Urine Bilirubin Negative (Negative) Urine Urobilinogen 0.2 (<2.0) mg/dL Leukocyte Esterase Rfl Negative (Negative) CINDY/UL Imaging Data Radiologist's impression: Impressions Venous Doppler Study 01/27/25 16:15 IMPRESSION: 1. No deep venous thrombosis. Chest X-Ray 01/27/25 17:24 Impression: 1: Subtle infiltrates of the right upper lung, suspicious for pneumonia. ECG Data EKG #1: Attestation EKG: I personally reviewed and interpreted this ECG as follows: ECG completion date: 01/27/25 ECG completion time: 15:35 Prior ECG tracings: available for review (EKG from 08/11/2023 also shows left bundle branch block present) Interpretation: Normal sinus rhythm at a rate of 61 beats per minute. NC interval 145. QRS 144. QT/QTC 466/468. Left bundle-branch block with QRS duration greater than 120 milliseconds, dominant S-wave in V1, broad monophasic R-wave in lateral leads (1, aVL, V5-V6), absence of Q-waves in lateral leads. Although there initially appear to be questionable ST elevation in V3 and V4, Sgarbossa negative. No T-wave inversions. Discharge Plan Discharge Clinical Impression: Normocytic anemia, Hyperkalemia, Acute kidney injury superimposed on CKD, Abnormal chest x-ray, Bilateral leg pain Patient Disposition: Left Against Medical Advice Condition: Stable Patient Language: Grenadian Prescriptions: No Action rosuvastatin 40 mg tablet 40 mg PO DAILY mupirocin 2 % ointment 1 applic topical BID Qty: 15 1RF Linzess 72 mcg capsule 72 mcg PO DAILY Qty: 90 0RF aspirin [Adult Low Dose Aspirin] 81 mg tablet,delayed release (DR/EC) 81 mg PO DAILY lisinopril 40 mg tablet 40 mg PO DAILY estradiol [Estrace] 0.01 % (0.1 mg/gram) cream 4 g vaginal DAILY PRN (Reason: IRRITATION) metoprolol succinate 25 mg tablet extended release 24 hr 25 mg PO DAILY amlodipine 2.5 mg tablet 5 mg PO HS cyclobenzaprine 5 mg tablet 5 mg PO BID PRN (Reason: muscle spasm) Qty: 14 0RF methylprednisolone [Medrol (Luis)] 4 mg tablets,dose pack See Rx Instructions .ROUTE .COMPLEX Qty: 21 0RF Rx Instructions: orally per package directions ipratropium bromide 42 mcg (0.06 %) spray,non-aerosol See Rx Instructions .ROUTE .COMPLEX Qty: 15 2RF Dose Instruction: USE 2 SPRAYS IN EACH NOSTRIL 3 TIMES A DAY Rx Instructions: USE 2 SPRAYS IN EACH NOSTRIL 3 TIMES A DAY Follow-up/Referrals: Mookie,Duane Francisco MD [Primary Care Provider] - Time of Disposition: 21:11
--- OUTSIDE RECORDS SUMMARY | 2025-01-27 14:43 | XMS_ITS | Encounter Summary ---
Author Organization [facility] Address [address] [place] [address] Care Team Providers Care Deicer Inspector Pneumatic Name Role Phone Alley Brody MD Unavailable [phone] Christiano Edgar MD Primary Care Provider [phone] Encounter Details Date Type Department Care Team (Late st Contact Info) Description 12/05/2020 Lab Requisition [facility] [address] [place] [address] Sharla Perez DO [address] [facility] [address] [address] [place] [address] Social History Tobacco Use Types Packs/Day Years [...] Comments DERMATOPATHOLOGY Routine 12/04/2020 12:0 0 AM BEAN PICKER documented in this encounter Results * DERMATOPATHOLOGY (12/04/2020 12:00 AM BEAN PICKER) Case Report Dermatopathology Report Case: [id number] Authorizing Provider: Sharla Perez DO Collected: 12/04/2020 12:00 AM Ordering Location: [facility] Received: 12/05/2020 08:18 AM Pathologist: Ayaka Trinidad MD Specimens: A) - Skin, chest B) - Skin, left elbow 4:14 PM [facility] Final Diagnosis Specimen A. SKIN, chest: LARGE CELL ACANTHOMA (D23.9) Specimen B. 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 4:14 PM [facility] Gross Description Specimen A: Received is one formalin filled container labeled with the patient's name and designated chest. The specimen consists of a shave measuring [id number]. Jar 0. Specimen B: Received is one formalin filled container labeled with the patient's name and designated left elbow. The specimen consists of a shave measuring [id number]. Jar 0. 4:14 PM [facility] DERMATOPATHOLOGY LABORATORY Microscopic Description Specimen A. SKIN, chest: Sections show compact orthokeratosis with acanthosis composed of slightly larger keratinocytes with basal layer hyperpigmentation. Specimen B. SKIN, left elbow: Arising in the epidermis and extending into the dermis there are irregularly shaped aggregates of keratinocytes showing evidence of premature cornification. 4:14 PM [facility] Disclaimer An external and internal [...] purposes. Billing Codes Specimen Charges Stain Charges [id number] 1 1 4:14 PM [facility] Embedded Images 4:14 PM [facility] Pathology/Cytology TISSUE SPECIMEN FROM SKIN / Unknown 12/04/2020 12/05/2020 8:18 AM BEAN PICKER Miscellaneous samples (specimen) TISSUE SPECIMEN FROM SKIN / Unknown 12/04/2020 12/05/2020 8:18 AM BEAN PICKER Sharla Perez DO LAB - PATHOLOGY/C YTOLOGY ORDERABLES DERMATOPATHOLOGY LABORATORY [facility] - Department of Dermatology [facility] [address] [place] [address], [address] [phone] documented in this encounter Visit Diagnoses Not on filedocumented in this encounter Care Teams Deicer Inspector Pneumatic Relationship Specialty Start Date End Date Christiano Edgar MD [address] [place] [phone] PCP - General Family Medicine 07/02/15 [place] [id number] [address] Orthopedic Surgery 08/29/13 documented as of this encounter
--- OUTSIDE RECORDS SUMMARY | 2025-01-27 14:43 | XMS_ITS | Clinical Summary ---
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 [place] [address] BCBS BLUE PREFERRED
--- OUTSIDE RECORDS SUMMARY | 2025-01-27 14:43 | XMS_ITS | Encounter Summary ---
Author Organization [facility] Address [address] [facility] [place] [address] Care Team Providers Care Hay Stacker Name Role Phone Alley Brody MD Unavailable [phone] Christiano Edgar MD Primary Care Provider [phone] Encounter Details Date Type Department Care Team (Late st Contact Info) Description 09/19/2015 Therapy Visit [facility] Orthopedics [address] [address] [place] [address] [address] [address] Social History Tobacco Use Types [...] on filedocumented in this encounter Care Teams Hay Stacker Relationship Specialty Start Date End Date Christiano Edgar MD [address] [place] [address] PCP - General Family Medicine 07/02/15 [place] [address] [address] [place] [address] Orthopedic Surgery 08/29/13 documented as of this encounter
--- OUTSIDE RECORDS SUMMARY | 2025-01-27 14:43 | XMS_ITS | Encounter Summary ---
Author Organization [facility] Address [address] [place] [address] Care Team Providers Care Gun Stock Maker Name Role Phone Alley Brody MD Unavailable [phone] Christiano Edgar MD Primary Care Provider [phone] Encounter Details Date Type Department Care Team (Late st Contact Info) Description 01/02/2025 Lab Requisition [facility] - DermPath Lab [address] [facility], [place] [address] Lisa Milian MD [address] [facility] 3 [place] [address] Social History Tobacco Use Types Packs/Day Years [...] Diagnosis Comments DERMATOPATHOLOGY Routine 01/02/2025 3:29 PM GLASS SELECTOR documented in this encounter Results * DERMATOPATHOLOGY (01/02/2025 3:29 PM GLASS SELECTOR) Case Report Dermatopathology Report Case: [id number] Authorizing Provider: Lisa Milian MD Collected: 01/02/2025 03:29 PM Ordering Location: [facility] - Received: 01/03/2025 04:42 PM DermPath Lab Pathologist: Ayaka Trinidad MD Specimen: Skin, left anterior thigh 4:25 PM [facility] DERMATOPATHOLOGY LABORATORY Final Diagnosis Specimen A. SKIN, left anterior thigh: SQUAMOUS CELL CARCINOMA, WELL DIFFERENTIATED (C44.729) NOT PRESENT AT MARGIN DERMAL SCAR (L90.5) 4:25 PM [facility] DERMATOPATHOLOGY LABORATORY Clinical History Bx Proven SCC, KA Please check margins/prior biopsy 4:25 PM [facility] DERMATOPATHOLOGY LABORATORY Gross Description Specimen A: Received is one formalin filled container labeled with the patient's name and designated left anterior thigh. The specimen consists of a non-oriented ellipse of skin measuring 3 pieces [id number],17x9x1,5x3x 2 mm. The epidermal surface is unremarkable. The margin is inked green. The 12 o'clock and 6 o'clock tips are submitted in cassette 1. The remainder of the ellipse is serially sectioned and submitted in cassette 2-3. Jar 0. 4:25 PM [facility] DERMATOPATHOLOGY LABORATORY Microscopic Description Specimen A. [...] perpendicular to the skin surface. 4:25 PM [facility] DERMATOPATHOLOGY LABORATORY Disclaimer An external and [...] purposes. Billing Codes Specimen Charges Stain Charges 96165 1 4:25 PM GLASS SELECTOR DERMATOPATHOLOGY LABORATORY Embedded Images 4:25 PM GLASS SELECTOR DERMATOPATHOLOGY LABORATORY Pathology/Cytolo gy TISSUE SPECIMEN FROM SKIN / Unknown 01/02/2025 3:29 PM GLASS SELECTOR 01/03/2025 4:42 PM GLASS SELECTOR Lisa Milian MD LAB - PATHOLOGY/CYT OLOGY ORDERABLES DERMATOPATHOLOGY LABORATORY [facility] - Department of Dermatology [facility] Medicine [address] [place] [address], [address] [phone] documented in this encounter Visit Diagnoses Not on filedocumented in this encounter Care Teams Gun Stock Maker Relationship Specialty Start Date End Date Christiano Edgar MD [address] [place] [address] PCP - General Family Medicine 07/02/15 [place] [address] [address] Orthopedic Surgery 08/29/13 documented as of this encounter
--- OUTSIDE RECORDS SUMMARY | 2025-01-27 14:43 | XMS_ITS | Clinical Summary ---
Author Organization [facility] Address [address] [facility], [address] [address] Phone Care Team Providers Care Visiting Housekeeper Name Role Phone Christiano Edgar MD Primary Care Provider [phone] Allergies Active Allergy Reactions Criticality Noted Date [...] complete this topic Insurance MEDICARE Care Teams Visiting Housekeeper Relationship Specialty Start Date End Date Christiano Edgar MD [address] [place], [place] [id number] PCP - General Family Medicine 12/31/15
--- OUTSIDE RECORDS SUMMARY | 2025-01-27 14:43 | XMS_ITS | Encounter Summary ---
Author Organization [facility] Address [address] [place] [address] Care Team Providers Care Precision Dyer Name Role Phone Unavailable Primary Care Provider Unavailabl e Encounter Details Date Type Department Care Team (Latest Contact Info) Description 08/18/2008 Outpatient Historical [facility] EXTENED OP CARE Moose Mcclellan MD NO ADDRESS ON FILE Zaid Mckeon MD [address] 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
--- OUTSIDE RECORDS SUMMARY | 2025-01-27 14:43 | XMS_ITS | Encounter Summary ---
Author Organization [facility] Address [address] [place] [address] Phone Care Team Providers Care Director Work Name Role Phone Christiano Edgar MD Primary Care Provider [phone] Kaveh Fay DO Primary Care Provider [phone] Duane Damico MD Primary Care Provider [phone] Reyna Claudio MD Unavailable [phone] Mor Aguilera MD Unavailable [phone] Encounter Details Date Type Department Care Team [...] on file Legal Sex Female 12:39 AM PIG MACHINE SUPERVISOR Gender Identity Not on file Sexual [...] COVID: Suspected 01/10/2025 01/10/2025 01/10/2025 2:41 PM PIG MACHINE SUPERVISOR Influenza, adult 01/10/2025 01/10/2025 01/17/2025 3:05 AM CDT documented as of this encounter Care Teams Director Work Relationship Specialty Start Date End Date Christiano Edgar MD PCP - General 01/03/17 12/09/22 Kaveh Fay DO PCP - General Internal Medicine 12/10/22 08/22/24 Duane Damico MD [address] [place] [address] PCP - General Family Medicine 08/23/24 Reyna Claudio MD [address] [facility] [address] [place] [address] Referring Physician Nephrology 08/23/24 Mor Aguilera MD [address], [place] [address] Consulting Physician Interventional Cardiology 08/23/24 documented as of this encounter
--- OUTSIDE RECORDS SUMMARY | 2025-01-27 14:43 | XMS_ITS | Clinical Summary ---
Author Organization [facility] Address [address] [facility] [place] [address] Care Team Providers Care Patch Worker Name Role Phone Alley Brody MD Unavailable Christiano Edgar MD Primary Care Provider [phone] Source Comments [facility],non-owned Affiliates and Associated Physician Practices is amultiple site organization consisting of ambulatory clinics and hospital sitesin [place], [place], [place] and [place]. This disclosure is being madepursuant to the Care Everywhere program and may not contain all information available regarding this patient. Last updated 18.[facility] Allergies Active Allergy Reactions Criticality Noted Date Comments Shduftct-Tvnvoeiyry-Hlaezwcrj 2012 Medications * Be aware that medications may not be up to date on this document. Alwaysverify current medications with the patient. Medication Sig Dispensed Refills Start Date End Date Status Trgas-2-qotu Ethyl Esters (LOVAZA PO) Take by mouth. [...] Requisition [facility] - DermPath Lab [address] [place] [address] Lisa Milian MD 12/06/2024 Lab Requisition [facility] - Derm[facility] Lab [address] [place] [address] Lisa Milian MD from Last 3 Months [...] Diagnosis Comments DERMATOPATHOLOGY Routine 01/02/2025 3:29 PM MOUNTAIN OR GLACIER GUIDE DERMATOPATHOLOGY Routine 12/06/2024 10:4 5 AM MOUNTAIN OR GLACIER GUIDE from Last 3 Months Results * DERMATOPATHOLOGY (01/02/2025 3:29 PM MOUNTAIN OR GLACIER GUIDE) Only the most recent of2 resultswithin the time period is included. Case Report Dermatopathology Report Case: [id number] Authorizing Provider: Lisa Milian MD Collected: 01/02/2025 03:29 PM Ordering Location: [facility] - Received: 01/03/2025 04:42 PM DermPath Lab Pathologist: Ayaka Trinidad MD Specimen: Skin, left anterior thigh 4:25 PM MOUNTAIN OR GLACIER GUIDE DERMATOPATHOLOGY LABORATORY Final Diagnosis Specimen A. SKIN, left anterior thigh: SQUAMOUS CELL CARCINOMA, WELL DIFFERENTIATED (C44.729) NOT PRESENT AT MARGIN DERMAL SCAR (L90.5) 5 4:25 PM MOUNTAIN OR GLACIER GUIDE DERMATOPATHOLOGY LABORATORY Clinical History Bx Proven SCC, KA Please check margins/prior biopsy 4:25 PM [facility] DERMATOPATHOLOGY LABORATORY Gross Description Specimen A: Received is one formalin filled container labeled with the patient's name and designated left anterior thigh. The specimen consists of a non-oriented ellipse of skin measuring 3 pieces [id number],17x9x1,5x3x 2 mm. The epidermal surface is unremarkable. The margin is inked green. The 12 o'clock and 6 o'clock tips are submitted in cassette 1. The remainder of the ellipse is serially sectioned and submitted in cassette 2-3. Jar 0. 4:25 PM [facility] DERMATOPATHOLOGY LABORATORY Microscopic Description Specimen [...] perpendicular to the skin surface. 4:25 PM [facility] DERMATOPATHOLOGY LABORATORY Disclaimer An external and internal positive and negative controls are appropriate for the histochemical, immunohistochemical and immunofluorescence stain(s) in this case (if any), except where stated explicitly. The performance characteristics of the stain(s) cited in this report were developed and its performance characteristic determined by the Dermatopathology Laboratory at [facility], directed by Dr. Jessica Trinidad. These tests need not be, and therefore are not, approved by the [place] Food and Drug Administration. The tests are used for clinical purposes. Billing Codes Specimen Charges Stain Charges 88782 1 4:25 PM [facility] DERMATOPATHOLOGY LABORATORY Embedded Images 4:25 PM [facility] DERMATOPATHOLOGY LABORATORY Pathology/Cytolo gy TISSUE SPECIMEN FROM SKIN / Unknown 01/02/2025 3:29 PM MOUNTAIN OR GLACIER GUIDE 01/03/2025 4:42 PM MOUNTAIN OR GLACIER GUIDE Lisa Milian MD LAB - PATHOLOGY/CYT OLOGY ORDERABLES DERMATOPATHOLOGY LABORATORY [facility] - Department of Dermatology [address], 3rd Floor [address] [phone] from Last 3 Months Care Teams Patch Worker Relationship Specialty Start Date End Date Christiano Edgar MD [address] [place] [address] PCP - General Family Medicine 07/02/15 [place] [address] [place] [address] Orthopedic Surgery 08/29/13
--- OUTSIDE RECORDS SUMMARY | 2025-01-27 14:43 | XMS_ITS | Referral Summary ---
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); Stenosis of carotid artery, unspecified laterality; Left bundle branch block (LBBB); PVD (peripheral vascular disease) (CMS/HCC) (HCC); Mixed hyperlipidemia; Essential (primary) hypertension 01/10/2025 2:30 PM REVERSE UNIT OPERATOR [place]ERMAN Office Visit [facility] Care at [address] [address] Deepali Gee NP Influenza A (Primary Dx) 12/27/2024 Telephone [facility] Surgery [address] [facility] Floor 1 [place] [address] Lurdes Orlando NP from Last [...] route every week 0 0 5 Active bxss-iil-rmy-bl kbor-om 3,6,9 5 400-400-200 mg capsule Take by mouth 2 (two) times a day. 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 Has failed multiple dlvb-txw-dkdhhcs medications including MiraLax and probiotics. Has tried [...] (06/24/2018): Added automatically from request for surgery [id number] PVD (peripheral vascular disease) ([facility] 04/09 Mixed hyperlipidemia 04/21/2018 Intermittent [...] anemia for years, hematocrit 30-32 while at [place] in May, worsening recently, now hematocrit 27. 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 Not on file Not on file Not on file Last Filed Vital Signs Vital Sign Reading Time Taken Comments Blood Pressure 162/66 01/19/2025 2:09 PM CDT Pulse 78 01/19/2025 2:09 PM CDT Temperature 36.7 C (98 F) 01/10/2025 2:32 PM REVERSE UNIT OPERATOR [place]MAN Respiratory Rate 24 01/10/2025 2:32 PM REVERSE UNIT OPERATOR [place]ERMAN Oxygen Saturation 97% 01/19/2025 2:09 PM CDT Inhaled Oxygen Concentration - - Weight 49.5 kg (109 lb 1.6 oz) 01/19/2025 2:09 P M CDT Height 157.5 cm (5' 2 ) 01/19/2025 2:09 PM CDT Body Mass Index 19.95 01/19/2025 2:09 PM CDT Plan of Treatment Not on file Medical Devices Implanted Type Area Electronic Test Technician Device Identifier Shelf Expiration Date Model / Serial / Lot Intracranial Aneurysm Coil Cranial Description:3.5 mm x 23 mm L VIS Jr stent, MicroVention HydroSoft-Helical 2mm x 6cm, HydroSoft-Helical 2mm x 4cm, HydroSoft 3D 1mm x 3cm; 6 Cong[place]ese Star[employer] Procedures Procedure Name Priority Date/Time Associated Diagnosis Comments POCT RAPID STREP Routine 01/10/2025 2:43 PM REVERSE UNIT OPERATOR FISHERMAN Influenza A POC INFLUENZA A/B, COVID-19 ANTIGEN Routine 01/10/2025 2:40 PM REVERSE UNIT OPERATOR [place]ERMAN Influenza A from Last 3 Months Results * POCT rapid strep A (01/10/2025 2:43 PM REVERSE UNIT OPERATOR [place]ER[place]) Rapid Strep A, POC Negative Negative Swab 01/10/2025 2:43 PM REVERSE UNIT OPERATOR [place] us Deepali Gee SMASH FIXER POINT OF CARE TEST ORDERABLES Final Result * (ABNORMAL) POC Influenza A/B, COVID-19 antigen (01/10/2025 2:40 PM REVERSE UNIT OPERATOR [place]ERMAN) Influenza A Ag, POC Positive(A) Negative [facility] Influenza B Ag, POC Negative Negative [facility] COVID-19 Ag POC Presumptive Negative Presumptive Negative, Invalid [facility] Nasal 01/10/2025 2:40 PM REVERSE UNIT OPERATOR [place] Deepali Gee SMASH FIXER POINT OF CARE TEST ORDERABLES Final Result Performing Organization Address [facility]/State/[facility] Co de Phone Number [facility] [address] [place] [address], [facility] from Last 3 Months Insurance MEDICARE [facility] MEDICARE [facility] Advance Directives For more information, please contact: [phone] * Full Code (Latest Code Status on File) Date Activated Date Inactivated Comments 05/30/2019 12:35 PM 05/31/2019 12:06 AM * Full Code Date Activated Date Inactivated Comments 04/18/2019 1:59 AM 04/19/2019 6:47 PM * Full Code Date Activated Date Inactivated Comments 07/29/2018 12:59 PM 07/29/2018 3:32 PM Care Teams Lens Blocker Relationship Specialty Start Date End Date Duane Damico MD [address] [place] [address] PCP - General Family Medicine 08/23/24 Reyna Claudio MD [address] [facility] [address] [place] [address] Referring Physician Nephrology 08/23/24 Mor Aguilera MD [address] [facility] [address] [address] Consulting Physician Interventional Cardiology 08/23/24
--- OUTSIDE RECORDS SUMMARY | 2025-01-27 14:43 | XMS_ITS | Encounter Summary ---
Author Organization [facility] Address [address] [facility] [place] [address] Care Team Providers Care Sliver Former Name Role Phone Alley Brody MD Unavailable Christiano Edgar MD Primary Care Provider [phone] Encounter Details Date Type Department Care Team (Late st Contact Info) Description 08/22/2015 Therapy Visit [facility] Orthopedics [address] [address] [place] [address] [address] [address] Social History Tobacco Use Types [...] on filedocumented in this encounter Care Teams Sliver Former Relationship Specialty Start Date End Date Christiano Edgar MD [address] [place] [address] PCP - General Family Medicine 07/02/15 [place] [address] [address] [place] [address] Orthopedic Surgery 08/29/13 documented as of this encounter
--- OUTSIDE RECORDS SUMMARY | 2025-01-27 14:43 | XMS_ITS | Encounter Summary ---
Author Organization [facility] Address [address] [facility] [place] [address] Care Team Providers Care Oracle Financials Consultant Name Role Phone Alley Brody MD Unavailable [phone] Christiano Edgar MD Primary Care Provider [phone] Encounter Details Date Type Department Care Team (Late st Contact Info) Description 01/19/2019 Lab Requisition [facility] DermPath Lab [address] [facility], [place] [address] Sharla Perez DO [address] [facility] 3 [place] [address] Social History Tobacco Use Types Packs/Day Years [...] AM CDT) Case Report Dermatopathology Report Case: [id number] Authorizing Provider: Sharla Perez DO Collected: 01/17/2019 12:00 AM Pathologist: Ayaka Trinidad MD Received: 01/19/2019 06:51 AM Specimens: A) - Skin, right infraorbital B) - Skin, post crown of scalp C) - Skin, right upper back 4:59 PM [facility] DERMATOPATHOLOGY LABORATORY Final Diagnosis Specimen A. SKIN, right infraorbital: SQUAMOUS CELL CARCINOMA IN SITU, PRESENT AT THE BASE OF THE SPECIMEN (D04.39) (see microscopic description and comment) (see microscopic description) Specimen B. SKIN, post crown of scalp: SEBORRHEIC KERATOSIS, IRRITATED AND INFLAMED, SUPERFICIAL PORTIONS ONLY (L82.0) Specimen C. SKIN, right upper back: SEBORRHEIC KERATOSIS, IRRITATED AND INFLAMED (L82.0) 4:59 PM [facility] DERMATOPATHOLOGY LABORATORY Clinical History A: Rohan-H R/O seba vs BCC. B-C: ISK R/O NMSC. 4:59 PM T DERMATOPATHOLOGY LABORATORY Gross Description Specimen A: Received is one formalin filled container labeled with the patient's name and designated right infraorbital. The specimen consists of a shave measuring 8u8s1dd. Jar 0. Specimen B: Received is one formalin filled container labeled with the patient's name and designated post crown of scalp. The specimen consists of a shave measuring 8n7x5ud. Jar 0. Specimen C: Received is one formalin filled container labeled with the patient's name and designated right upper back. The specimen consists of a shave measuring 9o9w3hr. Jar 0. 4:59 PM [facility] DERMATOPATHOLOGY LABORATORY Microscopic Description Specimen A. [...] characteristic determined by the Dermatopathology Laboratory at [facility], directed by Dr. Jessica Trinidad. These tests need not be, and therefore are not, approved by the [place] Food and Drug Administration. The tests are used for clinical purposes. Billing Codes Specimen Charges Stain Charges 52731 37510 03604 1 1 1 9 4:59 PM CDT [...] DERMATOPATHOLOGY LABORATORY [facility] - Department of Dermatology [address] [place] [address], 5th Floor Lab [address] [phone] documented in this encounter Visit Diagnoses Not on filedocumented in this encounter Care Teams [employer] Consultant Relationship Specialty Start Date End Date Christiano Edgar MD [address] [place] [address] PCP - General Family Medicine 07/02/15 [place] [address] [place] [address] Orthopedic Surgery 08/29/13 documented as of this encounter
--- OUTSIDE RECORDS SUMMARY | 2025-01-27 14:43 | XMS_ITS | Continuity of Care Document ---
Author Organization [facility] Address [address] [place] [address] [address] [place] [address] Phone Care Team Providers Care Wet Char Conveyor Tender Name Role Phone Bunch OD, Amilcar Unavailable Unavailable Procedures Procedure Date CL Replacement - Tima Other 9 Tax - Medical Eye Exam & Treatment Refraction Advance Directives Directive Yes / No Effective Date File Name No Information Encounters Encounter Description Practice Location Reason(s) For Visit Diagnoses Date Provider Providers Copied on Encounter [facility], [address] [place] [address] [address], [place], [place], [id number], tel:[phone] [facility] No Information 3-200 9 Bunch OD Amilcar. [address] , [address], [place], [address], [place]. tel:[phone] [facility], [address] [place] [address] [address], [place], [place], [id number], tel:[phone] [facility] No Information 3200 9 Bunch OD Amilcar. [address] , [address], [place], [address], [place]. tel:[phone] Family History Family Member Type Diagnosis Age At Onset No Information Payers Payer name Insurance type Covered democrat ID Authoriza tion(s) No Information Social History [...]
--- OUTSIDE RECORDS SUMMARY | 2025-01-27 14:43 | XMS_ITS | Encounter Summary ---
Author Organization [facility] Address [address] [facility] [place] [address] Care Team Providers Care Administrative Intern Name Role Phone Alley Brody MD Unavailable [phone] Christiano Edgar MD Primary Care Provider Encounter Details Date Type Department Care Team (Late st Contact Info) Description 12/06/2024 Lab Requisition [facility] - DermPath Lab [address] [facility], [place] [address] Lisa Milian MD [address] [facility] 3 [place] [address] Social History Tobacco Use Types Packs/Day Years [...] Comments DERMATOPATHOLOGY Routine 12/06/2024 10:4 5 AM CYLINDER MACHINE OPERATOR documented in this encounter Results * DERMATOPATHOLOGY (12/06/2024 10:45 AM CYLINDER MACHINE OPERATOR) Case Report Dermatopathology Report Case: [id number] Authorizing Provider: Lisa Milian MD Collected: 12/06/2024 10:45 AM Ordering Location: [facility] - Received: 12/07/2024 01:04 PM DermPath Lab Pathologist: Kylah Atkinson MD Specimen: Skin, left ant thigh 2:15 PM CYLINDER MACHINE OPERATOR DERMATOPATHOLOGY LABORATORY Final Diagnosis Specimen A. 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 The specimen consists of a shave biopsy measuring 2 pieces 10x9x2,9x8x2 mm. Jar 0. 2:15 PM CYLINDER MACHINE OPERATOR DERMATOPATHOLOGY LABORATORY Microscopic Description Specimen A. SKIN, left ant thigh: Sections show an endo exophytic crateriform lesion with a keratotic plug, formed by confluent follicle-like structures with relatively large keratinocytes. 2:15 PM CYLINDER MACHINE OPERATOR DERMATOPATHOLOGY LABORATORY Disclaimer An external and internal positive and negative controls are appropriate for the histochemical, immunohistochemical and immunofluorescence stain(s) in this case (if any), except where stated explicitly. The performance characteristics of the stain(s) cited in this report were developed and its performance characteristic determined by the Dermatopathology Laboratory at [facility], directed by Dr. Jessica Trinidad. These tests need not be, and therefore are not, approved by the [place] Food and Drug Administration. The tests are used for clinical purposes. Billing Codes Specimen Charges Stain Charges 75818 1 2:15 PM CYLINDER MACHINE OPERATOR DERMATOPATHOLOGY LABORATORY Embedded Images 2:15 PM CYLINDER MACHINE OPERATOR DERMATOPATHOLOGY LABORATORY Pathology/Cytolo gy TISSUE SPECIMEN FROM SKIN / Unknown 12/06/2024 10:45 AM CYLINDER MACHINE OPERATOR 12/07/2024 1:04 PM CYLINDER MACHINE OPERATOR Lisa Milian MD LAB - PATHOLOGY/CYT OLOGY ORDERABLES DERMATOPATHOLOGY LABORATORY [facility] - Department of Dermatology [facility] [facility], 3rd Floor [address] [phone] documented in this encounter Visit Diagnoses Not on filedocumented in this encounter Care Teams Administrative Intern Relationship Specialty Start Date End Date Christiano Edgar MD [address] [place] [id number] PCP - General Family Medicine 07/02/15 [place] [address] [address] Orthopedic Surgery 08/29/13 documented as of this encounter
--- OUTSIDE RECORDS SUMMARY | 2025-01-27 14:43 | XMS_ITS | Encounter Summary ---
Author Organization [facility] Address [address] [facility] [place] [address] Care Team Providers Care Biodiesel Product Development Manager Name Role Phone Alley Brody MD Unavailable [phone] Christiano Edgar MD Primary Care Provider [phone] Encounter Details Date Type Department Care Team (Late st Contact Info) Description 07/14/2024 Lab Requisition [facility] - DermPath Lab [address] [facility], [place] [address] Sharla Perez DO [address] [facility] 3 [place] [address] Social History Tobacco Use Types Packs/Day Years [...] AM CDT) Case Report Dermatopathology Report Case: [id number] Authorizing Provider: Sharla Perez DO Collected: 07/14/2024 10:20 AM Ordering Location: [facility] - Received: 07/15/2024 09:26 AM DermPath Lab Pathologist: Adilene Jackson MD Specimens: A) - Skin, left uatsdin B) - Skin, left upper back 10:40 AM [facility] DERMATOPATHOLOGY LABORATORY Final Diagnosis Specimen A. 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 SKIN, left upper back: BASAL CELL CARCINOMA, NODULAR TYPE (C44.519) 10:40 AM [facility] DERMATOPATHOLOGY LABORATORY Clinical History A-B: R/O NMSC 10:40 AM [facility] DERMATOPATHOLOGY LABORATORY Gross Description Specimen A: Received is one formalin filled container labeled with the patient's name and designated left uatsdin. The specimen consists of a shave biopsy measuring 7x5x1 mm. Jar 0. Specimen B: Received is one formalin filled container labeled with the patient's name and designated left upper back. The specimen consists of a shave biopsy measuring 7x7x1 mm. Jar 0. 10:40 AM [facility] DERMATOPATHOLOGY LABORATORY Microscopic Description Specimen A. SKIN, left uatsdin: The epidermis shows parakeratosis, full thickness disorderly maturation of keratinocytes, mitoses at different levels, and dyskeratotic cells. Specimen B. SKIN, left upper back: Within the dermis there are aggregates of basaloid cells with a high nuclear to cytoplasmic ratio and peripheral palisading. 10:40 AM [facility] DERMATOPATHOLOGY LABORATORY Disclaimer An external and internal positive and negative controls are appropriate for the histochemical, immunohistochemical and immunofluorescence stain(s) in this case (if any), except where stated explicitly. The performance characteristics of the stain(s) cited in this report were developed and its performance characteristic determined by the Dermatopathology Laboratory at [facility], directed by Dr. Jessica Trinidad. These tests need not be, and therefore are not, approved by the [place] Food and Drug Administration. The tests are used for clinical purposes. Billing Codes Specimen Charges Stain Charges 21529 15201 1 1 09/09/202 4 10:40 AM CDT [...] DERMATOPATHOLOGY LABORATORY [facility] - Department of Dermatology [facility] Medicine [address] [place] [address] [phone] documented in this encounter Visit Diagnoses Not on filedocumented in this encounter Care Teams Biodiesel Product Development Manager Relationship Specialty Start Date End Date Christiano Edgar MD [address] [place] [address] PCP - General Family Medicine 07/02/15 [place] [address] [place] [address] Orthopedic Surgery 08/29/13 documented as of this encounter
--- OUTSIDE RECORDS SUMMARY | 2025-01-27 14:44 | XMS_ITS | Clinical Summary ---
Author Organization [facility] Address [address] [place] [address] Care Team Providers Care Tablet Making Machine Operator Name Role Phone Duane Damico MD Primary Care Provider Reyna Claudio MD Unavailable [phone] oMr Aguilera MD Unavailable Allergies Active Allergy Reactions [...] route every week 0 0 5 Active lyks-stl-jcy-bl kbor-om 3,6,9 5 400-400-200 mg capsule Take by mouth 2 (two) times a day. Active qo-tnbqloe-phn- iron fm-FA-vitK 18 mg iron-600 mcg-80 mcg [...] Carotid stenosis, asymptomatic, bilateral 2023 Atherosclerosis of [place] ar teries of extremities with intermittent claudication, [...] Chronic constipation for years. Has failed multiple rwnk-oag-ztmwjhd medications including MiraLax and probiotics. Has tried [...] (06/24/2018): Added automatically from request for surgery [id number] PVD (peripheral vascular disease) ([facility]) 04/09 Mixed hyperlipidemia 04/21/2018 Intermittent [...] extremity with matheus n 01/13/2017 Dilated cardiomyopathy ([facility]) 12/18/2015 Overview (02/13/2017): Cardiomyopathy Assessment [...] Plan (08/31/2017 5:39 PM CDT): Studies at [facility] showed less than 50% carotid stenosis. 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); Stenosis of carotid artery, unspecified laterality; Left bundle branch block (LBBB); PVD (peripheral vascular disease) (CMS/HCC) (HCC); Mixed hyperlipidemia; Essential (primary) hypertension 01/10/2025 2:30 PM EXECUTIVE CREATIVE DIRECTOR Office Visit [facility] Care at [address] [phone] Deepali Gee NP Influenza A (Primary Dx) 12/27/2024 Telephone [facility] Surgery [address] [facility] Floor 1 [place] [address] Lurdes Orlando NP from Last [...] APPENDECTOMY Appendectomy OOPHERECTOMY Left ANGIO SELECTIVE CAROTID SEED CLEANING MACHINE OPERATOR RIGHT 05/30/2019 Right ANGIO SELECTIVE CAROTID SEED CLEANING MACHINE OPERATOR RIGHT 09/30/2021 Right BRAIN SURGERY ABDOMINAL SURGERY [...] on file Legal Sex Female 12:39 AM EXECUTIVE CREATIVE DIRECTOR Gender Identity Not on file Sexual Orientation Not on file 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 Not on file Not on file Not on file Obstetrics History Last Filed Vital Signs Vital Sign Reading Time Taken Comments Blood Pressure 162/66 01/19/2025 2:09 PM CDT Pulse 78 01/19/2025 2:09 PM CDT Temperature 36.7 C (98 F) 01/10/2025 2:32 PM EXECUTIVE CREATIVE DIRECTOR Respiratory Rate 24 01/10/2025 2:32 PM EXECUTIVE CREATIVE DIRECTOR Oxygen Saturation 97% 01/19/2025 2:09 PM CDT [...] history exists Medical Devices Implanted Type Area Buffet Waiter/Waitress Device Identifier Shelf Expiration Date Model / Serial / Lot Intracranial Aneurysm Coil Cranial Description:3.5 mm x 23 mm L VIS Jr stent, MicroVention HydroSoft-Helical 2mm x 6cm, HydroSoft-Helical 2mm x 4cm, HydroSoft 3D 1mm x 3cm; 6 [place] Star[employer] Procedures Procedure Name Priority Date/Time Associated Diagnosis Comments POCT RAPID STREP Routine 01/10/2025 2:43 PM EXECUTIVE CREATIVE DIRECTOR Influenza A POC INFLUENZA A/B, COVID-19 ANTIGEN Routine 01/10/2025 2:40 PM EXECUTIVE CREATIVE DIRECTOR Influenza A from Last 3 Months Results * POCT rapid strep A (01/10/2025 2:43 PM EXECUTIVE CREATIVE DIRECTOR) Rapid Strep A, POC Negative Negative Swab 01/10/2025 2:43 PM EXECUTIVE CREATIVE DIRECTOR us Deepali Gee SEATING UPHOLSTERER POINT OF CARE TEST ORDERABLES Final Result * (ABNORMAL) POC Influenza A/B, COVID-19 antigen (01/10/2025 2:40 PM EXECUTIVE CREATIVE DIRECTOR) Influenza A Ag, POC Positive(A) Negative [facility] Influenza B Ag, POC Negative Negative [facility] COVID-19 Ag POC Presumptive Negative Presumptive Negative, Invalid [facility] Nasal 01/10/2025 2:40 PM EXECUTIVE CREATIVE DIRECTOR us Deepali Gee NP POINT OF CARE TEST ORDERABLES Final Result Performing Organization Address City/State/[facility] Co de Phone Number [facility] [address] [place] [address], [facility] from Last 3 Months Insurance MEDICARE [facility] MEDICARE [facility] [place] Advance Directives For more information, please contact: [phone] * Full Code (Latest Code Status on File) Date Activated Date Inactivated Comments 05/30/2019 12:35 PM 05/31/2019 12:06 AM * Full Code Date Activated Date Inactivated Comments 04/18/2019 1:59 AM 04/19/2019 6:47 PM * Full Code Date Activated Date Inactivated Comments 07/29/2018 12:59 PM 07/29/2018 3:32 PM Care Teams Tablet Making Machine Operator Relationship Specialty Start Date End Date Duane Damico MD [address] [facility] [address] [place] [address] PCP - General Family Medicine 08/23/24 Reyna Claudio MD [address] [facility] [address] [place] [address] Referring Physician Nephrology 08/23/24 Mor Aguilera MD [address] [facility] [address] [address] Consulting Physician Interventional Cardiology 08/23/24
--- OUTSIDE RECORDS SUMMARY | 2025-01-27 14:45 | XMS_ITS | Continuity of Care Document ---
Author Organization [facility] [facility] Address [facility] [address] [place] [address] Phone Care Team Providers Care Timber Harvester Operator Name Role Phone Rondon PT,MPT,ATC, Ramo Unavailable Unavai lable Procedures Procedure Date Doc neg elder mal no plan PRES/ABSN URINE INCON ASSESS PT Evaluation Moderate Complexity Therapeutic Activities Neuromuscular Re-Ed Doc neg elder mal no plan OT Re-Evaluation Therapeutic Activities Neuromuscular Re-Ed Manual Therapy Hot or Cold Pack Therapeutic Activities Neuromuscular Re-Ed Manual Therapy Hot or Cold Pack Therapeutic Activities Neuromuscular Re-Ed Manual Therapy Hot or Cold Pack Therapeutic Activities Neuromuscular Re-Ed Manual Therapy Hot or Cold Pack Therapeutic Activities Neuromuscular Re-Ed Hot or Cold Pack Progress Note Therapeutic Activities Neuromuscular Re-Ed Manual Therapy Hot or Cold Pack Therapeutic Activities Neuromuscular Re-Ed Manual Therapy Hot or Cold Pack Therapeutic Activities Neuromuscular Re-Ed Manual Therapy Hot or Cold Pack Therapeutic Activities Neuromuscular Re-Ed Manual Therapy Hot or Cold Pack Therapeutic Activities Neuromuscular Re-Ed Manual Therapy Hot or Cold Pack Therapeutic Activities Neuromuscular Re-Ed Therapeutic Exercise Manual Therapy Hot or Cold Pack Therapeutic Activities Neuromuscular Re-Ed Therapeutic Exercise Manual Therapy Hot or Cold Pack Doc neg elder mal no plan OT Evaluation Moderate Complexity Therapeutic Activities Neuromuscular Re-Ed Therapeutic Exercise Hot or Cold Pack Advance Directives Directive Yes / No Effective Date File Name No Information Encounters Encounter Description Practice Location Reason(s) For Visit Diagnoses Date Provider Providers Copied on Encounter [facility] [address], [id number], tel:[phone] [place] No Information 4 Alcon Powers [place], [place]. [address], [id number], tel:[phone] [place] No Information 4 J CARLOS Cline, [place]. Referring Provider: Duane Francisco, [address] [facility], [place], [address]. tel:[phone] [employer] [address] [place] [address], [id number], tel:[phone] [place] No Information 3 Harsandhya Chamberlain. . Referring Provider: Anya Montenegro [address], [place], [address]. tel:[phone] [facility], [address], [place], [place], [id number], [place] tel:[phone] [place] No Information 3 Harsandhya Chamberlain. . Referring Provider: Anya Montenegro [address], [place], [address]. tel:[phone] [facility], [address], [place], [place], [id number], [place] tel:[phone] [place] No Information 3 Bre Sánchez. . Referring Provider: Anya Montenegro [address], [place], [address]. tel:[phone] [facility], [place], [place], [id number], [place] tel:[phone] [place] No Information 3 Harsandhya Chamberlain. . Referring Provider: Anya Montenegro [address], [place], [address]. tel:[phone] [facility], [place], [place], [id number], [place] tel:[phone] [place] No Information 3 Harsandhya Chamberlain. . Referring Provider: Anya Montenegro [address], [place], [address]. tel:[phone] [facility], [place], [place], [id number], [place] tel:[phone] [place] No Information 3 Harsandhya Cintia. . Referring Provider: Anya Montenegro [address], [place], [address]. tel:[phone] [facility], [address], [place], [place], [id number], [place] tel:[phone] [place] No Information 3 Harig Cintia. . Referring Provider: Anya oMntenegro , [address], [place], [address]. tel:[phone] [facility], [address], [place], [place], [id number], [place] tel:[phone] [place] No Information 3 Harig Cintia. . Referring Provider: Anya Montenegro [address], [place], [address]. tel:[phone] [facility], [address], [place], [place], [id number], [place] tel:[phone] [place] No Information 3 Harsandhya Cintia. . Referring Provider: Anya Montenegro [address], [place], [address]. tel:[phone] [facility], [place], [place], [id number], [place] tel:[phone] [place] No Information 3 Harsandhya Cintia. . Referring Provider: Anya Montenegro [address], [place], [address]. tel:[phone] [facility], [address], [place], [place], [id number], [place] tel:[phone] [place] No Information 3 Harig Cintia. . Referring Provider: Anya Montenegro , [address], [place], [address]. tel:[phone] [facility], [address], [place], [place], [id number], [place] tel:[phone] [place] No Information Oct- 2 Sree Chamberlain. . Referring Provider: Anya Montenegro , [address], [place], [address]. tel:[phone] [employer] [place], [address], [place], [place], [id number], tel:[phone] [place] No Information 2 Sree Chamberlain. . Referring Provider: Anya Montenegro [address], [place], [address]. tel:[phone] Family History Family Member Type Diagnosis Age At Onset No Information Payers Payer name Insurance type Covered green party ID Seven chin(s) Medicare [place] [id number] [facility] [id number] [place] [id number] Social History Type Description Quantity Date Captured [...]
--- OUTSIDE RECORDS SUMMARY | 2025-01-27 14:45 | XMS_ITS | Clinical Summary ---
Author Organization [facility] Address [address], [place] [address] Phone Care Team Providers Care Machine Printer Hose Name Role Phone Christiano Edgar MD Primary [...] (06/23/2019): Added automatically from request for surgery [id number] Intermittent claudication 04/21/2018 Chronic kidney disease, stage [...] arteries Last Assessment & Plan: Studies at [facility] showed less than 50% carotid [...] 09/22/2019 Influenza Vaccine (#1) 2024 Care Teams Machine Printer Hose Relationship Specialty Start Date End Date Christiano Edgar MD [address] [place] [address] PCP - General Family Medicine 06/22/19
[2025-01-27 14:48] LABS: Basophils Absolute Auto 0.1 K/mm3 (0.0-0.1); Basophils Percent Auto 0.7 % (0.2-1.2); Eosinophils Absolute Auto 0.1 K/mm3 (0-0.3); Eosinophils Percent Auto 1.7 % (0-4.4); Hematocrit 36.3 % (37.0-47.0); Hemoglobin 11.6 g/dL (12.0-15.0); Immature Granulocyte Absolute 0.02 K/mm3 (0.00-0.031); Immature Granulocyte Percent A 0.3 % (0-0.5); Lymphocytes Absolute Auto 1.93 K/mm3 (0.9-3.2); Mean Corpuscular Hemoglobin 30.7 pg (26-34); Mean Platelet Volume 9.1 fl (7.4-10.4); Monocytes Absolute Auto 0.5 K/mm3 (0.1-0.6); Neutrophils Absolute Auto 4.3 K/mm3 (1.3-6.7); Neutrophils Percent Auto 62.3 % (45.5-73.1); Platelet Count Result 247 k/mm3 (150-375); Red Blood Count 3.78 M/mm3 (4.2-5.4); Red Cell Distribution Width 13.2 % (11.5-14.5); White Blood Count 6.9 K/mm3 (4.5-10.0)
[2025-01-27 15:03] LABS: Prothrombin Time 13.5 Seconds (11.1-14.7)
[2025-01-27 15:04] LABS: Partial Thromboplastin Time 29.4 Seconds (22.3-36.8)
[2025-01-27 15:11] LABS: NT Pro B Type Natriuretic Pept 1660 pg/mL (19.9-100)
[2025-01-27 15:18] LABS: D Dimer 0.92 ug/mL (<0.48)
[2025-01-27 15:19] LABS: Anion Gap 11 mmol/L (4-12); Blood Urea Nitrogen 43 mg/dL (7-17); Calcium 9.8 mg/dL (8.4-10.2); Carbon Dioxide 22 mmol/L (22-30); Chloride 104 mmol/L (98-107); Creatine Kinase 132 U/L (30-135); Estimated CRCL calculation 11 ml/min; Estimated Glomerular Filt Rate 19; Glucose 99 mg/dL (65-110); Sodium 137 mmol/L (137-145)
--- NOTE | 2025-01-27 15:23 | ECG_ITS ---
Test Date: 2025-01-27 15:35:13 Measurements Intervals [place] Rate: 61 P: 63 VA: 145 QRS: -28 QRSD: 144 T: 70 QT: 466 QTc: 470 Interpretive Statements SINUS RHYTHM LEFT BUNDLE BRANCH BLOCK [120+ ms QRS DURATION, 80+ ms Q/S IN V1/V2, 85+ ms R IN I/aVL/V5/V6] No previous ECG available for comparison Electronically Signed On 01-27-2025 18:39:52 CDT by Mor Aguilera M.D.
--- NOTE | 2025-01-27 15:38 | PC.NURSE ---
patient aware that a urine sample is needed. pt went to the restroom when she first got here, states she will use call button when she needs to go to the bathroom again. patient declining straight cath at this time
--- NOTE | 2025-01-27 15:39 | PC.NURSE ---
patient moved to a room with sewing department supervisor capabilities. patient denies chest pain or discomfort, sob, or any other cardiac related signs and symptoms at this time
--- NOTE | 2025-01-27 15:57 | PCRCNOTE ---
RT here at bedside to do breathing tx, pt not in room
[2025-01-27] MEDS: ALBUTEROL SULFATE NEB 2.5 MG/3 ML INH 10 MG INHALATION (16:16)
[2025-01-27] MEDS: CALCIUM GLUCONATE 1,000 MG/10 ML VIAL 1000 MG IV PUSH (16:20)
[2025-01-27] MEDS: SODIUM CHLORIDE 0.9% IV 1,000 ML 999 ML IV CONT (16:20)
[2025-01-27] MEDS: DEXTROSE 50% 25 GM/50 ML SYRINGE IV PUSH (16:20)
[2025-01-27] MEDS: INSULIN HUMAN REGULAR (*BKC) 100 UNITS/ML IV PUSH (16:20)
[2025-01-27 16:24] LABS: Glucose Point of Care 108 mg/dl (65-105)
[2025-01-27 17:49] LABS: Anion Gap 11 mmol/L (4-12); Blood Urea Nitrogen 40 mg/dL (7-17); Calcium 9.9 mg/dL (8.4-10.2); Carbon Dioxide 19 mmol/L (22-30); Chloride 107 mmol/L (98-107); Estimated CRCL calculation 12 ml/min; Estimated Glomerular Filt Rate 22; Glucose 85 mg/dL (65-110); Potassium 4.6 mmol/L (3.4-5.0); Sodium 137 mmol/L (137-145)
[2025-01-27 18:10] LABS: Add Urine Microscopic? NO; Appearance Urine Clear (Clear); Bilirubin Urine Negative (Negative); Blood Urine Negative (Negative); Color Urine Yellow (Yellow); Glucose Urine UA 1+ mg/dL (Negative); Ketones Urine Negative (Negative); Leukocyte Esterase Ur Negative LEU/UL (Negative); Nitrate Urine Negative (Negative); Protein Urine Negative (Negative); Urobilinogen Urine 0.2 mg/dL (<2.0); pH Urine 5.5 (5.0-9.0)
[2025-01-27] MEDS: AZITHROMYCIN 250 MG TABLET 500 MG PO (18:55)
--- NOTE | 2025-01-27 20:01 | PC.NURSE ---
patient requesting to talk with Dr. Burch because she states she's not sick enough to have to be admitted to the hospital and she wants to go home. aware.
--- NOTE | 2025-01-27 20:28 | PC.NURSE ---
patient given a sandwhich, fruit, and drink at this time. patient verbalizes she doesn't want to stay in the hospital because she's not sick enough, and hasn't eaten anything all day.
--- NOTE | 2025-01-27 20:54 | PC.NURSE ---
dr sanchez at bedside speaking with the patient at this time
--- NOTE | 2025-01-27 21:11 | PC.NURSE ---
spoke with patients daughter and POA about the patient signing out AMA.
== END 2025-01-27 21:48 | disposition left against medical advice (07) ==
LOC: ANHED 14:26 → ANH3MEDSUR 21:08
PROVIDERS: Emergency Provider Student in an Organized Health Care Education/Training Program; PCP Family Medicine
DX: M79.605 Pain in left leg (principal); M79.604 Pain in right leg; N17.9 Acute kidney failure, unspecified; I13.0 Hypertensive heart and chronic kidney disease with heart failure and stage 1 through stage 4 chronic kidney disease, or unspecified chronic kidney disease; N18.9 Chronic kidney disease, unspecified; I50.9 Heart failure, unspecified; D64.9 Anemia, unspecified; R91.8 Other nonspecific abnormal finding of lung field; I42.9 Cardiomyopathy, unspecified; I73.9 Peripheral vascular disease, unspecified; E87.5 Hyperkalemia; E78.5 Hyperlipidemia, unspecified; Z87.891 Personal history of nicotine dependence; Z79.82 Long term (current) use of aspirin; Z79.899 Other long term (current) drug therapy
CPT/HCPCS: 36415; 71045; 80048; 81003; 82550; 82948; 83735; 83880; 84443; 85025; 85380; 85610; 85730; 87040; 93005; 93970; 94640; 96365; 96375; 99284; A9270; J0612; J0696; J1815; J7030